=== PATIENT | female | born 1960 | race Caucasian/White ===

== ENCOUNTER 2020-07-02 10:25 | Outpatient (REF) | payer OTHER, SELFPAY ==
--- NOTE | 2020-07-02 10:33 | MM_ITS ---
EXAMINATION: MM DIAGNOSTIC DIGITAL BREAST TOMOSYNTHESIS, RIGHT CLINICAL INFORMATION: Recall from screening for question focal asymmetric density central 9:00 right breast mid to posterior depth not seen with certainty on prior outside imaging. COMPARISON: Mammography: 06/07/2020, outside mammography 12/12/2013 and 05/15/2011 ([facility], [place], [place]). TECHNIQUE: Digital breast tomosynthesis is performed. 2D images are generated from the tomosynthesis. The following views are obtained: Rolled CC x3, spot CC, spot MLO. FINDINGS: There are scattered areas of fibroglandular density (ACR BI-RADS breast composition Category b). The additional views show no persistent asymmetric density. There is no mass or architectural abnormality in the area of interest. Results are discussed with the patient at time of visit. IMPRESSION: Additional views show no persistent asymmetric density, mass, architectural abnormality. ASSESSMENT: BI-RADS 1: Negative RECOMMENDATION: Routine annual mammography screening. This patient's information was entered into a reminder system with a target due date for their next mammogram.
== END 2020-07-02 10:26 | disposition home or self-care (01) ==
LOC: HO.MAMMO 10:25
PROVIDERS: PCP Internal Medicine; Visit Provider Internal Medicine
DX: R92.2 Inconclusive mammogram (principal)
CPT/HCPCS: 77065

== ENCOUNTER 2020-08-30 11:36 | Outpatient (REF) | payer OTHER, SELFPAY ==
--- NOTE | 2020-08-30 | XR_ITS ---
EXAMINATION: XR CHEST CLINICAL INFORMATION: Persistent cough COMPARISON: None TECHNIQUE: 2 views of the chest were obtained. FINDINGS: The cardiac and mediastinal contours are normal. There are increased bilateral perihilar linear markings suggestive of scarring or subsegmental atelectasis. No evidence of a pneumonia is seen. There is no pleural effusion or pneumothorax. There are degenerative changes of the spine. XR/XR chest 2V IMPRESSION: Increased bilateral linear perihilar markings suggestive of scarring or subsegmental atelectasis. No evidence of pneumonia.
== END 2020-08-30 11:37 | disposition home or self-care (01) ==
LOC: HO.HMGCX 11:36
PROVIDERS: PCP Internal Medicine; Visit Provider Internal Medicine
DX: R05 Cough (principal)
CPT/HCPCS: 71046

== ENCOUNTER 2021-02-10 08:55 | Outpatient (REF) | payer OTHER, SELFPAY ==
--- NOTE | ~2021-02-10 | XR_ITS ---
EXAMINATION: XR CHEST CLINICAL INFORMATION: Cough. Lung scarring. COMPARISON: Previous chest x-ray August 2020 TECHNIQUE: 2 views of the chest were obtained. FINDINGS: The cardiac and mediastinal contours are stable. There is linear scarring or subsegmental atelectasis in the lower left lateral lung. This is similar to previous exam. The lungs are otherwise clear. There is no pleural effusion or pneumothorax. There are degenerative changes of the spine. XR/XR chest 2V IMPRESSION: Increased linear markings in the peripheral lateral lower left lung suggestive of scarring or chronic subsegmental atelectasis.
== END 2021-02-10 08:56 | disposition home or self-care (01) ==
LOC: HO.XRAY 08:55
PROVIDERS: PCP Internal Medicine; Visit Provider Internal Medicine
DX: R05 Cough (principal); J98.4 Other disorders of lung
CPT/HCPCS: 71046

== ENCOUNTER 2021-02-18 10:33 | Outpatient (REF) | payer OTHER, SELFPAY ==
[2021-02-18 10:36] LABS: MANUAL DIFF FLAG NO
[2021-02-18 10:51] LABS: Basophils Absolute Auto 0.1 X10*3/uL (0.0-0.2); Basophils Percent Auto 1.1 % (0-2); Eosinophils Absolute Auto 0.4 X10*3/uL (0.0-0.4); Eosinophils Percent Auto 8.8 % (0-4); Hematocrit 36.9 % (37-47); Hemoglobin 11.5 g/dl (12.0-16.0); Imm Gran Abs Auto 0.01 X10*3/uL (0.00-0.03); Imm Gran Pct Auto 0.2 % (0.0-0.4); Lymphocytes Absolute Auto 1.3 X10*3/uL (1.2-4.9); Lymphocytes Percent Auto 28.3 % (20-40); Mean Corpuscular HGB Conc 31.2 g/dl (31.0-35.0); Mean Corpuscular Hemoglobin 29.9 pg (27.0-33.0); Mean Corpuscular Volume 96.1 fL (80-98); Mean Platelet Volume 10.5 fL (9.4-12.3); Monocytes Absolute Auto 0.5 X10*3/uL (0.1-1.2); Monocytes Percent Auto 9.9 % (2-11); Neutrophils Absolute Auto 2.4 X10*3/uL (2.0-8.3); Neutrophils Percent Auto 51.7 % (45-73); Platelet Count 300 X10*3/uL (160-400); Red Blood Count 3.84 X10*6/uL (4.20-5.50); Red Cell Distribution Width 13.1 % (11.0-16.0); White Blood Count 4.6 X10*3/uL (4.8-10.8)
[2021-02-18 11:15] LABS: Glucose Urine UA NEG (NEG); Leukocyte Esterase Urine NEG (NEG); Nitrite Urine NEG (NEG); PH 5.5 (5.0-8.0); Specific Gravity - Urine 1.025 (1.005-1.025); Urine Blood TRACE (NEG); Urine Ketones NEG (NEG); Urine Protein NEG (NEG-TRACE)
[2021-02-18 11:20] LABS: Appearance Urine HAZY; Color Urine YELLOW
[2021-02-18 11:45] LABS: RBC Urine 0-2 /HPF (0); Squamous Epithelial Cell Urine 1+ /LPF; WBC Urine 0 /HPF (0-4)
[2021-02-18 11:46] LABS: Bacteria Urine 1+ /LPF
[2021-02-18 11:47] LABS: Alanine Aminotransferase 37 U/L (0-31); Albumin Level 4.1 g/dL (3.5-5.0); Alkaline Phosphatase 107 U/L (39-117); Anion Gap 12 (12-20); Aspartate Amino Transferase 26 U/L (5-31); Bilirubin Total 0.2 mg/dL (0.0-1.0); Blood Urea Nitrogen 14 mg/dL (9-16); Calcium 9.4 mg/dL (8.4-10.2); Carbon Dioxide 26 mmol/L (22-29); Chloride 108 mmol/L (96-108); Cholesterol 168 mg/dL; Estimated Glomerular Filt Rate > 60; Glucose Fasting 106 mg/dL (60-99); HDL Cholesterol 46 mg/dL; LDL Cholesterol Calculated 103 mg/dl; Potassium 4.2 mmol/L (3.3-5.1); Sodium 142 mmol/L (135-145); Triglycerides 99 mg/dL
[2021-02-18 12:25] LABS: Reflex LDLD? No
== END 2021-02-18 10:34 | disposition home or self-care (01) ==
LOC: HO.LNP 10:33
PROVIDERS: Visit Provider Internal Medicine
DX: Z00.00 Encounter for general adult medical examination without abnormal findings (principal); R74.8 Abnormal levels of other serum enzymes; R94.5 Abnormal results of liver function studies; E78.00 Pure hypercholesterolemia, unspecified
CPT/HCPCS: 80053; 80061; 81001; 81003; 85025

== ENCOUNTER 2021-06-10 10:22 | Outpatient (REF) | payer OTHER, SELFPAY | END 2021-06-10 10:23 | disposition home or self-care (01) | LOC: HO.LAB 10:22 | PROVIDERS: PCP Internal Medicine; Visit Provider Internal Medicine | DX: Z20.822 Contact with and (suspected) exposure to COVID-19 (principal) | CPT/HCPCS: C9803; U0003; U0005 ==

== ENCOUNTER 2021-07-12 09:07 | Outpatient (REF) | payer OTHER, SELFPAY ==
--- NOTE | ~2021-07-12 | MM_ITS ---
EXAMINATION: MM SCREENING DIGITAL BREAST TOMOSYNTHESIS, BILATERAL CLINICAL INFORMATION: Screening. Asymptomatic. The lifetime risk of breast cancer based on the Tyrer-Cuzick Model is 4%. COMPARISON: Mammography: 07/02/2020, 06/07/2020; outside mammography 12/12/2013 and 05/15/2011 ([place], [place]). TECHNIQUE: Digital breast tomosynthesis is performed in both the craniocaudal and mediolateral oblique views along with computer-aided detection (CAD). Synthesized 2D images are generated from the tomosynthesis. FINDINGS: There are scattered areas of fibroglandular density (ACR BI-RADS breast composition Category b). There is fine fibronodular parenchymal pattern similar to prior studies. No significant mass or architectural abnormality. No developing density or architectural abnormality. No abnormal calcifications. The axillary nodes are stable. The skin contours are smooth. MM/MM tomosynthesis screening BI IMPRESSION: No significant changes from prior exams. ASSESSMENT: BI-RADS 1: Negative RECOMMENDATION: Routine annual mammography screening. This patient's information was entered into a reminder system with a target due date for their next mammogram.
== END 2021-07-12 09:08 | disposition home or self-care (01) ==
LOC: HO.MAMMO 09:07
PROVIDERS: Visit Provider Internal Medicine
DX: Z12.31 Encounter for screening mammogram for malignant neoplasm of breast (principal)
CPT/HCPCS: 77063; 77067

== ENCOUNTER 2021-07-22 16:07 | Emergency (ER) | payer OTHER, SELFPAY ==
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
[2021-07-22 16:32] VITALS: BP 139/73; RESP 16; TEMP 36.7; O2SAT 100; BMI 35.9
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
== END 2021-07-22 18:23 | disposition home or self-care (01) ==
LOC: HO.ED 18:03
PROVIDERS: Emergency Provider Emergency Medicine; PCP Internal Medicine
DX: S63.91XA Sprain of unspecified part of right wrist and hand, initial encounter (principal); L03.113 Cellulitis of right upper limb; Y04.8XXA Assault by other bodily force, initial encounter; Y93.9 Activity, unspecified; Y92.219 Unspecified school as the place of occurrence of the external cause; Y99.0 Civilian activity done for income or pay; Z79.899 Other long term (current) drug therapy
CPT/HCPCS: 73130; 99283

== ENCOUNTER 2021-08-30 08:16 | Outpatient (REF) | payer OTHER, SELFPAY ==
[2021-08-30 09:30] LABS: Alanine Aminotransferase 25 U/L (0-31); Albumin Level 4.1 g/dL (3.5-5.0); Alkaline Phosphatase 103 U/L (39-117); Aspartate Amino Transferase 21 U/L (5-31); Bilirubin Direct 0.2 mg/dL (0.0-0.5); Bilirubin Total 0.3 mg/dL (0.0-1.0); Cholesterol 172 mg/dL; HDL Cholesterol 43 mg/dL; LDL Cholesterol Calculated 106 mg/dl; Triglycerides 117 mg/dL
[2021-08-30 11:11] LABS: Reflex LDLD? No
== END 2021-08-30 08:17 | disposition home or self-care (01) ==
LOC: HO.LAB 08:16
PROVIDERS: PCP Internal Medicine; Visit Provider Internal Medicine
DX: E78.00 Pure hypercholesterolemia, unspecified (principal)
CPT/HCPCS: 36415; 80061; 80076

== ENCOUNTER 2021-09-09 10:10 | Outpatient (REF) | payer OTHER, SELFPAY ==
--- NOTE | ~2021-09-09 | FL_ITS ---
EXAMINATION: XR FLUOROSCOPY UPPER GI WITH AIR CLINICAL INFORMATION: Reflux gastritis COMPARISON: None TECHNIQUE: Upper GI was performed using thin and thick barium and effervescent granules. FINDINGS: Esophageal motility is normal. There is significant gastroesophageal reflux. There is a small sliding-type hiatal hernia. The stomach and duodenum are normal. No fold thickening, mass, ulcer or stricture is seen. FLUOROSCOPY TIME: 0.7 minutes DOSE AREA PRODUCT: 5 marin per centimeter squared. Fluoroscopy time 0.7 minutes. 19 saved fluoroscopic images. FL/FL upper GI w air IMPRESSION: Significant gastroesophageal reflux and small sliding-type hiatal hernia.
== END 2021-09-09 10:11 | disposition home or self-care (01) ==
LOC: HO.XRAY 10:10
PROVIDERS: PCP Internal Medicine; Visit Provider Internal Medicine
DX: K21.9 Gastro-esophageal reflux disease without esophagitis (principal)
CPT/HCPCS: 74246

== ENCOUNTER 2021-09-15 14:39 | Inpatient (IN) | payer OTHER, SELFPAY ==
[2021-09-15] VITALS (10 sets, daily range): BP systolic 75–147; BP diastolic 41–85; PULSE 89–144; RESP 17–26; TEMP 36.6–36.7; O2SAT 97–98; BMI 35.2
--- NOTE | ~2021-09-15 | XR_ITS ---
EXAMINATION: XR CHEST CLINICAL INFORMATION: Question A. fib. COMPARISON: 02/10/2021 TECHNIQUE: Frontal view of the chest was obtained. FINDINGS: Cardiomediastinal silhouette is stable. Some linear scarring/atelectasis without consolidation, pleural effusion or pneumothorax. XR/XR chest 1V IMPRESSION: No acute process.
--- NOTE | 2021-09-15 14:57 | ECG_ITS ---
Test Reason : afib Blood Pressure : / mmHG Vent. Rate : 151 BPM Atrial Rate : 000 BPM P-R Int : 000 ms QRS Dur : 062 ms QT Int : 270 ms P-R-T Axes : 000 -04 -01 degrees QTc Int : 427 ms Atrial fibrillation with RVR Abnormal ECG No previous ECGs available Referred By: Generic ED Physician Electronically Signed By:Sudeep Carnes
[2021-09-15 16:20] LABS: MANUAL DIFF FLAG NO
[2021-09-15 16:22] LABS: Basophils Absolute Auto 0.1 X10*3/uL (0.0-0.2); Basophils Percent Auto 0.7 % (0-2); Eosinophils Absolute Auto 0.3 X10*3/uL (0.0-0.4); Eosinophils Percent Auto 3.6 % (0-4); Hematocrit 40.3 % (37.0-47.0); Imm Gran Abs Auto 0.02 X10*3/uL (0.00-0.03); Imm Gran Pct Auto 0.3 % (0.0-0.4); Lymphocytes Absolute Auto 2.3 X10*3/uL (1.2-4.9); Lymphocytes Percent Auto 32.8 % (20-40); Mean Corpuscular HGB Conc 32.3 g/dl (31.0-35.0); Mean Corpuscular Hemoglobin 30.4 pg (27.0-33.0); Mean Corpuscular Volume 94.2 fL (80.0-98.0); Mean Platelet Volume 10.2 fL (9.4-12.3); Monocytes Absolute Auto 0.6 X10*3/uL (0.1-1.2); Monocytes Percent Auto 8.7 % (2-11); Neutrophils Absolute Auto 3.9 x10*3/uL (2.0-8.3); Neutrophils Percent Auto 53.9 % (45-73); Platelet Count 297 X10*3/uL (160-400); Red Blood Count 4.28 X10*6/uL (4.20-5.50); White Blood Count 7.1 X10*3/uL (4.8-10.8)
[2021-09-15 16:39] LABS: Anion Gap 11 (12-20); Blood Urea Nitrogen 13 mg/dL (9-16); Carbon Dioxide 28 mmol/L (22-29); Chloride 110 mmol/L (96-108); Estimated Glomerular Filt Rate > 60; Glucose Random 103 mg/dL (60-115); Potassium 4.3 mmol/L (3.3-5.1); Sodium 145 mmol/L (135-145)
[2021-09-15 16:40] LABS: Troponin-I High Sensitivity 4.5 ng/L (<3.5-17.0)
--- NOTE | 2021-09-15 16:48 | ED.GENADULT ---
HPI - General Adult General Chief complaint: General Medical Stated complaint: Afib Time Seen by Provider: 09/15/21 16:35 Related Data Previous Rx's Medication Instructions Recorded acetaminophen 500 mg tablet 1,000 mg PO QID PRN #14 tab 07/22/21 (Tylenol Extra Strength) cephalexin 500 mg capsule 500 mg PO Q6H 10 Days #40 cap 07/22/21 doxycycline monohydrate 100 mg 100 mg PO BID 10 Days #20 cap 07/22/21 capsule Allergies Allergy/AdvReac Type Severity Reaction Status Date / Time No Known Allergies Allergy Unverified 06/06/20 19:40 [No Known Allergies*] COUNT INCLUDES THE [facility] Past Medical History Medical History (Updated 09/15/21 @ 20:00 by Brenda Vaz MD) High cholesterol Social History Social History Advance Directives: No Advance Directives Information Provided: Yes Patient : No Physical Exam Vital Signs: Vital Signs: Last Vital Signs Temp 98 F 09/15/21 16:36 Pulse 120 H 09/15/21 18:39 Resp 19 09/15/21 18:39 BP 111/81 09/15/21 18:39 Pulse Ox 98 09/15/21 18:39 BMI result Body Mass Index 35.2 Course Course Course Narrative: Patient received 1 dose 10 mg IV Cardizem, initially heart rate dropped 110 but shortly after increased to 130. Patient received a 2nd dose of 10 mg IV Cardizem. Patient got up to the bathroom and since then her heart rate has remained between 130 and 140, blood pressure 111/81. Patient was started on a Cardizem drip. I discussed with the patient risks versus benefits of starting anticoagulation. Patient is willing to start anticoagulation, we will go ahead and start her on EliSol [employer] Medical Decision Making Lab Data Result diagrams: 09/15/21 16:15 09/15/21 16:53 Labs: Lab Results 09/15/21 09/15/21 09/15/21 Range/Units 16:15 16:15 16:15 WBC 7.1 (4.8-10.8) X10*3/uL RBC 4.28 (4.20-5.50) X10*6/uL Hgb 13.0 (12.0-16.0) g/dl Hct 40.3 (37.0-47.0) % MCV 94.2 (80.0-98.0) fL MCH 30.4 (27.0-33.0) pg MCHC 32.3 (31.0-35.0) g/dl RDW 13.0 (11.0-16.0) % Plt Count 297 (160-400) X10*3/uL MPV 10.2 (9.4-12.3) fL Immature Gran % (Auto) 0.3 (0.0-0.4) % Neut % (Auto) 53.9 (45-73) % Lymph % (Auto) 32.8 (20-40) % [place] % (Auto) 8.7 (2-11) % Eos % (Auto) 3.6 (0-4) % Baso % (Auto) 0.7 (0-2) % Lymph # (Auto) 2.3 (1.2-4.9) X10*3/uL [place] # (Auto) 0.6 (0.1-1.2) X10*3/uL Eos # (Auto) 0.3 (0.0-0.4) X10*3/uL Baso # (Auto) 0.1 (0.0-0.2) X10*3/uL Abs Immat Gran (auto) 0.02 (0.00-0.03) X10*3/uL Absolute Neuts (auto) 3.9 (2.0-8.3) x10*3/uL Absolute Nucleated RBC 0.000 (0.0-0.012) X10*3/uL Nucleated RBC % (auto) 0.0 (0.0-0.2) /100WBC PT (9.9-13.0) SEC INR (0.9-1.1) Sodium 145 (135-145) mmol/L Potassium 4.3 (3.3-5.1) mmol/L Chloride 110 H (96-108) mmol/L Carbon Dioxide 28 (22-29) mmol/L Anion Gap 11 L (12-20) BUN 13 (9-16) mg/dL Creatinine 0.74 (0.5-1.4) mg/dL Estim Creat Clear Calc TNP Estimated GFR > 60 Random Glucose 103 (60-115) mg/dL Calcium 10.0 D (8.4-10.2) mg/dL Troponin I High Sens 4.5 (<3.5-17.0) ng/L B-Natriuretic Peptide (<100) pg/mL 09/15/21 09/15/21 09/15/21 Range/Units 16:53 16:53 16:53 WBC (4.8-10.8) X10*3/uL RBC (4.20-5.50) X10*6/uL Hgb (12.0-16.0) g/dl Hct (37.0-47.0) % MCV (80.0-98.0) fL MCH (27.0-33.0) pg MCHC (31.0-35.0) g/dl RDW (11.0-16.0) % Plt Count (160-400) X10*3/uL MPV (9.4-12.3) fL Immature Gran % (Auto) (0.0-0.4) % Neut % (Auto) (45-73) % Lymph % (Auto) (20-40) % Angelina % (Auto) (2-11) % Eos % (Auto) (0-4) % Baso % (Auto) (0-2) % Lymph # (Auto) (1.2-4.9) X10*3/uL [place] # (Auto) (0.1-1.2) X10*3/uL Eos # (Auto) (0.0-0.4) X10*3/uL Baso # (Auto) (0.0-0.2) X10*3/uL Abs Immat Gran (auto) (0.00-0.03) X10*3/uL Absolute Neuts (auto) (2.0-8.3) x10*3/uL Absolute Nucleated RBC (0.0-0.012) X10*3/uL Nucleated RBC % (auto) (0.0-0.2) /100WBC PT 11.4 (9.9-13.0) SEC INR 1.0 (0.9-1.1) Sodium 144 (135-145) mmol/L Potassium 4.3 (3.3-5.1) mmol/L Chloride 110 H (96-108) mmol/L Carbon Dioxide 25 (22-29) mmol/L Anion Gap 13 (12-20) BUN 13 (9-16) mg/dL Creatinine 0.73 (0.5-1.4) mg/dL Estim Creat Clear Calc 76.6 Estimated GFR > 60 Random Glucose 105 (60-115) mg/dL Calcium 10.3 H (8.4-10.2) mg/dL Troponin I High Sens (<3.5-17.0) ng/L B-Natriuretic Peptide 143 H (<100) pg/mL Imaging Data Chest x-ray: Radiologist's impression: Frontal view of the chest was obtained. FINDINGS: Cardiomediastinal silhouette is stable. Some linear scarring/atelectasis without consolidation, pleural effusion or pneumothorax. XR/XR chest 1V IMPRESSION: No acute process. ECG Data Attestation: I personally reviewed and interpreted this ECG as follows: (Atrial fibrillation, heart rate 151, no ST segment depression or elevation, not to inversion, QTC 427) Critical Care Time Critical Care Time Critical Care Time: Yes Total Critical Care Time: 50 Attestation: 50 minutes were spent in direct patient care, stabilization. Discharge Plan Discharge Clinical Impression: New onset atrial fibrillation Patient Disposition: Admitted As Inpatient Prescriptions: No Action acetaminophen [Tylenol Extra Strength] 500 mg tablet 1,000 mg PO QID PRN (Reason: fever or pain) Qty: 14 RF: 0 doxycycline monohydrate 100 mg capsule 100 mg PO BID 10 Days Qty: 20 RF: 0 cephalexin 500 mg capsule 500 mg PO Q6H 10 Days Qty: 40 RF: 0
[2021-09-15] MEDS: 0.9 % Sodium Chloride 1,000 ML 999 ML IVCONT (16:55)
[2021-09-15] MEDS: dilTIAZem HCL 50 MG/10 ML VIAL 10 MG IVPUSH ×2 (16:57→18:20)
[2021-09-15 17:17] LABS: Prothrombin Time 11.4 SEC (9.9-13.0)
[2021-09-15 17:26] LABS: Anion Gap 13 (12-20); Blood Urea Nitrogen 13 mg/dL (9-16); Calcium 10.3 mg/dL (8.4-10.2); Carbon Dioxide 25 mmol/L (22-29); Chloride 110 mmol/L (96-108); Creatinine Clr Calc Pharmacy 76.6; Estimated Glomerular Filt Rate > 60; Glucose Random 105 mg/dL (60-115); Potassium 4.3 mmol/L (3.3-5.1); Sodium 144 mmol/L (135-145)
[2021-09-15 17:32] LABS: B Type Natriuretic Peptide 143 pg/mL (<100)
--- NOTE | 2021-09-15 18:22 | PC.NURSE ---
medicated w 2nd cardizem dose, alert, nad, no cp, mild sob/medina w walk to bathroom, afib on monitor
[2021-09-15] MEDS: dilTIAZem HCL 125 MG in 0.9 % Sodium Chloride 100 ML 10 MG IVCONT (20:29)
[2021-09-15] MEDS: Apixaban 5 MG TABLET PO (20:30)
--- NOTE | 2021-09-15 22:36 | PM.IMHP ---
History of Present Illness Date of Service: 09/15/21 Chief Complaint: A fib 61-year-old female with no significant past medical history except hyperlipidemia who presents to the hospital with complaints of AFib. Patient reports that she has been feeling tired, short of breath, and a lot of fatigue over the past 1 year, she went to her PCP today, he did an EKG at the [facility] is and found her to have AFib and therefore sent her to the hospital. Patient reports that ever since having hip replacement she has been gaining weight and therefore she attributed her shortness of breath to her weight gain and inactivity, but denies any chest pain, she has been having palpitations for the past few months, she denies any leg swelling but has orthopnea and PND have also developed over past 1 year. She denies any headache, no change in vision, no cough, no sputum production, no abdominal pain nausea or vomiting, no diarrhea constipation: on arrival to the ED patient found to have heart rate in the 130s to 150s, with stable blood pressure. labs reviewed showed no significant abnormality, BNP of 143, troponin normal. Chest x-ray shows no acute process patient started on diltiazem drip for AFib with RVR and will be admitted for further management Review of Systems Review of Systems: Yes all other systems are reviewed and are negative [facility] Medical History High cholesterol Family History Mother Heart disease Social History Patient Tobacco Use Status: Never used Tobacco Use of substances other than those prescribed or required for medical reasons: No Advance Directives: No Advance Directives Information Provided: Yes Patient : No Meds Allergies Allergy/AdvReac Type Severity Reaction Status Date / Time No Known Allergies Allergy Unverified 06/06/20 19:40 [No Known Allergies*] Active Medications: Current Medications Diltiazem HCl 125 mg/ Sodium (Chloride) 125 mls @ 0 mls/hr IVCONT .Q0M [facility]; Protocol Last Admin: 09/15/21 20:29 Dose: 10 mg/hr, 10 mls/hr Documented by: Metoprolol Tartrate (Metoprolol Tartrate 12.5 Mg Halftab) 12.5 mg PO BID LYDIA; Protocol Pharmacy Consult (Consult Rx Perform Med Rec) 1 each MISCELLANE ONCE PRN PRN Reason: Consult order Home Medications Medication Instructions Recorded Confirmed Last Taken Type atorvastatin 20 mg tablet 20 mg PO DAILY 09/15/21 09/15/21 09/15/21 History multivitamin 1 tab PO DAILY 09/15/21 09/15/21 09/15/21 History Physical Exam Vital Signs and Narrative: Vital Signs: Last Vital Signs Temp 98.1 F 09/15/21 21:28 Pulse 131 H 09/15/21 21:28 Resp 18 09/15/21 21:28 BP 109/71 09/15/21 21:28 Pulse Ox 98 09/15/21 21:28 BMI result Body Mass Index 35.2 Const: General: cooperative and no acute distress Orientation/consciousness: patient oriented x3 Eyes: General: appearance normal, both eyes and all related structures Resp: Effort & Inspection: normal respiratory effort Auscultation: clear to auscultation bilaterally Cardio: Other: irregular heart rate Rhythm: regular rhythm GI: Palpation (GI): Soft to palpation Auscultation: normal bowel sounds Skin: General skin exam: no rashes or lesions noted Neuro: General: patient oriented x3 Extrem: General: Yes normal to inspection and Yes no pedal edema Results Labs CBC and Chem 7: 09/15/21 16:15 09/15/21 16:53 Labs: Laboratory Results - last 24 hr 09/15/21 09/15/21 09/15/21 16:15 16:15 16:15 MCV 94.2 MCH 30.4 MCHC 32.3 RDW 13.0 Plt Count 297 MPV 10.2 Immature Gran % (Auto) 0.3 Neut % (Auto) 53.9 Lymph % (Auto) 32.8 [place] % (Auto) 8.7 Eos % (Auto) 3.6 Baso % (Auto) 0.7 Lymph # (Auto) 2.3 [place] # (Auto) 0.6 Eos # (Auto) 0.3 Baso # (Auto) 0.1 Abs Immat Gran (auto) 0.02 Absolute Neuts (auto) 3.9 Absolute Nucleated RBC 0.000 Nucleated RBC % (auto) 0.0 PT INR Anion Gap 11 L Estim Creat Clear Calc TNP Estimated GFR > 60 Random Glucose 103 Calcium 10.0 D Troponin I High Sens 4.5 B-Natriuretic Peptide 09/15/21 09/15/21 09/15/21 16:53 16:53 16:53 MCV MCH MCHC RDW Plt Count MPV Immature Gran % (Auto) Neut % (Auto) Lymph % (Auto) [place] % (Auto) Eos % (Auto) Baso % (Auto) Lymph # (Auto) [place] # (Auto) Eos # (Auto) Baso # (Auto) Abs Immat Gran (auto) Absolute Neuts (auto) Absolute Nucleated RBC Nucleated RBC % (auto) PT 11.4 INR 1.0 Anion Gap 13 Estim Creat Clear Calc 76.6 Estimated GFR > 60 Random Glucose 105 Calcium 10.3 H Troponin I High Sens B-Natriuretic Peptide 143 H Imaging Radiologist's Impressions: Impressions Chest X-Ray 09/15/21 15:04 IMPRESSION: No acute process. Assessment and Plan (1) New onset atrial fibrillation: Status: Acute (2) Atrial fibrillation with RVR: Status: Acute 61-year-old female with past medical history of hyperlipidemia presents the hospital found to have new onset AFib, found to be in AFib with RVR # new onset AFib - ChadVasc score of 1 for sex - started on diltiazem drip and received 12.5 mg of Lopressor p.o. but developed significant hypotension, received 1 L of fluid in the ED with blood pressure stabilizing - will obtain echocardiogram - cardiology consult - will hold off starting anticoagulation at this time although patient received 1 dose of Eliquis in the ED # Hyperlipidemia - continue statin DVT prophylaxis: [employer] Quality Stroke Does the patient have a stroke diagnosis?: No VTE Prior VTE?: No VTE Risk Level:: Medical - moderate - high VTE Device Contraindication: Treatment Not Indicated VTE Drug Contraindication: N/A - Med Ordered
[2021-09-15] MEDS: Metoprolol Tartrate 12.5 MG HALFTAB PO (22:47)
--- NOTE | 2021-09-15 23:40 | PC.NURSE ---
Drip adjust to 15. pt is tolerating well. Will continue to monitor
[2021-09-16] VITALS (17 sets, daily range): BP systolic 78–110; BP diastolic 43–76; PULSE 81–136; RESP 15–26; TEMP 36.5; O2SAT 95–99
--- NOTE | 2021-09-16 02:43 | PC.NURSE ---
Notified Dr Gya, in regards to low bp, fluids given. pt monitor and had improved but then started to trend down. Second call to Dr. Gay she was aware and will medicate soon.
[2021-09-16 02:49] LABS: Appearance Urine CLEAR; Color Urine YELLOW; Glucose Urine UA NEG (NEG); Leukocyte Esterase Urine NEG (NEG); Nitrite Urine NEG (NEG); Specific Gravity - Urine >= 1.030 (1.005-1.025); Urine Blood NEG (NEG); Urine Ketones NEG (NEG); Urine Protein NEG (NEG-TRACE)
--- NOTE | 2021-09-16 02:51 | PC.NURSE ---
pt heart rate is control and drip is not longer running.
[2021-09-16] MEDS: Midodrine HCl 5 MG TABLET PO (02:56)
--- NOTE | 2021-09-16 02:58 | PC.NURSE ---
Provider aware of bp.
--- NOTE | 2021-09-16 04:08 | PC.NURSE ---
report called over to overflow. pt reports feeling much better.
--- NOTE | 2021-09-16 07:31 | CA_ITS ---
Transthoracic Echocardiogram Patient (Last, First, Middle): Lorena Villarreal, Gender: Female Date of : 1960 Age: 61 Procedure Date: 09/16/2021 Procedure Type: Transthoracic Echocardiogram Location: ER Height: 154.94 cm Weight: 81.65 kg BSA: 1.81 m2 Heart Rate: bpm BP: 97 / 61 mmHg Sight Mounter: Referring MD: Bhumika Cai MD Symptoms: new onset A fib Study Quality: Fair ECG Rhythm: Atrial Fibrillation Conclusions: - Normal left ventricular size and systolic function. There is mildly increased left ventricular wall thickness. The visually estimated ejection fraction is between 55-60%. - Normal right ventricular cavity size and systolic function. - Normal aortic valve structure and function. There is no aortic valve stenosis. There is no aortic valve regurgitation. Findings Left Ventricle Normal left ventricular size and systolic function. There is mildly increased left ventricular wall thickness. The visually estimated ejection fraction is between 55-60%. There is no evidence of regional wall motion abnormalities. Diastolic function is indeterminate on the basis of available data. Right Ventricle Normal right ventricular cavity size and systolic function. Atria The left atrium is mildly dilated. Aortic Valve Normal aortic valve structure and function. There is no aortic valve stenosis. There is no aortic valve regurgitation. Mitral Valve Normal mitral valve structure and function. There is no mitral valve regurgitation. There is no mitral valve stenosis. Pulmonic Valve The pulmonic valve is likely normal. Tricuspid Valve Normal tricuspid valve structure. There is trace tricuspid valve regurgitation. Moderately elevated right atrial pressure. There is no evidence of pulmonary hypertension. Great Vessels All visible segments of the aorta are normal in size. The pulmonary artery was not well visualized. Venous The inferior vena cava is dilated and collapses less than 50% with inspiration. Pericardium/Pleural There is no evidence of pericardial effusion. Prior Study Comparison No prior study available for comparison. Measurements 2D Linear Measurements IVSd: 1.18 0.6-0.9/0.6-1.0 cm LVIDd: 3.66 3.9-5.3/4.2-5.9 cm LVIDd Index: 2.02 2.4-3.2/2.2-3.1 cm/m2 LVIDs: 3.10 2.0-3.6 cm LVPWd: 1.17 0.7-1.1 cm Ao Root: 2.80 2.1-3.5 cm LA Diam: 3.30 2.7-3.8/3.0-4.0 cm LAIDs Index: 1.82 1.5-2.3 cm/m2 LV Mass: 174.78 67-162/88-224 g LV Mass Index: 96.56 43-95/49-115 g/m2 LVOT Diam: 1.90 3.0+(-)1.3 cm 2D Systolic Function EF 4C: 55.30 >55% EF 2C: 51.40 >55% EF BiP: 56.60 >55% Mitral Valve MV Pk E: 1.26 MV Decel Time: 128.00 E'Lateral: 13.30 E'Medial: 10.60 E/E' Med: 11.90 E/E' Lat: 9.50 PHT: 37.00 MVA PHT: 5.95 Decel [place]: 9.90 Aortic Valve AoV Pk Ruben: 1.18 AoV Mn Ruben: 0.73 AoV VTI: 0.21 AoV Pk Grad: 6.00 Aov Mn Grad: 3.00 BINDU Cont.VTI: 2.24 LVOT LVOT Pk Ruben: 0.83 LVOT Mn Ruben: 0.56 LVOT VTI: 0.17 LVOT Pk Grad: 3.00 LVOT Mn Grad: 1.00 LVOT Diam: 1.90 LVOT Area: 2.84 Diastolic Function MV Pk E: 1.26 E'Medial: 10.60 E/E' Med: 11.90 E' Laterial: 13.30 E/E' Lat: 9.50 Right Ventricle TAPSE (mm): 16.00 TVS' Ruben: 9.00 Tricuspid Valve TR Pk Ruben: 2.25 TR Pk Grad: 20.00 RVSP: 28.00 Great Vessels Aorta Ao Root-2D: 2.80 2.0-3.7 cm Ao Asc: 2.90 2.1-3.4 cm Pulmonary Valve PV Pk Ruben: 1.02 Peak PV Grad: 4.00 Updated in Other Vendor System with Status of Final Sudeep Carnes MD electronically signed on 09/16/2021 11:17:33 AM with status of Final
[2021-09-16] MEDS: 0.9 % Sodium Chloride Flush 3 ML SYRINGE IVFLUSH ×3 (08:13→17:46)
[2021-09-16] MEDS: Enoxaparin Sodium 40 MG/0.4 ML SYRINGE SUBCUT (08:13)
[2021-09-16] MEDS: Metoprolol Tartrate 12.5 MG HALFTAB PO (08:14)
--- NOTE | 2021-09-16 08:33 | PC.NURSE ---
Pt A&Ox3, no complaints of pain at this time, ambulated to the BR independently, denies any dizziness at this time, but states she sat at the edge of the bed before standing. Slight SOB upon return to room after BR. A fib on the monitor with HR between 110's-130's. BP as documented, pt states her normal BP is usually 110's/60's. Medicated as per MAR orders, awaiting ECHO of heart and cardiology consult at this time. , Gamaliel updated w/POC. Call riley within reach, will continue to monitor.
[2021-09-16] MEDS: dilTIAZem HCL 125 MG in 0.9 % Sodium Chloride 100 ML IVCONT (09:52)
--- NOTE | 2021-09-16 10:00 | PC.NURSE ---
Cardizem drip restarted as per Dr. Sousa orders, started at 5/hr, BP 110/76 HR between 100's-130's at this time. Call riley within reach will continue to monitor.
[2021-09-16 10:14] LABS: COVID-19 Test Negative (Negative); IDNOW Serial# 9DD0AD1C
--- NOTE | 2021-09-16 10:55 | MHC.CM.PN ---
Met with patient in regards to discharge planning. Patient lives with her , ambulates independently and had no services prior to coming to the hospital. No services anticipated to be needed because patient is not homebound. PCP verified. Patient received 3 Pfizer vaccines. Patient's has a copy of her HCP and will attempt to obtain a copy. [facility] explained and signed. Patient's will transport her home when medically stable. Continue to monitor for d/c needs.
--- NOTE | 2021-09-16 11:56 | P.CONCA_ITS ---
History of Present Illness History of Present Illness Date of Service: 09/16/21 Requesting physician: Yon Sousa Chief complaint: new onset a fib Narrative: Pleasant 61-year-old female who is presenting with new onset atrial fibrillation. She went to her primary care physician for routine follow-up and was found to be in AFib and was sent to the emergency department. She is saying she has been short of breath for approximately 1 year. She had hip replacement and her shortness of breath pre dates the surgery. She does not have any chest pains or other concerning symptoms. Off and on she has felt some palpitations. She is saying she has been feeling them for few months. She runs low blood pressures at baseline. Denying any other issues at this point. [facility]MERLY [facility] Past Medical History Medical History High cholesterol Family History Family History Mother Heart disease Social History Social History Patient Tobacco Use Status: Never used Tobacco Use of substances other than those prescribed or required for medical reasons: No Advance Directives: No Advance Directives Information Provided: Yes Patient : No service: No Current occupational status: employed Meds Allergies Allergy/AdvReac Type Severity Reaction Status Date / Time No Known Allergies Allergy Unverified 06/06/20 19:40 [No Known Allergies*] Active Medications: Current Medications Acetaminophen (Acetaminophen 325 Mg Tablet) 650 mg PO Q6H PRN PRN Reason: Pain, Mild (Pain Scale 1-3) Docusate Sodium (Docusate Sodium 100 Mg Capsule) 100 mg PO DAILY PRN PRN Reason: Constipation Enoxaparin Sodium (Enoxaparin Sodium 40 Mg/0.4 Ml Syringe) 40 mg SUBCUT Q24H [facility], 1928[facility]1983 Last Admin: 09/16/21 08:13 Dose: 40 mg Documented by: Diltiazem HCl 125 mg/ Sodium (Chloride) 125 mls @ 0 mls/hr IVCONT .Q0M [facility], [facility]; Protocol Last Admin: 09/16/21 09:52 Dose: 5 mg/hr, 5 mls/hr Documented by: Metoprolol Tartrate (Metoprolol Tartrate 12.5 Mg Halftab) 12.5 mg PO BID [facility], [facility]; Protocol Last Admin: 09/16/21 08:14 Dose: 12.5 mg Documented by: Ondansetron HCl (Ondansetron Hcl 4 Mg/2 Ml Vial) 4 mg IVPUSH Q8H PRN PRN Reason: Nausea and Vomiting Pharmacy Consult (Consult Rx Perform Med Rec) 1 each MISCELLANE ONCE PRN PRN Reason: Consult order Sodium Chloride (0.9 % Sodium Chloride Flush 3 Ml Syringe) 3 ml IVFLUSH QSHIFT [facility] Last Admin: 09/16/21 08:23 Dose: 3 ml Documented by: Home Medications Medication Instructions Recorded Confirmed Last Taken Type atorvastatin 20 mg tablet 20 mg PO DAILY 09/15/21 09/15/21 09/15/21 History multivitamin 1 tab PO DAILY 09/15/21 09/15/21 09/15/21 History Physical Exam Vital Signs: Vital Signs: Last Vital Signs Temp 97.7 F 09/16/21 06:00 Pulse 113 H 09/16/21 10:23 Resp 22 H 09/16/21 10:23 BP 100/64 09/16/21 10:23 Pulse Ox 95 09/16/21 10:23 BMI result Body Mass Index 35.2 GENERAL APPEARANCE: in no acute distress, pleasant. NECK: no carotid bruit, no jugular venous distention. SKIN: no suspicious lesions, warm and dry. HEART: no murmurs, irregular rate and rhythm. LUNGS: clear to auscultation bilaterally. ABDOMEN: soft, nontender. EXTREMITIES: no edema. PERIPHERAL PULSES: equal. NEUROLOGIC: No gross deficits, AAO X 3 Objective Labs and Meds Result diagrams: 09/15/21 16:15 09/15/21 16:53 Lab results: Laboratory Results - last 24 hr 09/15/21 09/15/21 09/15/21 16:15 16:15 16:15 WBC 7.1 RBC 4.28 Hgb 13.0 Hct 40.3 MCV 94.2 MCH 30.4 MCHC 32.3 RDW 13.0 Plt Count 297 MPV 10.2 Immature Gran % (Auto) 0.3 Neut % (Auto) 53.9 Lymph % (Auto) 32.8 [place] % (Auto) 8.7 Eos % (Auto) 3.6 Baso % (Auto) 0.7 Lymph # (Auto) 2.3 [place] # (Auto) 0.6 Eos # (Auto) 0.3 Baso # (Auto) 0.1 Abs Immat Gran (auto) 0.02 Absolute Neuts (auto) 3.9 Absolute Nucleated RBC 0.000 Nucleated RBC % (auto) 0.0 PT INR Sodium 145 Potassium 4.3 Chloride 110 H Carbon Dioxide 28 Anion Gap 11 L BUN 13 Creatinine 0.74 Estim Creat Clear Calc TNP Estimated GFR > 60 Random Glucose 103 Calcium 10.0 D Troponin I High Sens 4.5 B-Natriuretic Peptide Urine Color Urine Appearance Urine pH Ur Specific [place] Urine Protein Urine Glucose (UA) Urine Ketones Urine Blood Urine Nitrite Ur Leukocyte Esterase COVID-19 ([facility]) COVIDDatical 09/15/21 09/15/21 09/15/21 16:53 16:53 16:53 WBC RBC Hgb Hct MCV MCH MCHC RDW Plt Count MPV Immature Gran % (Auto) Neut % (Auto) Lymph % (Auto) [place] % (Auto) Eos % (Auto) Baso % (Auto) Lymph # (Auto) [place] # (Auto) Eos # (Auto) Baso # (Auto) Abs Immat Gran (auto) Absolute Neuts (auto) Absolute Nucleated RBC Nucleated RBC % (auto) PT 11.4 INR 1.0 Sodium 144 Potassium 4.3 Chloride 110 H Carbon Dioxide 25 Anion Gap 13 BUN 13 Creatinine 0.73 Estim Creat Clear Calc 76.6 Estimated GFR > 60 Random Glucose 105 Calcium 10.3 H Troponin I High Sens B-Natriuretic Peptide 143 H Urine Color Urine Appearance Urine pH Ur Specific [place] Urine Protein Urine Glucose (UA) Urine Ketones Urine Blood Urine Nitrite Ur Leukocyte Esterase COVID-19 ([facility]) COVID-[place] 09/16/21 09/16/21 02:38 09:54 WBC RBC Hgb Hct MCV MCH MCHC RDW Plt Count MPV Immature Gran % (Auto) Neut % (Auto) Lymph % (Auto) [place] % (Auto) Eos % (Auto) Baso % (Auto) Lymph # (Auto) [place] # (Auto) Eos # (Auto) Baso # (Auto) Abs Immat Gran (auto) Absolute Neuts (auto) Absolute Nucleated RBC Nucleated RBC % (auto) PT INR Sodium Potassium Chloride Carbon Dioxide Anion Gap BUN Creatinine Estim Creat Clear Calc Estimated GFR Random Glucose Calcium Troponin I High Sens B-Natriuretic Peptide Urine Color YELLOW Urine Appearance CLEAR Urine pH 6.0 Ur Specific [place] >= 1.030 H Urine Protein NEG Urine Glucose (UA) NEG Urine Ketones NEG Urine Blood NEG Urine Nitrite NEG Ur Leukocyte Esterase NEG COVID-19 ([facility]) Negative COVID-19 Clin Com See Note Imaging Radiologist's impression: Impressions Chest X-Ray 09/15/21 15:04 IMPRESSION: No acute process. Assessment and Plan (1) Atrial fibrillation with RVR: Status: Acute Pleasant 61-year-old female who is here for new onset atrial fibrillation. She has been experiencing palpitations for long time and routine knees are primary care physician where EKG has shown concern for atrial fibrillation. She is on low-dose Cardizem but her blood pressure is low. Echocardiography has not shown cardiomyopathy and she has normal biventricular function. If she is not tolerating Cardizem then I think she can be loaded with digoxin 250 mcg x2. I would try low-dose beta-bruno with digoxin. Please start her on Eliquis 5 mg twice a day. Keep her NPO after midnight. We will do CORETTA cardioversion on her tomorrow. She has shortness of breath ongoing for long time and is difficult to say that it is linked with atrial fibrillation or not. In any case we will see post cardioversion if her breathing improves. This can be related to deconditioning after hip surgery too. Thank you for allowing me to participate in the care of your patient. Please feel free to contact me if you have any questions. Procedures Date of Service Date of Service: 09/16/21
--- NOTE | 2021-09-16 12:09 | PC.NURSE ---
Md Sousa made aware of pt's current BP 78/57 with HR 104 while on cardizem drip at 5ml/hr. Drip stopped at this time and order received from that pt will continue eliquis, start digoxin and will be receiving a cardioversion. RN will continue to monitor.
[2021-09-16] MEDS: Apixaban 5 MG TABLET PO ×2 (13:23→21:16)
[2021-09-16] MEDS: Digoxin 0.5 MG/2 ML AMPUL IVPUSH (13:23)
--- NOTE | 2021-09-16 13:28 | PC.NURSE ---
1100 AM: Pt received: Pt AOX4 and offers no complaints at this time. Controlled AFib noted on monitor with current cardizem drip running at 5ml/hr. Lungs sounds clear. Abd round and non-tender.
--- NOTE | 2021-09-16 16:54 | HO.PM.IMPN ---
Subjective Subjective Date of Service: 09/16/21 Interval History: No acute events overnight. Monitor remains AFib with rapid ventricular response. Short of breath with minimal exertion Review of Systems Denies chest pain Denies nausea vomiting diarrhea. Denies abdominal pain Physical Exam Vital Signs: Vital Signs: Last Vital Signs Temp 97.7 F 09/16/21 06:00 Pulse 97 09/16/21 14:04 Resp 20 09/16/21 14:04 BP 104/70 09/16/21 14:04 Pulse Ox 98 09/16/21 14:04 BMI result Body Mass Index 35.2 Const: Other: No acute distress Resp: Other: Clear to auscultation bilaterally no rales rhonchi wheezes Cardio: Other: Irregularly irregular; no S4; positive S1-S2; no S3 murmurs rubs gallops GI: Other: Soft nondistended with normoactive bowel sounds. No rebound or guarding Neuro: Other: Cranial nerves 2-12 grossly intact as tested. Motor is 5/5 all extremities. Sensation is intact. Cognition is appropriate Extrem: Other: No edema bilaterally Objective Data Active Medications Acetaminophen (Acetaminophen 325 Mg Tablet) 650 mg PO Q6H PRN PRN Reason: Pain, Mild (Pain Scale 1-3) Apixaban (Apixaban 5 Mg Tablet) 5 mg PO BID [facility] Last Admin: 09/16/21 13:23 Dose: 5 mg Documented by: RAUL Digoxin (Digoxin 0.5 Mg/2 Ml Ampul) 0.25 mg IVPUSH ONCE ONE Stop: 09/16/21 18:03 Digoxin (Digoxin 0.5 Mg/2 Ml Ampul) 0.25 mg IVPUSH ONCE ONE Stop: 09/17/21 00:05 Docusate Sodium (Docusate Sodium 100 Mg Capsule) 100 mg PO DAILY PRN PRN Reason: Constipation Diltiazem HCl 125 mg/ Sodium (Chloride) 125 mls @ 0 mls/hr IVCONT .Q0M [facility]; Protocol Last Titration: 09/16/21 12:10 Dose: 0 mg/hr, 0 mls/hr Documented by: RAUL Metoprolol Tartrate (Metoprolol Tartrate 12.5 Mg Halftab) 12.5 mg PO BID [facility]; Protocol Last Admin: 09/16/21 08:14 Dose: 12.5 mg Documented by: JOSE ALEJANDRO Ondansetron HCl (Ondansetron Hcl 4 Mg/2 Ml Vial) 4 mg IVPUSH Q8H PRN PRN Reason: Nausea and Vomiting Pharmacy Consult (Consult Rx Perform Med Rec) 1 each MISCELLANE ONCE PRN PRN Reason: Consult order Sodium Chloride (0.9 % Sodium Chloride Flush 3 Ml Syringe) [facility] Last Admin: 09/16/21 08:23 Dose: 3 ml Documented by: JOSE ALEJANDRO Labs CBC & Chem 7: 09/15/21 16:15 09/15/21 16:53 Labs: Laboratory Results - last 24 hr 09/15/21 09/15/21 09/15/21 16:53 16:53 16:53 PT 11.4 INR 1.0 Anion Gap 13 Estim Creat Clear Calc 76.6 Estimated GFR > 60 Random Glucose 105 Calcium 10.3 H B-Natriuretic Peptide 143 H Urine Color Urine Appearance Urine pH Ur Specific [place] Urine Protein Urine Glucose (UA) Urine Ketones Urine Blood Urine Nitrite Ur Leukocyte Esterase COVID-19 ([facility]) COVID-19 Clin Com 09/16/21 09/16/21 02:38 09:54 PT INR Anion Gap Estim Creat Clear Calc Estimated GFR Random Glucose Calcium B-Natriuretic Peptide Urine Color YELLOW Urine Appearance CLEAR Urine pH 6.0 Ur Specific [place] >= 1.030 H Urine Protein NEG Urine Glucose (UA) NEG Urine Ketones NEG Urine Blood NEG Urine Nitrite NEG Ur Leukocyte Esterase NEG COVID-19 ([facility]) Negative COVID-19 Clin Com See Note Assessment and Plan (1) Atrial fibrillation with RVR: Status: Acute (2) New onset atrial fibrillation: Status: Acute Assessment and Plan: 61-year-old female with past medical history of hyperlipidemia presents the hospital found to have new onset AFib, found to be in AFib with RVR 1.New onset AFib w/RVR Cardizem drip reinstated this a.m. approximately 1 hour after oral beta bruno. Patient developed symptomatic hypotension. Drip stopped Discussed with cardiology; will anticoagulate with Eliquis and digitalize as ordered. NPO after midnight for CORETTA cardioversion in a.m. 2.Hyperlipidemia - continue statin Eliquis/full code Quality Stroke Does the patient have a stroke diagnosis?: No VTE Prior VTE?: No VTE Risk Level:: Medical - moderate - high VTE Device Contraindication: Treatment Not Indicated VTE Drug Contraindication: N/A - Med Ordered
[2021-09-16] MEDS: Digoxin 0.5 MG/2 ML AMPUL 0.25 MG IVPUSH (17:45)
[2021-09-16] MEDS: Acetaminophen 325 MG TABLET 650 MG PO (17:49)
--- NOTE | 2021-09-16 17:53 | PC.NURSE ---
Medicated as per [facility] orders, headache 02/27 at this time. A fib on the monitor HR from 90-130 at this time. Call riley within reach. Will continue to monitor.
[2021-09-17 00:55] VITALS: BP 117/73; PULSE 107; RESP 16; TEMP 36.5; O2SAT 97
[2021-09-17] MEDS: Acetaminophen 325 MG TABLET 650 MG PO ×2 (01:43→13:24)
[2021-09-17 01:44] VITALS: PULSE 126
[2021-09-17] MEDS: 0.9 % Sodium Chloride Flush 3 ML SYRINGE IVFLUSH ×2 (01:44→08:48)
[2021-09-17] MEDS: Digoxin 0.5 MG/2 ML AMPUL 0.25 MG IVPUSH (01:44)
[2021-09-17 05:52] VITALS: BP 113/69; PULSE 106; RESP 18; TEMP 36.7; O2SAT 99
--- NOTE | 2021-09-17 05:57 | PC.NURSE ---
Uneventful shift, pt slept intermittently, ambulates independently to bathroom. Assisted w/ hygiene and changing sheets + gown per request. Medicated per NOV x 1 for BALDERAS. PIV removed and new PIV placed d/t discomfort w/ med administration. HR continues to run between 100 and 130s, pt remains attached to early childhood associate. Per short stay surgery staff, plan for CORETTA cardioversion at approx 1130 today. Pt updated and aware of NPO status
[2021-09-17 07:03] LABS: MANUAL DIFF FLAG NO
[2021-09-17 07:08] LABS: Basophils Percent Auto 0.5 % (0-2); Eosinophils Absolute Auto 0.2 X10*3/uL (0.0-0.4); Eosinophils Percent Auto 2.8 % (0-4); Hematocrit 35.6 % (37.0-47.0); Hemoglobin 11.2 g/dl (12.0-16.0); Imm Gran Abs Auto 0.02 X10*3/uL (0.00-0.03); Imm Gran Pct Auto 0.3 % (0.0-0.4); Lymphocytes Absolute Auto 1.6 X10*3/uL (1.2-4.9); Lymphocytes Percent Auto 19.5 % (20-40); Mean Corpuscular HGB Conc 31.5 g/dl (31.0-35.0); Mean Corpuscular Hemoglobin 30.3 pg (27.0-33.0); Mean Corpuscular Volume 96.2 fL (80.0-98.0); Mean Platelet Volume 10.6 fL (9.4-12.3); Monocytes Absolute Auto 0.6 X10*3/uL (0.1-1.2); Monocytes Percent Auto 8.1 % (2-11); Neutrophils Absolute Auto 5.5 x10*3/uL (2.0-8.3); Neutrophils Percent Auto 68.8 % (45-73); Platelet Count 232 X10*3/uL (160-400); Red Cell Distribution Width 13.1 % (11.0-16.0); White Blood Count 7.9 X10*3/uL (4.8-10.8)
[2021-09-17 07:20] LABS: Anion Gap 8 (12-20); Blood Urea Nitrogen 9 mg/dL (9-16); Calcium 9.1 mg/dL (8.4-10.2); Carbon Dioxide 27 mmol/L (22-29); Chloride 112 mmol/L (96-108); Creatinine Clr Calc Pharmacy 79.8; Estimated Glomerular Filt Rate > 60; Glucose Random 106 mg/dL (60-115); Potassium 4.2 mmol/L (3.3-5.1); Sodium 143 mmol/L (135-145)
--- NOTE | 2021-09-17 07:44 | PC.NURSE ---
Pt A&Ox3, no complaints of pain or SOB at this time. Ambulatory to the bathroom independently. Pt aware of POC, cardioversion at approx 1100 this morning. Afib on monitor at this time, HR between 100-120. Call riley within reach, will continue to monitor.
[2021-09-17 08:58] VITALS: BP 123/67; PULSE 110
[2021-09-17] MEDS: Metoprolol Tartrate 12.5 MG HALFTAB PO (08:58)
[2021-09-17] MEDS: Apixaban 5 MG TABLET PO (08:58)
--- NOTE | 2021-09-17 09:01 | PM.PNCARD ---
Subjective Subjective Date of Service: 09/17/21 Interval history: Asymptomatic Physical Exam Vital Signs: Last Vital Signs Temp 98.1 F 09/17/21 05:52 Pulse 110 H 09/17/21 08:58 Resp 18 09/17/21 05:52 BP 123/67 09/17/21 08:58 Pulse Ox 99 09/17/21 05:52 BMI result Body Mass Index 35.2 GENERAL APPEARANCE: in no acute distress, pleasant. NECK: no carotid bruit, no jugular venous distention. SKIN: no suspicious lesions, warm and dry. HEART: no murmurs, irregular rate and rhythm. LUNGS: clear to auscultation bilaterally. ABDOMEN: soft, nontender. EXTREMITIES: no edema. PERIPHERAL PULSES: equal. NEUROLOGIC: No gross deficits, AAO X 3 Objective Labs and Meds Result diagrams: 09/17/21 06:32 09/17/21 06:32 Lab results: Laboratory Results - last 24 hr 09/16/21 09/17/21 09/17/21 09:54 06:32 06:32 WBC 7.9 RBC 3.70 L Hgb 11.2 L Hct 35.6 L MCV 96.2 MCH 30.3 MCHC 31.5 RDW 13.1 Plt Count 232 MPV 10.6 Immature Gran % (Auto) 0.3 Neut % (Auto) 68.8 Lymph % (Auto) 19.5 L [place] % (Auto) 8.1 Eos % (Auto) 2.8 Baso % (Auto) 0.5 Lymph # (Auto) 1.6 [place] # (Auto) 0.6 Eos # (Auto) 0.2 Baso # (Auto) 0.0 Abs Immat Gran (auto) 0.02 Absolute Neuts (auto) 5.5 Absolute Nucleated RBC 0.000 Nucleated RBC % (auto) 0.0 Sodium 143 Potassium 4.2 Chloride 112 H Carbon Dioxide 27 Anion Gap 8 L BUN 9 Creatinine 0.70 Estim Creat Clear Calc 79.8 Estimated GFR > 60 Random Glucose 106 Calcium 9.1 D COVID-19 ([facility]) Negative COVID-19 Clin Com See Note Progress Note: A&P Assessment and plan (1) Atrial fibrillation with RVR: Status: Acute Assessment and Plan: 61 female with Afib with RVR On BB and Dig. Apixaban. For CORETTA cardioversion today. Please keep NPO. Fall Risk Details Current Medications: Current Medications Acetaminophen (Acetaminophen 325 Mg Tablet) 650 mg PO Q6H PRN PRN Reason: Pain, Mild (Pain Scale 1-3) Last Admin: 09/17/21 01:43 Dose: 650 mg Documented by: Apixaban (Apixaban 5 Mg Tablet) 5 mg PO BID [facility] Last Admin: 09/17/21 08:58 Dose: 5 mg Documented by: Docusate Sodium (Docusate Sodium 100 Mg Capsule) 100 mg PO DAILY PRN PRN Reason: Constipation Diltiazem HCl 125 mg/ Sodium (Chloride) 125 mls @ 0 mls/hr IVCONT .Q0M [facility]; Protocol Last Titration: 09/16/21 12:10 Dose: 0 mg/hr, 0 mls/hr Documented by: Metoprolol Tartrate (Metoprolol Tartrate 12.5 Mg Halftab) 12.5 mg PO BID [facility]; Protocol Last Admin: 09/17/21 08:58 Dose: 12.5 mg Documented by: Ondansetron HCl (Ondansetron Hcl 4 Mg/2 Ml Vial) 4 mg IVPUSH Q8H PRN PRN Reason: Nausea and Vomiting Pharmacy Consult (Consult Rx Perform Med Rec) 1 each MISCELLANE ONCE PRN PRN Reason: Consult order Sodium Chloride (0.9 % Sodium Chloride Flush 3 Ml Syringe) 3 ml IVFLUSH QSHIFT [facility] Last Admin: 09/17/21 08:48 Dose: 3 ml Documented by: Time Spent With Patient Time: Total time spent is greater than 50% in coordination of care (as documented) at patient's floor/unit and/or counseling patient: Time with patient: 15 - 24 minutes Progress Note: Quality Stroke Does the patient have a stroke diagnosis?: No Procedures Date of Service Date of Service: 09/17/21
--- NOTE | 2021-09-17 13:05 | PC.NURSE ---
Pt back from cardioversion at approx 1200, A&Ox3, NSR in the 90's at this time. Good PO intake, aware, plan for monitoring then DC. Call riley within reach. Will continue to monitor.
--- NOTE | 2021-09-17 13:08 | PM.DS ---
DS: Providers Provider Date of Service: 09/17/21 Date of admission: 09/15/21 20:47 Date of discharge: 09/17/21 Primary care physician: Gilmer Stubbs MD Consults: 09/16/21 07:31 Consult to Cardiology Routine Consulting Provider: Sudeep Carnes Reason for consultation: New onset A fib Has provider been notified: No DS: Diagnosis Discharge Diagnosis (1) Atrial fibrillation with RVR: Status: Acute DS: Summary Hospital Course Hospital Course: 61-year-old female with no significant past medical history except hyperlipidemia who presents to the hospital with complaints of AFib.? Patient reports that she has been feeling tired, short of breath, and a lot of fatigue over the past 1 year, she went to her PCP today, he did an EKG at the [facility] and found her to have AFib and therefore sent her to the hospital.? Patient reports that ever since having hip replacement she has been gaining weight and therefore she attributed her shortness of breath to her weight gain and inactivity, but denies any chest pain, she has been having palpitations for the past few months, she denies any leg swelling but has orthopnea and PND have also developed over past 1 year.? She denies any headache, no change in vision, no cough, no sputum production, no abdominal pain nausea or vomiting, no diarrhea constipation. Hospital Course Admitted to Tele...did not tolerate Cardizem Gtt secondary to hypotension. Started on Digoxin as per loading protocol. Scheduled for CORETTA cardioversion this am but spontaneously converted to NSR. As per Cerdiology, can be D/C'd to home...no need for Digoxin/Eloquist Time Spent with Patient Time attestation: Total time spent providing and/or coordinating discharge services: Discharge coordination time: Greater than 30 minutes Quality: Stroke Does the patient have a stroke diagnosis?: No Physical Exam Vital Signs: Vital Signs: Last Vital Signs Temp 98.1 F 09/17/21 05:52 Pulse 110 H 09/17/21 08:58 Resp 18 09/17/21 05:52 BP 123/67 09/17/21 08:58 Pulse Ox 99 09/17/21 05:52 BMI result Body Mass Index 35.2 Const: Other: No acute distress Resp: Other: Clear to auscultation bilaterally no rales rhonchi wheezes Cardio: Other: Irregularly irregular; no S4; positive S1-S2; no S3 murmurs rubs gallops GI: Other: Soft nondistended with normoactive bowel sounds. No rebound or guarding Neuro: Other: Cranial nerves 2-12 grossly intact as tested. Motor is 5/5 all extremities. Sensation is intact. Cognition is appropriate Extrem: Other: No edema bilaterally DS: Data Data Completed and Pending Labs on day of discharge: Laboratory Results - last 24 hr 09/17/21 09/17/21 06:32 06:32 WBC 7.9 RBC 3.70 L Hgb 11.2 L Hct 35.6 L MCV 96.2 MCH 30.3 MCHC 31.5 RDW 13.1 Plt Count 232 MPV 10.6 Immature Gran % (Auto) 0.3 Neut % (Auto) 68.8 Lymph % (Auto) 19.5 L Hall % (Auto) 8.1 Eos % (Auto) 2.8 Baso % (Auto) 0.5 Lymph # (Auto) 1.6 Hall # (Auto) 0.6 Eos # (Auto) 0.2 Baso # (Auto) 0.0 Abs Immat Gran (auto) 0.02 Absolute Neuts (auto) 5.5 Absolute Nucleated RBC 0.000 Nucleated RBC % (auto) 0.0 Sodium 143 Potassium 4.2 Chloride 112 H Carbon Dioxide 27 Anion Gap 8 L BUN 9 Creatinine 0.70 Estim Creat Clear Calc 79.8 Estimated GFR > 60 Random Glucose 106 Calcium 9.1 D Discharge Plan Discharge Patient Disposition: Home, Self-Care Discharge Diagnosis: New onset AFib Referrals: Gilmer Stubbs MD [Primary Care Provider] - 1 Week Discharge Medications: New metoprolol tartrate 25 mg tablet 12.5 mg PO BID Qty: 60 RF: 0 Continued multivitamin Tablet 1 tab PO DAILY RF: 0 atorvastatin 20 mg Tablet 20 mg PO DAILY RF: 0 Discharge Orders: Discharge Order (Routine); Ordered 09/17/21 Ordered By: Yon Sousa Diet: advance to usual diet Activity on Discharge: As tolerated Stand Alone Forms: Patient Portal Discharge page Care Plan Goals: Continue metoprolol 12.5 b.i.d.. No further need for Eliquis her digoxin. Health Concerns: Follow-up with PCP in 1-2 weeks Plan of Treatment: As per Cardiology Assessment: As above
--- NOTE | 2021-09-17 13:36 | PC.NURSE ---
Pt NSR in the 90's on the monitor. Small headache at this time, tylenol PO given, Pt has DC orders at this time. She is reaching out to to coordinate transportation at this time. Call riley within place. will continue to monitor.
--- NOTE | 2021-09-17 14:26 | MHC.CM.PN ---
Pt has been medically cleared for d/c: review of d/c summary supports the original d/c plan of a return to home with family support: Spouse will transport
== END 2021-09-17 14:12 | disposition home or self-care (01) | DRG 310 ==
LOC: HO.ED 20:00 → HO.EDOVER 20:51
PROVIDERS: Admitting Provider Internal Medicine; Emergency Provider Emergency Medicine; PCP Internal Medicine; Visit Provider Hospitalist
DX: I48.91 Unspecified atrial fibrillation (principal); E78.5 Hyperlipidemia, unspecified; I95.2 Hypotension due to drugs; T46.1X5A Adverse effect of calcium-channel blockers, initial encounter; Y92.239 Unspecified place in hospital as the place of occurrence of the external cause; Z20.822 Contact with and (suspected) exposure to COVID-19; Z79.899 Other long term (current) drug therapy
CPT/HCPCS: 36415; 71045; 80048; 81003; 83880; 84484; 85025; 85610; 87635; 93005; 93306; 99285; J1160; J1650; J3010

== ENCOUNTER → 2021-10-03 14:09 | Outpatient (REF) | payer OTHER, SELFPAY ==
--- NOTE | 2021-10-03 14:13 | HM_ITS ---
Total monitoring time 6 days and 23 hours. Underlying rhythm is sinus. Average 67/Min. About 5.5% the time, rhythm atrial fibrillation/flutter. Longest episode 5 hours 22 minutes. Fastest about 150/Min. Overall, about 6% of the time, rate greater than 100/Min. No AV blocks or pauses. Rare supraventricular ectopy with minimal burden. Patient symptoms including shortness of breath, chest discomfort associated with sinus rhythm. MTDD
== END ==
LOC: HO.CARD 14:09
PROVIDERS: Visit Provider Internal Medicine Cardiovascular Disease
DX: I48.91 Unspecified atrial fibrillation (principal)
CPT/HCPCS: 93242

== ENCOUNTER → 2021-10-30 14:46 | Outpatient (BNVA) | payer OTHER, SELFPAY | PROVIDERS: PCP Internal Medicine; Referring Provider Internal Medicine; Visit Provider Nurse Practitioner Family | DX: R94.31 Abnormal electrocardiogram [ECG] [EKG] (principal) | CPT/HCPCS: 93005 ==

== ENCOUNTER → 2021-11-20 14:01 | Outpatient (BNVA) | payer OTHER, SELFPAY | PROVIDERS: PCP Internal Medicine; Referring Provider Internal Medicine; Visit Provider Nurse Practitioner Family | DX: I48.0 Paroxysmal atrial fibrillation (principal) | CPT/HCPCS: 93005; 99212 ==

== ENCOUNTER 2021-11-27 10:53 | Outpatient (REF) | payer OTHER, SELFPAY ==
--- NOTE | ~2021-11-27 | XR_ITS ---
EXAMINATION: XR HIP, RIGHT CLINICAL INFORMATION: Fall COMPARISON: None TECHNIQUE: Two views of the right hip. FINDINGS: There is a right total hip arthroplasty. The femoral head component articulates appropriately with the acetabular component. No periprosthetic lucency or fracture. The right pelvis is intact. XR/XR hip RT min 2V IMPRESSION: Total right hip arthroplasty without evidence of failure. No acute osseous abnormality.
== END 2021-11-27 10:54 | disposition home or self-care (01) ==
LOC: HO.HMGCLDS 10:53
PROVIDERS: Visit Provider Nurse Practitioner Family
DX: M25.551 Pain in right hip (principal); Z91.81 History of falling
CPT/HCPCS: 73502

== ENCOUNTER 2022-02-26 10:34 | Outpatient (REF) | payer OTHER, SELFPAY ==
[2022-02-26 10:36] LABS: MANUAL DIFF FLAG NO
[2022-02-26 11:10] LABS: Basophils Absolute Auto 0.1 X10*3/uL (0.0-0.2); Basophils Percent Auto 1.4 % (0-2); Eosinophils Absolute Auto 0.2 X10*3/uL (0.0-0.4); Eosinophils Percent Auto 4.1 % (0-4); Hematocrit 38.6 % (37.0-47.0); Hemoglobin 12.5 g/dl (12.0-16.0); Imm Gran Abs Auto 0.01 X10*3/uL (0.00-0.03); Imm Gran Pct Auto 0.2 % (0.0-0.4); Lymphocytes Absolute Auto 1.4 X10*3/uL (1.2-4.9); Lymphocytes Percent Auto 31.2 % (20-40); Mean Corpuscular HGB Conc 32.4 g/dl (31.0-35.0); Mean Corpuscular Hemoglobin 30.3 pg (27.0-33.0); Mean Corpuscular Volume 93.7 fL (80.0-98.0); Mean Platelet Volume 10.7 fL (9.4-12.3); Monocytes Absolute Auto 0.5 X10*3/uL (0.1-1.2); Monocytes Percent Auto 11.5 % (2-11); Neutrophils Absolute Auto 2.3 x10*3/uL (2.0-8.3); Neutrophils Percent Auto 51.6 % (45-73); Platelet Count 270 X10*3/uL (160-400); Red Blood Count 4.12 X10*6/uL (4.20-5.50); Red Cell Distribution Width 13.3 % (11.0-16.0); White Blood Count 4.4 X10*3/uL (4.8-10.8)
[2022-02-26 11:12] LABS: Appearance Urine CLEAR; Color Urine YELLOW; Glucose Urine UA NEG (NEG); Leukocyte Esterase Urine NEG (NEG); Nitrite Urine NEG (NEG); PH 5.5 (5.0-8.0); Urine Blood NEG (NEG); Urine Ketones NEG (NEG); Urine Protein NEG (NEG-TRACE)
[2022-02-26 11:23] LABS: Alanine Aminotransferase 31 U/L (0-31); Albumin Level 4.2 g/dL (3.5-5.0); Alkaline Phosphatase 78 U/L (39-117); Anion Gap 11 (12-20); Aspartate Amino Transferase 26 U/L (5-31); Bilirubin Total 0.4 mg/dL (0.0-1.0); Blood Urea Nitrogen 13 mg/dL (9-16); Calcium 9.2 mg/dL (8.4-10.2); Carbon Dioxide 27 mmol/L (22-29); Chloride 107 mmol/L (96-108); Cholesterol 184 mg/dL; Estimated Glomerular Filt Rate > 60; Glucose Fasting 104 mg/dL (60-99); HDL Cholesterol 49 mg/dL; LDL Cholesterol Calculated 117 mg/dl; Potassium 4.7 mmol/L (3.3-5.1); Sodium 140 mmol/L (135-145); Total Protein 7.2 g/dL (6.5-8.0); Triglycerides 91 mg/dL
[2022-02-26 11:38] LABS: Squamous Epithelial Cell Urine 1+ /LPF
[2022-02-26 11:39] LABS: Bacteria Urine TRACE /LPF; RBC Urine 0 /HPF (0)
== END 2022-02-26 10:35 | disposition home or self-care (01) ==
LOC: HO.LNP 10:34
PROVIDERS: Visit Provider Internal Medicine
DX: Z00.00 Encounter for general adult medical examination without abnormal findings (principal); E78.00 Pure hypercholesterolemia, unspecified; I48.0 Paroxysmal atrial fibrillation; G47.33 Obstructive sleep apnea (adult) (pediatric)
CPT/HCPCS: 80053; 80061; 81001; 85025; 93005; 99212

== ENCOUNTER 2022-03-03 16:05 | Outpatient (REF) | payer OTHER, SELFPAY | END 2022-03-03 16:06 | disposition home or self-care (01) | LOC: HO.LNP 16:05 | PROVIDERS: Visit Provider Internal Medicine | DX: Z12.4 Encounter for screening for malignant neoplasm of cervix (principal) | CPT/HCPCS: 88142 ==

== ENCOUNTER → 2022-06-04 14:22 | Outpatient (BNVA) | payer OTHER, SELFPAY | PROVIDERS: PCP Internal Medicine; Referring Provider Internal Medicine; Visit Provider Nurse Practitioner Family | DX: Z79.899 Other long term (current) drug therapy (principal) | CPT/HCPCS: 93005 ==

== ENCOUNTER 2022-07-18 08:46 | Outpatient (REF) | payer OTHER, SELFPAY ==
--- NOTE | ~2022-07-18 | MM_ITS ---
EXAMINATION: MM SCREENING DIGITAL BREAST TOMOSYNTHESIS, BILATERAL CLINICAL INFORMATION: Screening. Asymptomatic. The lifetime risk of breast cancer based on the Tyrer-Cuzick Model is 4%. COMPARISON: Mammography: 07/12/2021, 07/02/2020, 06/07/2020, outside mammography 12/12/2013 ([facility], [place], [place]). TECHNIQUE: Digital breast tomosynthesis is performed in both the craniocaudal and mediolateral oblique views along with computer-aided detection (CAD). Synthesized 2D images are generated from the tomosynthesis. FINDINGS: There are scattered areas of fibroglandular density (ACR BI-RADS breast composition Category b). There are no significant masses, abnormal calcifications, or other abnormalities. Parenchymal pattern is similar to prior studies. There is no developing density or architectural abnormality. A small smooth circumscribed nodule is again seen posterior outer left breast on MLO view. The axilla and skin contours are unremarkable. No significant changes. MM/MM tomosynthesis screening BI IMPRESSION: No significant changes from prior studies. ASSESSMENT: BI-RADS 2: Benign RECOMMENDATION: Routine annual mammography screening. This patient's information was entered into a reminder system with a target due date for their next mammogram.
== END 2022-07-18 08:47 | disposition home or self-care (01) ==
LOC: HO.MAMMO 08:46
PROVIDERS: PCP Internal Medicine; Visit Provider Internal Medicine
DX: Z12.31 Encounter for screening mammogram for malignant neoplasm of breast (principal)
CPT/HCPCS: 77063; 77067

== ENCOUNTER 2022-08-17 16:39 | Outpatient (REF) | payer OTHER, SELFPAY ==
[2022-08-17 17:52] LABS: Influenza A PCR NEGATIVE (Negative); Influenza B PCR NEGATIVE (Negative); Resp Syncy Virus RNA Qual PCR NEGATIVE (Negative); SARS COV2 PCR INHOUSE NEGATIVE (Negative)
== END 2022-08-17 16:40 | disposition home or self-care (01) ==
LOC: HO.LNP 16:39
PROVIDERS: Visit Provider Emergency Medicine
DX: Z20.822 Contact with and (suspected) exposure to COVID-19 (principal); R68.89 Other general symptoms and signs
CPT/HCPCS: 0241U

== ENCOUNTER 2022-08-31 10:44 | Outpatient (REF) | payer OTHER, SELFPAY ==
[2022-08-31 12:06] LABS: Alanine Aminotransferase 25 U/L (0-31); Alkaline Phosphatase 80 U/L (39-117); Aspartate Amino Transferase 21 U/L (5-31); Bilirubin Direct < 0.2 mg/dL (0.0-0.5); Bilirubin Total 0.4 mg/dL (0.0-1.0); Cholesterol 172 mg/dL; HDL Cholesterol 45 mg/dL; LDL Cholesterol Calculated 108 mg/dl; Total Protein 6.8 g/dL (6.5-8.0); Triglycerides 95 mg/dL
[2022-08-31 14:39] LABS: Reflex LDLD? No
== END 2022-08-31 10:45 | disposition home or self-care (01) ==
LOC: HO.LNP 10:44
PROVIDERS: Visit Provider Internal Medicine
DX: E78.00 Pure hypercholesterolemia, unspecified (principal)
CPT/HCPCS: 80061; 80076

== ENCOUNTER → 2022-09-03 14:30 | Outpatient (BNVA) | payer OTHER, SELFPAY | PROVIDERS: PCP Internal Medicine; Referring Provider Internal Medicine; Visit Provider Nurse Practitioner Family | DX: I48.0 Paroxysmal atrial fibrillation (principal); G47.33 Obstructive sleep apnea (adult) (pediatric); Z79.899 Other long term (current) drug therapy | CPT/HCPCS: 93005; 99212 ==

== ENCOUNTER → 2022-11-05 11:26 | Outpatient (BNVA) | payer OTHER, SELFPAY | PROVIDERS: PCP Internal Medicine; Referring Provider Internal Medicine; Visit Provider Physician Assistant | DX: I48.0 Paroxysmal atrial fibrillation (principal); K52.9 Noninfective gastroenteritis and colitis, unspecified | CPT/HCPCS: 99202 ==

== ENCOUNTER → 2022-11-12 07:52 | Outpatient (REF) | payer OTHER, SELFPAY ==
--- NOTE | ~2022-11-12 | NM_ITS ---
EXERCISE MYOCARDIAL PERFUSION STUDY INDICATION: Paroxysmal atrial fibrillation, assess for coronary disease and ischemia TECHNIQUE: The patient was brought in for an exercise perfusion study on 11/12/2022. Patient performed exercise as per Byron protocol and was injected 30 mCi of sestamibi once target heart rate was achieved. Images were obtained using the SPECT gamma camera interlaced with the gating device. Images were obtained in supine position. Resting perfusion study was performed on 11/16/2022. Patient was administered 30 mCi of sestamibi intravenously at rest. Images were then obtained in supine position. Images were processed with the software and compared side to side in short axis, horizontal long axis and vertical long axis views. Total DLP 176mGy-cm. FINDINGS: Raw images were reviewed. Arms by the patient's side. The stress perfusion study showed diminished tracer uptake in the distal part of inferolateral wall. There is significant improvement with CT attenuation correction, suggestive of diaphragmatic attenuation artifact. The gated study shows low normal LV systolic function with calculated LVEF of 54%. LV cavity is normal in size. The gated study shows normal wall thickening and contraction of segments. Resting study shows diminished tracer uptake in the distal part of inferolateral wall. There is improvement with CT attenuation correction suggestive of diaphragmatic attenuation artifact. Gating at rest reveals normal wall motion with ejection fraction at 50%. The findings are consistent with no reversible defects. Fixed defect in the distal inferolateral wall, probably from diaphragmatic attenuation artifact. NM/NM cardiolite stress test IMPRESSION: 1. Myocardial perfusion imaging study shows no clear evidence of ischemia or infarction. Likely normal perfusion. 2. Gated LVEF is 54% during stress and 50% during rest. 3. Transient ischemic dilatation not present. EKG component of the test reported separately.
--- NOTE | 2022-11-12 07:55 | CA_ITS ---
Acquisition Time: 2022-11-12 08:05:27 Total Exercise Time: 00:05:06 Test Indications: Chest Pain Medications: Protocol: JESSE Max HR: 136 BPM 86% of Pred: 158 BPM Max BP: 160/058 mmHG Max Work Load: 4.6 METS Exercise stress test using Jesse protocol, second stage held as patient was getting SOB. Otherwise patient tolerated well, denies chest pain or pressure. Exercised for 5 min 6 sec. TAPHR up to 86% and METS 4.60. EKG with no arrhythmias no changes suggesting ischemia. Nuclear images pending. Normotensive response to exercise, Test reviewed with Dr. Pham Referred By: Olesya Wells Overread By: Juana Ventura NP
== END ==
LOC: HO.CARD 07:52
PROVIDERS: Visit Provider Nurse Practitioner Family
DX: R07.9 Chest pain, unspecified (principal); I48.0 Paroxysmal atrial fibrillation
CPT/HCPCS: 78452; 93017; A9500

== ENCOUNTER → 2022-12-17 14:35 | Outpatient (BNVA) | payer OTHER, SELFPAY | PROVIDERS: PCP Internal Medicine; Referring Provider Internal Medicine; Visit Provider Physician Assistant | DX: K52.9 Noninfective gastroenteritis and colitis, unspecified (principal) | CPT/HCPCS: 99212 ==

== ENCOUNTER → 2022-12-31 13:05 | Outpatient (BNVA) | payer OTHER, SELFPAY | PROVIDERS: PCP Internal Medicine; Referring Provider Internal Medicine; Visit Provider Nurse Practitioner Family | DX: I48.0 Paroxysmal atrial fibrillation (principal); R07.9 Chest pain, unspecified; E78.5 Hyperlipidemia, unspecified; G47.33 Obstructive sleep apnea (adult) (pediatric); Z99.89 Dependence on other enabling machines and devices | CPT/HCPCS: 93005; 99212 ==

== ENCOUNTER 2023-03-04 11:15 | Outpatient (REF) | payer OTHER, SELFPAY ==
[2023-03-04 11:26] LABS: MANUAL DIFF FLAG NO
[2023-03-04 11:56] LABS: Basophils Absolute Auto 0.1 X10*3/uL (0.0-0.2); Eosinophils Absolute Auto 0.4 X10*3/uL (0.0-0.4); Eosinophils Percent Auto 7.3 % (0-4); Hemoglobin 12.2 g/dl (12.0-16.0); Imm Gran Abs Auto 0.01 X10*3/uL (0.00-0.03); Imm Gran Pct Auto 0.2 % (0.0-0.4); Lymphocytes Absolute Auto 1.4 X10*3/uL (1.2-4.9); Lymphocytes Percent Auto 29.1 % (20-40); Mean Corpuscular Volume 94.1 fL (80.0-98.0); Mean Platelet Volume 10.7 fL (9.4-12.3); Monocytes Absolute Auto 0.5 X10*3/uL (0.1-1.2); Monocytes Percent Auto 10.7 % (2-11); Neutrophils Absolute Auto 2.5 x10*3/uL (2.0-8.3); Neutrophils Percent Auto 51.7 % (45-73); Platelet Count 238 X10*3/uL (160-400); Red Blood Count 3.93 X10*6/uL (4.20-5.50); Red Cell Distribution Width 13.4 % (11.0-16.0); White Blood Count 4.8 X10*3/uL (4.8-10.8)
[2023-03-04 11:58] LABS: Appearance Urine Clear; Color Urine Yellow; Glucose Urine UA Negative (Negative); Leukocyte Esterase Urine Negative (Negative); Nitrite Urine Negative (Negative); PH 6.5 (5.0-9.0); Specific Gravity - Urine 1.015 (1.005-1.025); Urine Blood Negative (Negative); Urine Ketones Negative (Negative); Urine Protein Negative (Neg-Trace)
[2023-03-04 12:04] LABS: Bacteria Urine None Seen (None Seen); Hyaline Casts Urine 0-2 /LPF (0-2); RBC Urine 0-2 /HPF (0-2); Squamous Epithelial Cell Urine 0-2 /HPF (0-2); WBC Urine 0-5 /HPF (0-5)
[2023-03-04 12:26] LABS: Alanine Aminotransferase 28 U/L (0-31); Albumin Level 4.2 g/dL (3.5-5.0); Alkaline Phosphatase 65 U/L (39-117); Anion Gap 14 (12-20); Aspartate Amino Transferase 23 U/L (5-31); Bilirubin Total 0.5 mg/dL (0.0-1.0); Blood Urea Nitrogen 16 mg/dL (9-16); Calcium 9.3 mg/dL (8.4-10.2); Carbon Dioxide 26 mmol/L (22-29); Chloride 107 mmol/L (96-108); Cholesterol 173 mg/dL; Estimated Glomerular Filt Rate > 60; Glucose Fasting 104 mg/dL (60-99); HDL Cholesterol 46 mg/dL; LDL Cholesterol Calculated 108 mg/dl; Potassium 4.2 mmol/L (3.3-5.1); Sodium 143 mmol/L (135-145); Triglycerides 98 mg/dL
== END 2023-03-04 11:16 | disposition home or self-care (01) ==
LOC: HO.LNP 11:15
PROVIDERS: Visit Provider Internal Medicine
DX: Z00.00 Encounter for general adult medical examination without abnormal findings (principal); E78.00 Pure hypercholesterolemia, unspecified
CPT/HCPCS: 80053; 80061; 81001; 85025

== ENCOUNTER → 2023-03-18 10:00 | Outpatient (BNVA) | payer OTHER, SELFPAY | PROVIDERS: PCP Internal Medicine; Referring Provider Internal Medicine; Visit Provider Nurse Practitioner Family | DX: Z79.899 Other long term (current) drug therapy (principal) | CPT/HCPCS: 93005 ==

== ENCOUNTER 2023-07-12 15:28 | Outpatient (AMB) | payer OTHER, SELFPAY ==
--- NOTE | 2023-07-12 15:38 | A.OFFVIS_ITS ---
Intake Vital Signs 07/12/23 15:42 Height 5 ft 1 in Weight 191 lb 12.835 oz BMI 36.2 BP 110/70 Blood Pressure Location Lt brachial Position Sitting Pulse 70 Intake Visit Reasons: 6 mth f/up per dc Intake Note: 6 month follow up Senior Software Engineer Required: No Accompanied by: Self / Same As Patient Allergies penicillin V Allergy (Mild, Verified 07/12/23 15:42) Rash Medication List - Last Reconciled 07/12/23 by Sudeep Carnes MD atorvastatin 20 mg PO DAILY bisacodyl (Dulcolax (bisacodyl)) 10 mg (2 x 5 mg) PO ONCE 1 day dicyclomine 10 mg PO BID dronedarone (Multaq) 400 mg PO BID methylcellulose (laxative) (Citrucel) 500 mg PO BID multivitamin 1 tab PO DAILY omeprazole 20 mg PO DAILY simethicone (Gas Relief (simethicone)) 125 mg PO TID-QID PRN HPI HPI Comments History of Present Illness Details 63-year-old female who is here for [facility] w-up. She has background history of paroxysmal atrial fibrillation and underwent cardioversion in the past. She has been on Multaq and has been doing well. Not on anticoagulation because her chads Vasc score is 1. No palpitations. No chest pain or shortness of breath. [facility] Medical History High cholesterol Paroxysmal A-fib Surgical History History of esophagogastroduodenoscopy (EGD) Hx of colonoscopy History of right hip replacement (~01/21/21) Family History Mother Heart disease Social History Household Members Other:: Patient Tobacco Use Status: Never used Tobacco service: No Current occupational status: employed Physical Exam Vital Signs: Last Vital Signs Pulse 70 07/12/23 15:42 BP 110/70 07/12/23 15:42 BMI result Body Mass Index 36.2 GENERAL APPEARANCE: in no acute distress, pleasant. NECK: no carotid bruit, no jugular venous distention. SKIN: no suspicious lesions, warm and dry. HEART: no murmurs, regular rate and rhythm. LUNGS: clear to auscultation bilaterally. ABDOMEN: soft, nontender. EXTREMITIES: no edema. PERIPHERAL PULSES: equal. NEUROLOGIC: No gross deficits, AAO X 3 Office Procedures EKG Details: Sinus rhythm 70 beats per minute, normal EKG, QTC 462 milliseconds. [id number], Complete Assessment & Plan Assessment & Plan (1) Paroxysmal A-fib: Comment: Multaq Code(s): I48.0 - Paroxysmal atrial fibrillation Plan Pleasant 63-year-old female who is here for follow-up. She has background history of paroxysmal atrial fibrillation and has been on Multaq. Denying palpitations and overall stable. EKG showing sinus rhythm. Not anticoagulation currently because chads Vasc is 1. Follow-up in 6 months with Olesya. Thank you for allowing me to participate in the care of your patient. Please feel free to contact me if you have any questions. Coding Level of Care Code Est Pt Level 3 (16975) Diagnoses Paroxysmal A-fib I48.0 CPT Codes EKG - CPT: 26195-[id number], Complete ([id number])
[2023-07-12 15:42] VITALS: BP 110/70; PULSE 70; BMI 36.2
== END 2023-07-12 15:56 | disposition home or self-care (01) ==
PROVIDERS: Visit Provider Internal Medicine Cardiovascular Disease
DX: I48.0 Paroxysmal atrial fibrillation (principal)
CPT/HCPCS: 93010; 99213

== ENCOUNTER → 2023-07-12 15:28 | Outpatient (BNVA) | payer OTHER, SELFPAY | PROVIDERS: Visit Provider Internal Medicine Cardiovascular Disease | DX: I48.0 Paroxysmal atrial fibrillation (principal) | CPT/HCPCS: 93005; 99212 ==

== ENCOUNTER 2023-07-24 09:10 | Outpatient (REF) | payer OTHER, SELFPAY ==
--- NOTE | ~2023-07-24 | MM_ITS ---
EXAMINATION: MM SCREENING DIGITAL BREAST TOMOSYNTHESIS, BILATERAL CLINICAL INFORMATION: Screening. Asymptomatic. COMPARISON: Mammography: This study is compared with prior exams dating back to 2013. TECHNIQUE: Digital breast tomosynthesis is performed in both the craniocaudal and mediolateral oblique views along with computer-aided detection (CAD). Synthesized 2D images are generated from the tomosynthesis. FINDINGS: There are scattered areas of fibroglandular density (ACR BI-RADS breast composition Category b). There are no significant masses, abnormal calcifications, or other abnormalities. MM/MM tomosynthesis screening BI IMPRESSION: No mammographic evidence of malignancy. ASSESSMENT: BI-RADS BI-RADS 1 - Negative RECOMMENDATION: Routine annual mammography screening. 1 year F/U This examination should not preclude the clinical evaluation of a suspicious palpable abnormality. This patient's information was entered into a reminder system with a target due date for their next mammogram.
== END 2023-07-24 09:11 | disposition home or self-care (01) ==
LOC: HO.MAMMO 09:10
PROVIDERS: Visit Provider Internal Medicine
DX: Z12.31 Encounter for screening mammogram for malignant neoplasm of breast (principal)
CPT/HCPCS: 77063; 77067

== ENCOUNTER → 2023-07-24 09:30 | Outpatient (BNV) | payer OTHER, SELFPAY | PROVIDERS: Visit Provider Radiology Diagnostic Radiology | DX: Z12.31 Encounter for screening mammogram for malignant neoplasm of breast (principal) | CPT/HCPCS: 77063; 77067 ==

== ENCOUNTER 2023-09-02 10:25 | Outpatient (REF) | payer OTHER, SELFPAY ==
[2023-09-02 11:36] LABS: Alanine Aminotransferase 28 U/L (0-31); Albumin Level 4.1 g/dL (3.5-5.0); Alkaline Phosphatase 74 U/L (39-117); Aspartate Amino Transferase 25 U/L (5-31); Bilirubin Direct 0.2 mg/dL (0.0-0.5); Bilirubin Total 0.4 mg/dL (0.0-1.0); Cholesterol 173 mg/dL (<200); HDL Cholesterol 44 mg/dL (>40); LDL Cholesterol Calculated 111 mg/dL (<100); Total Protein 7.3 g/dL (6.5-8.0); Triglycerides 90 mg/dL (<150)
[2023-09-02 12:24] LABS: Reflex LDLD? No
== END 2023-09-02 10:26 | disposition home or self-care (01) ==
LOC: HO.LNP 10:25
PROVIDERS: Visit Provider Internal Medicine
DX: E78.00 Pure hypercholesterolemia, unspecified (principal)
CPT/HCPCS: 80061; 80076

== ENCOUNTER 2023-10-13 08:30 | Outpatient (AMB) | payer OTHER, SELFPAY ==
[2023-10-13 09:21] VITALS: BP 130/70; PULSE 82; TEMP 36.5; O2SAT 97; BMI 36.3
--- NOTE | 2023-10-13 09:21 | AM.OFFWIN_ITS ---
Intake Vital Signs 10/13/23 09:21 Height 5 ft 1 in Weight 192 lb BMI 36.3 BP 130/70 Blood Pressure Location Lt brachial Position Sitting Pulse 82 Pulse Source Pulse Oximeter Temp 97.7 F Temp Source Temporal Artery Scan Pulse Oximetry (%) 97 Oxygen Delivery Method Room Air Intake Visit Reasons: EP headache chills throat congestion [id number] Intake Note: pt is here today for headache chills throat congestion started last wednesday Patient Tobacco Use Status: Never used Tobacco Allergies penicillin V Allergy (Mild, Verified 10/13/23 09:33) Rash Medication List - Last Reconciled 10/13/23 by Aylin Lucio, COMPUTED TOMOGRAPHY TECHNOLOGIST- atorvastatin 20 mg PO DAILY dicyclomine 10 mg PO BID dronedarone (Multaq) 400 mg PO BID multivitamin 1 tab PO DAILY omeprazole 20 mg PO DAILY simethicone (Gas Relief (simethicone)) 125 mg PO TID-QID PRN Do you need a note to return to daycare/school/sports/work: Yes HPI HPI Comments History of Present Illness Details Here today c/o flu sx that started on wednesday headache, congestion, sore throat. admits sore throat better + diarrhea and nausea using apap cold and flu which helps did not get flu shot otherwise utd on vaccines PFSH Medical History High cholesterol Paroxysmal A-fib Surgical History History of esophagogastroduodenoscopy (EGD) Hx of colonoscopy History of right hip replacement (~01/21/21) Family History Mother Heart disease Social History Household Members Other:: Patient Tobacco Use Status: Never used Tobacco service: No Current occupational status: employed Review of Systems Const All systems reviewed & are unremarkable except as noted in HPI and below Physical Exam Vital Signs: Last Vital Signs Temp 97.7 F 10/13/23 09:21 Pulse 82 10/13/23 09:21 BP 130/70 10/13/23 09:21 Pulse Ox 97 10/13/23 09:21 Oxygen Delivery Method Room Air 10/13/23 09:21 BMI result Body Mass Index 36.3 Const Other: ill appearing NAD TM intact, mild erythema and effusions sinus congestion w/o tenderness pharynx wnl LS CTAB RRR Results AMB Rapid Strep AMB Rapid Strep Negative Last Edit by Kalin Brady CMA on 10/13/23 09 :39 Assessment & Plan Assessment & Plan (1) Flu-like symptoms: Code(s): R68.89 - Other general symptoms and signs Plan: . Plan swab obtained today, will be called if results + aware viral and no other tx needed supportive care follow cdc guidelines edu on reasons to RTO Orders: Orders SARS-CoV2/FLU/RSV Today R68.89 - Other general symptoms and signs Coding Level of Care Code Est Pt Level 3 (63272) Diagnoses Flu-like symptoms R68.89
== END 2023-10-13 10:01 | disposition home or self-care (01) ==
PROVIDERS: PCP Internal Medicine; Visit Provider Nurse Practitioner Family
DX: R68.89 Other general symptoms and signs (principal)
CPT/HCPCS: 87880; 99213

== ENCOUNTER 2023-10-13 14:15 | Outpatient (REF) | payer OTHER, SELFPAY ==
[2023-10-13 15:24] LABS: Influenza A PCR NEGATIVE (Negative); Influenza B PCR NEGATIVE (Negative); Resp Syncy Virus RNA Qual PCR NEGATIVE (Negative); SARS COV2 PCR INHOUSE NEGATIVE (Negative)
== END 2023-10-13 14:16 | disposition home or self-care (01) ==
LOC: HO.LNP 14:15
PROVIDERS: Visit Provider Nurse Practitioner Family
DX: R68.89 Other general symptoms and signs (principal); Z11.52 Encounter for screening for COVID-19; Z20.828 Contact with and (suspected) exposure to other viral communicable diseases
CPT/HCPCS: 0241U

== ENCOUNTER 2024-01-26 14:44 | Outpatient (AMB) | payer OTHER, SELFPAY ==
[2024-01-26 15:01] VITALS: BP 100/60; PULSE 54; O2SAT 98; BMI 35.9
--- NOTE | 2024-01-26 15:01 | MHC.OFFVIS ---
Vital Signs 01/26/24 15:01 Height 5 ft 1 in Weight 190 lb BMI 35.9 BP 100/60 Blood Pressure Location Lt brachial Position Sitting Pulse 54 Pulse Source Monitor Pulse Oximetry (%) 98 Oxygen Delivery Method Room Air Intake Visit Reasons: 6 mth fu (rs) Allergies penicillin V Allergy (Mild, Verified 10/13/23 09:33) Rash Medication List - Last Reconciled 01/26/24 by Sudeep Carnes MD atorvastatin 20 mg PO DAILY dicyclomine 10 mg PO BID dronedarone (Multaq) 400 mg PO BID multivitamin 1 tab PO DAILY omeprazole 20 mg PO DAILY simethicone (Gas Relief (simethicone)) 125 mg PO TID-QID PRN HPI Comments Details: 63-year-old female who is here for follow-up. She has background history of paroxysmal atrial fibrillation and underwent cardioversion in the past. She has been on Multaq and has been doing well. Not on anticoagulation because her chads Vasc score is 1. No palpitations. No chest pain or shortness of breath. 01/26/24: She is here for follow-up. EKGs showing sinus bradycardia. She has been doing well with Multaq. No palpitations on follow-up. No chest discomfort shortness of breath. She is exercising and trying to lose weight. [facility]ACED BY [facility] Medical History High cholesterol Paroxysmal A-fib Surgical History History of esophagogastroduodenoscopy (EGD) Hx of colonoscopy History of right hip replacement (~01/21/21) Family History Mother Heart disease Social History Household Members Other:: Patient Tobacco Use Status: Never used Tobacco service: No Current occupational status: employed Review of Systems Const Denies weakness ENT Denies dizziness Card Denies chest pain, Denies chest pain with activity, Denies syncope, Denies rapid heart rate, Denies pedal edema, Denies edema, Denies leg edema, Denies lightheadedness, Denies palpitations, Denies dyspnea, Denies dyspnea on exertion and Denies orthopnea Resp Denies cough, Denies dyspnea and Denies dyspnea on exertion GI Denies hematochezia and Denies change in stool character Musc Denies abnormal gait, Denies muscle cramps, Denies muscle weakness, Denies numbness, Denies radiating pain into limb and Denies tingling Neuro Denies abnormal gait, Denies dizziness, Denies syncope, Denies numbness, Denies tingling and Denies weakness Endo Denies palpitations Physical Exam GENERAL APPEARANCE: in no acute distress, pleasant. NECK: no carotid bruit, no jugular venous distention. SKIN: no suspicious lesions, warm and dry. HEART: no murmurs, regular rate and rhythm. LUNGS: clear to auscultation bilaterally. ABDOMEN: soft, nontender. EXTREMITIES: no edema. PERIPHERAL PULSES: equal. NEUROLOGIC: No gross deficits, AAO X 3 Office Procedures EKG Details: Sinus bradycardia 54 beats per minute, normal axis, low voltage, QTC 426 milliseconds. [id number], Complete Assessment & Plan Assessment & Plan (1) Paroxysmal A-fib: Comment: Multaq Code(s): I48.0 - Paroxysmal atrial fibrillation Category: Medical Plan Pleasant 63-year-old female who is here for follow-up. She has background history of paroxysmal atrial fibrillation and underwent cardioversion and has been on Multaq since then. She has been in sinus rhythm. Clinically stable. We discussed about anticoagulation that as she crosses a 65 old develops hypertension/diabetes, her stroke risk we will change and we may have to discuss about long-term anticoagulation. Currently it has not indicated. She will see us back in 6 months. She should have at least once a year basic metabolic panel while on Multaq. Thank you for allowing me to participate in the care of your patient. Please feel free to contact me if you have any questions. Coding Level of Care Code Est Pt Level 4 (17330) Diagnoses Paroxysmal A-fib I48.0 CPT Codes EKG - CPT: 23641-[id number], Complete ([id number])
== END 2024-01-26 15:19 | disposition home or self-care (01) ==
PROVIDERS: PCP Internal Medicine; Visit Provider Internal Medicine Cardiovascular Disease
DX: I48.0 Paroxysmal atrial fibrillation (principal)
CPT/HCPCS: 93010; 99214

== ENCOUNTER → 2024-01-26 14:44 | Outpatient (BNVA) | payer OTHER, SELFPAY | PROVIDERS: PCP Internal Medicine; Visit Provider Internal Medicine Cardiovascular Disease | DX: I48.0 Paroxysmal atrial fibrillation (principal) | CPT/HCPCS: 93005; 99212 ==

== ENCOUNTER 2024-02-07 16:40 | Inpatient (IN) | payer OTHER, SELFPAY ==
[2024-02-07] VITALS (7 sets, daily range): BP systolic 105–157; BP diastolic 61–82; PULSE 88–132; RESP 18–21; TEMP 36.1–36.7; O2SAT 95–98; BMI 32.2
--- NOTE | ~2024-02-07 | XR_ITS ---
EXAMINATION: XR CHEST CLINICAL INFORMATION: A. Fib with question of pulmonary edema COMPARISON: 09/15/2021 TECHNIQUE: Frontal view of the chest was obtained. FINDINGS: No significant abnormality is noted involving the heart, lungs, mediastinum, bony thorax or soft tissues. Scarring is present at the left lung base unchanged when compared to the prior study. Again seen is some mild calcification in the supraspinatus tendon on the right. XR/XR chest 1V IMPRESSION: No acute intrathoracic disease. There is no evidence of CHF or pulmonary edema.
--- NOTE | 2024-02-07 16:44 | ECG_ITS ---
Test Reason : AFIB Blood Pressure : / mmHG Vent. Rate : 129 BPM Atrial Rate : 000 BPM P-R Int : 000 ms QRS Dur : 074 ms QT Int : 340 ms P-R-T Axes : 000 -02 023 degrees QTc Int : 498 ms Atrial fibrillation with rapid ventricular response Low voltage QRS Abnormal ECG When compared with ECG of 15-SEP-2021 16:02, No significant change was found Referred By: Generic ED Physician Electronically Signed By:Sudeep Carnes
--- NOTE | 2024-02-07 16:58 | ED_ITS ---
HPI - General Adult General Chief complaint: Arrhythmia/Palpitations Stated complaint: afib,sob Time Seen by Provider: 02/07/24 16:57 Source: patient Mode of arrival: ambulatory Limitations: no limitations History of Present Illness HPI narrative: Patient comes to the emergency room complaining of palpitations and shortness of breath. Patient states that she has history of atrial fibrillation, usually is well controlled, takes Multaq 400 mg daily and is compliant with her medication. Patient denies any chest pain, complaining of bit of pressure and palpitations. Patient states that for the last few days, patient has had cough with phlegm, no fever chills, 1 episode of diarrhea, no vomiting Related Data Home Medications ?Medication ?Instructions ?Recorded ?Confirmed atorvastatin 20 mg tablet 20 mg PO DAILY 09/15/21 01/26/24 multivitamin 1 tab PO DAILY 09/15/21 01/26/24 omeprazole 20 mg capsule,delayed 20 mg PO DAILY 11/27/21 01/26/24 release Previous Rx's ?Medication ?Instructions ?Recorded simethicone 125 mg chewable tablet 125 mg PO TID-QID PRN abdominal 11/05/22 (Gas Relief (simethicone)) distention #90 tabs dicyclomine 10 mg capsule 10 mg PO BID #60 caps 03/31/23 dronedarone 400 mg tablet (Multaq) 400 mg PO BID #180 tabs 05/27/23 Allergies Allergy/AdvReac Type Severity Reaction Status Date / Time penicillin V Allergy Mild Rash Verified 02/07/24 16:59 Review of Systems 2 Review of Systems: Constitutional : No Weight loss, No Fever, No Chills, No Night Sweats, No Fatigue, No Malaise ENT/Mouth : No Hearing loss, No Ear Pain, No Nasal Congestion, No Sinus Pain, No Hoarseness, No sore throat, No Rhinorrhea, No Swallowing Difficulty Eyes: No Eye Pain, No Swelling, No Redness, No Foreign Body, No Discharge, No Vision Changes Cardiovascular : Complaining of palpitations, shortness of breath with exertion, cough insulin Respiratory : No Cough, No Sputum, No Wheezing, No Smoke Exposure, No Dyspnea Gastrointestinal : No Nausea, No Vomiting, 1 episode of Diarrhea, No Constipation, No abdominal Pain, No Hematochezia, No Melena Genitourinary : no irregular bleeding, No Dysuria, No Urinary Frequency, No Hematuria, No Urinary Incontinence, No Urgency, No Flank Pain, No Urinary Flow Changes, No Hesitancy Musculoskeletal : No joint pain, No Myalgias, No Joint Swelling Skin : No Skin Lesions, No rash Neuro : No Weakness, No Numbness, No Paresthesias, No Loss of Consciousness, No Dizziness, No Headache Psych : No Anxiety/Panic, No Depression, No SI/HI/AH/VH, No Social Issues, Heme/Lymph: No Bruising, No Bleeding,No Lymphadenopathy Endocrine : No Polyuria, No Polydipsia, No Temperature Intolerance [facility] Past Medical History Medical History Paroxysmal A-fib High cholesterol Surgical History History of esophagogastroduodenoscopy (EGD) Hx of colonoscopy History of right hip replacement (~01/21/21) Family History Family History Mother Heart disease Social History Social History Household Members Other:: Patient Tobacco Use Status: Never used Tobacco Smoked in Last 30 Days: No Use of substances other than those prescribed or required for medical reasons: No Advance Directives: No Advance Directives Information Provided: No Do you have a plan to hurt others: No Plan Patient : No service: No Current occupational status: employed Physical Exam ED Vital Signs: Vital Signs - 24 hr 02/07/24 16:57 02/07/24 17:07 02/07/24 18:33 Temperature 97 F 97.7 F 97.8 F Pulse Rate 105 H 132 H 126 H Respiratory Rate 18 18 18 Blood Pressure 157/82 H 114/63 116/61 Pulse Oximetry 97 95 98 Oxygen Delivery Method Room Air Room Air Room Air 02/07/24 19:46 02/07/24 20:22 Temperature 98.0 F Pulse Rate 112 H 88 Respiratory Rate 21 H Blood Pressure 121/66 105/73 Pulse Oximetry 96 Oxygen Delivery Method Room Air BMI result Body Mass Index 32.2 Const Other: Appearance: Alert. Oriented X3. No acute distress. Eyes: Pupils equal, round and reactive to light. ENT: Pharynx normal. Neck: Normal inspection. Neck supple. No lymph nodes noted. No crepitus CVS: Patient is irregularly irregular, heart rate in the 130s, no crackles Respiratory: No respiratory distress. Breath sounds normal. No Wheezing. No rales Abdomen: Soft and nontender. No rigidity. No distention. Skin: Skin warm and dry. Normal skin color. Normal skin turgor. Extremities: No lower extremity edema. No Lacerations. No Rash Neuro: Oriented X 3. No motor deficit. No sensory deficit. Moving all extremities. No slurred speech. CN 2 through 12 grossly intact Psych: calm, cooperative, normal affect Course Course Course Narrative: This is an RME: Additional HPI, ROS, PE not included below will be deferred to primary provider. RME assessment and note performed by: Glenys Llamas PA-C This is a [id number]-female presenting to the ER with complaints of lightheadedness, diaphoresis on . Pt has a hx of paroxysmal atrial fibrillation and underwent cardioversion in the past. On ta no missed dosages. Patient tachycardic in the 130s. She is stating that she is feeling short of breath and palpitations. EKG revealing AFib with RVR, will bring patient back to the ER for further evaluation stat. Plan: Labs, EKG, further ER evaluation needed. Medications Administered Discontinued Medications Generic Name Dose Route Start Last Admin Trade Name Freq PRN Reason Stop Dose Admin Diltiazem HCl 10 mg 02/07/24 19:28 02/07/24 19:46 Diltiazem Hcl 50 Mg/10 Ml Vial IVPUSH 02/07/24 19:29 10 mg STAT STA Administration Metoprolol Tartrate 5 mg 02/07/24 17:55 02/07/24 18:34 Metoprolol Tartrate 5 Mg/5 Ml Vial IVPUSH 02/07/24 17:56 5 mg ONCE ONE Administration Protocol Medical Decision Making Medical Decision Making [facility] Narrative: -my interpretation of labs: Normal hematology, normal chemistry, normal BNP, normal troponin -my interpretation of EKG: Atrial fibrillation with RVR, heart rate 129, no ST segment depression or elevation, no T-wave inversion, QTC 498 -initially, patient's heart rate seemed to be controlled in the 90s. Then patient was walked around the emergency room. Patient's heart rate when between 115 and 130. Patient stated that she was very short of breath and returned to her room. -heart rate went 130-115. However, patient states that she feels palpitations and short of breath. -Cardizem drip started -I discussed the patient with Dr. De Los Santos, patient being admitted Differential Diagnosis Differential Diagnoses: The differential diagnosis associated with the presentation includes (AFib with RVR, atrial flutter, SVT) Admission/Observation Consideration of admission/observation: Escalation of care including admission/observation considered Consult Healthcare Provider Management of the patient was discussed with: Hospitalist Lab Data [facility] Lab Attestation statement: I reviewed the patient's lab results. 02/07/24 17:08 02/07/24 17:08 Labs: Lab Results 02/07/24 Range/Units 17:08 WBC 8.4 (4.8-10.8) X10*3/uL RBC 4.49 (4.20-5.50) X10*6/uL Hgb 13.7 (12.0-16.0) g/dl Hct 40.8 (37.0-47.0) % MCV 90.9 (80.0-98.0) fL MCH 30.5 (27.0-33.0) pg MCHC 33.6 (31.0-35.0) g/dl RDW 12.7 (11.0-16.0) % Plt Count 268 (160-400) X10*3/uL MPV 9.7 (9.4-12.3) fL Immature Gran % (Auto) 0.4 (0.0-0.4) % Neut % (Auto) 48.3 (45-73) % Lymph % (Auto) 39.4 (20-40) % [place] % (Auto) 8.7 (2-11) % Eos % (Auto) 2.5 (0-4) % Baso % (Auto) 0.7 (0-2) % Lymph # (Auto) 3.3 (1.2-4.9) X10*3/uL [place] # (Auto) 0.7 (0.1-1.2) X10*3/uL Eos # (Auto) 0.2 (0.0-0.4) X10*3/uL Baso # (Auto) 0.1 (0.0-0.2) X10*3/uL Abs Immat Gran (auto) 0.03 (0.00-0.03) X10*3/uL Absolute Neuts (auto) 4.1 (2.0-8.3) x10*3/uL Absolute Nucleated RBC 0.000 (0.0-0.012) X10*3/uL Nucleated RBC % (auto) 0.0 (0.0-0.2) /100WBC PT 11.0 L (11.1-13.3) SEC INR 0.9 (0.9-1.1) APTT 28.4 (26.0-36.8) SEC Sodium 142 (135-145) mmol/L Potassium 4.1 (3.3-5.1) mmol/L Chloride 107 (96-108) mmol/L Carbon Dioxide 24 (22-29) mmol/L Anion Gap 15 (12-20) BUN 9 (9-16) mg/dL Creatinine 0.78 (0.5-1.4) mg/dL Estim Creat Clear Calc 77.9 Estimated GFR > 60 Random Glucose 93 (60-115) mg/dL Calcium 9.7 (8.4-10.2) mg/dL Total Bilirubin 0.3 (0.0-1.0) mg/dL AST 21 (5-31) U/L ALT 27 (0-31) U/L Alkaline Phosphatase 86 (39-117) U/L Troponin I High Sens 3.5 (<3.5-17.0) ng/L B-Natriuretic Peptide 90 (<100) pg/mL Total Protein 7.6 (6.5-8.0) g/dL Albumin 4.3 (3.5-5.0) g/dL Independent Interpretation I performed an independent interpretation of an: EKG and Plain X-Ray (My interpretation of chest x-ray: No pneumonia or CHF exacerbation) Radiology Impression Discussion of test interpretation with radiology: I have reviewed the radiologist's reading. Radiologist Impression: No significant abnormality is noted involving the heart, lungs, mediastinum, bony thorax or soft tissues. Scarring is present at the left lung base unchanged when compared to the prior study. Again seen is some mild calcification in the supraspinatus tendon on the right. XR/XR chest 1V IMPRESSION: No acute intrathoracic disease. There is no evidence of CHF or pulmonary edema. Independent Historian Clinical information obtained from an independent historian. History obtained from or confirmed by: Spouse Chronic Conditions Patient?s care impacted by: Other (CHF) Critical Care Time Critical Care Time Critical Care Time: Yes Total Critical Care Time: 60 Attestation: I have personally provided critical care time. Time includes review of lab data, radiology results, discussion with consultants, and monitoring for potential decompensation. Intervention performed as documented. Discharge Plan Discharge Clinical Impression: Atrial fibrillation with RVR Patient Disposition: Admitted As Inpatient Prescriptions: No Action dicyclomine 10 mg capsule 10 mg PO BID Qty: 60 11RF Multaq 400 mg tablet 400 mg PO BID Qty: 180 3RF multivitamin Tablet 1 tab PO DAILY atorvastatin 20 mg Tablet 20 mg PO DAILY omeprazole 20 mg capsule,delayed release(DR/EC) 20 mg PO DAILY simethicone [Gas Relief (simethicone)] 125 mg tablet,chewable 125 mg PO TID-QID PRN (Reason: abdominal distention) Qty: 90 2RF Print Language: Libyan
[2024-02-07 17:13] LABS: MANUAL DIFF FLAG NO
[2024-02-07 17:16] LABS: Basophils Absolute Auto 0.1 X10*3/uL (0.0-0.2); Basophils Percent Auto 0.7 % (0-2); Eosinophils Absolute Auto 0.2 X10*3/uL (0.0-0.4); Eosinophils Percent Auto 2.5 % (0-4); Hematocrit 40.8 % (37.0-47.0); Hemoglobin 13.7 g/dl (12.0-16.0); Imm Gran Abs Auto 0.03 X10*3/uL (0.00-0.03); Imm Gran Pct Auto 0.4 % (0.0-0.4); Lymphocytes Absolute Auto 3.3 X10*3/uL (1.2-4.9); Lymphocytes Percent Auto 39.4 % (20-40); Mean Corpuscular HGB Conc 33.6 g/dl (31.0-35.0); Mean Corpuscular Hemoglobin 30.5 pg (27.0-33.0); Mean Corpuscular Volume 90.9 fL (80.0-98.0); Mean Platelet Volume 9.7 fL (9.4-12.3); Monocytes Absolute Auto 0.7 X10*3/uL (0.1-1.2); Monocytes Percent Auto 8.7 % (2-11); Neutrophils Absolute Auto 4.1 x10*3/uL (2.0-8.3); Neutrophils Percent Auto 48.3 % (45-73); Platelet Count 268 X10*3/uL (160-400); Red Blood Count 4.49 X10*6/uL (4.20-5.50); Red Cell Distribution Width 12.7 % (11.0-16.0); White Blood Count 8.4 X10*3/uL (4.8-10.8)
[2024-02-07 17:30] LABS: Alanine Aminotransferase 27 U/L (0-31); Albumin Level 4.3 g/dL (3.5-5.0); Alkaline Phosphatase 86 U/L (39-117); Anion Gap 15 (12-20); Aspartate Amino Transferase 21 U/L (5-31); Bilirubin Total 0.3 mg/dL (0.0-1.0); Blood Urea Nitrogen 9 mg/dL (9-16); Calcium 9.7 mg/dL (8.4-10.2); Carbon Dioxide 24 mmol/L (22-29); Chloride 107 mmol/L (96-108); Creatinine Clr Calc Pharmacy 77.9; Estimated Glomerular Filt Rate > 60; Glucose Random 93 mg/dL (60-115); Potassium 4.1 mmol/L (3.3-5.1); Sodium 142 mmol/L (135-145); Total Protein 7.6 g/dL (6.5-8.0)
[2024-02-07 17:31] LABS: INTERNATIONAL NORM RATIO 0.9 (0.9-1.1)
[2024-02-07 17:34] LABS: Partial Thromboplastin Time 28.4 SEC (26.0-36.8)
[2024-02-07 17:37] LABS: Troponin-I High Sensitivity 3.5 ng/L (<3.5-17.0)
[2024-02-07 17:38] LABS: B Type Natriuretic Peptide 90 pg/mL (<100)
--- NOTE | 2024-02-07 17:55 | PC.NURSE ---
xray bedside at this time.
[2024-02-07] MEDS: Metoprolol Tartrate 5 MG/5 ML VIAL IVPUSH (18:34)
--- NOTE | 2024-02-07 18:36 | PC.NURSE ---
pt remains in afib on the quality assurance monitor - HR between 106-130bpm. pt denies chest pain/palpitations. medication administered per provider order. effectiveness pending. plan of care ongoing. call riley placed within reach.
--- NOTE | 2024-02-07 19:44 | PC.NURSE ---
pt ambulated to bathroom, gait even and steady. no c/o dizziness
[2024-02-07] MEDS: dilTIAZem HCL 50 MG/10 ML VIAL 10 MG IVPUSH (19:46)
--- NOTE | 2024-02-07 21:14 | PC.NURSE ---
pt ambulated in hallway, some SOB reported. 96% RA
--- NOTE | 2024-02-07 21:20 | PM.IMHP ---
History of Present Illness Date of Service: 02/07/24 Chief Complaint: Palpitations This is a 63-year-old female with pertinent history of paroxysmal atrial fibrillation not on anticoagulation, mixed hyperlipidemia, gastroesophageal disease who presents to the emergency department for evaluation of palpitations. Patient states it started on the day of presentation. She checked her jeronimo on the phone with stated that she was in AFib and she presented to the ER. She denies dizziness, lightheadedness, history of hypertension, shortness of breath, orthopnea, PND, history of diabetes, history of stroke or vascular disease. No fever, chills, chest pain, abdominal pain, changes in urinary or bowel habits In the emergency department, patient was found to be in AFib with RVR and initiated on IV diltiazem drip. Review of Systems Constitutional: Constitutional: Reports no additional constitutional complaints Cardiovascular: Cardiovascular: Reports rapid heart rate Respiratory: Respiratory: Reports no additional respiratory complaints Gastrointestinal: Gastrointestinal: Reports no additional gastrointestinal complaints Genitourinary: Genitourinary: Reports no additional female genitourinary complaints [facility] Medical History Paroxysmal A-fib High cholesterol Family History Mother Heart disease Surgical History History of esophagogastroduodenoscopy (EGD) Hx of colonoscopy History of right hip replacement (~01/21/21) Social History Household Members Other:: Patient Tobacco Use Status: Never used Tobacco Smoked in Last 30 Days: No Use of substances other than those prescribed or required for medical reasons: No Advance Directives: No Advance Directives Information Provided: No Do you have a plan to hurt others: No Plan Patient : No service: No Current occupational status: employed Meds Allergies Allergy/AdvReac Type Severity Reaction Status Date / Time penicillin V Allergy Mild Rash Verified 02/07/24 16:59 Active Medications: Current Medications Diltiazem HCl 125 mg/ Sodium (Chloride) 125 mls @ 0 mls/hr IVCONT .Q0M LYDIA; Protocol Home Medications ?Medication ?Instructions ?Recorded ?Confirmed ?Last Taken ?Type atorvastatin 20 mg tablet 20 mg PO DAILY 09/15/21 01/26/24 09/15/21 History multivitamin 1 tab PO DAILY 09/15/21 01/26/24 09/15/21 History omeprazole 20 mg capsule,delayed 20 mg PO DAILY 11/27/21 01/26/24 Unknown History release Physical Exam Vital Signs and Narrative: Vital Signs: Last Vital Signs Temp 98.0 F 02/07/24 20: Pulse 88 02/07/24 20:22 Resp 21 H 02/07/24 20:22 BP 105/73 02/07/24 20:22 Pulse Ox 96 02/07/24 21:09 O2 Del Method Room Air 02/07/24 20:22 BMI result Body Mass Index 32.2 Middle-aged female lying in bed in no distress Neck supple, no JVD Irregularly irregular, S1-S2 heard Regular breath sounds bilaterally, no wheezing or crackles appreciated Abdomen soft nontender, no guarding, no rigidity Patient is awake, alert and oriented to self, place, time and person ; no focal motor deficit Psych: Normal mood No pedal edema Results Labs 02/07/24 17:08 02/07/24 17:08 Labs: Laboratory Results - last 24 hr 02/07/24 17:08 MCV 90.9 MCH 30.5 MCHC 33.6 RDW 12.7 Plt Count 268 MPV 9.7 Immature Gran % (Auto) 0.4 Neut % (Auto) 48.3 Lymph % (Auto) 39.4 [place] % (Auto) 8.7 Eos % (Auto) 2.5 Baso % (Auto) 0.7 Lymph # (Auto) 3.3 [place] # (Auto) 0.7 Eos # (Auto) 0.2 Baso # (Auto) 0.1 Abs Immat Gran (auto) 0.03 Absolute Neuts (auto) 4.1 Absolute Nucleated RBC 0.000 Nucleated RBC % (auto) 0.0 PT 11.0 L INR 0.9 APTT 28.4 Anion Gap 15 Estim Creat Clear Calc 77.9 Estimated GFR > 60 Random Glucose 93 Calcium 9.7 Total Bilirubin 0.3 AST 21 ALT 27 Alkaline Phosphatase 86 Troponin I High Sens 3.5 B-Natriuretic Peptide 90 Total Protein 7.6 Albumin 4.3 Imaging Radiologist's Impressions: Impressions Chest X-Ray 02/07/24 17:55 IMPRESSION: No acute intrathoracic disease. There is no evidence of CHF or pulmonary edema. Assessment and Plan (1) Atrial fibrillation with RVR: Status: Acute Plan This is a 63-year-old female with pertinent history of paroxysmal atrial fibrillation not on anticoagulation, mixed hyperlipidemia, gastroesophageal disease who presents to the emergency department for evaluation of palpitations. #. Afib with RVR: Will admit patient with cardiac monitoring. Initiated on IV dilt drip in the ER. Will obtain TSH and consult Cardiology. On dronedarone. Chads Vasc score 1. #. Mixed hyperlipidemia: On statin #. Gastroesophageal reflux disease: On PPI Med rec pending DVT prophylaxis: Lovenox Full code Admit as inpatient and will require two night minimum hospital stay for IV diltiazem, close monitoring of heart rate (as above), which is not possible in a lesser acute setting. Specialist consult pending Quality Stroke Does the patient have a stroke diagnosis?: No VTE Prior VTE?: No VTE Risk Level:: Medical - moderate - high VTE Device Contraindication: Treatment Not Indicated VTE Drug Contraindication: N/A - Med Ordered
[2024-02-07] MEDS: Enoxaparin Sodium 40 MG/0.4 ML SYRINGE SUBCUT (21:49)
[2024-02-07] MEDS: dilTIAZem HCL 125 MG in 0.9 % Sodium Chloride 100 ML 10 MG IVCONT (21:50)
--- NOTE | 2024-02-07 21:53 | PC.NURSE ---
diltiazem started 10ml/hr
--- NOTE | 2024-02-07 22:18 | PHA.MEDREC ---
Pharmacy Consult ? Medication Reconciliation Pharmacy has completed the medication reconciliation. patient with rx bottles at bedside, states she also take citrucel daily
[2024-02-07] MEDS: Acetaminophen 325 MG TABLET 650 MG PO (23:18)
--- NOTE | 2024-02-07 23:18 | PC.NURSE ---
pt requesting medication for headache, pt medicated per MAR
[2024-02-08] VITALS (7 sets, daily range): BP systolic 97–123; BP diastolic 56–82; PULSE 84–115; RESP 16–25; TEMP 36.4–36.6; O2SAT 95–98
--- NOTE | 2024-02-08 | ECG_ITS ---
Test Reason : PALPITATIONS Blood Pressure : / mmHG Vent. Rate : 088 BPM Atrial Rate : 000 BPM P-R Int : 000 ms QRS Dur : 070 ms QT Int : 386 ms P-R-T Axes : 000 -02 018 degrees QTc Int : 467 ms Atrial fibrillation Low voltage QRS Nonspecific T wave abnormality Abnormal ECG When compared with ECG of 07-FEB-2024 16:52, No significant change was found Referred By: Yue Gibson Electronically Signed By:ASAD REESE MD
--- NOTE | 2024-02-08 01:10 | PC.NURSE ---
dilt drip on hold, HR in 80s, BP 106/67. aware
[2024-02-08 05:16] LABS: MANUAL DIFF FLAG NO
[2024-02-08 05:17] LABS: Basophils Absolute Auto 0.1 X10*3/uL (0.0-0.2); Basophils Percent Auto 0.7 % (0-2); Eosinophils Absolute Auto 0.3 X10*3/uL (0.0-0.4); Eosinophils Percent Auto 4.4 % (0-4); Hematocrit 38.4 % (37.0-47.0); Imm Gran Abs Auto 0.01 X10*3/uL (0.00-0.03); Imm Gran Pct Auto 0.1 % (0.0-0.4); Lymphocytes Absolute Auto 2.6 X10*3/uL (1.2-4.9); Lymphocytes Percent Auto 38.6 % (20-40); Mean Corpuscular HGB Conc 33.9 g/dl (31.0-35.0); Mean Corpuscular Volume 91.6 fL (80.0-98.0); Mean Platelet Volume 10.2 fL (9.4-12.3); Monocytes Absolute Auto 0.6 X10*3/uL (0.1-1.2); Monocytes Percent Auto 9.2 % (2-11); Neutrophils Absolute Auto 3.2 x10*3/uL (2.0-8.3); Platelet Count 227 X10*3/uL (160-400); Red Blood Count 4.19 X10*6/uL (4.20-5.50); White Blood Count 6.8 X10*3/uL (4.8-10.8)
[2024-02-08 05:39] LABS: Anion Gap 16 (12-20); Blood Urea Nitrogen 12 mg/dL (9-16); Calcium 9.3 mg/dL (8.4-10.2); Carbon Dioxide 20 mmol/L (22-29); Chloride 109 mmol/L (96-108); Creatinine Clr Calc Pharmacy 77.9; Estimated Glomerular Filt Rate > 60; Glucose Random 99 mg/dL (60-115); Potassium 4.1 mmol/L (3.3-5.1); Sodium 141 mmol/L (135-145)
[2024-02-08 05:55] LABS: Thyroid Stimulating Hormone 2.71 uIU/mL (0.32-4.0)
--- NOTE | 2024-02-08 06:29 | PC.NURSE ---
HR 110-120, per MD dilt drip resumed
--- NOTE | 2024-02-08 08:37 | PC.NURSE ---
Resumed care of patient at 0700, she is currently a/ox4, denies complaints of SOB/cp/palpitations. Dilt drip restarted prior to this RN coming in, pt continues to be low 100s for heart rate, BP stable. Awaiting bed placement at this time.
[2024-02-08] MEDS: Multivitamin TABLET 1 TAB PO (09:21)
[2024-02-08] MEDS: Atorvastatin Calcium 20 MG TABLET PO (09:21)
[2024-02-08] MEDS: Dicyclomine HCl 10 MG CAPSULE PO ×2 (09:21→21:21)
--- NOTE | 2024-02-08 09:52 | HO.PM.IMPN ---
Subjective Subjective Date of Service: 02/08/24 Physical Exam Vital Signs: Vital Signs: Last Vital Signs Temp 97.7 F 02/08/24 08:00 Pulse 97 02/08/24 08:00 Resp 16 02/08/24 08:00 BP 97/56 L 02/08/24 08:00 Pulse Ox 95 02/08/24 08:00 O2 Del Method Room Air 02/08/24 08:00 BMI result Body Mass Index 32.2 Objective Data Active Medications Acetaminophen (Acetaminophen 325 Mg Tablet) 650 mg PO Q6H PRN PRN Reason: Pain, Mild (Pain Scale 1-3) Last Admin: 02/07/24 23:18 Dose: 650 mg Documented By: NADEEM Atorvastatin Calcium (Atorvastatin Calcium 20 Mg Tablet) 20 mg PO DAILY [facility] Last Admin: 02/08/24 09:21 Dose: 20 mg Documented By: LONNIE Dicyclomine HCl (Dicyclomine Hcl 10 Mg Capsule) 10 mg PO BID [facility] Last Admin: 02/08/24 09:21 Dose: 10 mg Documented By: LONNIE Enoxaparin Sodium (Enoxaparin Sodium 40 Mg/0.4 Ml Syringe) 40 mg SUBCUT Q24H [facility] Last Admin: 02/07/24 21:49 Dose: 40 mg Documented By: NADEEM Diltiazem HCl 125 mg/ Sodium (Chloride) 125 mls @ 0 mls/hr IVCONT .Q0M [facility]; Protocol Last Titration: 02/08/24 06:30 Dose: 10 mg/hr, 10 mls/hr Documented By: NADEEM Melatonin (Melatonin 3 Mg Tablet) 6 mg PO BEDTIME PRN PRN Reason: Insomnia Multivitamins/Vitamin C (Multivitamin Tablet) 1 tab PO DAILY [facility] Last Admin: 02/08/24 09:21 Dose: 1 tab Documented By: LONNIE Omeprazole (Omeprazole 20 Mg Capsule.Dr) 20 mg PO DAILY@0630 [facility] Ondansetron HCl (Ondansetron Hcl 4 Mg/2 Ml Vial) 4 mg IVPUSH Q8H PRN PRN Reason: Nausea and Vomiting Sodium Chloride (0.9 % Sodium Chloride Flush 3 Ml Syringe) 3 ml IVFLUSH QSHIFT [facility] Last Admin: 02/08/24 09:21 Dose: Not Given Documented By: LONNIE Non-Admin Reason: IV Running Labs 02/08/24 04:50 02/08/24 04:50 Labs: Laboratory Results - last 24 hr 02/07/24 02/08/24 17:08 04:50 MCV 90.9 91.6 MCH 30.5 31.0 MCHC 33.6 33.9 RDW 12.7 13.0 Plt Count 268 227 MPV 9.7 10.2 Immature Gran % (Auto) 0.4 0.1 Neut % (Auto) 48.3 47.0 Lymph % (Auto) 39.4 38.6 [place] % (Auto) 8.7 9.2 Eos % (Auto) 2.5 4.4 H Baso % (Auto) 0.7 0.7 Lymph # (Auto) 3.3 2.6 [place] # (Auto) 0.7 0.6 Eos # (Auto) 0.2 0.3 Baso # (Auto) 0.1 0.1 Abs Immat Gran (auto) 0.03 0.01 Absolute Neuts (auto) 4.1 3.2 Absolute Nucleated RBC 0.000 0.000 Nucleated RBC % (auto) 0.0 0.0 PT 11.0 L INR 0.9 APTT 28.4 Anion Gap 15 16 Estim Creat Clear Calc 77.9 77.9 Estimated GFR > 60 > 60 Random Glucose 93 99 Calcium 9.7 9.3 Total Bilirubin 0.3 AST 21 ALT 27 Alkaline Phosphatase 86 Troponin I High Sens 3.5 B-Natriuretic Peptide 90 Total Protein 7.6 Albumin 4.3 TSH 2.71 Assessment and Plan (1) Atrial fibrillation with RVR: Status: Acute Plan This is a 63-year-old female with pertinent history of paroxysmal atrial fibrillation not on anticoagulation, mixed hyperlipidemia, gastroesophageal disease who presents to the emergency department for evaluation of palpitations. Afib with RVR Initiated on IV dilt drip in the ER. TSH 2.71 Cardiology consultation On dronedarone. Chads Vasc score 1. Mixed hyperlipidemia On statin Gastroesophageal reflux disease On PPI DVT prophylaxis: Ana Lilia Attending Dr. Dumont Full code continue hospital stay for IV diltiazem, close monitoring of heart rate (as above), which is not possible in a lesser acute setting. Specialist consult pending Quality Stroke Does the patient have a stroke diagnosis?: No VTE Prior VTE?: No VTE Risk Level:: Medical - moderate - high VTE Device Contraindication: Treatment Not Indicated VTE Drug Contraindication: N/A - Med Ordered
--- NOTE | 2024-02-08 10:26 | PC.NURSE ---
Dilt drip paused d/t HR being in the 80s
--- NOTE | 2024-02-08 11:19 | MHC.CM.PN ---
Pt lives with her , she will complete HCP form here, naming him as her HCP. Pt does not have home care services, she is independent, for DME, she has a CPAP. DC plan is home, self care, her will transport her home. CM will follow for DC needs.
[2024-02-08] MEDS: Dronedarone HCl 400 MG TABLET PO (11:58)
--- NOTE | 2024-02-08 13:31 | PC.NURSE ---
this RN reached out to WARD MAID in regards to HR 90-130's, pt has been off Dilt drip since this morning. Questioned if she would like her back on the drip or watch and wait. Pt remains asymptomatic denies SOB/CP/Palpitations. Per WARD MAID would like to watch and wait at this time.
--- NOTE | 2024-02-08 19:00 | PC.NURSE ---
late entry- this rn assumed care of pt at 1900, pt sitting up in stretcher, a&ox4, respirations even and unlabored. pt reports needing to use bathroom, pt walked to bathroom at this time. pt ambulated with steady gait. pt given toothbrush per request.
[2024-02-08] MEDS: 0.9 % Sodium Chloride Flush 3 ML SYRINGE IVFLUSH (20:22)
--- NOTE | 2024-02-08 20:52 | P.CONCA_ITS ---
History of Present Illness History of Present Illness Date of Service: 02/08/24 Requesting physician: Yue Gibson Chief complaint: PAF Narrative: 63-year-old female with known history of paroxysmal atrial fibrillation was stable on Multaq previously now presenting with viral illness and palpitations ongoing for few days. She checked her pulse and it was quite fast and eventually came to the emergency department. She has been diagnosed atrial fibrillation. She was started on diltiazem drip with rate control but continues to have fast heart rates off and on. She has no shortness of breath or chest pain. She is not on anticoagulation. [facility] Past Medical History Medical History Paroxysmal A-fib High cholesterol Family History Family History Mother Heart disease Surgical History Surgical History History of esophagogastroduodenoscopy (EGD) Hx of colonoscopy History of right hip replacement (~01/21/21) Social History Social History Household Members Other:: Patient Tobacco Use Status: Never used Tobacco Smoked in Last 30 Days: No Use of substances other than those prescribed or required for medical reasons: No Advance Directives: No Advance Directives Information Provided: No Do you have a plan to hurt others: No Plan Nutrition Risks: No Nutritional Risk Patient : No service: No Current occupational status: employed Meds Allergies Allergy/AdvReac Type Severity Reaction Status Date / Time penicillin V Allergy Mild Rash Verified 02/07/24 16:59 Active Medications: Current Medications Acetaminophen (Acetaminophen 325 Mg Tablet) 650 mg PO Q6H PRN PRN Reason: Pain, Mild (Pain Scale 1-3) Last Admin: 02/07/24 23:18 Dose: 650 mg Apixaban (Apixaban 5 Mg Tablet) 5 mg PO BID [facility] Atorvastatin Calcium (Atorvastatin Calcium 20 Mg Tablet) 20 mg PO DAILY [facility] Last Admin: 02/08/24 09:21 Dose: 20 mg Dicyclomine HCl (Dicyclomine Hcl 10 Mg Capsule) 10 mg PO BID [facility] Last Admin: 02/08/24 09:21 Dose: 10 mg Diltiazem HCl 125 mg/ Sodium (Chloride) 125 mls @ 0 mls/hr IVCONT .Q0M [facility]; Protocol Last Titration: 02/08/24 10:26 Dose: 0 mg/hr, 0 mls/hr Melatonin (Melatonin 3 Mg Tablet) 6 mg PO BEDTIME PRN PRN Reason: Insomnia Multivitamins/Vitamin C (Multivitamin Tablet) 1 tab PO DAILY [facility] Last Admin: 02/08/24 09:21 Dose: 1 tab Omeprazole (Omeprazole 20 Mg Capsule.) 20 mg PO DAILY@0630 [facility] Ondansetron HCl (Ondansetron Hcl 4 Mg/2 Ml Vial) 4 mg IVPUSH Q8H PRN PRN Reason: Nausea and Vomiting Sodium Chloride (0.9 % Sodium Chloride Flush 3 Ml Syringe) 3 ml IVFLUSH QSHIFT [facility] Last Admin: 02/08/24 20:22 Dose: 3 ml Home Medications ?Medication ?Instructions ?Recorded ?Confirmed ?Last Taken ?Type atorvastatin 20 mg tablet 20 mg PO DAILY 09/15/21 02/07/24 02/07/24 History multivitamin 1 tab PO DAILY 09/15/21 02/07/24 02/07/24 History omeprazole 20 mg capsule,delayed 20 mg PO DAILY@0630 11/27/21 02/07/24 02/07/24 History release methylcellulose (laxative) 500 mg 500 mg PO DAILY 02/07/24 02/07/24 02/07/24 History tablet (Citrucel) Physical Exam 2 Vital Signs: Vital Signs: Last Vital Signs Temp 97.7 F 02/08/24 15:04 Pulse 91 02/08/24 15:04 Resp 25 H 02/08/24 15:04 BP 104/56 L 02/08/24 15:04 Pulse Ox 95 02/08/24 15:04 O2 Del Method Room Air 02/08/24 15:04 BMI result Body Mass Index 32.2 GENERAL APPEARANCE: in no acute distress, pleasant. NECK: no carotid bruit, no jugular venous distention. SKIN: no suspicious lesions, warm and dry. HEART: no murmurs, irregular rate and rhythm. Tachycardic LUNGS: clear to auscultation bilaterally. ABDOMEN: soft, nontender. EXTREMITIES: no edema. PERIPHERAL PULSES: equal. NEUROLOGIC: No gross deficits, AAO X 3 Objective Labs and Meds 02/08/24 04:50 02/08/24 04:50 Lab results: Laboratory Results - last 24 hr 02/08/24 04:50 WBC 6.8 RBC 4.19 L Hgb 13.0 Hct 38.4 MCV 91.6 MCH 31.0 MCHC 33.9 RDW 13.0 Plt Count 227 MPV 10.2 Immature Gran % (Auto) 0.1 Neut % (Auto) 47.0 Lymph % (Auto) 38.6 [place] % (Auto) 9.2 Eos % (Auto) 4.4 H Baso % (Auto) 0.7 Lymph # (Auto) 2.6 [place] # (Auto) 0.6 Eos # (Auto) 0.3 Baso # (Auto) 0.1 Abs Immat Gran (auto) 0.01 Absolute Neuts (auto) 3.2 Absolute Nucleated RBC 0.000 Nucleated RBC % (auto) 0.0 Sodium 141 Potassium 4.1 Chloride 109 H Carbon Dioxide 20 L Anion Gap 16 BUN 12 Creatinine 0.78 Estim Creat Clear Calc 77.9 Estimated GFR > 60 Random Glucose 99 Calcium 9.3 TSH 2.71 Assessment and Plan (1) Atrial fibrillation with RVR: Status: Acute Plan 63-year-old female presenting with paroxysmal atrial fibrillation. She has been started on Cardizem drip. Would consider loading her with digoxin to see for rate control could be achieved. If we fail in controlling heart rates by tomorrow then will consider CORETTA cardioversion. Keep NPO after midnight. At apixaban 5 mg twice a day for now. She will stay on anticoagulation for 6 weeks post cardioversion. Thank you for allowing me to participate in the care of your patient. Please feel free to contact me if you have any questions. Procedures Date of Service Date of Service: 02/08/24
[2024-02-08] MEDS: Digoxin 0.5 MG/2 ML AMPUL 0.125 MG IVPUSH (21:21)
[2024-02-08] MEDS: Apixaban 5 MG TABLET PO (21:21)
--- NOTE | 2024-02-08 21:25 | PC.NURSE ---
pt medicated per mar, pt tolerated well with water.
[2024-02-09] VITALS (13 sets, daily range): BP systolic 97–132; BP diastolic 37–89; PULSE 78–131; RESP 14–19; TEMP 36.2–36.9; O2SAT 93–98; BMI 35.5
[2024-02-09] MEDS: 0.9 % Sodium Chloride Flush 3 ML SYRINGE IVFLUSH ×3 (00:46→20:14)
[2024-02-09] MEDS: Digoxin 0.5 MG/2 ML AMPUL 0.125 MG IVPUSH (02:59)
[2024-02-09] MEDS: Omeprazole 20 MG CAPSULE.DR PO (07:10)
[2024-02-09] MEDS: Multivitamin TABLET 1 TAB PO (08:42)
[2024-02-09] MEDS: Apixaban 5 MG TABLET PO ×2 (08:42→20:12)
[2024-02-09] MEDS: Atorvastatin Calcium 20 MG TABLET PO (08:42)
[2024-02-09] MEDS: Dicyclomine HCl 10 MG CAPSULE PO ×2 (08:43→20:13)
--- NOTE | 2024-02-09 09:21 | HO.PM.IMPN ---
Subjective Subjective Date of Service: 02/09/24 Review of Systems Follow-up atrial fibrillation with rapid ventricular response Patient denies pain or shortness a breath Heart rate elevated when ambulating Physical Exam Vital Signs: Vital Signs: Last Vital Signs Temp 97.9 F 02/09/24 08:14 Pulse 131 H 02/09/24 08:14 Resp 19 02/09/24 08:14 BP 112/70 02/09/24 08:14 Pulse Ox 97 02/09/24 08:14 O2 Del Method Room Air 02/09/24 08:14 O2 Flow Rate 93 02/09/24 06:06 BMI result Body Mass Index 32.2 Appearing in no acute distress lung sounds are clear to auscultation heart irregularly irregular positive bowel sounds, abdomen is soft, nontender neuro patient is alert x3, no focal deficits Objective Data Active Medications Acetaminophen (Acetaminophen 325 Mg Tablet) 650 mg PO Q6H PRN PRN Reason: Pain, Mild (Pain Scale 1-3) Last Admin: 02/07/24 23:18 Dose: 650 mg Documented By: NADEEM Apixaban (Apixaban 5 Mg Tablet) 5 mg PO BID [facility] Last Admin: 02/09/24 08:42 Dose: 5 mg Documented By: VIBHA Atorvastatin Calcium (Atorvastatin Calcium 20 Mg Tablet) 20 mg PO DAILY [facility] Last Admin: 02/09/24 08:42 Dose: 20 mg Documented By: VIBHA Dicyclomine HCl (Dicyclomine Hcl 10 Mg Capsule) 10 mg PO BID [facility] Last Admin: 02/09/24 08:43 Dose: 10 mg Documented By: VIBHA Diltiazem HCl 125 mg/ Sodium (Chloride) 125 mls @ 0 mls/hr IVCONT .Q0M [facility]; Protocol Last Titration: 02/08/24 10:26 Dose: 0 mg/hr, 0 mls/hr Documented By: LONNIE Melatonin (Melatonin 3 Mg Tablet) 6 mg PO BEDTIME PRN PRN Reason: Insomnia Multivitamins/Vitamin C (Multivitamin Tablet) 1 tab PO DAILY [facility] Last Admin: 02/09/24 08:42 Dose: 1 tab Documented By: VIBHA Omeprazole (Omeprazole 20 Mg Capsule.Dr) 20 mg PO DAILY@0630 [facility] Last Admin: 02/09/24 07:10 Dose: 20 mg Documented By: HO.CAMJA Ondansetron HCl (Ondansetron Hcl 4 Mg/2 Ml Vial) 4 mg IVPUSH Q8H PRN PRN Reason: Nausea and Vomiting Sodium Chloride (0.9 % Sodium Chloride Flush 3 Ml Syringe) 3 ml IVFLUSH QSHIFT [facility] Last Admin: 02/09/24 07:10 Dose: 3 ml Documented By: ASIF Labs 02/08/24 04:50 02/08/24 04:50 Assessment and Plan (1) Atrial fibrillation with RVR: Status: Acute Plan This is a 63-year-old female with pertinent history of paroxysmal atrial fibrillation not on anticoagulation, mixed hyperlipidemia, gastroesophageal disease who presents to the emergency department for evaluation of palpitations. Afib with RVR Initiated on IV dilt drip in the ER. TSH 2.71 Cardiology consultation> load with digoxin to assist with rate control, start apixaban 5 mg b.i.d., plan for etta cardioversion today dronedarone stopped as per Cardiology Mixed hyperlipidemia On statin Gastroesophageal reflux disease On PPI Obesity. BMI 32.2 Discussed importance of weight management as this may be contributing to worsening of other comorbidities DVT prophylaxis: Apixaban Attending Dr. Dumont Full code continue hospital stay for IV diltiazem, close monitoring of heart rate (as above), which is not possible in a lesser acute setting. Specialist consult pending for cardiology procedure Quality Stroke Does the patient have a stroke diagnosis?: No VTE Prior VTE?: No VTE Risk Level:: Medical - moderate - high VTE Device Contraindication: Treatment Not Indicated VTE Drug Contraindication: N/A - Med Ordered
--- NOTE | 2024-02-09 10:34 | MHC.CM.PN ---
Patient is not yet medically cleared for dc (IV Diltiazem/needs tele monitoring); home is the goal and CM will continue to follow.
--- NOTE | 2024-02-09 10:40 | P.DS_ITS ---
DS: Providers Provider Date of admission: 02/07/24 21:19 Primary care physician: Presley Stubbs MD Consults: 02/07/24 21:18 Consult to Cardiology Routine Consulting Provider: [facility] [place] [facility] Reason for consultation: afib with rvr DS: Diagnosis Discharge Diagnosis (1) Atrial fibrillation with RVR: Status: Acute DS: Summary Hospital Course Hospital Course: History and physical as per admitting provider. This is a 63-year-old female with pertinent history of paroxysmal atrial fibrillation not on anticoagulation, mixed hyperlipidemia, gastroesophageal disease who presents to the emergency department for evaluation of palpitations. Patient states it started on the day of presentation. She checked her jeronimo on the phone with stated that she was in AFib and she presented to the ER. She denies dizziness, lightheadedness, history of hypertension, shortness of breath, orthopnea, PND, history of diabetes, history of stroke or vascular disease. No fever, chills, chest pain, abdominal pain, changes in urinary or bowel habits. In the emergency department, patient was found to be in AFib with RVR and initiated on IV diltiazem drip. 63-year-old woman treated for atrial fibrillation with rapid ventricular response. Initially started on Cardizem drip in the ER. Normal TSH. Seen evaluated by Cardiology. Loaded with digoxin, started on apixaban 5 mg b.i.d., metoprolol increased to 25 mg b.i.d. and Multaq restarted. Successful CORETTA cardioversion, patient in sinus rhythm. Hyperlipidemia. Continue statin GERD. Continue PPI Obesity. BMI 32.2 Discussed importance of weight management as this may be contributing to worsening of other comorbidities Physical Exam Vital Signs: Vital Signs: Last Vital Signs Temp 97.6 F 02/09/24 09:42 Pulse 90 02/09/24 09:42 Resp 14 02/09/24 09:42 BP 111/72 02/09/24 09:42 Pulse Ox 97 02/09/24 09:42 O2 Del Method Room Air 02/09/24 09:42 O2 Flow Rate 93 02/09/24 06:06 BMI result Body Mass Index 32.2 Discharge Plan Discharge Patient Disposition: Home Health Service Discharge Diagnosis: Atrial fibrillation with rapid ventricular response Referrals: Presley Stubbs MD [Primary Care Provider] - 1 Week Discharge Medications: No Action dicyclomine 10 mg capsule 10 mg PO BID Qty: 60 11RF Multaq 400 mg tablet 400 mg PO BID Qty: 180 3RF multivitamin Tablet 1 tab PO DAILY atorvastatin 20 mg Tablet 20 mg PO DAILY Citrucel 500 mg Tablet 500 mg PO DAILY omeprazole 20 mg capsule,delayed release(DR/EC) 20 mg PO DAILY@0630 Diet: Advance to usual diet Activity on Discharge: As tolerated Stand Alone Forms: Patient Portal Discharge page Print Language: [place] [facility] Concerns: Atrial fibrillation with rapid ventricular response Plan of Treatment: Follow-up with primary care provider as needed Take all medications as prescribed Assessment: See discharge summary
--- NOTE | 2024-02-09 12:05 | PC.NURSE ---
pt HR in 120s diltiazem drip resumed per MD
--- NOTE | 2024-02-09 13:15 | PM.PNCARD ---
Subjective Subjective Date of Service: 02/09/24 Interval history: Seen and examined at bedside. For CORETTA and cardioversion today, Physical Exam Vital Signs: Last Vital Signs Temp 97.8 F 02/09/24 12:00 Pulse 97 02/09/24 12:00 Resp 14 02/09/24 12:00 BP 130/65 02/09/24 12:00 Pulse Ox 97 02/09/24 12:00 O2 Del Method Room Air 02/09/24 12:00 O2 Flow Rate 93 02/09/24 06:06 BMI result Body Mass Index 32.2 GENERAL APPEARANCE: in no acute distress, pleasant. NECK: no carotid bruit, no jugular venous distention. SKIN: no suspicious lesions, warm and dry. HEART: no murmurs, irregular rate and rhythm. Tachycardic LUNGS: clear to auscultation bilaterally. ABDOMEN: soft, nontender. EXTREMITIES: no edema. PERIPHERAL PULSES: equal. NEUROLOGIC: No gross deficits, AAO X 3 Objective Labs and Meds 02/08/24 04:50 02/08/24 04:50 Progress Note: A&P Assessment and plan (1) Atrial fibrillation with RVR: Status: Acute Plan 63 female with symptomatic Afib. She is were CORETTA cardioversion today. Continue apixaban. Multaq is currently on hold but I think we can resume it after cardioversion. Would start her on some metoprolol 25 mg twice a day along with Multaq. Likely cause for AFib is viral gastroenteritis. Thank you for allowing me to participate in the care of your patient. Please feel free to contact me if you have any questions. Time Spent With Patient Time: Total time managing care of this patient today ____ minutes. Progress Note: Quality Stroke Does the patient have a stroke diagnosis?: No Procedures Date of Service Date of Service: 02/09/24
--- NOTE | 2024-02-09 13:15 | MHC.SHP ---
Pre-Procedural Eval Section A - 24 Hr Update-Section A only Date of Service: 02/09/24 The patient is an INPATIENT: Yes The patient has been examined within 24 hours of the surgical procedure. The History & Physical has been completed within 30 days and I have reviewed it.: No Section B - Complete if H&P > 30 days Chief Complaint: PAF Details of Present Illness: For CORETTA cardioversion Allergies: Allergies Allergy/AdvReac Type Severity Reaction Status Date / Time penicillin V Allergy Mild Rash Verified 02/07/24 16:59 Plan Diagnosis/Plan: Unchanged I have reviewed the history and physical and performed a pertinent physical examination on my patient. No changes have occurred unless specified. Time Spent With Patient Time: Total time managing care of this patient today ____ minutes.
--- NOTE | 2024-02-09 13:31 | P.CONAN_ITS ---
[facility] Active Problems Active Problems: All Active Problems Atrial fibrillation with RVR (Acute) Flu-like symptoms (Acute) Chronic diarrhea (Acute) Chest pain (Acute) REJI (obstructive sleep apnea) (Acute) Paroxysmal A-fib (Acute) Past Medical History Medical History Paroxysmal A-fib High cholesterol Family History Family History Mother Heart disease Family history of problems with anesthesia: No Surgical History Surgical History History of esophagogastroduodenoscopy (EGD) Hx of colonoscopy History of right hip replacement (~01/21/21) History of Problems with Anesthesia: No Social History Social History Household Members: Spouse Household Members Other:: Housing: House Do you presently have visiting nurse or other home services: No Patient Tobacco Use Status: Never used Tobacco service: No Current occupational status: employed Meds Allergies Allergy/AdvReac Type Severity Reaction Status Date / Time penicillin V Allergy Mild Rash Verified 02/07/24 16:59 Active Medications: Current Medications Acetaminophen (Acetaminophen 325 Mg Tablet) 650 mg PO Q6H PRN PRN Reason: Pain, Mild (Pain Scale 1-3) Last Admin: 02/07/24 23:18 Dose: 650 mg Apixaban (Apixaban 5 Mg Tablet) 5 mg PO BID [facility] Last Admin: 02/09/24 08:42 Dose: 5 mg Atorvastatin Calcium (Atorvastatin Calcium 20 Mg Tablet) 20 mg PO DAILY [facility] Last Admin: 02/09/24 08:42 Dose: 20 mg Dicyclomine HCl (Dicyclomine Hcl 10 Mg Capsule) 10 mg PO BID [facility] Last Admin: 02/09/24 08:43 Dose: 10 mg Diltiazem HCl 125 mg/ Sodium (Chloride) 125 mls @ 0 mls/hr IVCONT .Q0M [facility]; Protocol Last Titration: 02/09/24 11:55 Dose: 10 mg/hr, 10 mls/hr Melatonin (Melatonin 3 Mg Tablet) 6 mg PO BEDTIME PRN PRN Reason: Insomnia Multivitamins/Vitamin C (Multivitamin Tablet) 1 tab PO DAILY [facility] Last Admin: 02/09/24 08:42 Dose: 1 tab Omeprazole (Omeprazole 20 Mg Capsule.) 20 mg PO DAILY@06 [facility] Last Admin: 02/09/24 07:10 Dose: 20 mg Ondansetron HCl (Ondansetron Hcl 4 Mg/2 Ml Vial) 4 mg IVPUSH Q8H PRN PRN Reason: Nausea and Vomiting Sodium Chloride (0.9 % Sodium Chloride Flush 3 Ml Syringe) 3 ml IVFLUSH QSHIFT [facility] Last Admin: 02/09/24 07:10 Dose: 3 ml Home Medications ?Medication ?Instructions ?Recorded ?Confirmed ?Last Taken ?Type atorvastatin 20 mg tablet 20 mg PO DAILY 09/15/21 02/07/24 02/07/24 History multivitamin 1 tab PO DAILY 09/15/21 02/07/24 02/07/24 History omeprazole 20 mg capsule,delayed 20 mg PO DAILY@0630 11/27/21 02/07/24 02/07/24 History release methylcellulose (laxative) 500 mg 500 mg PO DAILY 02/07/24 02/07/24 02/07/24 History tablet (Citrucel) Exam Height,Weight and Vital Signs: Height 5 ft 1 in Weight 85.2 kg Last Vital Signs Temp 97.8 F 02/09/24 12:00 Pulse 97 02/09/24 12:00 Resp 14 02/09/24 12:00 BP 130/65 02/09/24 12:00 Pulse Ox 97 02/09/24 12:00 O2 Del Method Room Air 02/09/24 12:00 O2 Flow Rate 93 02/09/24 06:06 Pertinent Lab Results Pertinent Lab Results: Laboratory Tests 02/07/24 02/08/24 17:08 04:50 WBC 8.4 6.8 RBC 4.49 4.19 L Hgb 13.7 13.0 Hct 40.8 38.4 MCV 90.9 91.6 MCH 30.5 31.0 MCHC 33.6 33.9 RDW 12.7 13.0 Plt Count 268 227 MPV 9.7 10.2 Immature Gran % (Auto) 0.4 0.1 Neut % (Auto) 48.3 47.0 Lymph % (Auto) 39.4 38.6 [place] % (Auto) 8.7 9.2 Eos % (Auto) 2.5 4.4 H Baso % (Auto) 0.7 0.7 Lymph # (Auto) 3.3 2.6 [place] # (Auto) 0.7 0.6 Eos # (Auto) 0.2 0.3 Baso # (Auto) 0.1 0.1 Abs Immat Gran (auto) 0.03 0.01 Absolute Neuts (auto) 4.1 3.2 Absolute Nucleated RBC 0.000 0.000 Nucleated RBC % (auto) 0.0 0.0 PT 11.0 L INR 0.9 APTT 28.4 Sodium 142 141 Potassium 4.1 4.1 Chloride 107 109 H Carbon Dioxide 24 20 L Anion Gap 15 16 BUN 9 12 Creatinine 0.78 0.78 Estim Creat Clear Calc 77.9 77.9 Estimated GFR > 60 > 60 Random Glucose 93 99 Calcium 9.7 9.3 Total Bilirubin 0.3 AST 21 ALT 27 Alkaline Phosphatase 86 Troponin I High Sens 3.5 B-Natriuretic Peptide 90 Total Protein 7.6 Albumin 4.3 TSH 2.71 Airway Mallampati Class: III TM Dist: <=3cm Neck ROM: Full Loose/Missing/Broken Teeth: Yes (broken 7) Heart: irr rhythm Lungs: cta Assessment and Plan Assessment Anesthesia Assessment: Anesthesia Plan Discussed and Chart Reviewed Final Anesthetic Review Family History of Problems with Anesthesia: No History of Problems with Anesthesia: No NPO: Yes ASA Class: III Final Preanesthetic Review: No Changes in Pt Med Stat, Meds/Allgs Chart Reviewed, Consent Obtained/Reviewed and Anes Risks/Benef Reviewed Patient Risk: Intermediate Procedure Risk: Intermediate Anesthetic Plan Anesthetic Plan: GA Disposition: Standard PACU
--- NOTE | 2024-02-09 13:33 | PC.NURSE ---
pt off floor for cardioversion at 1325
--- NOTE | 2024-02-09 14:00 | CA_ITS ---
Transesophageal Echocardiogram Patient (Last, First, Middle): Lorena Villarreal, Gender: Female Date of : 1960 Age: 63 Procedure Date: 02/09/2024 Procedure Type: Transesophageal Echocardiogram [place] [facility] [place]: 175.26 cm Weight: kg BSA: m2 Heart Rate: 134 bpm Operations Research Manager: Referring MD: Sudeep Carnes MD Symptoms: Afib Conclusion: ??? Normal left ventricular size and systolic function. ??? Normal right ventricular cavity size and systolic function. ??? There is no evidence of a thrombus in the left atrial appendage. Findings Procedure Information Consent was obtained prior to the procedure. The probe was passed with no difficulty. Left Ventricle Normal left ventricular size and systolic function. The visually estimated ejection fraction is between 55-60%. There is no evidence of regional wall motion abnormalities. Right Ventricle Normal right ventricular cavity size and systolic function. Atria The left atrium is mildly dilated. There is no evidence of a thrombus in the left atrial appendage. Aortic Valve There is a normal trileaflet aortic valve. There is no aortic valve regurgitation. Mitral Valve The mitral valve appears normal. There is trace mitral valve regurgitation. There is no mitral valve stenosis. Pulmonic Valve The pulmonic valve was not well visualized. Tricuspid Valve Normal tricuspid valve structure and function. There is trace tricuspid valve regurgitation. Great Vessels Small plaque is seen in the descending thoracic aorta. Pericardium/Pleural There is no evidence of pericardial effusion. Updated by Sudeep Carnes on 08:05 PM with Status of Final Sudeep Carnes MD electronically signed on 02/10/2024 8:05:13 PM with status of Final
[2024-02-09] MEDS: Acetaminophen 325 MG TABLET 650 MG PO (17:54)
[2024-02-09] MEDS: Metoprolol Tartrate 25 MG TABLET PO (20:13)
[2024-02-09] MEDS: Dronedarone HCl 400 MG TABLET PO (20:14)
--- NOTE | 2024-02-09 21:06 | HO.CARDIVERS ---
Cardioversion Procedure Note Cardioversion Date of Procedure: 02/09/24 Ordering Provider: Sudeep Carnes Performing Provider: Sudeep Carnes Indication for Procedure: Afib with RVR Performed with Transesophageal Echo: Yes CORETTA findings (if CORETTA Performed): No LA/PARRIS clot History: 63 female with symptomatic Afib. Consent: Verbal and Written consent was obtained from the patient before starting. The patient was made aware of the risk of stroke, failure, skin burn and arrhythmia. Procedure: After consent obtained, defib pads were attached and the patient was sedated by the anesthesia team. Once adequate sedation achieved, single synchronized shock of 200 J was given which converted the patient to sinus rhythm. Recommendations: c/w Apixaban. restart Multaq and add metoprolol.
[2024-02-10] VITALS: BP 129/59; PULSE 74; RESP 16; TEMP 36.9; O2SAT 95
[2024-02-10 04:00] VITALS: BP 102/55; PULSE 66; RESP 16; TEMP 36; O2SAT 93
[2024-02-10] MEDS: Omeprazole 20 MG CAPSULE.DR PO (05:31)
[2024-02-10 07:26] VITALS: BP 103/57; PULSE 66; RESP 18; TEMP 36.3; O2SAT 95
[2024-02-10] MEDS: Metoprolol Tartrate 25 MG TABLET PO (08:40)
[2024-02-10] MEDS: Dicyclomine HCl 10 MG CAPSULE PO (08:40)
[2024-02-10] MEDS: Apixaban 5 MG TABLET PO (08:41)
[2024-02-10] MEDS: Multivitamin TABLET 1 TAB PO (08:41)
[2024-02-10] MEDS: Atorvastatin Calcium 20 MG TABLET PO (08:41)
[2024-02-10] MEDS: Dronedarone HCl 400 MG TABLET PO (08:41)
[2024-02-10] MEDS: 0.9 % Sodium Chloride Flush 3 ML SYRINGE IVFLUSH (08:42)
--- NOTE | 2024-02-10 09:22 | HO.POSTANES ---
Post Anesthesia Evaluation Post Anesthesia Evaluation Date of Service: 02/09/24 Vital Signs: Vital Signs Temp Pulse Resp BP Pulse Ox O2 Del Method 02/10/24 07:26 97.3 F 66 18 103/57 L 95 Room Air 02/10/24 04:00 96.8 F 66 16 102/55 L 93 Room Air 02/10/24 00:00 98.5 F 74 16 129/59 L 95 Room Air Anesthesia: Monitored Mental Status: Awake Pain Control: Satisfactory Nausea/Vomiting: None Hydration: Adequate Anesthesia-Related Issues: No Anes. Related Issues
--- NOTE | 2024-02-10 11:10 | P.DS_ITS ---
DS: Providers Provider Date of Service: 02/10/24 Date of admission: 02/07/24 21:19 Date of discharge: 02/10/24 Primary care physician: Presley Stubbs MD Consults: 02/07/24 21:18 Consult to Cardiology Routine [place] [facility] [place] Reason for consultation: afib with rvr Attending physician on discharge: Zachery Dumont Discharging clinician: Marce Zheng DS: Diagnosis Discharge Diagnosis (1) Atrial fibrillation with RVR: Status: Acute DS: Summary Hospital Course Hospital Course: History and physical as per admitting provider. This is a 63-year-old female with pertinent history of paroxysmal atrial fibrillation not on anticoagulation, mixed hyperlipidemia, gastroesophageal disease who presents to the emergency department for evaluation of palpitations. Patient states it started on the day of presentation. She checked her jeronimo on the phone with stated that she was in AFib and she presented to the ER. She denies dizziness, lightheadedness, history of hypertension, shortness of breath, orthopnea, PND, history of diabetes, history of stroke or vascular disease. No fever, chills, chest pain, abdominal pain, changes in urinary or bowel habits. In the emergency department, patient was found to be in AFib with RVR and initiated on IV diltiazem drip. This is a 63-year-old woman treated for atrial fibrillation with rapid ventricular response. Initially started on Cardizem drip in the ER. Normal TSH. Seen evaluated by Cardiology. Loaded with digoxin, started on apixaban 5 mg b.i.d., metoprolol increased to 25 mg b.i.d. and Multaq restarted. Underwent Successful CORETTA cardioversion 02/08, has remained in sinus rhythm. Hyperlipidemia. Continue statin GERD. Continue PPI Obesity. BMI 32.2 Discussed importance of weight management as this may be contributing to worsening of other comorbidities Time Attestation Discharge Coordination Time (in mins): 35 Quality: Safe Use of Opioids Does Pt have an Active Cancer Diagnosis on the Problem List?: No Quality: Stroke Does the patient have a stroke diagnosis?: No Physical Exam Vital Signs: Vital Signs: Last Vital Signs Temp 97.3 F 02/10/24 07:26 Pulse 66 02/10/24 07:26 Resp 18 02/10/24 07:26 BP 103/57 L 02/10/24 07:26 Pulse Ox 95 05/23/24 07:26 O2 Del Method Room Air 02/10/24 07:26 O2 Flow Rate 93 02/09/24 06:06 BMI result Body Mass Index 35.5 Const: General: cooperative and comfortable Nutritional Appearance: obese Orientation/consciousness: patient oriented x3 Neuro: General: patient oriented x3 Discharge Plan Discharge Anticipated Discharge Date/Time: 02/10/24 11:22 Patient Disposition: Home, Self-Care Discharge Diagnosis: Atrial fibrillation with rapid ventricular response Referrals: Presley Stubbs MD [Primary Care Provider] - 1 Week Discharge Medications: New Eliquis 5 mg Tablet 5 mg PO BID Qty: 60 0RF metoprolol tartrate 25 mg Tablet 25 mg PO BID Qty: 60 0RF Protocol: Hold for SBP/HR < HOLD for SBP < : 90 HOLD for HR < : 60 Continued dicyclomine 10 mg capsule 10 mg PO BID Qty: 60 11RF Multaq 400 mg tablet 400 mg PO BID Qty: 180 3RF multivitamin Tablet 1 tab PO DAILY atorvastatin 20 mg Tablet 20 mg PO DAILY Citrucel 500 mg Tablet 500 mg PO DAILY omeprazole 20 mg capsule,delayed release(DR/EC) 20 mg PO DAILY@0630 Discharge Orders: Discharge Order (Routine); Ordered 02/10/24 Ordered By: Marce Zheng Diet: Advance to usual diet Activity on Discharge: As tolerated Stand Alone Forms: Patient Portal Discharge page Print Language: Greenlandic Care Plan Goals: Successful CORETTA cardioversion. Take all new medications as prescribed including Eliquis 5 mg twice daily and Toprol 25 mg twice daily. Continue your Multaq. Follow-up with Cardiology as needed Health Concerns: Atrial fibrillation with rapid ventricular response Plan of Treatment: Follow-up with primary care provider as needed Take all medications as prescribed Assessment: Atrial fibrillation with rapid ventricular response, successful CORETTA cardioversion Discharge Date/Time: 02/10/24 13:15
[2024-02-10 11:13] VITALS: BP 120/63; PULSE 53; RESP 18; TEMP 36.1; O2SAT 97
--- NOTE | 2024-02-10 11:25 | PM.PNCARD ---
Subjective Subjective Date of Service: 02/10/24 Interval history: Seen and examined at bedside. Continues to be in sinus rhythm. Complaining of some nausea. Physical Exam Vital Signs: Last Vital Signs Temp 97.0 F 02/10/24 11:13 Pulse 53 02/10/24 11:13 Resp 18 02/10/24 11:13 BP 120/63 02/10/24 11:13 Pulse Ox 97 02/10/24 11:13 O2 Del Method Room Air 02/10/24 11:13 O2 Flow Rate 93 02/09/24 06:06 BMI result Body Mass Index 35.5 GENERAL APPEARANCE: in no acute distress, pleasant. NECK: no carotid bruit, no jugular venous distention. SKIN: no suspicious lesions, warm and dry. HEART: no murmurs, regular rate and rhythm. LUNGS: clear to auscultation bilaterally. ABDOMEN: soft, nontender. EXTREMITIES: no edema. PERIPHERAL PULSES: equal. NEUROLOGIC: No gross deficits, AAO X 3 Objective Labs and Meds 02/08/24 04:50 02/08/24 04:50 Progress Note: A&P Assessment and plan (1) Paroxysmal A-fib: Status: Acute Plan 63 year female presenting for palpitations due to atrial fibrillation with rapid ventricular response in the setting of viral gastroenteritis. She has been cardioverted and Multaq has been resumed. Also added metoprolol 25 mg twice a day. She is on Eliquis 5 mg twice a day. She needs to stay this for at least 6 weeks. We will discuss whether we should just continue it after that as outpatient. Thank you for allowing me to participate in the care of your patient. Please feel free to contact me if you have any questions. Time Spent With Patient Time: Total time managing care of this patient today ____ minutes. Progress Note: Quality Stroke Does the patient have a stroke diagnosis?: No Procedures Date of Service Date of Service: 02/10/24
--- NOTE | 2024-02-10 11:52 | MHC.CM.PN ---
PT WILL DC HOME TODAY WITH NO SERVICES VIA PRIVATE TRANSPORT
[2024-02-10] MEDS: ondansetron HCL 4 MG/2 ML VIAL IVPUSH (11:59)
[2024-02-10 12:11] VITALS: O2SAT 95
== END 2024-02-10 13:15 | disposition home or self-care (01) | DRG 310 ==
LOC: HO.ED 21:20 → HO.EDOVER 21:34 → HO.IMC 02-09 07:22
PROVIDERS: Internal Medicine Cardiovascular Disease; Admitting Provider Student in an Organized Health Care Education/Training Program; Emergency Provider Emergency Medicine; PCP Internal Medicine; Visit Provider Physician Assistant Medical
PROC: 5A2204Z Restoration of Cardiac Rhythm, Single (ICD-10-PCS; CPT 93312; principal; 2024-02-09 14:00)
PROC: 5A2204Z Restoration of Cardiac Rhythm, Single (ICD-10-PCS; 2024-02-09 14:00)
DX: I48.0 Paroxysmal atrial fibrillation (principal); K21.9 Gastro-esophageal reflux disease without esophagitis; E66.9 Obesity, unspecified; A08.4 Viral intestinal infection, unspecified; E78.2 Mixed hyperlipidemia; Z68.32 Body mass index [BMI] 32.0-32.9, adult; Z79.01 Long term (current) use of anticoagulants; Z79.899 Other long term (current) drug therapy
CPT/HCPCS: 36415; 71045; 80048; 80053; 83880; 84443; 84484; 85025; 85610; 85730; 92960; 93005; 99285; J1160; J1650; J2405; J2704

== ENCOUNTER → 2024-02-07 16:44 | Outpatient (BNV) | payer OTHER, SELFPAY | PROVIDERS: Admitting Provider Student in an Organized Health Care Education/Training Program; Emergency Provider Emergency Medicine; PCP Internal Medicine; Visit Provider Internal Medicine Cardiovascular Disease | DX: I48.91 Unspecified atrial fibrillation (principal) | CPT/HCPCS: 93010 ==

== ENCOUNTER 2024-02-07 21:19 | Outpatient (BNV) | payer OTHER, SELFPAY | END 2024-02-09 14:00 | PROVIDERS: Admitting Provider Student in an Organized Health Care Education/Training Program; Emergency Provider Emergency Medicine; PCP Internal Medicine; Visit Provider Internal Medicine Cardiovascular Disease | DX: I48.91 Unspecified atrial fibrillation (principal) | CPT/HCPCS: 93312 ==

== ENCOUNTER 2024-02-07 21:19 | Outpatient (BNV) | payer OTHER, SELFPAY | END 2024-02-08 10:52 | PROVIDERS: Admitting Provider Student in an Organized Health Care Education/Training Program; Emergency Provider Emergency Medicine; PCP Internal Medicine; Visit Provider Internal Medicine Cardiovascular Disease | DX: I48.91 Unspecified atrial fibrillation (principal) | CPT/HCPCS: 93010 ==

== ENCOUNTER → 2024-02-07 21:19 | Outpatient (BNV) | payer OTHER, SELFPAY | PROVIDERS: Admitting Provider Student in an Organized Health Care Education/Training Program; Emergency Provider Emergency Medicine; PCP Internal Medicine; Visit Provider Student in an Organized Health Care Education/Training Program | DX: I48.91 Unspecified atrial fibrillation (principal) | CPT/HCPCS: 99222; 99232; 99239 ==

== ENCOUNTER → 2024-02-07 21:19 | Outpatient (BNV) | payer OTHER, SELFPAY | PROVIDERS: Admitting Provider Student in an Organized Health Care Education/Training Program; Emergency Provider Emergency Medicine; PCP Internal Medicine; Visit Provider Internal Medicine Cardiovascular Disease | DX: I48.91 Unspecified atrial fibrillation (principal) | CPT/HCPCS: 92960; 99223; 99232 ==

== ENCOUNTER 2024-02-28 09:16 | Inpatient (IN) | payer OTHER, SELFPAY ==
[2024-02-28] VITALS (8 sets, daily range): BP systolic 90–138; BP diastolic 50–85; PULSE 93–120; RESP 16–20; TEMP 36.1–36.6; O2SAT 95–98; BMI 35.3; BMI 36.2
--- NOTE | 2024-02-28 | ECG_ITS ---
Test Reason : afib Blood Pressure : / mmHG Vent. Rate : 126 BPM Atrial Rate : 000 BPM P-R Int : 000 ms QRS Dur : 062 ms QT Int : 314 ms P-R-T Axes : 000 -01 031 degrees QTc Int : 454 ms Atrial fibrillation with rapid ventricular response Low voltage QRS Cannot rule out Anterior infarct , age undetermined Abnormal ECG When compared with ECG of 08-FEB-2024 10:52, No significant changes seen Referred By: Generic ED Physician Electronically Signed By:TING MACKAY
--- NOTE | ~2024-02-28 | XR_ITS ---
EXAMINATION: XR CHEST CLINICAL INFORMATION: Hypoxia and shortness of breath COMPARISON: 02/28/2024 TECHNIQUE: Frontal view of the chest was obtained. FINDINGS: Improved aeration at the lung bases. Lungs grossly clear. Heart size normal with normal caliber pulmonary vessels. XR/XR chest 1V IMPRESSION: No active disease.
--- NOTE | ~2024-02-28 | XR_ITS ---
EXAMINATION: XR CHEST CLINICAL INFORMATION: Atrial fibrillation. COMPARISON: Most recent chest regressed dated 02/07/2024. TECHNIQUE: Frontal view of the chest was obtained. FINDINGS: Mild chronic interstitial prominence with left lung scarring, unchanged. No new focal airspace consolidation. No pleural effusion or pneumothorax. Bilateral rotator cuff chondrocalcinosis, unchanged. XR/XR chest 1V IMPRESSION: No acute cardiopulmonary findings.
[2024-02-28 09:39] LABS: MANUAL DIFF FLAG NO
[2024-02-28 09:41] LABS: Basophils Absolute Auto 0.1 X10*3/uL (0.0-0.2); Basophils Percent Auto 1.2 % (0-2); Eosinophils Absolute Auto 0.5 X10*3/uL (0.0-0.4); Eosinophils Percent Auto 9.2 % (0-4); Hematocrit 41.9 % (37.0-47.0); Hemoglobin 14.1 g/dl (12.0-16.0); Imm Gran Abs Auto 0.01 X10*3/uL (0.00-0.03); Imm Gran Pct Auto 0.2 % (0.0-0.4); Lymphocytes Absolute Auto 1.8 X10*3/uL (1.2-4.9); Lymphocytes Percent Auto 35.1 % (20-40); Mean Corpuscular HGB Conc 33.7 g/dl (31.0-35.0); Mean Corpuscular Volume 92.1 fL (80.0-98.0); Mean Platelet Volume 9.9 fL (9.4-12.3); Monocytes Absolute Auto 0.7 X10*3/uL (0.1-1.2); Monocytes Percent Auto 13.1 % (2-11); Neutrophils Absolute Auto 2.1 x10*3/uL (2.0-8.3); Neutrophils Percent Auto 41.2 % (45-73); Platelet Count 306 X10*3/uL (160-400); Red Blood Count 4.55 X10*6/uL (4.20-5.50); Red Cell Distribution Width 13.1 % (11.0-16.0)
[2024-02-28 09:53] LABS: Alanine Aminotransferase 26 U/L (0-31); Albumin Level 4.2 g/dL (3.5-5.0); Alkaline Phosphatase 79 U/L (39-117); Anion Gap 15 (12-20); Aspartate Amino Transferase 22 U/L (5-31); Bilirubin Total 0.3 mg/dL (0.0-1.0); Blood Urea Nitrogen 9 mg/dL (9-16); Calcium 9.6 mg/dL (8.4-10.2); Carbon Dioxide 22 mmol/L (22-29); Chloride 111 mmol/L (96-108); Creatinine Clr Calc Pharmacy 73.9; Estimated Glomerular Filt Rate > 60; Glucose Random 126 mg/dL (60-115); Potassium 3.9 mmol/L (3.3-5.1); Sodium 144 mmol/L (135-145); Total Protein 7.5 g/dL (6.5-8.0)
[2024-02-28 10:00] LABS: Troponin-I High Sensitivity 3.2 ng/L (<3.5-17.0)
--- NOTE | 2024-02-28 10:46 | ED.ARRPALP ---
HPI - Arrhythmia/Palpitations General Chief Complaint: Arrhythmia/Palpitations Stated Complaint: Afib Time Seen by Provider: 02/28/24 10:36 Source: patient and family (Spouse) Mode of arrival: ambulatory Limitations: no limitations History of Present Illness ED Provider: DR. Singletary HPI narrative: 63-year-old female with pertinent history of paroxysmal AFib is on Eliquis, Multaq, digoxin, and metoprolol 25 mg b.i.d (ran out of metoprolol for the past 2-3 days do not have enough at home and scheduled to see the medical information specialist this week) patient came in to the emergency department for feeling palpitation after having a sexual intercourse with her , patient otherwise declined CP or SOB. Patient normally runs a low blood blood pressure. Patient has no feeling of dizziness or lightheadedness or blurry vision. Patient had similar presentation 3 weeks ago required hospitalization patient had a successful electrical cardioversion then. Related Data Home Medications ?Medication ?Instructions ?Recorded ?Confirmed atorvastatin 20 mg tablet 20 mg PO DAILY 09/15/21 02/28/24 multivitamin 1 tab PO DAILY 09/15/21 02/28/24 omeprazole 20 mg capsule,delayed 20 mg PO DAILY@0630 11/27/21 02/28/24 release methylcellulose (laxative) 500 mg 500 mg PO DAILY 02/07/24 02/28/24 tablet (Citrucel) acetaminophen 500 mg tablet 500 mg PO BID PRN Pain 02/28/24 02/28/24 Previous Rx's ?Medication ?Instructions ?Recorded dicyclomine 10 mg capsule 10 mg PO BID #60 caps 03/31/23 dronedarone 400 mg tablet (Multaq) 400 mg PO BID #180 tabs 05/27/23 apixaban 5 mg tablet (Eliquis) 5 mg PO BID #60 tabs 02/09/24 metoprolol tartrate 25 mg tablet 25 mg PO BID #60 tabs 02/09/24 Allergies Allergy/AdvReac Type Severity Reaction Status Date / Time penicillin V Allergy Mild Rash Verified 02/28/24 09:36 milk AdvReac Stomach Verified 02/28/24 09:36 Upset onion AdvReac Stomach Verified 02/28/24 09:36 Upset Review of Systems Review of Systems: All other systems are reviewed and are negative Constitutional: Reports as per HPI and Reports no additional constitutional complaints Eyes: Reports as per HPI and Reports no additional eye complaints Reports system reviewed and no additional complaints, except as documented Cardiovascular: Reports as per HPI and Reports no additional cardiovascular complaints Respiratory: Reports as per HPI and Reports no additional respiratory complaints Gastrointestinal: Reports as per HPI and Reports no additional gastrointestinal complaints Genitourinary: Reports no additional female genitourinary complaints Musculoskeletal: Reports no additional musculoskeletal complaints Skin/Breast: Reports system reviewed and no additional complaints, except as docu Psychiatric: Reports no additional psychiatric complaints Endocrine: Reports no additional endocrine complaints Hematologic/Lymphatic: Reports no additional hematologic/lymphatic complaints Allergic/Immunologic: Reports no additional allergic/immunologic complaints Reports system reviewed and no additional complaints, except as documented and Reports Abnormal speech present [facility] Past Medical History Medical History Paroxysmal A-fib High cholesterol Surgical History History of esophagogastroduodenoscopy (EGD) Hx of colonoscopy History of right hip replacement (~01/21/21) Family History Family History Mother Heart disease Social History Social History Household Members: Spouse Household Members Other:: Housing: House Do you presently have visiting nurse or other home services: No Patient Tobacco Use Status: Never used Tobacco Advance Directives: No Advance Directives Information Provided: No Do you have a plan to hurt others: No Plan service: No Current occupational status: employed Physical Exam Vital Signs: Vital Signs: Last Vital Signs Temp 98 F 02/28/24 12:12 Pulse 95 02/28/24 12:12 Resp 16 02/28/24 12:12 BP 113/50 L 02/28/24 12:12 Pulse Ox 98 02/28/24 12:12 O2 Del Method Room Air 02/28/24 12:12 BMI result Body Mass Index 35.3 Vital signs have been reviewed and appear to be correct. Blood pressure elevated. Heart rate elevated. Respiratory rate normal. Temperature normal. Oxygen saturation normal. Appearance: Alert. Oriented X3. No acute distress. Head: Normal external exam. Normocephalic. Atraumatic. No Castro signs noted. No raccoon eyes noted Eyes: PERRLA. EOMI. Conjunctiva and sclera normal. Eyelids normal. ENT: TM's Normal. Pharynx normal. Uvula midline. Moist mucous membranes. No trismus noted. No drooling noted. No muffled voice noted. Neck: Normal inspection. Neck supple. FROM. No adenopathy. Thyroid Normal. No meningeal signs. No neck mass noted. CVS: AFib 110 to 126, Heart sound normal. No murmurs noted. Pulses normal throughout. Respiratory: No respiratory distress. Painless inspiration. Breath sounds normal. No wheezes/rales/rhonchi noted. Chest nontender. No accessory muscle usage noted or decreased air movement noted. Abdomen: Soft and nontender. Bowel sounds normal in all 4 quadrants. No distention noted. No organomegaly noted. No visible injury noted. Back: No CVA tenderness. Full range of motion noted. Skin: Skin warm and dry. Normal skin color. Normal skin turgor. No rashes/lesions/lacerations noted. Extremities: No lower extremity edema. Extremities exhibit normal range of motion. Extremities nontender. Neuro: Oriented X 3. Cranial nerve exam: II-XII are grossly intact No motor deficit. No sensory deficit. Reflexes normal. Course Reevaluation(s) Reevaluation #1: Rapid AFib otherwise patient hemodynamically stable and unremarkable labs patient received 25 mg Lopressor in the ED with better rate control patient still in atrial fibrillation. Hospitalization and further cardiac evaluation. Time: 12:21 Medications Administered Discontinued Medications Generic Name Dose Route Start Last Admin Trade Name Freq PRN Reason Stop Dose Admin Sodium Chloride 1,000 mls @ 500 mls/hr 02/28/24 10:36 02/28/24 11:13 Ns IV 02/28/24 12:35 500 mls/hr .Q2H ONE Administration Metoprolol Tartrate 5 mg 02/28/24 10:36 02/28/24 11:13 Metoprolol Tartrate 5 Mg/5 Ml Vial IVPUSH 02/28/24 10:37 5 mg ONCE ONE Administration Protocol Medical Decision Making Differential Diagnosis Differential Diagnoses: The differential diagnosis associated with the presentation includes (ACS, noted atrial fibrillation, dysrhythmia, pneumonia, pneumothorax, pleural effusion, electrolyte derangement, severe anemia.) Admission/Observation Consideration of admission/observation: Escalation of care including admission/observation considered Consult Healthcare Provider Management of the patient was discussed with: Hospitalist (Arthur) Lab Data MDM Lab Attestation statement: I reviewed the patient's lab results. 02/28/24 09:31 02/28/24 09:31 Labs: Lab Results 02/28/24 Range/Units 09:31 WBC 5.0 (4.8-10.8) X10*3/uL RBC 4.55 (4.20-5.50) X10*6/uL Hgb 14.1 (12.0-16.0) g/dl Hct 41.9 (37.0-47.0) % MCV 92.1 (80.0-98.0) fL MCH 31.0 (27.0-33.0) pg MCHC 33.7 (31.0-35.0) g/dl RDW 13.1 (11.0-16.0) % Plt Count 306 D (160-400) X10*3/uL MPV 9.9 (9.4-12.3) fL Immature Gran % (Auto) 0.2 (0.0-0.4) % Neut % (Auto) 41.2 L (45-73) % Lymph % (Auto) 35.1 (20-40) % [place] % (Auto) 13.1 H (2-11) % Eos % (Auto) 9.2 H (0-4) % Baso % (Auto) 1.2 (0-2) % Lymph # (Auto) 1.8 (1.2-4.9) X10*3/uL [place] # (Auto) 0.7 (0.1-1.2) X10*3/uL Eos # (Auto) 0.5 H (0.0-0.4) X10*3/uL Baso # (Auto) 0.1 (0.0-0.2) X10*3/uL Abs Immat Gran (auto) 0.01 (0.00-0.03) X10*3/uL Absolute Neuts (auto) 2.1 (2.0-8.3) x10*3/uL Absolute Nucleated RBC 0.000 (0.0-0.012) X10*3/uL Nucleated RBC % (auto) 0.0 (0.0-0.2) /100WBC Sodium 144 (135-145) mmol/L Potassium 3.9 (3.3-5.1) mmol/L Chloride 111 H (96-108) mmol/L Carbon Dioxide 22 (22-29) mmol/L Anion Gap 15 (12-20) BUN 9 (9-16) mg/dL Creatinine 0.77 (0.5-1.4) mg/dL Estim Creat Clear Calc 73.9 Estimated GFR > 60 Random Glucose 126 H (60-115) mg/dL Calcium 9.6 (8.4-10.2) mg/dL Total Bilirubin 0.3 (0.0-1.0) mg/dL AST 22 (5-31) U/L ALT 26 (0-31) U/L Alkaline Phosphatase 79 (39-117) U/L Troponin I High Sens 3.2 (<3.5-17.0) ng/L Total Protein 7.5 (6.5-8.0) g/dL Albumin 4.2 (3.5-5.0) g/dL Independent Interpretation I performed an independent interpretation of an: EKG (AFib with rapid ventricular response at 126, normal intervals, left axis deviation, nonspecific ST-T changes.) and Plain X-Ray (Chest: No acute intrathoracic pathology.) Discharge Plan Discharge Clinical Impression: Paroxysmal A-fib, Palpitations Patient Disposition: Admitted As Inpatient Print Language: Finnish
[2024-02-28] MEDS: 0.9 % Sodium Chloride 1,000 ML 500 ML IV (11:13)
[2024-02-28] MEDS: Metoprolol Tartrate 5 MG/5 ML VIAL IVPUSH (11:13)
--- NOTE | 2024-02-28 12:44 | PHA.MEDREC ---
Pharmacy Consult ? Medication Reconciliation Pharmacy has completed the medication reconciliation. Patient brought in stock bottles from home. She states she ran out of her metoprolol 25 on Wednesday02/22/2054.
--- NOTE | 2024-02-28 13:10 | PM.IMHP ---
History of Present Illness Date of Service: 02/28/24 Attending physician on admission: Rayshawn Reaves Chief Complaint: palpitations, lightheadedness 63-year-old female with history of paroxysmal atrial fibrillation s/p cardioversion on 02/09/2024 anticoagulated with Eliquis and on Multaq, REJI compliant with CPAP, hyperlipidemia, IBS, GERD presented to the ED earlier today for evaluation of palpitations, lightheadedness, and dyspnea that started last night after intercourse with her . She does also report some generalized chest discomfort. She states she checked her heart rate and it was elevated at 127. However, she rested and drink cold water hoping the symptoms would dissipate. However, she woke up this morning still symptomatic with heart rate in the 120s. She reports that with ambulation/exertion, dyspnea did worsen and heart rate elevated into the 140s prompting her to present to the ED for further evaluation. She denies any recent illness. No fevers, chills, sore throat, congestion, abdominal pain, nausea, vomiting, diarrhea, urinary symptoms, cough, syncope, chest pressure. To currently feels slightly lightheaded but feels much better than when she 1st presented to the ED. On arrival to the ED, patient was found to be in atrial fibrillation with RVR, rates into the 120s. Blood pressure soft but no hypotension. Blood pressure on admission 113/150. There is no leukocytosis or anemia. Renal function and electrolyte levels were normal except for chloride of 111. Glucose 126. Troponin detectable but within normal limits at 3.2. TSH was checked at last admission and was within normal limits. EKG again revealed atrial fibrillation with RVR, rate [address]/T-wave abnormality. In the ED, was given 1 L IV NS and 5 mg IV Lopressor with improvement in heart rate to high 90s to low 100s. Discuss case with Cardiology recommending admission for atrial fibrillation with RVR. Review of Systems Review of Systems: General: No fevers, malaise, unintentional weight loss HEENT: No blurred vision, diplopia. No sore throat, nasal congestion, rhinorrhea, sinus pain, ear pain Cardiovascular:+palpitations. No chest pressure, or leg edema Respiratory: +dyspnea. No orthopnea, wheezing, cough GI: No abdominal pain, nausea, vomiting, diarrhea, constipation, melena, hematochezia : No dysuria, hematuria, increased urinary frequency, decreased urinary output MSK: No myalgia, back pain Neuro: No headaches, weakness, paresthesias. +lightheadedness Skin: No rashes or lesions [facility] Medical History GERD (gastroesophageal reflux disease) IBS (irritable bowel syndrome) REJI (obstructive sleep apnea) Paroxysmal A-fib High cholesterol Family History Mother Heart disease Surgical History History of esophagogastroduodenoscopy (EGD) Hx of colonoscopy History of right hip replacement (~01/21/21) Social History (Updated 02/28/24 @ 13:16 by VIRA Velasquez) Household Members: Spouse Household Members Other:: Housing: House Do you presently have visiting nurse or other home services: No Alcohol intake: current Alcohol intake frequency: holidays/special occasions only Patient Tobacco Use Status: Never used Tobacco service: No Current occupational status: employed Meds Allergies Allergy/AdvReac Type Severity Reaction Status Date / Time penicillin V Allergy Mild Rash Verified 02/28/24 09:36 milk AdvReac Stomach Verified 02/28/24 09:36 Upset onion AdvReac Stomach Verified 02/28/24 09:36 Upset Active Medications: Current Medications Acetaminophen (Acetaminophen 325 Mg Tablet) 650 mg PO Q6H PRN PRN Reason: Pain, Mild (Pain Scale 1-3) Apixaban (Apixaban 5 Mg Tablet) 5 mg PO BID [facility] Atorvastatin Calcium (Atorvastatin Calcium 20 Mg Tablet) 20 mg PO DAILY [facility] Dicyclomine HCl (Dicyclomine Hcl 10 Mg Capsule) 10 mg PO BID [facility] Magnesium Hydroxide (Milk Of Magnesia 30 Ml Oral.Susp) 30 ml PO DAILY PRN PRN Reason: Constipation Melatonin (Melatonin 3 Mg Tablet) 6 mg PO BEDTIME PRN PRN Reason: Insomnia Metoprolol Tartrate (Metoprolol Tartrate 25 Mg Tablet) 25 mg PO BID LYDIA; Protocol Multivitamins/Vitamin C (Multivitamin Tablet) 1 tab PO DAILY [facility] Non-Formulary Medication (Methylcellulose (Laxative) [Citrucel]) 500 mg PO DAILY [facility] Omeprazole (Omeprazole 20 Mg Capsule.) 20 mg PO DAILY@0630 [facility] Ondansetron HCl (Ondansetron Hcl 4 Mg/2 Ml Vial) 4 mg IVPUSH Q8H PRN PRN Reason: Nausea and Vomiting Sodium Chloride (0.9 % Sodium Chloride Flush 3 Ml Syringe) 3 ml IVFLUSH QSHIFT [facility] Home Medications ?Medication ?Instructions ?Recorded ?Confirmed ?Last Taken ?Type atorvastatin 20 mg tablet 20 mg PO DAILY 09/15/21 02/28/24 02/28/24 06:00 History multivitamin 1 tab PO DAILY 09/15/21 02/28/24 02/28/24 06:00 History omeprazole 20 mg capsule,delayed 20 mg PO DAILY@0630 11/27/21 02/28/24 02/28/24 06:00 History release methylcellulose (laxative) 500 mg 500 mg PO DAILY 02/07/24 02/28/24 02/28/24 06:00 History tablet (Citrucel) acetaminophen 500 mg tablet 500 mg PO BID PRN Pain 02/28/24 02/28/24 Unknown History Physical Exam Vital Signs and Narrative: Vital Signs: Last Vital Signs Temp 98 F 02/28/24 12:12 Pulse 95 02/28/24 12:12 Resp 16 02/28/24 12:12 BP 113/50 L 02/28/24 12:12 Pulse Ox 98 02/28/24 12:12 O2 Del Method Room Air 02/28/24 12:12 BMI result Body Mass Index 35.3 Constitutional - Awake and Alert, No apparent distress Eyes - PERRLA, EOMI Cardiovascular - S1S2, irregularly irregular, tachycardic, No edema Respiratory - Normal lung expansion, Normal respiratory effort, No respiratory distress, CTA bilaterally Gastrointestinal - NT / ND; +BS; No rebound or guarding Extremities - no calf tenderness bilaterally, no swelling Skin - Warm/Dry Neurological - Alert & oriented x3 Results Labs 02/28/24 09:31 02/28/24 09:31 Labs: Laboratory Results - last 24 hr 02/28/24 09:31 MCV 92.1 MCH 31.0 MCHC 33.7 RDW 13.1 Plt Count 306 D MPV 9.9 Immature Gran % (Auto) 0.2 Neut % (Auto) 41.2 L Lymph % (Auto) 35.1 [place] % (Auto) 13.1 H Eos % (Auto) 9.2 H Baso % (Auto) 1.2 Lymph # (Auto) 1.8 [place] # (Auto) 0.7 Eos # (Auto) 0.5 H Baso # (Auto) 0.1 Abs Immat Gran (auto) 0.01 Absolute Neuts (auto) 2.1 Absolute Nucleated RBC 0.000 Nucleated RBC % (auto) 0.0 Anion Gap 15 Estim Creat Clear Calc 73.9 Estimated GFR > 60 Random Glucose 126 H Calcium 9.6 Total Bilirubin 0.3 AST 22 ALT 26 Alkaline Phosphatase 79 Troponin I High Sens 3.2 Total Protein 7.5 Albumin 4.2 Assessment and Plan (1) Atrial fibrillation with RVR: Status: Acute Plan 63-year-old female with history of paroxysmal atrial fibrillation s/p cardioversion on 02/09/2024 anticoagulated with Eliquis and on Multaq, REJI compliant with CPAP, hyperlipidemia, IBS, GERD to be admitted for further evaluation and management of atrial fibrillation with RVR s/p cardioversion on 02/09/2024. #paroxysmal atrial fibrillation with RVR- s/p successful cardioversion 02/09/2024 -rates on admission 90s-100s. EKG showed AFib RVR on arrival, rate 126, no acute ST/T-wave abnormality -resume metoprolol 25 mg b.i.d. -Per cardiology, no plan for immediate cardioversion -Last echo 02/08 showed normal LV systolic function with EF 55-60% with normal right ventricular cavity size and systolic function. No evidence of thrombus. No significant valvular disease. -continue Eliquis for anticoagulation -hold Multaq per Cardiology -cardiac diet -cardiology consult -monitor on telemetry # REJI -CPAP at bedtime # hyperlipidemia -statin # IBS -continue Citrucel, dicyclomine # GERD -PPI DVT prophylaxis-Eliquis Full code So patient requires inpatient stay at least 2 midnights due to recurrent atrial fibrillation despite successful cardioversion 3 weeks ago and antiarrhythmic compliance. She will require close monitoring, IV rate control medication, and expert consultation and possible cardioversion Quality Stroke Does the patient have a stroke diagnosis?: No VTE Prior VTE?: No VTE Risk Level:: Medical - moderate - high VTE Device Contraindication: Treatment Not Indicated VTE Drug Contraindication: N/A - Med Ordered
[2024-02-28] MEDS: 0.9 % Sodium Chloride Flush 3 ML SYRINGE IVFLUSH (14:11)
[2024-02-28] MEDS: Metoprolol Tartrate 25 MG TABLET PO ×2 (14:11→20:54)
[2024-02-28] MEDS: Dicyclomine HCl 10 MG CAPSULE PO (20:53)
[2024-02-28] MEDS: Apixaban 5 MG TABLET PO (20:54)
[2024-02-29] VITALS (8 sets, daily range): BP systolic 118–144; BP diastolic 54–80; PULSE 85–120; RESP 20; TEMP 36.1–36.9; O2SAT 95–98
[2024-02-29] MEDS: 0.9 % Sodium Chloride Flush 3 ML SYRINGE IVFLUSH ×4 (00:20→20:31)
[2024-02-29] MEDS: Acetaminophen 325 MG TABLET 650 MG PO (00:22)
[2024-02-29] MEDS: Omeprazole 20 MG CAPSULE.DR PO (05:31)
[2024-02-29 05:56] LABS: MANUAL DIFF FLAG NO
[2024-02-29 05:57] LABS: Basophils Absolute Auto 0.1 X10*3/uL (0.0-0.2); Basophils Percent Auto 1.1 % (0-2); Eosinophils Absolute Auto 0.5 X10*3/uL (0.0-0.4); Eosinophils Percent Auto 8.7 % (0-4); Hematocrit 39.5 % (37.0-47.0); Hemoglobin 13.2 g/dl (12.0-16.0); Imm Gran Abs Auto 0.01 X10*3/uL (0.00-0.03); Imm Gran Pct Auto 0.2 % (0.0-0.4); Lymphocytes Absolute Auto 1.9 X10*3/uL (1.2-4.9); Lymphocytes Percent Auto 35.6 % (20-40); Mean Corpuscular HGB Conc 33.4 g/dl (31.0-35.0); Mean Corpuscular Hemoglobin 30.8 pg (27.0-33.0); Mean Corpuscular Volume 92.1 fL (80.0-98.0); Mean Platelet Volume 9.7 fL (9.4-12.3); Monocytes Absolute Auto 0.6 X10*3/uL (0.1-1.2); Monocytes Percent Auto 10.3 % (2-11); Neutrophils Absolute Auto 2.4 x10*3/uL (2.0-8.3); Neutrophils Percent Auto 44.1 % (45-73); Platelet Count 285 X10*3/uL (160-400); Red Blood Count 4.29 X10*6/uL (4.20-5.50); Red Cell Distribution Width 13.2 % (11.0-16.0); White Blood Count 5.4 X10*3/uL (4.8-10.8)
[2024-02-29 06:15] LABS: Anion Gap 10 (12-20); Blood Urea Nitrogen 11 mg/dL (9-16); Carbon Dioxide 21 mmol/L (22-29); Chloride 113 mmol/L (96-108); Creatinine Clr Calc Pharmacy 76.8; Estimated Glomerular Filt Rate > 60; Glucose Random 115 mg/dL (60-115); Potassium 4.2 mmol/L (3.3-5.1); Sodium 140 mmol/L (135-145)
--- NOTE | 2024-02-29 08:21 | MHC.CM.PN ---
CM met with Patient at bedside and offered to assist with the completion of a HCP, but Patient stated that she was here 3 weeks ago and completed the HCP form(naming her /Jace as her Agent). Home/self care is the goal and CM has initiated and will follow for dc planning. PCP is Dr. Gilmer Stubbs.Patient uses CPAP at home and she required no other DME.
[2024-02-29] MEDS: Multivitamin TABLET 1 TAB PO (08:36)
[2024-02-29] MEDS: Atorvastatin Calcium 20 MG TABLET PO (08:36)
[2024-02-29] MEDS: Metoprolol Tartrate 25 MG TABLET PO ×2 (08:36→20:31)
[2024-02-29] MEDS: Dicyclomine HCl 10 MG CAPSULE PO ×2 (08:37→20:31)
[2024-02-29] MEDS: Apixaban 5 MG TABLET PO ×2 (08:37→20:31)
[2024-02-29 08:43] LABS: Magnesium 2.1 mg/dL (1.6-2.6)
--- NOTE | 2024-02-29 10:01 | PM.CNCAR ---
History of Present Illness History of Present Illness Date of Service: 02/29/24 Chief complaint: Afib rvr Narrative: This is a cardiology consultation regarding atrial fibrillation with rapid ventricular rate. She has a history of paroxysmal atrial fibrillation and underwent cardioversion last month. She is maintained on Multaq and Eliquis. She also has obstructive sleep apnea on CPAP. Presented for palpitations and lightheadedness that apparently started after having intercourse with her . Then found to be in atrial fibrillation with rapid ventricular rate. She is still in atrial fibrillation but feels overall better. Review of Systems Review of Systems: Yes all other systems are reviewed and are negative Constitutional: Constitutional: Reports as per HPI and Reports no additional constitutional complaints Eyes: Eyes: Reports as per HPI and Denies no additional eye complaints ENT: Denies system reviewed and no additional complaints, except as documented and Reports as per HPI Cardiovascular: Cardiovascular: Reports as per HPI, Reports no additional cardiovascular complaints, Denies acrocyanosis, Denies cool extremities, Denies chest pain, Denies leg edema, Denies lightheadedness, Denies palpitations and Denies dyspnea Respiratory: Respiratory: Reports as per HPI, Denies no additional respiratory complaints and Denies dyspnea Gastrointestinal: Gastrointestinal: Reports as per HPI and Denies no additional gastrointestinal complaints Genitourinary: Genitourinary: Reports as per HPI Musculoskeletal: Musculoskeletal: Reports no additional musculoskeletal complaints and Reports as per HPI Integumentary/Breasts: Skin/Breast: Reports system reviewed and no additional complaints, except as docu Neurologic: Reports system reviewed and no additional complaints, except as documented and Reports as per HPI Psychiatric: Psychiatric: Reports no additional psychiatric complaints and Reports as per HPI Endocrine: Endocrine: Reports no additional endocrine complaints, Reports as per HPI and Denies palpitations Hematologic/Lymphatic: Hematologic/Lymphatic: Reports no additional hematologic/lymphatic complaints and Reports as per HPI Allergic/Immunologic: Allergic/Immunologic: Reports no additional allergic/immunologic complaints and Reports as per HPI [facility] Past Medical History Medical History GERD (gastroesophageal reflux disease) IBS (irritable bowel syndrome) REJI (obstructive sleep apnea) Paroxysmal A-fib High cholesterol Family History Family History Mother Heart disease Surgical History Surgical History History of esophagogastroduodenoscopy (EGD) Hx of colonoscopy History of right hip replacement (~01/21/21) Social History Social History (Updated 02/28/24 @ 13:16 by VIRA Velasquez) Household Members: Spouse Household Members Other:: Housing: House Do you presently have visiting nurse or other home services: No Alcohol intake: current Alcohol intake frequency: holidays/special occasions only Patient Tobacco Use Status: Never used Tobacco Smoked in Last 30 Days: No Use of substances other than those prescribed or required for medical reasons: No Currently Displaying Signs/Symptoms of Drug Intoxication Withdrawal: No Have you been hit, kicked, punched, or otherwise hurt by someone within the past year? If so, by whom?: No Do you feel safe in your current relationship?: Yes Are you made to feel afraid or neglected: No Advance Directives: No Advance Directives Information Provided: No Do you have a plan to hurt others: No Plan Recently lost weight without trying: No Nutrition Risks: No Nutritional Risk Patient : No : No Poor oral hygiene: No service: No Current occupational status: employed Meds Allergies Allergy/AdvReac Type Severity Reaction Status Date / Time penicillin V Allergy Mild Rash Verified 02/28/24 09:36 milk AdvReac Stomach Verified 02/28/24 09:36 Upset onion AdvReac Stomach Verified 02/28/24 09:36 Upset Active Medications: Current Medications Acetaminophen (Acetaminophen 325 Mg Tablet) 650 mg PO Q6H PRN PRN Reason: Pain, Mild (Pain Scale 1-3) Last Admin: 02/29/24 00:22 Dose: 650 mg Amiodarone HCl (Amiodarone Hcl 200 Mg Tablet) 400 mg PO BID [facility] Apixaban (Apixaban 5 Mg Tablet) 5 mg PO BID [facility] Last Admin: 02/29/24 08:37 Dose: 5 mg Atorvastatin Calcium (Atorvastatin Calcium 20 Mg Tablet) 20 mg PO DAILY [facility] Last Admin: 02/29/24 08:36 Dose: 20 mg Dicyclomine HCl (Dicyclomine Hcl 10 Mg Capsule) 10 mg PO BID [facility] Last Admin: 02/29/24 08:37 Dose: 10 mg Magnesium Hydroxide (Milk Of Magnesia 30 Ml Oral.Susp) 30 ml PO DAILY PRN PRN Reason: Constipation Melatonin (Melatonin 3 Mg Tablet) 6 mg PO BEDTIME PRN PRN Reason: Insomnia Metoprolol Tartrate (Metoprolol Tartrate 25 Mg Tablet) 25 mg PO BID [facility]; Protocol Last Admin: 02/29/24 08:36 Dose: 25 mg Multivitamins/Vitamin C (Multivitamin Tablet) 1 tab PO DAILY [facility] Last Admin: 02/29/24 08:36 Dose: 1 tab Omeprazole (Omeprazole 20 Mg Capsule.Dr) 20 mg PO DAILY@0630 [facility] Last Admin: 02/29/24 05:31 Dose: 20 mg Ondansetron HCl (Ondansetron Hcl 4 Mg/2 Ml Vial) 4 mg IVPUSH Q8H PRN PRN Reason: Nausea and Vomiting Psyllium Hydrophilic Mucilloid (Psyllium Seed 3.7 Gm Packet) 3.7 gm PO DAILY [facility] Last Admin: 02/29/24 08:40 Dose: Not Given Sodium Chloride (0.9 % Sodium Chloride Flush 3 Ml Syringe) 3 ml IVFLUSH QSHIFT [facility] Last Admin: 02/29/24 08:41 Dose: 3 ml Home Medications ?Medication ?Instructions ?Recorded ?Confirmed ?Last Taken ?Type atorvastatin 20 mg tablet 20 mg PO DAILY 09/15/21 02/28/24 02/28/24 06:00 History multivitamin 1 tab PO DAILY 09/15/21 02/28/24 02/28/24 06:00 History omeprazole 20 mg capsule,delayed 20 mg PO DAILY@0630 11/27/21 02/28/24 02/28/24 06:00 History release methylcellulose (laxative) 500 mg 500 mg PO DAILY 02/07/24 02/28/24 02/28/24 06:00 History tablet (Citrucel) acetaminophen 500 mg tablet 500 mg PO BID PRN Pain 02/28/24 02/28/24 Unknown History Physical Exam Vital Signs: Vital Signs: Last Vital Signs Temp 97.5 F 02/29/24 07:43 Pulse 115 H 02/29/24 08:36 Resp 20 02/29/24 07:43 BP 122/71 02/29/24 08:36 Pulse Ox 95 02/29/24 07:43 O2 Del Method Room Air 02/29/24 07:43 BMI result Body Mass Index 36.2 Const: General: comfortable and no acute distress Orientation/consciousness: patient oriented x3 HEENT: Other: Unremarkable Head: Yes normal to inspection Neck: Neck: Yes normal visual inspection Chest: Chest palpation & inspection: normal inspection of the chest Resp: Auscultation: clear to auscultation bilaterally Cardio: Palpation: normal PMI Heart sounds: S1 normal heart sound present, S2 normal heart sound present, no gallops, no murmurs and no rubs GI: Palpation (GI): Soft to palpation Back/Spine/Pelvis: Other: unremarkable Skin: General skin exam: no rashes or lesions noted Neuro: General: patient oriented x3 Extrem: General: Yes normal to inspection Psych: Mental Status: mental status grossly normal Objective Labs and Meds 02/29/24 05:46 02/29/24 05:46 Lab results: Laboratory Results - last 24 hr 02/29/24 05:46 WBC 5.4 RBC 4.29 Hgb 13.2 Hct 39.5 MCV 92.1 MCH 30.8 MCHC 33.4 RDW 13.2 Plt Count 285 MPV 9.7 Immature Gran % (Auto) 0.2 Neut % (Auto) 44.1 L Lymph % (Auto) 35.6 [place] % (Auto) 10.3 Eos % (Auto) 8.7 H Baso % (Auto) 1.1 Lymph # (Auto) 1.9 [place] # (Auto) 0.6 Eos # (Auto) 0.5 H Baso # (Auto) 0.1 Abs Immat Gran (auto) 0.01 Absolute Neuts (auto) 2.4 Absolute Nucleated RBC 0.000 Nucleated RBC % (auto) 0.0 Sodium 140 Potassium 4.2 Chloride 113 H Carbon Dioxide 21 L Anion Gap 10 L BUN 11 Creatinine 0.75 Estim Creat Clear Calc 76.8 Estimated GFR > 60 Random Glucose 115 Calcium 9.0 D Magnesium 2.1 ECG Interpretation: EKG with atrial fibrillation at 126/Min. Nonspecific ST-T changes. Imaging Radiologist's impression: Impressions Chest X-Ray 02/28/24 13:30 IMPRESSION: No acute cardiopulmonary findings. Assessment and Plan (1) Atrial fibrillation with RVR: Status: Acute Plan Recurrent atrial fibrillation rapid rate in spite of Multaq. We can stop Multaq and start amiodarone. Continue Eliquis. We will try to see if there is availability for cardioversion tomorrow. If not, may have to do it as an outpatient. Will decide. Discussed with Dr. Reaves. Procedures Date of Service Date of Service: 02/29/24
--- NOTE | 2024-02-29 10:36 | HO.PM.IMPN ---
Subjective Subjective Date of Service: 02/29/24 Interval History: feels better though in persistent AF 100s-130s; notes palpitations/lightheadedness with exertion Review of Systems Review of Systems: Yes all other systems are reviewed and are negative Physical Exam Vital Signs: Vital Signs: Last Vital Signs Temp 97.5 F 02/29/24 07:43 Pulse 115 H 02/29/24 08:36 Resp 20 02/29/24 07:43 BP 122/71 02/29/24 08:36 Pulse Ox 95 02/29/24 07:43 O2 Del Method Room Air 02/29/24 07:43 BMI result Body Mass Index 36.2 Gen: in no acute distress HEENT: sclera anicteric, moist mucus membranes Neck: supple Lungs: clear to auscultation bilaterally Heart: irregularly irregular, no murmurs Abd: soft, non-tender, non-distended Ext: no edema Skin: warm/well-perfused Neuro: alert and oriented x3, no focal findings Psych: appropriate affect Objective Data Active Medications Acetaminophen (Acetaminophen 325 Mg Tablet) 650 mg PO Q6H PRN PRN Reason: Pain, Mild (Pain Scale 1-3) Last Admin: 02/29/24 00:22 Dose: 650 mg Documented By: ELISA Amiodarone HCl (Amiodarone Hcl 200 Mg Tablet) 400 mg PO BID [facility] Apixaban (Apixaban 5 Mg Tablet) 5 mg PO BID [facility] Last Admin: 02/29/24 08:37 Dose: 5 mg Documented By: KAMILAH Atorvastatin Calcium (Atorvastatin Calcium 20 Mg Tablet) 20 mg PO DAILY [facility] Last Admin: 02/29/24 08:36 Dose: 20 mg Documented By: KAMILAH Dicyclomine HCl (Dicyclomine Hcl 10 Mg Capsule) 10 mg PO BID [facility] Last Admin: 02/29/24 08:37 Dose: 10 mg Documented By: KAMILAH Magnesium Hydroxide (Milk Of Magnesia 30 Ml Oral.Susp) 30 ml PO DAILY PRN PRN Reason: Constipation Melatonin (Melatonin 3 Mg Tablet) 6 mg PO BEDTIME PRN PRN Reason: Insomnia Metoprolol Tartrate (Metoprolol Tartrate 25 Mg Tablet) 25 mg PO BID [facility]; Protocol Last Admin: 02/29/24 08:36 Dose: 25 mg Documented By: KAMILAH Multivitamins/Vitamin C (Multivitamin Tablet) 1 tab PO DAILY [facility] Last Admin: 02/29/24 08:36 Dose: 1 tab Documented By: KAMILAH Omeprazole (Omeprazole 20 Mg Radha.) 20 mg PO DAILY@0630 [facility] Last Admin: 02/29/24 05:31 Dose: 20 mg Documented By: KATHY Ondansetron HCl (Ondansetron Hcl 4 Mg/2 Ml Vial) 4 mg IVPUSH Q8H PRN PRN Reason: Nausea and Vomiting Psyllium Hydrophilic Mucilloid (Psyllium Seed 3.7 Gm Packet) 3.7 gm PO DAILY [facility] Last Admin: 02/29/24 08:40 Dose: Not Given Documented By: KAMILAH Non-Admin Reason: Patient Refused Sodium Chloride (0.9 % Sodium Chloride Flush 3 Ml Syringe) 3 ml IVFLUSH QSHIFT [facility] Last Admin: 02/29/24 08:41 Dose: 3 ml Documented By: KAMILAH Labs 02/29/24 05:46 02/29/24 05:46 Labs: Laboratory Results - last 24 hr 02/29/24 05:46 MCV 92.1 MCH 30.8 MCHC 33.4 RDW 13.2 Plt Count 285 MPV 9.7 Immature Gran % (Auto) 0.2 Neut % (Auto) 44.1 L Lymph % (Auto) 35.6 [place] % (Auto) 10.3 Eos % (Auto) 8.7 H Baso % (Auto) 1.1 Lymph # (Auto) 1.9 [place] # (Auto) 0.6 Eos # (Auto) 0.5 H Baso # (Auto) 0.1 Abs Immat Gran (auto) 0.01 Absolute Neuts (auto) 2.4 Absolute Nucleated RBC 0.000 Nucleated RBC % (auto) 0.0 Anion Gap 10 L Estim Creat Clear Calc 76.8 Estimated GFR > 60 Random Glucose 115 Calcium 9.0 D Magnesium 2.1 Assessment and Plan (1) Atrial fibrillation with RVR: Status: Acute Plan d2 63yo F with pAF s/p cardioversion 02/09/24 on anticoagulation with Eliquis and on Multaq for rhythm control; REJI on CPAP admitted for AF/RVR pAF/RVR - continue metoprolol tartrate 25 mg bid, d/c Multaq, start amiodarone 400 mg bid for PO loading, NPO after midnight for possible cardioversion tomorrow - TTE 02/09/24 showed normal LV systolic function with EF 55-60% with normal right ventricular cavity size and systolic function; no evidence of thrombus; no significant valvular disease - continue apixaban - Cardiology following REJI - CPAP at [facility] HLD - statin IBS - continue dicyclomine GERD - PPI VTE ppx - apixaban dispo - evental home In my clinical judgment, the patient requires continued inpatient hospitalization for the following reasons: rate/rhythm control Total time managing care of this patient today: 35 minutes. Quality Stroke Does the patient have a stroke diagnosis?: No VTE Prior VTE?: No VTE Risk Level:: Medical - moderate - high VTE Device Contraindication: Treatment Not Indicated VTE Drug Contraindication: N/A - Med Ordered
[2024-02-29] MEDS: Amiodarone HCL 200 MG TABLET 400 MG PO ×2 (10:54→20:31)
[2024-03-01] VITALS (16 sets, daily range): BP systolic 99–136; BP diastolic 59–86; PULSE 68–121; RESP 16–23; TEMP 36.2–37.5; O2SAT 91–96
--- NOTE | 2024-03-01 08:22 | HO.ANESPROP2 ---
HPI - Anesthesia Eval Consult details Narrative[facility] Active Problems Active Problems: All Active Problems Atrial fibrillation with RVR (Acute) Palpitations (Acute) Flu-like symptoms (Acute) Chronic diarrhea (Acute) Chest pain (Acute) REJI (obstructive sleep apnea) (Acute) Paroxysmal A-fib (Acute) Past Medical History Medical History GERD (gastroesophageal reflux disease) IBS (irritable bowel syndrome) REJI (obstructive sleep apnea) Paroxysmal A-fib High cholesterol Family History Family History Mother Heart disease Family history of problems with anesthesia: No Surgical History Surgical History History of esophagogastroduodenoscopy (EGD) Hx of colonoscopy History of right hip replacement (~01/21/21) History of Problems with Anesthesia: No Social History Social History Household Members: Spouse Household Members Other:: Housing: House Do you presently have visiting nurse or other home services: No Alcohol intake: current Alcohol intake frequency: holidays/special occasions only Patient Tobacco Use Status: Never used Tobacco Smoked in Last 30 Days: No Use of substances other than those prescribed or required for medical reasons: No Currently Displaying Signs/Symptoms of Drug Intoxication Withdrawal: No Have you been hit, kicked, punched, or otherwise hurt by someone within the past year? If so, by whom?: No Do you feel safe in your current relationship?: Yes Are you made to feel afraid or neglected: No Advance Directives: No Advance Directives Information Provided: No Do you have a plan to hurt others: No Plan Recently lost weight without trying: No Nutrition Risks: No Nutritional Risk Patient : No : No Poor oral hygiene: No service: No Current occupational status: employed Meds Allergies Allergy/AdvReac Type Severity Reaction Status Date / Time penicillin V Allergy Mild Rash Verified 02/28/24 09:36 milk AdvReac Stomach Verified 02/28/24 09:36 Upset onion AdvReac Stomach Verified 02/28/24 09:36 Upset Active Medications: Current Medications Acetaminophen (Acetaminophen 325 Mg Tablet) 650 mg PO Q6H PRN PRN Reason: Pain, Mild (Pain Scale 1-3) Last Admin: 02/29/24 00:22 Dose: 650 mg Amiodarone HCl (Amiodarone Hcl 200 Mg Tablet) 400 mg PO BID [facility] Last Admin: 02/29/24 20:31 Dose: 400 mg Apixaban (Apixaban 5 Mg Tablet) 5 mg PO BID [facility] Last Admin: 02/29/24 20:31 Dose: 5 mg Atorvastatin Calcium (Atorvastatin Calcium 20 Mg Tablet) 20 mg PO DAILY [facility] Last Admin: 02/29/24 08:36 Dose: 20 mg Dicyclomine HCl (Dicyclomine Hcl 10 Mg Capsule) 10 mg PO BID [facility] Last Admin: 02/29/24 20:31 Dose: 10 mg Magnesium Hydroxide (Milk Of Magnesia 30 Ml Oral.Susp) 30 ml PO DAILY PRN PRN Reason: Constipation Melatonin (Melatonin 3 Mg Tablet) 6 mg PO BEDTIME PRN PRN Reason: Insomnia Metoprolol Tartrate (Metoprolol Tartrate 25 Mg Tablet) 25 mg PO BID [facility]; Protocol Last Admin: 02/29/24 20:31 Dose: 25 mg Multivitamins/Vitamin C (Multivitamin Tablet) 1 tab PO DAILY [facility] Last Admin: 02/29/24 08:36 Dose: 1 tab Omeprazole (Omeprazole 20 Mg Capsule.Dr) 20 mg PO DAILY@0630 [facility] Last Admin: 03/01/24 05:36 Dose: Not Given Ondansetron HCl (Ondansetron Hcl 4 Mg/2 Ml Vial) 4 mg IVPUSH Q8H PRN PRN Reason: Nausea and Vomiting Psyllium Hydrophilic Mucilloid (Psyllium Seed 3.7 Gm Packet) 3.7 gm PO DAILY [facility] Last Admin: 02/29/24 08:40 Dose: Not Given Sodium Chloride (0.9 % Sodium Chloride Flush 3 Ml Syringe) [facility] Last Admin: 02/29/24 20:31 Dose: 3 ml Home Medications ?Medication ?Instructions ?Recorded ?Confirmed ?Last Taken ?Type atorvastatin 20 mg tablet 20 mg PO DAILY 09/15/21 02/28/24 02/28/24 06:00 History multivitamin 1 tab PO DAILY 09/15/21 02/28/24 02/28/24 06:00 History omeprazole 20 mg capsule,delayed 20 mg PO DAILY@0630 11/27/21 02/28/24 02/28/24 06:00 History release methylcellulose (laxative) 500 mg 500 mg PO DAILY 02/07/24 02/28/24 02/28/24 06:00 History tablet (Citrucel) acetaminophen 500 mg tablet 500 mg PO BID PRN Pain 02/28/24 02/28/24 Unknown History Exam Height,Weight and Vital Signs: Height 5 ft 1 in Weight 86.8 kg Last Vital Signs Temp 97.4 F 03/01/24 08:00 Pulse 94 03/01/24 08:00 Resp 18 03/01/24 08:00 BP 131/75 03/01/24 08:00 Pulse Ox 96 03/01/24 08:00 O2 Del Method Room Air 03/01/24 08:00 Pertinent Lab Results Pertinent Lab Results: Laboratory Tests 02/28/24 02/29/24 09:31 05:46 WBC 5.0 5.4 RBC 4.55 4.29 Hgb 14.1 13.2 Hct 41.9 39.5 MCV 92.1 92.1 MCH 31.0 30.8 MCHC 33.7 33.4 RDW 13.1 13.2 Plt Count 306 D 285 MPV 9.9 9.7 Immature Gran % (Auto) 0.2 0.2 Neut % (Auto) 41.2 L 44.1 L Lymph % (Auto) 35.1 35.6 [place] % (Auto) 13.1 H 10.3 Eos % (Auto) 9.2 H 8.7 H Baso % (Auto) 1.2 1.1 Lymph # (Auto) 1.8 1.9 [place] # (Auto) 0.7 0.6 Eos # (Auto) 0.5 H 0.5 H Baso # (Auto) 0.1 0.1 Abs Immat Gran (auto) 0.01 0.01 Absolute Neuts (auto) 2.1 2.4 Absolute Nucleated RBC 0.000 0.000 Nucleated RBC % (auto) 0.0 0.0 Sodium 144 140 Potassium 3.9 4.2 Chloride 111 H 113 H Carbon Dioxide 22 21 L Anion Gap 15 10 L BUN 9 11 Creatinine 0.77 0.75 Estim Creat Clear Calc 73.9 76.8 Estimated GFR > 60 > 60 Random Glucose 126 H 115 Calcium 9.6 9.0 D Magnesium 2.1 Total Bilirubin 0.3 AST 22 ALT 26 Alkaline Phosphatase 79 Troponin I High Sens 3.2 Total Protein 7.5 Albumin 4.2 Airway Mallampati Class: II TM Dist: >3cm Neck ROM: Full Heart: a fib Lungs: cta Assessment and Plan Assessment Anesthesia Assessment: Anesthesia Plan Discussed and Chart Reviewed Final Anesthetic Review Family History of Problems with Anesthesia: No History of Problems with Anesthesia: No NPO: Yes ASA Class: III and Emergency Final Preanesthetic Review: No Changes in Pt Med Stat, Meds/Allgs Chart Reviewed, Consent Obtained/Reviewed and Anes Risks/Benef Reviewed Patient Risk: Intermediate Procedure Risk: Low Anesthetic Plan Anesthetic Plan: MAC: Disposition: Standard PACU
[2024-03-01] MEDS: Apixaban 5 MG TABLET PO ×2 (08:47→21:51)
[2024-03-01] MEDS: 0.9 % Sodium Chloride Flush 3 ML SYRINGE IVFLUSH ×3 (08:47→21:51)
[2024-03-01] MEDS: Amiodarone HCL 200 MG TABLET 400 MG PO ×2 (08:47→21:51)
--- NOTE | 2024-03-01 09:02 | MHC.SHP ---
Pre-Procedural Eval Section A - 24 Hr Update-Section A only Date of Service: 03/01/24 The patient is an INPATIENT: Yes Section B - Complete if H&P > 30 days Chief Complaint: Afib rvr Allergies: Allergies Allergy/AdvReac Type Severity Reaction Status Date / Time penicillin V Allergy Mild Rash Verified 02/28/24 09:36 milk AdvReac Stomach Verified 02/28/24 09:36 Upset onion AdvReac Stomach Verified 02/28/24 09:36 Upset Plan I have reviewed the history and physical and performed a pertinent physical examination on my patient. No changes have occurred unless specified. Time Spent With Patient Time: Total time managing care of this patient today ____ minutes.
--- NOTE | 2024-03-01 09:04 | HO.CARDIVERS ---
Cardioversion Procedure Note Cardioversion Date of Procedure: 03/01/2024 Indication for Procedure: Atrial fibrillation with rapid ventricular rate Pre-Op Diagnosis: Atrial fibrillation with rapid ventricular rate Post-Op Diagnosis: Sinus rhythm Consent: Informed consent obtained. Procedure: After informed consent was obtained, patient was taken to the PACU. The patient was then positioned appropriately. The cardioversion pads were placed in anteroposterior position. Once under anesthesia, 120 joules of synchronized shock was administered. The rhythm converted from atrial fibrillation to sinus rhythm. Patient remained in sinus rhythm after the end of procedure. Complications: None. Impression: Successful cardioversion from atrial fibrillation rapid rate to sinus rhythm. Recommendations: Off Multaq. On amiodarone. Refer to EP for ablation.
[2024-03-01] MEDS: Albuterol Sulfate (0.083%) 2.5 MG/3 ML VIAL.NEB INHALE (09:27)
--- NOTE | 2024-03-01 09:54 | PM.PNCARD ---
Subjective Subjective Date of Service: 03/01/24 Interval history: Patient seen and examined. Overall, no clear-cut complaints. Review of Systems Review of Systems Yes all other systems are reviewed and are negative Constitutional: Reports as per HPI and Reports no additional constitutional complaints Eyes: Reports as per HPI and Denies no additional eye complaints Denies system reviewed and no additional complaints, except as documented and Reports as per HPI Cardiovascular: Reports as per HPI, Reports no additional cardiovascular complaints, Denies acrocyanosis, Denies cool extremities, Denies chest pain, Denies leg edema, Denies lightheadedness, Denies palpitations and Denies dyspnea Respiratory: Reports as per HPI, Denies no additional respiratory complaints and Denies dyspnea Gastrointestinal: Reports as per HPI and Denies no additional gastrointestinal complaints Genitourinary: Reports as per HPI Musculoskeletal: Reports no additional musculoskeletal complaints and Reports as per HPI Skin/Breast: Reports system reviewed and no additional complaints, except as docu Reports system reviewed and no additional complaints, except as documented and Reports as per HPI Psychiatric: Reports no additional psychiatric complaints and Reports as per HPI Endocrine: Reports no additional endocrine complaints, Reports as per HPI and Denies palpitations Hematologic/Lymphatic: Reports no additional hematologic/lymphatic complaints and Reports as per HPI Allergic/Immunologic: Reports no additional allergic/immunologic complaints and Reports as per HPI Physical Exam Vital Signs: Last Vital Signs Temp 97.8 F 03/01/24 09:12 Pulse 121 H 03/01/24 09:30 Resp 17 03/01/24 09:30 BP 129/80 03/01/24 09:12 Pulse Ox 94 03/01/24 09:12 O2 Del Method Room Air 03/01/24 09:12 BMI result Body Mass Index 36.2 Const General: comfortable and no acute distress Orientation/consciousness: patient oriented x3 HEENT Other: Unremarkable Head: Yes normal to inspection Neck Neck: Yes normal visual inspection Chest Chest palpation & inspection: normal inspection of the chest Resp Auscultation: wheezes Cardio Palpation: normal PMI Heart sounds: S1 normal heart sound present, S2 normal heart sound present, no gallops, no murmurs and no rubs GI Palpation (GI): Soft to palpation Back/Spine/Pelvis Other: unremarkable Skin General skin exam: no rashes or lesions noted Neuro General: patient oriented x3 Extrem General: Yes normal to inspection Psych Mental Status: mental status grossly normal Objective Labs and Meds 02/29/24 05:46 02/29/24 05:46 Progress Note: A&P Assessment and plan (1) Atrial fibrillation with RVR: Status: Acute Assessment and Plan: Recurrent atrial fibrillation in spite of Multaq use. Multaq has been replaced by amiodarone. Today, she underwent cardioversion and now she is back in normal sinus rhythm. Suspect we can use short-term amiodarone and then refer her for ablation. Continue anticoagulation. (2) Acute diastolic (congestive) heart failure: Status: Acute Assessment and Plan: Some wheezing on exam most likely from heart failure related to the atrial fibrillation rapid rate. Should resolve with cardioversion. Try small dose of Lasix. Plan Discussed with Dr. Reaves. Time Spent With Patient Time: Total time managing care of this patient today ____ minutes. Progress Note: Quality Stroke Does the patient have a stroke diagnosis?: No Procedures Date of Service Date of Service: 03/01/24
--- NOTE | 2024-03-01 10:27 | MHC.CM.PN ---
Per ROUNDS discussion, Patient is not yet medically cleared for dc (Cardioversion today); home is the goal and CM will continue to follow.
--- NOTE | 2024-03-01 10:48 | ECG_ITS ---
Test Reason : post cardioversion Blood Pressure : / mmHG Vent. Rate : 085 BPM Atrial Rate : 085 BPM P-R Int : 156 ms QRS Dur : 068 ms QT Int : 400 ms P-R-T Axes : 040 -13 023 degrees QTc Int : 476 ms Normal sinus rhythm Nonspecific ST abnormality Abnormal ECG When compared with ECG of 28-FEB-2024 09:19, Sinus rhythm has replaced Atrial fibrillation Referred By: Ting Mackay Electronically Signed By:TING MACKAY
--- NOTE | 2024-03-01 11:20 | P.PNIM_ITS ---
Subjective Subjective Date of Service: 03/01/24 Interval History: developed wheezing + hypoxia, improved after neb treatment; given dexamethasone by Anesthesia no hx asthma or COPD underwent cardioversion to NSR Review of Systems Review of Systems: Yes all other systems are reviewed and are negative Physical Exam 2 Vital Signs: Vital Signs: Last Vital Signs Temp 99.5 F 03/01/24 11:15 Pulse 78 03/01/24 11:15 Resp 20 03/01/24 11:15 BP 128/65 03/01/24 11:15 Pulse Ox 94 03/01/24 11:15 O2 Del Method Room Air 03/01/24 11:15 O2 Flow Rate 2 03/01/24 11:05 BMI result Body Mass Index 36.2 Gen: in no acute distress HEENT: sclera anicteric, moist mucus membranes Neck: supple Lungs: expiratory wheezing RUL Heart: irregular and rapid this AM, now regular and normal rate; no murmurs Abd: soft, non-tender, non-distended Ext: no edema Skin: warm/well-perfused Neuro: alert and oriented x3, no focal findings Psych: appropriate affect Objective Data Active Medications Acetaminophen (Acetaminophen 325 Mg Tablet) 650 mg PO Q6H PRN PRN Reason: Pain, Mild (Pain Scale 1-3) Last Admin: 02/29/24 00:22 Dose: 650 mg Documented By: ELISA Amiodarone HCl (Amiodarone Hcl 200 Mg Tablet) 400 mg PO BID [facility] Last Admin: 03/01/24 08:47 Dose: 400 mg Documented By: MARIE Comments: admin per Apixaban (Apixaban 5 Mg Tablet) 5 mg PO BID [facility] Last Admin: 03/01/24 08:47 Dose: 5 mg Documented By: MARIE Comments: ADMIN PER Atorvastatin Calcium (Atorvastatin Calcium 20 Mg Tablet) 20 mg PO DAILY [facility] Last Admin: 03/01/24 08:56 Dose: Not Given Documented By: MARIE Non-Admin Reason: NPO Dicyclomine HCl (Dicyclomine Hcl 10 Mg Capsule) 10 mg PO BID [facility] Last Admin: 03/01/24 08:56 Dose: Not Given Documented By: MARIE Non-Admin Reason: NPO Furosemide (Furosemide 20 Mg/2 Ml Vial) 20 mg IVPUSH ONCE ONE; Protocol Stop: 03/01/24 11:15 Magnesium Hydroxide (Milk Of Magnesia 30 Ml Oral.Susp) 30 ml PO DAILY PRN PRN Reason: Constipation Melatonin (Melatonin 3 Mg Tablet) 6 mg PO BEDTIME PRN PRN Reason: Insomnia Metoprolol Tartrate (Metoprolol Tartrate 25 Mg Tablet) 25 mg PO BID [facility]; Protocol Last Admin: 03/01/24 08:59 Dose: Not Given Documented By: MARIE Non-Admin Reason: NPO Multivitamins/Vitamin C (Multivitamin Tablet) 1 tab PO DAILY [facility] Last Admin: 03/01/24 08:59 Dose: Not Given Documented By: MARIE Non-Admin Reason: NPO Omeprazole (Omeprazole 20 Mg Capsule.Dr) 20 mg PO DAILY@0630 [facility] Last Admin: 03/01/24 05:36 Dose: Not Given Documented By: ELIANE Non-Admin Reason: NPO for cardioversion later today Ondansetron HCl (Ondansetron Hcl 4 Mg/2 Ml Vial) 4 mg IVPUSH Q8H PRN PRN Reason: Nausea and Vomiting Psyllium Hydrophilic Mucilloid (Psyllium Seed 3.7 Gm Packet) 3.7 gm PO DAILY [facility] Last Admin: 03/01/24 09:02 Dose: Not Given Documented By: MARIE Non-Admin Reason: NPO Sodium Chloride (0.9 % Sodium Chloride Flush 3 Ml Syringe) 3 ml IVFLUSH QSHIFT [facility] Last Admin: 03/01/24 08:47 Dose: 3 ml Documented By: MARIE Labs 02/29/24 05:46 02/29/24 05:46 Assessment and Plan (1) Atrial fibrillation with RVR: Status: Acute Plan d3 63yo F with pAF s/p cardioversion 02/09/24 on anticoagulation with Eliquis and on Multaq for rhythm control; REJI on CPAP admitted for AF/RVR pAF/RVR - continue metoprolol tartrate 25 mg bid, d/c'ed Multaq, started amiodarone 400 mg bid 02/28- - underwent DCV today - TTE 02/09/24 showed normal LV systolic function with EF 55-60% with normal right ventricular cavity size and systolic function; no evidence of thrombus; no significant valvular disease - continue apixaban - Cardiology following acute hypoxic resp failure - ?CHF due to AF/RVR. Will check CXR, BNP, lytes. Give furosemide 20 mg IV x1 REJI - CPAP at [facility] HLD - statin IBS - continue dicyclomine GERD - PPI VTE ppx - apixaban dispo - evental home In my clinical judgment, the patient requires continued inpatient hospitalization for the following reasons: rate/rhythm control, hypoxia workup Total time managing care of this patient today: 35 minutes. Quality Stroke Does the patient have a stroke diagnosis?: No VTE Prior VTE?: No VTE Risk Level:: Medical - moderate - high VTE Device Contraindication: Treatment Not Indicated VTE Drug Contraindication: N/A - Med Ordered
[2024-03-01 12:57] LABS: Anion Gap 13 (12-20); Blood Urea Nitrogen 11 mg/dL (9-16); Calcium 9.5 mg/dL (8.4-10.2); Carbon Dioxide 24 mmol/L (22-29); Chloride 108 mmol/L (96-108); Estimated Glomerular Filt Rate > 60; Glucose Random 160 mg/dL (60-115); Magnesium 1.9 mg/dL (1.6-2.6); Potassium 3.8 mmol/L (3.3-5.1); Sodium 141 mmol/L (135-145)
[2024-03-01 13:04] LABS: B Type Natriuretic Peptide 168 pg/mL (<100)
[2024-03-01] MEDS: Furosemide 20 MG/2 ML VIAL IVPUSH (13:11)
[2024-03-01] MEDS: Dicyclomine HCl 10 MG CAPSULE PO (21:51)
[2024-03-01] MEDS: Metoprolol Tartrate 25 MG TABLET PO (21:51)
[2024-03-02] VITALS (7 sets, daily range): BP systolic 118–133; BP diastolic 53–61; PULSE 48–65; RESP 18–20; TEMP 36.1–36.7; O2SAT 93–97
[2024-03-02] MEDS: Omeprazole 20 MG CAPSULE.DR PO (06:15)
[2024-03-02 07:27] LABS: Anion Gap 11 (12-20); Blood Urea Nitrogen 13 mg/dL (9-16); Calcium 9.5 mg/dL (8.4-10.2); Carbon Dioxide 26 mmol/L (22-29); Chloride 106 mmol/L (96-108); Creatinine Clr Calc Pharmacy 81.1; Estimated Glomerular Filt Rate > 60; Glucose Random 115 mg/dL (60-115); Potassium 3.7 mmol/L (3.3-5.1); Sodium 139 mmol/L (135-145)
--- NOTE | 2024-03-02 08:11 | HO.POSTANES ---
Post Anesthesia Evaluation Post Anesthesia Evaluation Date of Service: 03/02/24 Vital Signs: Vital Signs Temp Pulse Resp BP Pulse Ox O2 Del Method 03/02/24 04:00 97.9 F 53 20 122/61 97 CPAP 03/02/24 00:00 97.8 F 65 20 123/53 L 93 CPAP 03/01/24 21:51 68 99/82 Anesthesia: General Mental Status: Awake Pain Control: Satisfactory Nausea/Vomiting: None Hydration: Adequate Anesthesia-Related Issues: No Anes. Related Issues
[2024-03-02] MEDS: Multivitamin TABLET 1 TAB PO (08:28)
[2024-03-02] MEDS: Amiodarone HCL 200 MG TABLET 400 MG PO (08:28)
[2024-03-02] MEDS: Atorvastatin Calcium 20 MG TABLET PO (08:28)
[2024-03-02] MEDS: Dicyclomine HCl 10 MG CAPSULE PO (08:28)
[2024-03-02] MEDS: Apixaban 5 MG TABLET PO (08:28)
[2024-03-02] MEDS: 0.9 % Sodium Chloride Flush 3 ML SYRINGE IVFLUSH (08:30)
[2024-03-02] MEDS: Psyllium seed 3.7 GM PACKET PO (08:31)
[2024-03-02 08:42] LABS: B Type Natriuretic Peptide 29 pg/mL (<100)
--- NOTE | 2024-03-02 09:51 | PM.PNCARD ---
Subjective Subjective Date of Service: 03/02/24 Interval history: Patient underwent cardioversion as today. She states she feels fine. No new complaints. Review of Systems Review of Systems Yes all other systems are reviewed and are negative Constitutional: Reports as per HPI and Reports no additional constitutional complaints Eyes: Reports as per HPI and Denies no additional eye complaints Denies system reviewed and no additional complaints, except as documented and Reports as per HPI Cardiovascular: Reports as per HPI, Reports no additional cardiovascular complaints, Denies acrocyanosis, Denies cool extremities, Denies chest pain, Denies leg edema, Denies lightheadedness, Denies palpitations and Denies dyspnea Respiratory: Reports as per HPI, Denies no additional respiratory complaints and Denies dyspnea Gastrointestinal: Reports as per HPI and Denies no additional gastrointestinal complaints Genitourinary: Reports as per HPI Musculoskeletal: Reports no additional musculoskeletal complaints and Reports as per HPI Skin/Breast: Reports system reviewed and no additional complaints, except as docu Reports system reviewed and no additional complaints, except as documented and Reports as per HPI Psychiatric: Reports no additional psychiatric complaints and Reports as per HPI Endocrine: Reports no additional endocrine complaints, Reports as per HPI and Denies palpitations Hematologic/Lymphatic: Reports no additional hematologic/lymphatic complaints and Reports as per HPI Allergic/Immunologic: Reports no additional allergic/immunologic complaints and Reports as per HPI Physical Exam Vital Signs: Last Vital Signs Temp 98.0 F 03/02/24 08:00 Pulse 52 03/02/24 08:30 Resp 20 03/02/24 08:00 BP 130/61 03/02/24 08:30 Pulse Ox 96 03/02/24 08:00 O2 Del Method Room Air 03/02/24 08:00 O2 Flow Rate 2 03/01/24 11:05 BMI result Body Mass Index 36.2 Const General: comfortable and no acute distress Orientation/consciousness: patient oriented x3 HEENT Other: Unremarkable Head: Yes normal to inspection Neck Neck: Yes normal visual inspection Chest Chest palpation & inspection: normal inspection of the chest Resp Auscultation: clear to auscultation bilaterally and no wheezes Cardio Palpation: normal PMI Heart sounds: S1 normal heart sound present, S2 normal heart sound present, no gallops, no murmurs and no rubs GI Palpation (GI): Soft to palpation Back/Spine/Pelvis Other: unremarkable Skin General skin exam: no rashes or lesions noted Neuro General: patient oriented x3 Extrem General: Yes normal to inspection Psych Mental Status: mental status grossly normal Objective Labs and Meds 02/29/24 05:46 03/02/24 06:30 Lab results: Laboratory Results - last 24 hr 03/01/24 03/02/24 12:28 06:30 Sodium 141 139 Potassium 3.8 3.7 Chloride 108 106 Carbon Dioxide 24 26 Anion Gap 13 11 L BUN 11 13 Creatinine 0.72 0.71 Estim Creat Clear Calc 80.0 81.1 Estimated GFR > 60 > 60 Random Glucose 160 H 115 Calcium 9.5 9.5 Magnesium 1.9 2.0 B-Natriuretic Peptide 168 H 29 Progress Note: A&P Assessment and plan (1) Atrial fibrillation with RVR: Status: Acute Assessment and Plan: s/p cardioversion; off Multaq; On Amiodarone/Metoprolol. Continue Eliquis. Referral to , [facility] for ablation. Patient agreees. (2) Acute diastolic (congestive) heart failure: Status: Acute Assessment and Plan: Resolved after cardioversion. Plan Discussed with Dr. Reaves. Time Spent With Patient Time: Total time managing care of this patient today ____ minutes. Progress Note: Quality Stroke Does the patient have a stroke diagnosis?: No Procedures Date of Service Date of Service: 03/02/24
[2024-03-02] MEDS: Milk of Magnesia 30 ML ORAL.SUSP PO (11:38)
--- NOTE | 2024-03-02 12:17 | MHC.CM.PN ---
Patient has been medically cleared for dc to home today, self care. Last IMM addressed on 02/29/2024.
--- NOTE | 2024-03-02 12:24 | P.DS_ITS ---
DS: Providers Provider Date of Service: 03/02/24 Date of admission: 02/28/24 13:06 Date of discharge: 03/02/24 Primary care physician: Gilmer Stubbs MD Consults: 02/28/24 13:01 Consult to Cardiology Routine Consulting Provider: [facility] Reason for consultation: afib rvr, recent cardioversion 3 weeks ago DS: Diagnosis Discharge Diagnosis (1) Atrial fibrillation with RVR: Status: Acute (2) Acute diastolic (congestive) heart failure: Status: Acute (3) Acute respiratory failure with hypoxia: Status: Acute DS: Summary Hospital Course Hospital Course: From the history and physical by the admitting hospitalist, VIRA Velasquez, 02/28/24: 63-year-old female with history of paroxysmal atrial fibrillation s/p cardioversion on 02/09/2024 anticoagulated with Eliquis and on Multaq, REJI compliant with CPAP, hyperlipidemia, IBS, GERD presented to the ED earlier today for evaluation of palpitations, lightheadedness, and dyspnea that started last night after intercourse with her . She does also report some generalized chest discomfort. She states she checked her heart rate and it was elevated at 127. However, she rested and drink cold water hoping the symptoms would dissipate. However, she woke up this morning still symptomatic with heart rate in the 120s. She reports that with ambulation/exertion, dyspnea did worsen and heart rate elevated into the 140s prompting her to present to the ED for further evaluation. She denies any recent illness. No fevers, chills, sore throat, congestion, abdominal pain, nausea, vomiting, diarrhea, urinary symptoms, cough, syncope, chest pressure. To currently feels slightly lightheaded but feels much better than when she 1st presented to the ED. On arrival to the ED, patient was found to be in atrial fibrillation with RVR, rates into the 120s. Blood pressure soft but no hypotension. Blood pressure on admission 113/150. There is no leukocytosis or anemia. Renal function and electrolyte levels were normal except for chloride of 111. Glucose 126. Troponin detectable but within normal limits at 3.2. TSH was checked at last admission and was within normal limits. EKG again revealed atrial fibrillation with RVR, rate [address]/T-wave abnormality. In the ED, was given 1 L IV NS and 5 mg IV Lopressor with improvement in heart rate to high 90s to low 100s. Discuss case with Cardiology recommending admission for atrial fibrillation with RVR. 63yo F with pAF s/p cardioversion 02/09/24 on anticoagulation with Eliquis and on Multaq for rhythm control; and REJI on CPAP. She was admitted to the telemetry unit for AF/RVR. Multaq was stopped and she was started on amiodarone 400 mg bid 02/28. We consulted Cardiology and Dr Domenic Herrera performed DC cardioversion on 03/01 with taoism of sinus rhythm. Just prior to cardioversion, she had a brief episode of hypoxia, which resolved after diuresing with a dose of IV Lasix. Most likely she had a brief CHF flare from RVR. She did well after the cardioversion. Metoprolol dose was halved due to rates in the 40s. She was discharge home to continue amiodarone load to 10g followed by maintenance. She will be referred to Dr Maik Gonsales, drain tile machine operator, for ablation. She should follow up with her meter/relay craftsman, Dr Sudeep Carnes, in 2 weeks. Time Attestation Discharge Coordination Time (in mins): 40 Quality: Safe Use of Opioids Does Pt have an Active Cancer Diagnosis on the Problem List?: No Quality: Stroke Does the patient have a stroke diagnosis?: No Physical Exam Vital Signs: Vital Signs: Last Vital Signs Temp 98.1 F 03/02/24 11:59 Pulse 48 L 03/02/24 11:59 Resp 20 03/02/24 11:59 BP 118/61 03/02/24 11:59 Pulse Ox 96 03/02/24 11:59 O2 Del Method Room Air 03/02/24 11:59 O2 Flow Rate 2 03/01/24 11:05 BMI result Body Mass Index 36.2 Gen: in no acute distress HEENT: sclera anicteric, moist mucus membranes Neck: supple Lungs: clear to auscultation bilaterally Heart: regular, slow, no murmurs Abd: soft, non-tender, non-distended Ext: no edema Skin: warm/well-perfused Neuro: alert and oriented x3, no focal findings Psych: appropriate affect DS: Data Data Completed and Pending Completed studies during hospitalization [Text1]: Laboratory Results WBC 5.4 X10*3/uL (4.8-10.8) 02/29/24 05:46 RBC 4.29 X10*6/uL (4.20-5.50) 02/29/24 05:46 Hgb 13.2 g/dl (12.0-16.0) 02/29/24 05:46 Hct 39.5 % (37.0-47.0) 02/29/24 05:46 MCV 92.1 fL (80.0-98.0) 02/29/24 05:46 MCH 30.8 pg (27.0-33.0) 02/29/24 05:46 MCHC 33.4 g/dl (31.0-35.0) 02/29/24 05:46 RDW 13.2 % (11.0-16.0) 02/29/24 05:46 Plt Count 285 X10*3/uL (160-400) 02/29/24 05:46 MPV 9.7 fL (9.4-12.3) 02/29/24 05:46 Immature Gran % (Auto) 0.2 % (0.0-0.4) 02/29/24 05:46 Neut % (Auto) 44.1 % (45-73) L 02/29/24 05:46 Lymph % (Auto) 35.6 % (20-40) 02/29/24 05:46 Mckean % (Auto) 10.3 % (2-11) 02/29/24 05:46 Eos % (Auto) 8.7 % (0-4) H 02/29/24 05:46 Baso % (Auto) 1.1 % (0-2) 02/29/24 05:46 Lymph # (Auto) 1.9 X10*3/uL (1.2-4.9) 02/29/24 05:46 Mckean # (Auto) 0.6 X10*3/uL (0.1-1.2) 02/29/24 05:46 Eos # (Auto) 0.5 X10*3/uL (0.0-0.4) H 02/29/24 05:46 Baso # (Auto) 0.1 X10*3/uL (0.0-0.2) 02/29/24 05:46 Abs Immat Gran (auto) 0.01 X10*3/uL (0.00-0.03) 02/29/24 05:46 Absolute Neuts (auto) 2.4 x10*3/uL (2.0-8.3) 02/29/24 05:46 Absolute Nucleated RBC 0.000 X10*3/uL (0.0-0.012) 02/29/24 05:46 Nucleated RBC % (auto) 0.0 /100WBC (0.0-0.2) 02/29/24 05:46 Sodium 139 mmol/L (135-145) 03/02/24 06:30 Potassium 3.7 mmol/L (3.3-5.1) 03/02/24 06:30 Chloride 106 mmol/L (96-108) 03/02/24 06:30 Carbon Dioxide 26 mmol/L (22-29) 03/02/24 06:30 Anion Gap 11 (12-20) L 03/02/24 06:30 BUN 13 mg/dL (9-16) 03/02/24 06:30 Creatinine 0.71 mg/dL (0.5-1.4) 03/02/24 06:30 Estim Creat Clear Calc 81.1 03/02/24 06:30 Estimated GFR > 60 03/02/24 06:30 Random Glucose 115 mg/dL (60-115) 03/02/24 06:30 Calcium 9.5 mg/dL (8.4-10.2) 03/02/24 06:30 Magnesium 2.0 mg/dL (1.6-2.6) 03/02/24 06:30 Total Bilirubin 0.3 mg/dL (0.0-1.0) 02/28/24 09:31 AST 22 U/L (5-31) 02/28/24 09:31 ALT 26 U/L (0-31) 02/28/24 09:31 Alkaline Phosphatase 79 U/L (39-117) 02/28/24 09:31 Troponin I High Sens 3.2 ng/L (<3.5-17.0) 02/28/24 09:31 B-Natriuretic Peptide 29 pg/mL (<100) 03/02/24 06:30 Total Protein 7.5 g/dL (6.5-8.0) 02/28/24 09:31 Albumin 4.2 g/dL (3.5-5.0) 02/28/24 09:31 Discharge Plan Discharge Anticipated Discharge Date/Time: 03/02/24 12:12 Patient Disposition: Home, Self-Care Discharge Diagnosis: atrial fibrillation with rapid ventricular response CHF Referrals: Gilmer Stubbs MD [Primary Care Provider] - 03/09/24 1:00 pm (You have a follow appointment scheduled. If you can not make this appointment please call the office to reschedule.) Maik Wolf MD [Physician] - 1 Month Sudeep Carnes MD [Physician] - 2 Weeks Discharge Medications: New amiodarone 200 mg Tablet See Rx Instructions .ROUTE .COMPLEX Qty: 60 0RF Rx Instructions: 400 mg [two 200 mg tabs] twice daily for 10 days, then 200 mg [one 200 mg tab] once daily metoprolol tartrate 25 mg Tablet 12.5 mg PO BID Qty: 30 0RF Protocol: Hold for SBP/HR < HOLD for SBP < : 90 HOLD for HR < : 60 Continued dicyclomine 10 mg capsule 10 mg PO BID Qty: 60 11RF multivitamin Tablet 1 tab PO DAILY atorvastatin 20 mg Tablet 20 mg PO DAILY Citrucel 500 mg Tablet 500 mg PO DAILY Eliquis 5 mg Tablet 5 mg PO BID Qty: 60 0RF acetaminophen 500 mg Tablet 500 mg PO BID PRN (Reason: Pain) omeprazole 20 mg capsule,delayed release(DR/EC) 20 mg PO DAILY@0630 Discontinued Multaq 400 mg tablet 400 mg PO BID Qty: 180 3RF metoprolol tartrate 25 mg Tablet 25 mg PO BID Qty: 60 0RF Protocol: Hold for SBP/HR < HOLD for SBP < : 90 HOLD for HR < : 60 Discharge Orders: Discharge Order (Routine); Ordered 03/02/24 Ordered By: Rayshawn Reaves Diet: Advance to usual diet Activity on Discharge: As tolerated Stand Alone Forms: Patient Portal Discharge page, Work/School Release Print Language: Hebrew Care Plan Goals: cardiac health Health Concerns: atrial fibrillation with rapid ventricular response CHF Plan of Treatment: STOP Multaq START amiodarone 200 mg tabs. Take 400 mg [two 200 mg tabs] twice daily for 10 days, then switch to 200 mg [once 200 mg] once daily REDUCE metoprolol tartrate from 25 to 12.5 mg twice daily CONTINUE Eliquis referral to Dr Maik Wolf, drain tile machine operator, for possible ablation: [facility] - [address] [place] [address], [address] [place] [id number],[id number] Carnes in 2 weeks Please follow up with your primary care doctor within 1 week. Return to the hospital if you experience recurrent or worsening symptoms. Assessment: See Discharge Summary.
== END 2024-03-02 17:39 | disposition home or self-care (01) | DRG 308 ==
LOC: HO.ED 12:26 → HO.EDOVER 13:06 → HO.IMC 14:00
PROVIDERS: Internal Medicine; Admitting Provider Physician Assistant; Emergency Provider Emergency Medicine; PCP Internal Medicine; Visit Provider Family Medicine
PROC: 5A2204Z Restoration of Cardiac Rhythm, Single (ICD-10-PCS; principal; 2024-03-01 09:00)
DX: I48.0 Paroxysmal atrial fibrillation (principal); I50.31 Acute diastolic (congestive) heart failure; J96.01 Acute respiratory failure with hypoxia; G47.33 Obstructive sleep apnea (adult) (pediatric); E78.5 Hyperlipidemia, unspecified; K58.9 Irritable bowel syndrome, unspecified; K21.9 Gastro-esophageal reflux disease without esophagitis; Z79.01 Long term (current) use of anticoagulants; Z79.899 Other long term (current) drug therapy
CPT/HCPCS: 36415; 71045; 80048; 80053; 83735; 83880; 84484; 85025; 92960; 93005; 94640; 99285; J1940; J2704

== ENCOUNTER → 2024-02-28 09:19 | Outpatient (BNV) | payer OTHER, SELFPAY | PROVIDERS: Emergency Provider Emergency Medicine; PCP Internal Medicine; Visit Provider Internal Medicine | DX: I48.91 Unspecified atrial fibrillation (principal) | CPT/HCPCS: 93010 ==

== ENCOUNTER → 2024-02-28 13:06 | Outpatient (BNV) | payer OTHER, SELFPAY | PROVIDERS: Admitting Provider Physician Assistant; Emergency Provider Emergency Medicine; PCP Internal Medicine; Visit Provider Physician Assistant | DX: I48.91 Unspecified atrial fibrillation (principal); I50.31 Acute diastolic (congestive) heart failure; J96.01 Acute respiratory failure with hypoxia | CPT/HCPCS: 99223; 99232; 99239 ==

== ENCOUNTER → 2024-02-28 13:06 | Outpatient (BNV) | payer OTHER, SELFPAY | PROVIDERS: Admitting Provider Physician Assistant; Emergency Provider Emergency Medicine; PCP Internal Medicine; Visit Provider Internal Medicine | DX: I48.91 Unspecified atrial fibrillation (principal); I50.31 Acute diastolic (congestive) heart failure | CPT/HCPCS: 92960; 99223; 99233 ==

== ENCOUNTER 2024-03-08 10:10 | Outpatient (AMB) | payer OTHER, SELFPAY ==
--- NOTE | 2024-03-08 10:20 | AM.OFFVISNUR ---
Intake Intake Visit Reasons: EKG post cardiovertion Allergies penicillin V Allergy (Mild, Verified 02/28/24 09:36) Rash milk Adverse Reaction (Verified 02/28/24 09:36) Stomach Upset onion Adverse Reaction (Verified 02/28/24 09:36) Stomach Upset Nursing Note PT is on Amiodarone 200 mg EKG left on Providers desk for review Office Procedures EKG [id number], Complete Coding CPT Codes EKG - CPT: 50098-[id number], Complete ([id number])
== END 2024-03-08 10:34 | disposition home or self-care (01) ==
PROVIDERS: PCP Internal Medicine; Visit Provider Internal Medicine
DX: R00.1 Bradycardia, unspecified (principal)
CPT/HCPCS: 93010

== ENCOUNTER → 2024-03-08 10:10 | Outpatient (BNVA) | payer OTHER, SELFPAY | PROVIDERS: PCP Internal Medicine; Visit Provider Internal Medicine | DX: R94.31 Abnormal electrocardiogram [ECG] [EKG] (principal) | CPT/HCPCS: 93005 ==

== ENCOUNTER 2024-03-19 22:55 | Inpatient (IN) | payer OTHER, SELFPAY ==
--- NOTE | 2024-03-19 | ECG_ITS ---
Test Reason : AFIB Blood Pressure : / mmHG Vent. Rate : 133 BPM Atrial Rate : 000 BPM P-R Int : 000 ms QRS Dur : 068 ms QT Int : 342 ms P-R-T Axes : 000 -02 034 degrees QTc Int : 509 ms Atrial flutter Cannot rule out Anterior infarct , age undetermined Abnormal ECG When compared with ECG of 01-MAR-2024 10:56, Vent. rate has increased BY 48 BPM Referred By: Generic ED Physician Electronically Signed By:TING MACKAY
--- NOTE | ~2024-03-19 | XR_ITS ---
EXAMINATION: XR CHEST CLINICAL INFORMATION: Dyspnea COMPARISON: Chest x-ray March 01, 2024 TECHNIQUE: Frontal portable view of the chest was obtained. 11:28 PM FINDINGS: No significant abnormality is noted involving the heart, lungs, mediastinum, bony thorax or soft tissues. XR/XR chest 1V IMPRESSION: Unremarkable examination.
[2024-03-19 22:59] VITALS: BP 152/72; PULSE 132; RESP 18; TEMP 36.8; O2SAT 96; BMI 35.0
--- NOTE | 2024-03-19 23:09 | ED.ARRPALP ---
HPI - Arrhythmia/Palpitations General Chief Complaint: Arrhythmia/Palpitations Stated Complaint: a-fib again Time Seen by Provider: 03/19/24 23:08 Source: patient, family and old records reviewed Mode of arrival: ambulatory Limitations: no limitations History of Present Illness ED Provider: BERENICE OSEI narrative: 63 yo female with PMH of afib on amiodarone and eliquis s/p cardioversion on 03/01 off multaq just discharged from hospitalist service for bout of afib with RVR, REJI compliant with CPAP, HLD, IBS, GERD, she was discharged on amiodarone with plan for appointment with ANASTASIIA Wolf she comes in with c/o feeling palpitations again tonight at 5pm today. No longer on metoprolol as she was due for monitoring per patient. She felt mildly short of breath earlier which as resolved but no pain MD complaint: palpitations Onset (ago): day(s) (5pm today) Duration: constant Severity: moderate Context: occurred during rest Arrhythmia history: atrial fibrillation Associated symptoms: shortness of breath Related Data Home Medications ?Medication ?Instructions ?Recorded ?Confirmed atorvastatin 20 mg tablet 20 mg PO DAILY 09/15/21 02/28/24 multivitamin 1 tab PO DAILY 09/15/21 02/28/24 omeprazole 20 mg capsule,delayed 20 mg PO DAILY@0630 11/27/21 02/28/24 release methylcellulose (laxative) 500 mg 500 mg PO DAILY 02/07/24 02/28/24 tablet (Citrucel) acetaminophen 500 mg tablet 500 mg PO BID PRN Pain 02/28/24 02/28/24 Previous Rx's ?Medication ?Instructions ?Recorded dicyclomine 10 mg capsule 10 mg PO BID #60 caps 03/31/23 apixaban 5 mg tablet (Eliquis) 5 mg PO BID #60 tabs 02/09/24 amiodarone 200 mg tablet See Rx Instructions .Route 03/02/24 .COMPLEX #60 tabs Allergies Allergy/AdvReac Type Severity Reaction Status Date / Time penicillin V Allergy Mild Rash Verified 03/19/24 23:03 milk AdvReac Stomach Verified 03/19/24 23:03 Upset onion AdvReac Stomach Verified 03/19/24 23:03 Upset Review of Systems Review of Systems: Constitutional : No Fever, No Chills ENT/Mouth : No sore throat, No Rhinorrhea, No Swallowing Difficulty Eyes: No Eye Pain, No Swelling, No Redness Cardiovascular : No Chest Pain, positive SOB, No Orthopnea, no Edema, pos palpitations Respiratory : No Cough, No Sputum, No Wheezing, positive dyspnea Gastrointestinal : No Nausea, No Vomiting, No Diarrhea, No abdominal Pain, No Hematochezia, No Melena Genitourinary : No Dysuria, No Urinary Frequency, No Hematuria Musculoskeletal : No joint pain, No Myalgias Skin : No Skin Lesions, No rash Neuro : No Weakness, No Numbness, No Dizziness, No Headache Psych : No Anxiety/Panic, No Depression All other systems reviewed and are negative PMFSH Past Medical History Attestation statement: The following information was validated with the patient. Source: old records reviewed Medical History GERD (gastroesophageal reflux disease) IBS (irritable bowel syndrome) REJI (obstructive sleep apnea) Paroxysmal A-fib High cholesterol Surgical History History of esophagogastroduodenoscopy (EGD) Hx of colonoscopy History of right hip replacement (~01/21/21) Family History Family History Mother Heart disease Social History Social History Household Members: Spouse Household Members Other:: Housing: House Do you presently have visiting nurse or other home services: No Alcohol intake: current Alcohol intake frequency: holidays/special occasions only Patient Tobacco Use Status: Never used Tobacco Smoked in Last 30 Days: No Use of substances other than those prescribed or required for medical reasons: No Advance Directives: No Advance Directives Information Provided: No Do you have a plan to hurt others: No Plan Patient : No service: No Current occupational status: employed Physical Exam Vital Signs: Vital Signs: Last Vital Signs Temp 98.9 F 03/19/24 23:15 Pulse 91 03/20/24 03:15 Resp 17 03/20/24 03:15 BP 139/85 03/20/24 03:15 Pulse Ox 94 03/20/24 03:15 O2 Del Method Room Air 03/20/24 03:15 BMI result Body Mass Index 35.0 Appearance: Alert. Oriented X3. No acute distress. Eyes: Pupils equal, round and reactive to light. ENT: Pharynx normal. Neck: Normal inspection. Neck supple. CVS: tachycardic and irregular heart rate and rhythm. Pulses normal. Respiratory: No respiratory distress. Breath sounds normal. Abdomen: Soft and nontender. Skin: Skin warm and dry. Normal skin color. Normal skin turgor. Extremities: No lower extremity edema. No calf ttp Neuro: Oriented X 3. No motor deficit. No sensory deficit. Course Course Course Narrative: she is responding to IV dilt will place on drip - no signs of CHF Medications Administered Generic Name Dose Route Start Last Admin Trade Name Freq PRN Reason Stop Dose Admin Diltiazem HCl 125 mg/ Sodium 125 mls @ 0 mls/hr 03/20/24 00:45 03/20/24 00:49 Chloride IVCONT 10 mg/hr .Q0M LYDIA 10 mls/hr Administration Protocol Per Protocol Discontinued Medications Generic Name Dose Route Start Last Admin Trade Name Freq PRN Reason Stop Dose Admin Diltiazem HCl 10 mg 03/19/24 23:17 03/19/24 23:21 Diltiazem Hcl 50 Mg/10 Ml Vial IVPUSH 03/19/24 23:18 10 mg STAT STA Administration Diltiazem HCl 10 mg 03/20/24 00:02 03/20/24 00:08 Diltiazem Hcl 50 Mg/10 Ml Vial IVPUSH 03/20/24 00:03 10 mg STAT STA Administration Medical Decision Making Medical Decision Making [facility] Narrative: 63 yo female with PMH of afib on amiodarone / metoprolol and eliquis s/p cardioversion on 03/01 off multaq just discharged from hospitalist service for bout of afib with RVR, REJI compliant with CPAP, HLD, IBS, GERD here with c/o recurrence of afib after cardioversion. At this time no signs of CHF she is on amiodarone has no CP will give IV dilt and reassess. Differential Diagnosis Differential Diagnoses: The differential diagnosis associated with the presentation includes afib, lyte abnormality Admission/Observation Consideration of admission/observation: Escalation of care including admission/observation considered still on gtt low 100s will admit for further workup Consult Healthcare Provider Management of the patient was discussed with: Hospitalist (will admit) Lab Data MDM Lab Attestation statement: I reviewed the patient's lab results. 03/19/24 23:25 03/19/24 23:25 Labs: Lab Results 03/19/24 Range/Units 23:25 WBC 7.5 (4.8-10.8) X10*3/uL RBC 4.51 (4.20-5.50) X10*6/uL Hgb 13.6 (12.0-16.0) g/dl Hct 40.8 (37.0-47.0) % MCV 90.5 (80.0-98.0) fL MCH 30.2 (27.0-33.0) pg MCHC 33.3 (31.0-35.0) g/dl RDW 12.8 (11.0-16.0) % Plt Count 238 (160-400) X10*3/uL MPV 10.1 (9.4-12.3) fL Immature Gran % (Auto) 0.3 (0.0-0.4) % Neut % (Auto) 44.7 L (45-73) % Lymph % (Auto) 38.2 (20-40) % [place] % (Auto) 9.4 (2-11) % Eos % (Auto) 6.6 H (0-4) % Baso % (Auto) 0.8 (0-2) % Lymph # (Auto) 2.9 (1.2-4.9) X10*3/uL [place] # (Auto) 0.7 (0.1-1.2) X10*3/uL Eos # (Auto) 0.5 H (0.0-0.4) X10*3/uL Baso # (Auto) 0.1 (0.0-0.2) X10*3/uL Abs Immat Gran (auto) 0.02 (0.00-0.03) X10*3/uL Absolute Neuts (auto) 3.3 (2.0-8.3) x10*3/uL Absolute Nucleated RBC 0.000 (0.0-0.012) X10*3/uL Nucleated RBC % (auto) 0.0 (0.0-0.2) /100WBC PT 13.6 H D (11.1-13.3) SEC INR 1.1 (0.9-1.1) Sodium 144 (135-145) mmol/L Potassium 4.0 (3.3-5.1) mmol/L Chloride 112 H (96-108) mmol/L Carbon Dioxide 23 (22-29) mmol/L Anion Gap 13 (12-20) BUN 10 (9-16) mg/dL Creatinine 0.76 (0.5-1.4) mg/dL Estim Creat Clear Calc 74.4 Estimated GFR > 60 Random Glucose 134 H (60-115) mg/dL Calcium 9.9 (8.4-10.2) mg/dL Magnesium 2.1 (1.6-2.6) mg/dL Troponin I High Sens 4.0 (<3.5-17.0) ng/L B-Natriuretic Peptide 33 (<100) pg/mL Independent Interpretation I performed an independent interpretation of an: EKG and Plain X-Ray (no CHF) Interpretation: Rate: 133 Rhythm: afib [place]: left Normal QRS complex. ST T wave : no LEON, no acute ischemia qTC: 509 prior studies: prior afib The study has been interpreted contemporaneously by me. . Radiology Impression Discussion of test interpretation with radiology: I have reviewed the radiologist's reading. Independent Historian Clinical information obtained from an independent historian. History obtained from or confirmed by: Spouse External Record Review External record reviewed: Inpatient record Critical Care Time Critical Care Time Critical Care Time: Yes Total Critical Care Time: 45 Attestation: repeat IV dilt, IV dilt gtt, admission, review of records I attest to this time spent taking care of the patient Discharge Plan Discharge Clinical Impression: Atrial fibrillation Qualifiers: Atrial fibrillation type: paroxysmal Qualified Code(s): I48.0 - Paroxysmal atrial fibrillation Patient Disposition: Admitted As Inpatient Print Language: Nepali
[2024-03-19 23:15] VITALS: BP 147/85; PULSE 130; RESP 17; TEMP 37.2; O2SAT 96
[2024-03-19 23:21] VITALS: BP 147/85; PULSE 131
[2024-03-19] MEDS: dilTIAZem HCL 50 MG/10 ML VIAL 10 MG IVPUSH (23:21)
[2024-03-19 23:30] LABS: Basophils Absolute Auto 0.1 X10*3/uL (0.0-0.2); Basophils Percent Auto 0.8 % (0-2); Eosinophils Absolute Auto 0.5 X10*3/uL (0.0-0.4); Eosinophils Percent Auto 6.6 % (0-4); Hematocrit 40.8 % (37.0-47.0); Hemoglobin 13.6 g/dl (12.0-16.0); Imm Gran Abs Auto 0.02 X10*3/uL (0.00-0.03); Imm Gran Pct Auto 0.3 % (0.0-0.4); Lymphocytes Absolute Auto 2.9 X10*3/uL (1.2-4.9); Lymphocytes Percent Auto 38.2 % (20-40); MANUAL DIFF FLAG NO; Mean Corpuscular HGB Conc 33.3 g/dl (31.0-35.0); Mean Corpuscular Hemoglobin 30.2 pg (27.0-33.0); Mean Corpuscular Volume 90.5 fL (80.0-98.0); Mean Platelet Volume 10.1 fL (9.4-12.3); Monocytes Absolute Auto 0.7 X10*3/uL (0.1-1.2); Monocytes Percent Auto 9.4 % (2-11); Neutrophils Absolute Auto 3.3 x10*3/uL (2.0-8.3); Neutrophils Percent Auto 44.7 % (45-73); Platelet Count 238 X10*3/uL (160-400); Red Blood Count 4.51 X10*6/uL (4.20-5.50); Red Cell Distribution Width 12.8 % (11.0-16.0); White Blood Count 7.5 X10*3/uL (4.8-10.8)
[2024-03-19 23:37] LABS: INTERNATIONAL NORM RATIO 1.1 (0.9-1.1); Prothrombin Time 13.6 SEC (11.1-13.3)
[2024-03-19 23:44] LABS: Anion Gap 13 (12-20); Blood Urea Nitrogen 10 mg/dL (9-16); Calcium 9.9 mg/dL (8.4-10.2); Carbon Dioxide 23 mmol/L (22-29); Chloride 112 mmol/L (96-108); Creatinine Clr Calc Pharmacy 74.4; Estimated Glomerular Filt Rate > 60; Glucose Random 134 mg/dL (60-115); Magnesium 2.1 mg/dL (1.6-2.6); Sodium 144 mmol/L (135-145)
[2024-03-19 23:49] LABS: B Type Natriuretic Peptide 33 pg/mL (<100)
[2024-03-20] VITALS (17 sets, daily range): BP systolic 126–151; BP diastolic 63–85; PULSE 82–137; RESP 16–20; TEMP 36.2–37; O2SAT 94–99; BMI 35.6
[2024-03-20] MEDS: dilTIAZem HCL 50 MG/10 ML VIAL 10 MG IVPUSH (00:08)
[2024-03-20] MEDS: dilTIAZem HCL 125 MG in 0.9 % Sodium Chloride 100 ML 10 MG IVCONT (00:49)
--- NOTE | 2024-03-20 00:51 | PC.NURSE ---
per MD goldberg pt HR still in afib anywhere from 90s-120. per MD start pt on diltiazem drip for a little bit to see how she responds. pt awake, alert, resting comfortably, no apparent distress. diltiazem drip started @10mg/hr, BP 128/77. call riley within reach
--- NOTE | 2024-03-20 03:45 | PC.NURSE ---
pt still on cardizem drip, running at 10mg/hr. no titration required. HR 85-101 a fib on monitor. BPs stable, 122/79. aware. pt to be admitted to hospital for further management and evaluation of afib/ consult to cardiology. call riley within reach, plan of care ongoing.
[2024-03-20] MEDS: Amiodarone HCL 200 MG TABLET 400 MG PO (04:38)
--- NOTE | 2024-03-20 06:41 | P.HPHOSP_ITS ---
History of Present Illness Date of Service: 03/20/24 Attending physician on admission: Gayatri Rutherford Chief Complaint: Fast heart rate Lorena Ann is a 63 years old woman with past medical history significant for atrial fibrillation on amiodarone and Eliquis, REJI on CPAP, essential hypertension and hyperlipidemia presents to the emergency department complaining of palpitations, dizziness amount shortness of breath. She was working her heart rate on her phone and has been fluctuating between 125 and 145. She denied chest pain, headache, loss of consciousness, abdominal pain, nausea, vomiting, fever, chills or diarrhea. She did not report any acute urinary symptoms. She drinks alcohol occasionally. Denied alcohol abuse or illicit drug use. In the ED, she was found to have heart rate in the 130s. O2 saturation is normal on room air and there is no fever. Blood pressure is stable. Blood workup including CBC, BMP, BNP and troponin are unremarkable. CXR is negative. ECG showed atrial fibrillation with rapid ventricular response with no ischemic changes. ED tx: Metoprolol 5 mg IV, diltiazem 20 mg IV (total), diltiazem IV infusion. Review of Systems 2 Review of Systems: All 12 systems were reviewed and normal except as noted in HPI. [facility] Medical History GERD (gastroesophageal reflux disease) IBS (irritable bowel syndrome) REJI (obstructive sleep apnea) Paroxysmal A-fib High cholesterol Family History Mother Heart disease Surgical History History of esophagogastroduodenoscopy (EGD) Hx of colonoscopy History of right hip replacement (~01/21/21) Social History Household Members: Spouse Household Members Other:: Housing: House Do you presently have visiting nurse or other home services: No Alcohol intake: current Alcohol intake frequency: holidays/special occasions only Patient Tobacco Use Status: Never used Tobacco Smoked in Last 30 Days: No Use of substances other than those prescribed or required for medical reasons: No Advance Directives: No Advance Directives Information Provided: No Do you have a plan to hurt others: No Plan Nutrition Risks: No Nutritional Risk Patient : No service: No Current occupational status: employed Meds Allergies Allergy/AdvReac Type Severity Reaction Status Date / Time penicillin V Allergy Mild Rash Verified 03/19/24 23:03 milk AdvReac Stomach Verified 03/19/24 23:03 Upset onion AdvReac Stomach Verified 03/19/24 23:03 Upset Active Medications: Current Medications Acetaminophen (Acetaminophen 325 Mg Tablet) 975 mg PO Q6H PRN PRN Reason: Pain, Mild (Pain Scale 1-3), fever or headache Apixaban (Apixaban 5 Mg Tablet) 5 mg PO ONCE ONE Stop: 03/20/24 09:01 Diltiazem HCl 125 mg/ Sodium (Chloride) 125 mls @ 0 mls/hr IVCONT .Q0M [facility]; Protocol Last Admin: 03/20/24 00:49 Dose: 10 mg/hr, 10 mls/hr Sodium Chloride (0.9 % Sodium Chloride Flush 3 Ml Syringe) [address] [facility] Home Medications ?Medication ?Instructions ?Recorded ?Confirmed ?Last Taken ?Type atorvastatin 20 mg tablet 20 mg PO DAILY 09/15/21 02/28/24 02/28/24 06:00 History multivitamin 1 tab PO DAILY 09/15/21 02/28/24 02/28/24 06:00 History omeprazole 20 mg capsule,delayed 20 mg PO DAILY@0630 11/27/21 02/28/24 02/28/24 06:00 History release methylcellulose (laxative) 500 mg 500 mg PO DAILY 02/07/24 02/28/24 02/28/24 06:00 History tablet (Citrucel) acetaminophen 500 mg tablet 500 mg PO BID PRN Pain 02/28/24 02/28/24 Unknown History Physical Exam 2 Vital Signs and Narrative: Vital Signs: Last Vital Signs Temp 97.7 F 03/20/24 04:37 Pulse 97 03/20/24 06:19 Resp 20 03/20/24 06:19 BP 135/63 03/20/24 06:19 Pulse Ox 95 03/20/24 06:19 O2 Del Method Room Air 03/20/24 06:19 BMI result Body Mass Index 35.0 Constitutional - Awake and Alert, No apparent distress. Pleasant. Cooperative. Obese. HEENT - Pupils equally round. Normal sclerae. Heart - tachycardia, irregular rhythm. Lungs - Normal lung expansion, Normal respiratory effort, No respiratory distress, CTA bilaterally Abdomen - nontender Extremities - no calf tenderness bilaterally, no swelling Musculoskeletal - Normal inspection, normal ROM Skin - Warm/Dry Neurological - Alert & oriented x3. No focal weakness. Normal speech. Psychological - Appropriate affect Results Labs 03/19/24 23:25 03/19/24 23:25 Labs: Laboratory Results - last 24 hr 03/19/24 23:25 MCV 90.5 MCH 30.2 MCHC 33.3 RDW 12.8 Plt Count 238 MPV 10.1 Immature Gran % (Auto) 0.3 Neut % (Auto) 44.7 L Lymph % (Auto) 38.2 [place] % (Auto) 9.4 Eos % (Auto) 6.6 H Baso % (Auto) 0.8 Lymph # (Auto) 2.9 [place] # (Auto) 0.7 Eos # (Auto) 0.5 H Baso # (Auto) 0.1 Abs Immat Gran (auto) 0.02 Absolute Neuts (auto) 3.3 Absolute Nucleated RBC 0.000 Nucleated RBC % (auto) 0.0 PT 13.6 H D INR 1.1 Anion Gap 13 Estim Creat Clear Calc 74.4 Estimated GFR > 60 Random Glucose 134 H Calcium 9.9 Magnesium 2.1 Troponin I High Sens 4.0 B-Natriuretic Peptide 33 Imaging Radiologist's Impressions: Impressions Chest X-Ray 03/19/24 23:33 IMPRESSION: Unremarkable examination. Assessment and Plan (1) Atrial fibrillation with RVR: Status: Acute (2) REJI (obstructive sleep apnea): Status: Acute Plan Lorena Ann is a 63 y/o admitted with: * Atrial fibrillation with rapid ventricular response, improving. Admit to hospitalist service. Cardiac monitoring. Amiodarone 400 mg PO now then daily. Stopped in size and IV infusion. Continue Eliquis and metoprolol. * Hyperlipidemia. Continue statin. * Essential hypertension. Continue amlodipine. * REJI. Continue nocturnal CPAP. * Obestiy. BMI 32.0 kg/m2. Weight loss. DVT prophylaxis: Eliquis Code status: Full Patient will need hospitalization for at least 2 midnights for rapid atrial fibrillation treatment administered with continuous monitoring and IV rate control agents as needed. Quality Stroke Does the patient have a stroke diagnosis?: No VTE Prior VTE?: No VTE Risk Level:: Medical - moderate - high VTE Device Contraindication: Treatment Not Indicated VTE Drug Contraindication: N/A - Med Ordered
[2024-03-20] MEDS: Apixaban 5 MG TABLET PO ×2 (11:16→21:20)
[2024-03-20] MEDS: 0.9 % Sodium Chloride Flush 3 ML SYRINGE IVFLUSH ×3 (11:16→21:20)
--- NOTE | 2024-03-20 11:52 | MHC.CM.PN ---
PT REPORTS SHE LIVES WITH HER AND IS INDEPENDENT WITH CARE SHE HAS NO SERVICES AND A CPAP FOR DME, HER WILL BRING IT IN ONCE SHE HAS A ROOM ASSIGNED PT HAS A HCP ON FILE PCP: YARELIS GUIDRY DELIVERED DCP: HOME NO SERVICES TO TRANSPORT
--- NOTE | 2024-03-20 13:01 | PHA.MEDREC ---
Pharmacy Consult ? Medication Reconciliation Pharmacy has completed the medication reconciliation. Spoke to patient to confirm med list. Patient has her medication bottles with her. On her Amiodarone 400 mg bid for 10 days, then 200 mg daily last fill date 03-02-24, patient states she is now on 200 mg daily. However, she took 400 mg today.
--- NOTE | 2024-03-20 13:04 | PM.EVENT ---
Event Note Date of Service: 03/20/24 Event Note: 63 year old women admitted with afib rvr Atrial fibrillation with rapid ventricular response, improving. Cardiac monitoring. Amiodarone 400 mg daily Continue Eliquis and metoprolol. cardiology consultation Hyperlipidemia. Continue statin. Essential hypertension. Continue amlodipine. REJI. Continue nocturnal CPAP. Obestiy. BMI 32.0 kg/m2. Weight loss. DVT prophylaxis: Bart attending Dr. Dumont Code status: Full Patient will need hospitalization for at least 2 midnights for rapid atrial fibrillation treatment administered with continuous monitoring and IV rate control agents as needed. Time Spent With Patient Time: Total time managing care of this patient today ____ minutes.
[2024-03-20] MEDS: Acetaminophen 325 MG TABLET 975 MG PO (16:35)
[2024-03-20] MEDS: dilTIAZem HCL 50 MG/10 ML VIAL 15 MG IVPUSH (20:08)
[2024-03-20] MEDS: Dicyclomine HCl 10 MG CAPSULE PO (21:19)
[2024-03-21] VITALS (10 sets, daily range): BP systolic 106–138; BP diastolic 61–94; PULSE 72–134; RESP 15–19; TEMP 36.1–36.6; O2SAT 95–98
[2024-03-21] MEDS: Apixaban 5 MG TABLET PO (09:10)
[2024-03-21] MEDS: Multivitamin TABLET 1 TAB PO (09:10)
[2024-03-21] MEDS: Dicyclomine HCl 10 MG CAPSULE PO (09:10)
[2024-03-21] MEDS: Atorvastatin Calcium 20 MG TABLET PO (09:10)
[2024-03-21] MEDS: Amiodarone HCL 200 MG TABLET PO (09:10)
[2024-03-21] MEDS: 0.9 % Sodium Chloride Flush 3 ML SYRINGE IVFLUSH (09:12)
--- NOTE | 2024-03-21 10:16 | P.CONAN_ITS ---
HPI - Anesthesia Eval Consult details Narrative: for cardioversion [facility] Active Problems Active Problems: All Active Problems Atrial fibrillation (Acute) Acute respiratory failure with hypoxia (Acute) Atrial fibrillation with RVR (Acute) Flu-like symptoms (Acute) Chronic diarrhea (Acute) Chest pain (Acute) REJI (obstructive sleep apnea) (Acute) Past Medical History Medical History GERD (gastroesophageal reflux disease) IBS (irritable bowel syndrome) REJI (obstructive sleep apnea) Paroxysmal A-fib High cholesterol Family History Family History Mother Heart disease Family history of problems with anesthesia: No Surgical History Surgical History History of esophagogastroduodenoscopy (EGD) Hx of colonoscopy History of right hip replacement (~01/21/21) History of Problems with Anesthesia: No Social History Social History Household Members: Spouse Household Members Other:: Housing: House Do you presently have visiting nurse or other home services: No Alcohol intake: current Alcohol intake frequency: holidays/special occasions only Patient Tobacco Use Status: Never used Tobacco service: No Current occupational status: employed Meds Allergies Allergy/AdvReac Type Severity Reaction Status Date / Time penicillin V Allergy Mild Rash Verified 03/21/24 10:17 milk AdvReac Stomach Verified 03/21/24 10:17 Upset onion AdvReac Stomach Verified 03/21/24 10:17 Upset Active Medications: Current Medications Acetaminophen (Acetaminophen 325 Mg Tablet) 975 mg PO Q6H PRN PRN Reason: Pain, Mild (Pain Scale 1-3), fever or headache Last Admin: 03/20/24 16:35 Dose: 975 mg Albuterol Sulfate (Albuterol Sulfate 90 Mcg 8 Gm Inhaler) 1 puff INHALE Q4H PRN PRN Reason: Shortness Of Breath Or Wheezing Amiodarone HCl (Amiodarone Hcl 200 Mg Tablet) 200 mg PO DAILY [facility] Last Admin: 03/21/24 09:10 Dose: 200 mg Apixaban (Apixaban 5 Mg Tablet) 5 mg PO BID [facility] Last Admin: 03/21/24 09:10 Dose: 5 mg Atorvastatin Calcium (Atorvastatin Calcium 20 Mg Tablet) 20 mg PO DAILY [facility] Last Admin: 03/21/24 09:10 Dose: 20 mg Dicyclomine HCl (Dicyclomine Hcl 10 Mg Capsule) 10 mg PO BID [facility] Last Admin: 03/21/24 09:10 Dose: 10 mg Multivitamins/Vitamin C (Multivitamin Tablet) 1 tab PO DAILY [facility] Last Admin: 03/21/24 09:10 Dose: 1 tab Omeprazole (Omeprazole 20 Mg Capsule.Dr) 20 mg PO DAILY@0630 [facility] Last Admin: 03/21/24 06:04 Dose: Not Given Psyllium Hydrophilic Mucilloid (Psyllium Seed 3.7 Gm Packet) 3.7 gm PO DAILY [facility] Last Admin: 03/21/24 09:07 Dose: Not Given Sodium Chloride (0.9 % Sodium Chloride Flush 3 Ml Syringe) 3 ml IVFLUSH QSHIFT [facility] Last Admin: 03/21/24 09:12 Dose: 3 ml Home Medications ?Medication ?Instructions ?Recorded ?Confirmed ?Last Taken ?Type atorvastatin 20 mg tablet 20 mg PO DAILY 09/15/21 03/20/24 03/19/24 History multivitamin 1 tab PO DAILY 09/15/21 03/20/24 03/19/24 History omeprazole 20 mg capsule,delayed 20 mg PO DAILY@0630 11/27/21 03/20/24 03/19/24 History release methylcellulose (laxative) 500 mg 500 mg PO DAILY 02/07/24 03/20/24 03/19/24 History tablet (Citrucel) acetaminophen 500 mg tablet 500 mg PO BID PRN Pain 02/28/24 03/20/24 Unknown History albuterol sulfate 90 mcg/actuation 1 puff inhalation Q4H PRN 03/20/24 03/20/24 Unknown History aerosol inhaler Shortness Of Breath Or Wheezing amiodarone 200 mg tablet 200 mg DAILY 03/20/24 03/20/24 03/20/24 History Exam Height,Weight and Vital Signs: Height 5 ft 1 in Weight 85.5 kg Last Vital Signs Temp 97.6 F 03/21/24 07:59 Pulse 100 03/21/24 07:59 Resp 18 03/21/24 07:59 BP 138/94 H 03/21/24 07:59 Pulse Ox 96 03/21/24 07:59 O2 Del Method Room Air 03/21/24 07:59 Pertinent Lab Results Pertinent Lab Results: Laboratory Tests 03/19/24 23:25 WBC 7.5 RBC 4.51 Hgb 13.6 Hct 40.8 MCV 90.5 MCH 30.2 MCHC 33.3 RDW 12.8 Plt Count 238 MPV 10.1 Immature Gran % (Auto) 0.3 Neut % (Auto) 44.7 L Lymph % (Auto) 38.2 [place] % (Auto) 9.4 Eos % (Auto) 6.6 H Baso % (Auto) 0.8 Lymph # (Auto) 2.9 [place] # (Auto) 0.7 Eos # (Auto) 0.5 H Baso # (Auto) 0.1 Abs Immat Gran (auto) 0.02 Absolute Neuts (auto) 3.3 Absolute Nucleated RBC 0.000 Nucleated RBC % (auto) 0.0 PT 13.6 H D INR 1.1 Sodium 144 Potassium 4.0 Chloride 112 H Carbon Dioxide 23 Anion Gap 13 BUN 10 Creatinine 0.76 Estim Creat Clear Calc 74.4 Estimated GFR > 60 Random Glucose 134 H Calcium 9.9 Magnesium 2.1 Troponin I High Sens 4.0 B-Natriuretic Peptide 33 Airway Mallampati Class: II TM Dist: <=3cm Neck ROM: Full Loose/Missing/Broken Teeth: No Heart: ok (Afib.) Lungs: ok Assessment and Plan Assessment Anesthesia Assessment: Anesthesia Plan Discussed and Chart Reviewed Final Anesthetic Review Family History of Problems with Anesthesia: No History of Problems with Anesthesia: No NPO: Yes ASA Class: III Final Preanesthetic Review: No Changes in Pt Med Stat, Meds/Allgs Chart Reviewed, Consent Obtained/Reviewed and Anes Risks/Benef Reviewed Patient Risk: Intermediate Procedure Risk: Intermediate Anesthetic Plan Anesthetic Plan: Agree w/ Assess. and Plan and TIVA Disposition: Standard PACU
--- NOTE | 2024-03-21 10:17 | P.CONCA_ITS ---
History of Present Illness History of Present Illness Date of Service: 03/21/24 Chief complaint: atrial fibrillation with rapid ventricular respons Narrative: This is a cardiology consultation regarding atrial fibrillation rapid rate. In fact I had seen this patient just very recently and date are cardioversion. Prior to that, she had another CORETTA/cardioversion. She is currently on Multaq and awaiting EP consultation for potentially ablation. However, she had yet another recurrence of palpitations starting Wednesday night and returns back to the hospital. She seems to be in atrial flutter with rapid rate in the initial EKG. Apart from palpitations, she does not have any other overt symptoms. Remains on anticoagulation. Review of Systems 2 Review of Systems: Yes all other systems are reviewed and are negative Constitutional: Constitutional: Reports as per HPI and Reports no additional constitutional complaints Eyes: Eyes: Reports as per HPI and Denies no additional eye complaints ENT: Denies system reviewed and no additional complaints, except as documented and Reports as per HPI Cardiovascular: Cardiovascular: Reports as per HPI, Reports no additional cardiovascular complaints, Denies acrocyanosis, Denies cool extremities, Denies chest pain, Denies leg edema, Denies lightheadedness, Reports palpitations and Denies dyspnea Respiratory: Respiratory: Reports as per HPI, Denies no additional respiratory complaints and Denies dyspnea Gastrointestinal: Gastrointestinal: Reports as per HPI and Denies no additional gastrointestinal complaints Genitourinary: Genitourinary: Reports as per HPI Musculoskeletal: Musculoskeletal: Reports no additional musculoskeletal complaints and Reports as per HPI Integumentary/Breasts: Skin/Breast: Reports system reviewed and no additional complaints, except as docu Neurologic: Reports system reviewed and no additional complaints, except as documented and Reports as per HPI Psychiatric: Psychiatric: Reports no additional psychiatric complaints and Reports as per HPI Endocrine: Endocrine: Reports no additional endocrine complaints, Reports as per HPI and Reports palpitations Hematologic/Lymphatic: Hematologic/Lymphatic: Reports no additional hematologic/lymphatic complaints and Reports as per HPI Allergic/Immunologic: Allergic/Immunologic: Reports no additional allergic/immunologic complaints and Reports as per HPI [facility] Past Medical History Medical History (Updated 03/21/24 @ 10:20 by Domenic Herrera MD) History of cardioversion GERD (gastroesophageal reflux disease) IBS (irritable bowel syndrome) REJI (obstructive sleep apnea) Paroxysmal A-fib High cholesterol Family History Family History Mother Heart disease Surgical History Surgical History (Updated 03/21/24 @ 10:17 by Brandee Jaramillo) H/O eye surgery History of esophagogastroduodenoscopy (EGD) Hx of colonoscopy History of right hip replacement (~01/21/21) Social History Social History Household Members: Spouse Household Members Other:: Housing: House Do you presently have visiting nurse or other home services: No Alcohol intake: current Alcohol intake frequency: holidays/special occasions only Patient Tobacco Use Status: Never used Tobacco service: No Current occupational status: employed Meds Allergies Allergy/AdvReac Type Severity Reaction Status Date / Time penicillin V Allergy Mild Rash Verified 03/21/24 10:17 milk AdvReac Stomach Verified 03/21/24 10:17 Upset onion AdvReac Stomach Verified 03/21/24 10:17 Upset Active Medications: Current Medications Acetaminophen (Acetaminophen 325 Mg Tablet) 975 mg PO Q6H PRN PRN Reason: Pain, Mild (Pain Scale 1-3), fever or headache Last Admin: 03/20/24 16:35 Dose: 975 mg Albuterol Sulfate (Albuterol Sulfate 90 Mcg 8 Gm Inhaler) 1 puff INHALE Q4H PRN PRN Reason: Shortness Of Breath Or Wheezing Amiodarone HCl (Amiodarone Hcl 200 Mg Tablet) 200 mg PO DAILY [facility] Last Admin: 03/21/24 09:10 Dose: 200 mg Apixaban (Apixaban 5 Mg Tablet) 5 mg PO BID [facility] Last Admin: 03/21/24 09:10 Dose: 5 mg Atorvastatin Calcium (Atorvastatin Calcium 20 Mg Tablet) 20 mg PO DAILY [facility] Last Admin: 03/21/24 09:10 Dose: 20 mg Dicyclomine HCl (Dicyclomine Hcl 10 Mg Capsule) 10 mg PO BID [facility] Last Admin: 03/21/24 09:10 Dose: 10 mg Multivitamins/Vitamin C (Multivitamin Tablet) 1 tab PO DAILY [facility] Last Admin: 03/21/24 09:10 Dose: 1 tab Omeprazole (Omeprazole 20 Mg Capsule.Dr) 20 mg PO DAILY@0630 [facility] Last Admin: 03/21/24 06:04 Dose: Not Given Psyllium Hydrophilic Mucilloid (Psyllium Seed 3.7 Gm Packet) 3.7 gm PO DAILY [facility] Last Admin: 03/21/24 09:07 Dose: Not Given Sodium Chloride (0.9 % Sodium Chloride Flush 3 Ml Syringe) 3 ml IVFLUSH QSHIFT [facility] Last Admin: 03/21/24 09:12 Dose: 3 ml Home Medications ?Medication ?Instructions ?Recorded ?Confirmed ?Last Taken ?Type atorvastatin 20 mg tablet 20 mg PO DAILY 09/15/21 03/20/24 03/19/24 History multivitamin 1 tab PO DAILY 09/15/21 03/20/24 03/19/24 History omeprazole 20 mg capsule,delayed 20 mg PO DAILY@0630 11/27/21 03/20/24 03/19/24 History release methylcellulose (laxative) 500 mg 500 mg PO DAILY 02/07/24 03/20/24 03/19/24 History tablet (Citrucel) acetaminophen 500 mg tablet 500 mg PO BID PRN Pain 02/28/24 03/20/24 Unknown History albuterol sulfate 90 mcg/actuation 1 puff inhalation Q4H PRN 03/20/24 03/20/24 Unknown History aerosol inhaler Shortness Of Breath Or Wheezing amiodarone 200 mg tablet 200 mg DAILY 03/20/24 03/20/24 03/20/24 History Physical Exam 2 Vital Signs: Vital Signs: Last Vital Signs Temp 97.6 F 03/21/24 07:59 Pulse 100 03/21/24 07:59 Resp 18 03/21/24 07:59 BP 138/94 H 03/21/24 07:59 Pulse Ox 96 03/21/24 07:59 O2 Del Method Room Air 03/21/24 07:59 BMI result Body Mass Index 35.6 Const: General: comfortable and no acute distress O rientation/consciousness: patient oriented x3 HEENT: Other: Unremarkable Head: Yes normal to inspection Neck: Neck: Yes normal visual inspection Chest: Chest palpation & inspection: normal inspection of the chest Resp: Auscultation: clear to auscultation bilaterally Cardio: Palpation: normal PMI Heart sounds: S1 normal heart sound present, S2 normal heart sound present, no gallops, no murmurs and no rubs GI: Palpation (GI): Soft to palpation Back/Spine/Pelvis: Other: unremarkable Skin: General skin exam: no rashes or lesions noted Neuro: General: patient oriented x3 Extrem: General: Yes normal to inspection Psych: Mental Status: mental status grossly normal Objective Labs and Meds 03/19/24 23:25 03/19/24 23:25 ECG Interpretation: EKG with atrial flutter and rapid rate at 133/Min. Prior EKG on 01 of March shows sinus rhythm at 85/Min. Assessment and Plan (1) Atrial flutter with rapid ventricular response: Status: Acute Plan Currently on amiodarone 200 mg daily and Eliquis. We can probably go ahead with another cardioversion today. Then potentially to use a higher dose of amiodarone at 400 mg daily for 2 more weeks and then decrease to 200 mg daily. Will discuss with EP about expediting appointment regarding ablation as she has been cardioverted twice already and going for the 3rd cardioversion today. Discussed with Yue Gibson. Procedures Date of Service Date of Service: 03/21/24
--- NOTE | 2024-03-21 10:24 | PC.NURSE ---
Patient arrived to preop from the floor. PRN angio, #20 left wrist, flushed well, site asymptomatic.
[2024-03-21] MEDS: Lactated Ringers 1,000 ML 80 ML IVCONT (10:26)
--- NOTE | 2024-03-21 11:00 | MHC.SHP ---
Pre-Procedural Eval Section A - 24 Hr Update-Section A only Date of Service: 03/21/24 The patient is an INPATIENT: Yes Section B - Complete if H&P > 30 days Chief Complaint: atrial fibrillation with rapid ventricular respons Allergies: Allergies Allergy/AdvReac Type Severity Reaction Status Date / Time penicillin V Allergy Mild Rash Verified 03/21/24 10:17 milk AdvReac Stomach Verified 03/21/24 10:17 Upset onion AdvReac Stomach Verified 03/21/24 10:17 Upset Plan I have reviewed the history and physical and performed a pertinent physical examination on my patient. No changes have occurred unless specified. Time Spent With Patient Time: Total time managing care of this patient today ____ minutes.
--- NOTE | 2024-03-21 11:00 | HO.CARDIVERS ---
Cardioversion Procedure Note Cardioversion Date of Procedure: 03/21/2024 Indication for Procedure: Atrial fibrillation with rapid ventricular rate Pre-Op Diagnosis: Atrial fibrillation with rapid ventricular rate Post-Op Diagnosis: Sinus rhythm Consent: Informed consent obtained. Procedure: After informed consent was obtained, patient was taken to the PACU. The patient was then positioned appropriately. The cardioversion pads were placed in anteroposterior position. Once under anesthesia, 120 joules of synchronized shock was administered. The rhythm converted from atrial fibrillation to sinus rhythm. Patient remained in sinus rhythm after the end of procedure. Complications: None. Impression: Successful cardioversion. Recommendations: Increase amiodarone to 400 mg daily for the next 2 weeks. Then 200 mg daily. Await ablation.
--- NOTE | 2024-03-21 11:08 | ECG_ITS ---
Test Reason : s/p cardioversion Blood Pressure : / mmHG Vent. Rate : 084 BPM Atrial Rate : 084 BPM P-R Int : 168 ms QRS Dur : 068 ms QT Int : 406 ms P-R-T Axes : 037 -26 038 degrees QTc Int : 479 ms Normal sinus rhythm Nonspecific ST abnormality Abnormal ECG When compared with ECG of 19-MAR-2024 22:56, Rhythm change Referred By: Ting Mackay Electronically Signed By:TING MACKAY
--- NOTE | 2024-03-21 12:24 | PM.DS ---
DS: Providers Provider Date of Service: 03/21/24 Date of admission: 03/20/24 04:16 Primary care physician: Gilmer Stubbs MD Consults: 03/20/24 13:06 Consult to Cardiology Routine Consulting Provider: [facility] Reason for consultation: afib rvr DS: Diagnosis Discharge Diagnosis (1) Atrial flutter with rapid ventricular response: Status: Acute DS: Summary Hospital Course Hospital Course: History and physical as per admitting provider. Lorena Ann is a 63 years old woman with past medical history significant for atrial fibrillation on amiodarone and Eliquis, REJI on CPAP, essential hypertension and hyperlipidemia presents to the emergency department complaining of palpitations, dizziness amount shortness of breath. She was working her heart rate on her phone and has been fluctuating between 125 and 145. She denied chest pain, headache, loss of consciousness, abdominal pain, nausea, vomiting, fever, chills or diarrhea. She did not report any acute urinary symptoms. She drinks alcohol occasionally. Denied alcohol abuse or illicit drug use. In the ED, she was found to have heart rate in the 130s. O2 saturation is normal on room air and there is no fever. Blood pressure is stable. Blood workup including CBC, BMP, BNP and troponin are unremarkable. CXR is negative. ECG showed atrial fibrillation with rapid ventricular response with no ischemic changes. ED tx: Metoprolol 5 mg IV, diltiazem 20 mg IV (total), diltiazem IV infusion. 63-year-old woman treated for atrial fibrillation with rapid ventricular response, symptomatic with feeling of tachycardia. Initially treated with IV Cardizem drip. Patient was started on amiodarone 400 mg daily, her Eliquis was continued along with metoprolol. She had a successful cardioversion today. Patient is now normal sinus rhythm. Plan is to discharge patient home to follow up with Cardiology for medication adjustments. Hyperlipidemia. Continue statin Hypertension. Continue amlodipine Obstructive sleep apnea. Continue CPAP Obesity. BMI 35.6. Discussed importance of weight management as this may be contributing to worsening of other comorbidities Time Attestation Discharge Coordination Time (in mins): 36 Quality: Safe Use of Opioids Does Pt have an Active Cancer Diagnosis on the Problem List?: No Quality: Stroke Does the patient have a stroke diagnosis?: No Physical Exam Vital Signs: Vital Signs: Last Vital Signs Temp 97.8 F 03/21/24 12:00 Pulse 72 03/21/24 12:00 Resp 18 03/21/24 12:00 BP 116/61 03/21/24 12:00 Pulse Ox 96 03/21/24 12:00 O2 Del Method Room Air 03/21/24 12:00 O2 Flow Rate 1 03/21/24 11:12 BMI result Body Mass Index 35.6 Appearing in no acute distress head is normocephalic atraumatic eyes pupils are PERRLA sclera is anicteric mouth throat mucous membranes are intact and moist neck is supple no lymphadenopathy, no JVD noted lung sounds are clear to auscultation heart regular rate rhythm, clear S1, S2 positive bowel sounds, abdomen is soft, nontender neuro patient is alert x3, no focal deficits DS: Data Data Completed and Pending Completed studies during hospitalization [Text1]: Procedures Assistance with Respiratory Ventilation, Less than 24 Consecutive Hours, Continuous Positive Airway Pressure (02/28/24) Nondenominational of Cardiac Rhythm, Single (02/28/24) Ultrasonography of Heart with Aorta, Transesophageal (02/07/24) Discharge Plan Discharge Anticipated Discharge Date/Time: 03/21/24 12:22 Patient Disposition: Home, Self-Care Discharge Diagnosis: Atrial fibrillation with rapid ventricular response Referrals: Gilmer Stubbs MD [Primary Care Provider] - 1 Week Domenic Herrera MD [Physician] - 1 Week Discharge Medications: Continued dicyclomine 10 mg capsule 10 mg PO BID Qty: 60 11RF multivitamin Tablet 1 tab PO DAILY atorvastatin 20 mg Tablet 20 mg PO DAILY Citrucel 500 mg Tablet 500 mg PO DAILY Eliquis 5 mg Tablet 5 mg PO BID Qty: 60 0RF acetaminophen 500 mg Tablet 500 mg PO BID PRN (Reason: Pain) albuterol sulfate 90 mcg/actuation HFA aerosol inhaler 1 puff inhalation Q4H PRN (Reason: Shortness Of Breath Or Wheezing) omeprazole 20 mg capsule,delayed release(DR/EC) 20 mg PO DAILY@0630 Changed amiodarone 200 mg tablet 400 mg PO DAILY Qty: 180 0RF Rx Instructions: 400 mg [two 200 mg tabs] twice daily for 10 days, then 200 mg [one 200 mg tab] once daily Discharge Orders: Discharge Order (Routine); Ordered 07/02/24 Ordered By: Yue Gibson Diet: Advance to usual diet Activity on Discharge: As tolerated Stand Alone Forms: Patient Portal Discharge page Print Language: Korean Care Plan Goals: Follow-up with cardiology for medication adjustment. Also follow up with Cardiology for return symptoms of atrial fibrillation with rapid ventricular response especially if you feel dizzy, lethargic, short of breath, tachycardic Your amiodarone was increased to 400 mg daily Health Concerns: Atrial fibrillation with rapid ventricular response Plan of Treatment: Follow-up with primary care provider as needed Take all medications as prescribed Assessment: See discharge summary
--- NOTE | 2024-03-21 12:56 | MHC.CM.PN ---
Pt is medically cleared for discharge home self-care, pts to transport her home.
--- NOTE | 2024-03-21 13:33 | PC.NURSE ---
late entry- pt was medicated with Acetaminophen 975mg for headache on 03/20/24 @1635 per patient request.
== END 2024-03-21 13:49 | disposition home or self-care (01) | DRG 310 ==
LOC: HO.ED 03-20 01:29 → HO.EDOVER 03-20 04:24 → HO.IMC 03-20 19:54
PROVIDERS: Internal Medicine; Admitting Provider Internal Medicine; Emergency Provider Emergency Medicine; PCP Internal Medicine; Visit Provider Nurse Practitioner Acute Care
PROC: 5A2204Z Restoration of Cardiac Rhythm, Single (ICD-10-PCS; principal; 2024-03-21 11:00)
DX: I48.91 Unspecified atrial fibrillation (principal); G47.33 Obstructive sleep apnea (adult) (pediatric); E78.5 Hyperlipidemia, unspecified; K21.9 Gastro-esophageal reflux disease without esophagitis; I10 Essential (primary) hypertension; E66.9 Obesity, unspecified; Z68.35 Body mass index [BMI] 35.0-35.9, adult; Z71.3 Dietary counseling and surveillance; Z79.01 Long term (current) use of anticoagulants; Z79.899 Other long term (current) drug therapy
CPT/HCPCS: 36415; 71045; 80048; 83735; 83880; 84484; 85025; 85610; 92960; 93005; 99285; J2704; J7120

== ENCOUNTER → 2024-03-19 22:56 | Outpatient (BNV) | payer OTHER, SELFPAY | PROVIDERS: Admitting Provider Internal Medicine; Emergency Provider Emergency Medicine; PCP Internal Medicine; Visit Provider Internal Medicine | DX: I48.92 Unspecified atrial flutter (principal) | CPT/HCPCS: 93010 ==

== ENCOUNTER 2024-03-20 04:16 | Outpatient (BNV) | payer OTHER, SELFPAY | END 2024-03-21 11:08 | PROVIDERS: Admitting Provider Internal Medicine; Emergency Provider Emergency Medicine; PCP Internal Medicine; Visit Provider Internal Medicine | DX: R94.31 Abnormal electrocardiogram [ECG] [EKG] (principal) | CPT/HCPCS: 93010 ==

== ENCOUNTER → 2024-03-20 04:16 | Outpatient (BNV) | payer OTHER, SELFPAY | PROVIDERS: Admitting Provider Internal Medicine; Emergency Provider Emergency Medicine; PCP Internal Medicine; Visit Provider Internal Medicine | DX: I48.92 Unspecified atrial flutter (principal) | CPT/HCPCS: 99223; 99239; 99499 ==

== ENCOUNTER → 2024-03-20 04:16 | Outpatient (BNV) | payer OTHER, SELFPAY | PROVIDERS: Admitting Provider Internal Medicine; Emergency Provider Emergency Medicine; PCP Internal Medicine; Visit Provider Internal Medicine | DX: I48.92 Unspecified atrial flutter (principal); I48.91 Unspecified atrial fibrillation | CPT/HCPCS: 92960; 99223 ==

== ENCOUNTER → 2024-03-28 08:19 | Outpatient (BNVA) | payer OTHER, SELFPAY | PROVIDERS: PCP Internal Medicine; Visit Provider Internal Medicine ==

== ENCOUNTER 2024-04-04 10:01 | Outpatient (AMB) | payer OTHER, SELFPAY ==
[2024-04-04 10:28] VITALS: BP 122/60; PULSE 60; BMI 36.3
--- NOTE | 2024-04-04 10:28 | MHC.OFFVIS ---
Vital Signs 04/04/24 10:28 Height 5 ft 1 in Weight 192 lb BMI 36.3 BP 122/60 Blood Pressure Location Lt brachial Position Sitting Pulse 60 Pulse Source Monitor Intake Visit Reasons: f/u post cardiovertion Computer Methods Analyst Required: No Design Teacher: Design Teacher Present Allergies penicillin V Allergy (Mild, Verified 04/04/24 10:33) Rash milk Adverse Reaction (Verified 04/04/24 10:33) Stomach Upset onion Adverse Reaction (Verified 04/04/24 10:33) Stomach Upset Medication List - Last Reconciled 04/04/24 by LUCY FinchC acetaminophen 500 mg PO BID PRN albuterol sulfate 2.5 mg (3 mL) inhalation Q4H PRN albuterol sulfate 90 mcg/actuation 1 puff inhalation Q4H PRN amiodarone 400 mg (2 x 200 mg) PO DAILY apixaban (Eliquis) 5 mg PO BID atorvastatin 20 mg PO DAILY dicyclomine 10 mg PO BID methylcellulose (laxative) (Citrucel) 500 mg PO DAILY multivitamin 1 tab PO DAILY omeprazole 20 mg PO DAILY@0630 HPI HPI f/u post cardiovertion: Details: Lorena is a 63-year-old female with past medical history of hyperlipidemia, finding of atrial fibrillation August 2021 that was initially treated with rate control then started on Multaq for recurrent episodes.? She had been doing well until January she had recurrent atrial fibrillation and underwent cardioversion. A few weeks later she again had recurrent AFib and had a 2nd cardioversion. At that time her Multaq was stopped and changed over to amiodarone. She was referred to electrophysiology. She again had recurrent AFib and was cardioverted a 3rd time on 03/21/2024. She was seen by [facility] electrophysiology and now presents for follow-up. Today she reports that she has been feeling fatigued but overall well since her last cardioversion. She has not noticed recurrent heart palpitations. When she has AFib she notices palpitations, shortness of breath. She has not been having chest discomfort at rest or with activity. No lightheadedness, presyncope, syncope, falls. No bleeding issues reported with anticoagulation use. Has been doing only light activities. She is out of work for the summer. She works as a paraprofessional in a kindergarten class. Taking all medications as directed.? PFSH Medical History Atrial fibrillation History of cardioversion GERD (gastroesophageal reflux disease) IBS (irritable bowel syndrome) REJI (obstructive sleep apnea) Paroxysmal A-fib High cholesterol Surgical History H/O eye surgery History of esophagogastroduodenoscopy (EGD) Hx of colonoscopy History of right hip replacement (~01/21/21) Family History Mother Heart disease Social History Household Members: Spouse Household Members Other:: Housing: House Do you presently have visiting nurse or other home services: No Alcohol intake: current Alcohol intake frequency: holidays/special occasions only Patient Tobacco Use Status: Never used Tobacco service: No Current occupational status: employed Review of Systems Const All systems reviewed & are unremarkable except as noted in HPI and below Reports fatigue ENT Denies dizziness Card Denies chest pain, Denies chest pain at rest, Denies chest pain with activity, Denies rapid heart rate, Denies pedal edema, Denies edema, Denies leg edema, Denies lightheadedness, Denies palpitations, Denies dyspnea, Denies dyspnea on exertion and Denies orthopnea Resp Denies cough, Denies dyspnea and Denies dyspnea on exertion GI Denies hematochezia and Denies change in stool character Musc Denies abnormal gait, Denies limited range of motion, Denies muscle cramps, Denies muscle weakness, Denies numbness, Denies radiating pain into limb, Denies stiffness and Denies tingling Neuro Denies abnormal gait, Denies dizziness, Denies numbness and Denies tingling Endo Reports fatigue and Denies palpitations Physical Exam Vital Signs: Last Vital Signs Pulse 60 04/04/24 10:28 BP 122/60 04/04/24 10:28 BMI result Body Mass Index 36.3 Const General: cooperative, healthy appearing, comfortable and no acute distress Orientation/consciousness: patient oriented x3 HEENT Head: Yes normal to inspection Eyes Sclerae: sclerae normal Neck Neck: Yes normal visual inspection and Yes no JVD Carotids: normal carotid upstroke Chest Chest palpation & inspection: normal inspection of the chest Resp Effort & Inspection: normal respiratory effort Auscultation: clear to auscultation bilaterally, no crackles, no rales, no rhonchi and no wheezes Cardio Jugular venous distension: no JVD Rate: regular rate Rhythm: regular rhythm Heart sounds: S1 normal heart sound present, S2 normal heart sound present, no gallops, no murmurs and no rubs GI Inspection: Yes normal to inspection Skin General skin exam: no rashes or lesions noted Neuro General: patient oriented x3 Extrem General: Yes normal to inspection, No no pedal edema and No calf tenderness Psych Appearance: grossly normal Mental Status: mental status grossly normal Speech and movement: Normal speech and movement present Office Procedures EKG Details: Today, read by me, normal sinus rhythm, low-voltage QRS, can not rule out anterior infarct, rate 60, QTC 460 milliseconds [id number], Complete Assessment & Plan Assessment & Plan (1) Atrial fibrillation: Code(s): I48.91 - Unspecified atrial fibrillation Category: Medical Qualifiers: Atrial fibrillation type: paroxysmal Qualified Code(s): I48.0 - Paroxysmal atrial fibrillation Plan: History of atrial fibrillation 1st identified 08/2021. She was initially treated with heart rate control then put on Multaq to help with rhythm control. Her echo at that time showed normal Bi V function. She was not put on anticoagulation due to CHADS-VASc score of 1. She had done well on Multaq until recently when she developed recurrent atrial fibrillation and presented to [facility]. She notices heart palpitations and shortness of breath with her AFib. She did have a CORETTA cardioversion at that time and was continued on metoprolol and Multaq. She was started on Eliquis for anticoagulation. Two weeks later she had recurrent atrial fibrillation and again was admitted to [facility] with atrial fibrillation requiring cardioversion. At that time her Multaq was stopped and changed to amiodarone. Metoprolol was stopped due to bradycardia. She was referred to electrophysiology for ablation. On 03/20/24 she presented to [facility] ED with AFib and had a cardioversion the following day. She has been seen by [facility] electrophysiology Dr. Fischer on 03/27/2024. She has not had known recurrent atrial fibrillation since her last cardioversion on 03/21/2024. She does report some fatigue which she feels is related to the medications. She is awaiting a call from [facility] cardiology regarding a CT scan they would like her to have prior to the ablation. She tells me that electrophysiology scheduling ablation in June. At this time she will continue on amiodarone 200 mg daily and Eliquis 5 mg b.i.d.. EKG done today showing sinus rhythm, no acute ST or T-wave abnormalities, rate 60, QTC 460 milliseconds. She has a lab slip from the cornice maker for lab work in April. I presume this to be preprocedure labs and for amiodarone monitoring. Instructed to call this office or EP if she has recurrent AFib. Emergency care as needed. Avoid caffeinated beverages, alcohol. Activity as tolerated. Cardiology follow-up in this office 4 months, sooner if needed. Anticipate that visit to be post ablation. (2) On amiodarone therapy: Code(s): Z79.899 - Other chcf (current) drug therapy Category: Medical Plan: As above (3) REJI (obstructive sleep apnea): Code(s): G47.33 - Obstructive sleep apnea (adult) (pediatric) Category: Medical Plan: Wearing CPAP mask. Reports compliance (4) Chest pain: Code(s): R07.9 - Chest pain, unspecified Category: Medical Plan: [facility] ED evaluation for chest discomfort on 09/23/2022. She ruled out for ACS. Exercise nuclear stress test done on 11/12/2022 showing exercise 5 minutes, shortness of breath present, no EKG changes of ischemia and myocardial perfusion imaging showing no clear ischemia or infarct. She has had no recurrent chest discomfort like what brought her to the ER. She reports no exertional chest pains. Signs and symptoms of angina reviewed. (5) Hospital discharge follow-up: Code(s): Z09 - Encounter for follow-up examination after completed treatment for conditions other than malignant neoplasm Category: Medical Plan: As above Plan Time spent on chart review, documentation, interview and assessment Orders: Orders TSH reflex Free T4 Today I48.0 - Paroxysmal atrial fibrillation, Z79.899 - Other superintendent container terminal (current) drug therapy Liver Panel Today I48.0 - Paroxysmal atrial fibrillation, Z79.899 - Other chcf (current) drug therapy Medications: Changed From amiodarone 400 mg [two 200 mg tabs] once daily until seen on 04/[address] Herrera. 400 mg (2 x 200 mg) PO DAILY 30 tabs 0RF To amiodarone 200 mg PO DAILY 30 tabs 2RF Coding Level of Care Code Est Pt Level 4 (13665) Diagnoses Atrial fibrillation I48.0 Atrial fibrillation type: paroxysmal On amiodarone therapy Z79.899 REJI (obstructive sleep apnea) G47.33 Chest pain R07.9 Hospital discharge follow-up Z09 CPT Codes EKG - CPT: 27796-[id number], Complete ([id number]) Time Spent (min) 30
== END 2024-04-04 11:14 | disposition home or self-care (01) ==
PROVIDERS: PCP Internal Medicine; Visit Provider Nurse Practitioner Family
DX: I48.0 Paroxysmal atrial fibrillation (principal); Z79.899 Other long term (current) drug therapy; G47.33 Obstructive sleep apnea (adult) (pediatric); R07.9 Chest pain, unspecified; Z09 Encounter for follow-up examination after completed treatment for conditions other than malignant neoplasm
CPT/HCPCS: 93010; 99214

== ENCOUNTER 2024-04-04 10:01 | Outpatient (REF) | payer OTHER, SELFPAY ==
[2024-04-04 12:34] LABS: Alanine Aminotransferase 26 U/L (0-31); Albumin Level 4.4 g/dL (3.5-5.0); Alkaline Phosphatase 94 U/L (39-117); Aspartate Amino Transferase 20 U/L (5-31); Bilirubin Direct 0.1 mg/dL (0.0-0.5); Bilirubin Total 0.3 mg/dL (0.0-1.0); Total Protein 7.7 g/dL (6.5-8.0)
[2024-04-04 12:50] LABS: TSH reflex Free T4 4.35 uIU/mL (0.32-4.0)
[2024-04-04 13:54] LABS: Free T4 (Free Thyroxine) 1.03 ng/dL (0.71-1.85)
== END 2024-04-04 10:02 | disposition home or self-care (01) ==
LOC: HO.LAB 10:01
PROVIDERS: PCP Internal Medicine; Visit Provider Nurse Practitioner Family
DX: I48.0 Paroxysmal atrial fibrillation (principal); E78.5 Hyperlipidemia, unspecified; G47.33 Obstructive sleep apnea (adult) (pediatric); R07.9 Chest pain, unspecified; Z09 Encounter for follow-up examination after completed treatment for conditions other than malignant neoplasm; Z79.899 Other long term (current) drug therapy
CPT/HCPCS: 36415; 80076; 84439; 84443; 93005; 99212

== ENCOUNTER 2024-05-05 10:13 | Emergency (ER) | payer OTHER, SELFPAY ==
[2024-05-05] VITALS (14 sets, daily range): BP systolic 91–142; BP diastolic 42–76; PULSE 53–126; RESP 12–21; TEMP 36.6–37.1; O2SAT 94–100; BMI 37.2
--- NOTE | 2024-05-05 10:15 | ECG_ITS ---
Test Reason : afib? Blood Pressure : / mmHG Vent. Rate : 123 BPM Atrial Rate : 000 BPM P-R Int : 000 ms QRS Dur : 068 ms QT Int : 338 ms P-R-T Axes : 000 -14 -02 degrees QTc Int : 483 ms Atrial fibrillation with rapid ventricular response Low voltage QRS Nonspecific ST and T wave abnormality Abnormal ECG When compared with ECG of 21-MAR-2024 11:14, Atrial fibrillation has replaced Sinus rhythm Referred By: Generic ED Physician Electronically Signed By:HEATHER MCGEE
[2024-05-05 10:41] LABS: MANUAL DIFF FLAG NO
--- NOTE | 2024-05-05 10:41 | ED_ITS ---
HPI - Arrhythmia/Palpitations General Chief Complaint: Arrhythmia/Palpitations Stated Complaint: afib Time Seen by Provider: 05/05/24 10:19 Source: patient, family and old records reviewed Mode of arrival: ambulatory Limitations: no limitations History of Present Illness ED Provider: BERENICE OSEI narrative: 63 yo female with afib on amiodarone on eliquis complaint s/p 3 cardioversions and pending albation at [facility] has not had any appointments or coronary CTA yet, GERD, HLD here with c/o going into afib again last night with dyspnea. She is here asking for cardioversion. Last ate before bed. Did have coffee this AM. No CP, similar bouts of afib. Denies fevers, falling, chest pain. Has had this many times before does not respond to IV medications MD complaint: atrial fibrillation Onset (ago): day(s) (last night) Duration: constant Severity: moderate Context: occurred during rest Arrhythmia history: atrial fibrillation Associated symptoms: shortness of breath Related Data Home Medications ?Medication ?Instructions ?Recorded ?Confirmed atorvastatin 20 mg tablet 20 mg PO DAILY 09/15/21 04/04/24 multivitamin 1 tab PO DAILY 09/15/21 04/04/24 omeprazole 20 mg capsule,delayed 20 mg PO DAILY@0630 11/27/21 04/04/24 release methylcellulose (laxative) 500 mg 500 mg PO DAILY 02/07/24 04/04/24 tablet (Citrucel) acetaminophen 500 mg tablet 500 mg PO BID PRN Pain 02/28/24 04/04/24 albuterol sulfate 90 mcg/actuation 1 puff inhalation Q4H PRN 03/20/24 04/04/24 aerosol inhaler Shortness Of Breath Or Wheezing Previous Rx's ?Medication ?Instructions ?Recorded dicyclomine 10 mg capsule 10 mg PO BID #60 caps 03/31/23 apixaban 5 mg tablet (Eliquis) 5 mg PO BID #60 tabs 02/09/24 albuterol sulfate 2.5 mg/3 mL 2.5 mg (3 mL) inhalation Q4H PRN 03/21/24 (0.083 %) solution for nebulization shortness of breath or wheezing #180 mL amiodarone 200 mg tablet 200 mg PO DAILY #30 tabs 04/04/24 Allergies Allergy/AdvReac Type Severity Reaction Status Date / Time penicillin V Allergy Mild Rash Verified 05/05/24 10:26 milk AdvReac Stomach Verified 05/05/24 10:26 Upset onion AdvReac Stomach Verified 05/05/24 10:26 Upset Review of Systems 2 Review of Systems: Constitutional : No Fever, No Chills ENT/Mouth : No sore throat, No Rhinorrhea, No Swallowing Difficulty Eyes: No Eye Pain, No Swelling, No Redness Cardiovascular : No Chest Pain, positive SOB, No Orthopnea, no Edema Respiratory : No Cough, No Sputum, No Wheezing, positive dyspnea, pos palpitations Gastrointestinal : No Nausea, No Vomiting, No Diarrhea, No abdominal Pain, No Hematochezia, No Melena Genitourinary : No Dysuria, No Urinary Frequency, No Hematuria Musculoskeletal : No joint pain, No Myalgias Skin : No Skin Lesions, No rash Neuro : No Weakness, No Numbness, No Dizziness, No Headache All other systems reviewed and are negative PMFSH Past Medical History Attestation statement: The following information was validated with the patient. Source: old records reviewed Medical History Atrial fibrillation History of cardioversion GERD (gastroesophageal reflux disease) IBS (irritable bowel syndrome) REJI (obstructive sleep apnea) Paroxysmal A-fib High cholesterol Surgical History H/O eye surgery History of esophagogastroduodenoscopy (EGD) Hx of colonoscopy History of right hip replacement (~01/21/21) Family History Family History Mother Heart disease Social History Social History Household Members: Spouse Household Members Other:: Housing: House Do you presently have visiting nurse or other home services: No Alcohol intake: current Alcohol intake frequency: holidays/special occasions only Patient Tobacco Use Status: Never used Tobacco Advance Directives: No Advance Directives Information Provided: No Do you have a plan to hurt others: No Plan service: No Current occupational status: employed Physical Exam 2 Vital Signs: Vital Signs: Last Vital Signs Temp 97.8 F 05/05/24 14:10 Pulse 63 05/05/24 14:10 Resp 20 05/05/24 14:10 BP 98/50 L 05/05/24 14:10 Pulse Ox 99 05/05/24 14:10 O2 Del Method Room Air 05/05/24 12:18 BMI result Body Mass Index 37.2 Appearance: Alert. Oriented X3. No acute distress. Eyes: Pupils equal, round and reactive to light. ENT: Pharynx normal. Neck: Normal inspection. Neck supple. CVS: irregular heart rate and rhythm. Pulses normal. Respiratory: No respiratory distress. Breath sounds normal. Abdomen: Soft and nontender. Skin: Skin warm and dry. Normal skin color. Normal skin turgor. Extremities: No lower extremity edema. No calf ttp Neuro: Oriented X 3. No motor deficit. No sensory deficit. Course Course Course Narrative: doing well stable for DC once propofol wears off a little bit more Medications Administered Discontinued Medications Generic Name Dose Route Start Last Admin Trade Name Freq PRN Reason Stop Dose Admin Diltiazem HCl 15 mg 05/05/24 10:39 05/05/24 11:20 Diltiazem Hcl 50 Mg/10 Ml Vial IVPUSH 05/05/24 10:40 15 mg STAT STA Administration Magnesium Sulfate 2 gm in 50 mls @ 25 mls/hr 05/05/24 10:39 05/05/24 12:49 Magnesium Sulfate/H2o IV 05/05/24 12:38 Infused ONCE ONE Infusion Sodium Chloride 1,000 mls @ 999 mls/hr 05/05/24 12:26 05/05/24 14:02 Ns IV 05/05/24 13:26 Infused .Q1H1M ONE Infusion Propofol 100 mg 05/05/24 12:55 05/05/24 13:41 Propofol 200 Mg/20 Ml Vial IVPUSH 05/05/24 12:56 70 mg ONCE ONE Administration Medical Decision Making Medical Decision Making MDM Narrative: 63 yo female with afib on amiodarone on eliquis complaint s/p 3 cardioversions and pending albation at [facility] has not had any appointments or coronary CTA yet, GERD, HLD here with c/o palpitations and onset of afib last night with mild dyspnea has had this many times in the past at this time will need basic labs, lytes, IV dilt and IV magnesium. She is asking for cardioversion has been NPO aware of risks fully anticoagulated has not missed dose doubt risk of stroke. If we have time may be able to cardiovert her with propofol. Differential Diagnosis Differential Diagnoses: The differential diagnosis associated with the presentation includes afib. lyte abnormality Admission/Observation Consideration of admission/observation: Escalation of care including admission/observation considered Consult Healthcare Provider Management of the patient was discussed with: Finance Intern talked to Dr. Herrera if HR in 50s to 60s after cardioversion may go up to amio 400mg daily Lab Data MDM Lab Attestation statement: I reviewed the patient's lab results. 05/05/24 10:36 05/05/24 10:36 Labs: Lab Results 05/05/24 Range/Units 10:36 WBC 5.0 (4.8-10.8) X10*3/uL RBC 4.18 L (4.20-5.50) X10*6/uL Hgb 12.9 (12.0-16.0) g/dl Hct 37.8 (37.0-47.0) % MCV 90.4 (80.0-98.0) fL MCH 30.9 (27.0-33.0) pg MCHC 34.1 (31.0-35.0) g/dl RDW 13.4 (11.0-16.0) % Plt Count 268 (160-400) X10*3/uL MPV 10.0 (9.4-12.3) fL Immature Gran % (Auto) 0.2 (0.0-0.4) % Neut % (Auto) 51.1 (45-73) % Lymph % (Auto) 32.0 (20-40) % [place] % (Auto) 10.7 (2-11) % Eos % (Auto) 4.8 H (0-4) % Baso % (Auto) 1.2 (0-2) % Lymph # (Auto) 1.6 (1.2-4.9) X10*3/uL [place] # (Auto) 0.5 (0.1-1.2) X10*3/uL Eos # (Auto) 0.2 (0.0-0.4) X10*3/uL Baso # (Auto) 0.1 (0.0-0.2) X10*3/uL Abs Immat Gran (auto) 0.01 (0.00-0.03) X10*3/uL Absolute Neuts (auto) 2.6 (2.0-8.3) x10*3/uL Absolute Nucleated RBC 0.000 (0.0-0.012) X10*3/uL Nucleated RBC % (auto) 0.0 (0.0-0.2) /100WBC PT 16.3 H (11.1-13.3) SEC INR 1.3 H (0.9-1.1) Whole Blood INR Cancelled Sodium 140 (135-145) mmol/L Potassium 5.0 D (3.3-5.1) mmol/L Chloride 110 H (96-108) mmol/L Carbon Dioxide 22 (22-29) mmol/L Anion Gap 13 (12-20) BUN 10 (9-16) mg/dL Creatinine 0.79 (0.5-1.4) mg/dL Estim Creat Clear Calc 74.0 Estimated GFR > 60 Random Glucose 120 H (60-115) mg/dL Calcium 9.2 D (8.4-10.2) mg/dL Magnesium 2.2 (1.6-2.6) mg/dL Total Bilirubin 0.4 (0.0-1.0) mg/dL AST 41 H (5-31) U/L ALT 41 H (0-31) U/L Alkaline Phosphatase 91 (39-117) U/L Troponin I High Sens 4.8 (<3.5-17.0) ng/L B-Natriuretic Peptide 39 (<100) pg/mL Total Protein 7.4 (6.5-8.0) g/dL Albumin 3.9 (3.5-5.0) g/dL Independent Interpretation I performed an independent interpretation of an: EKG Interpretation: Rate: 123 Rhythm: afib [place]: left Normal QRS complex. ST T wave : no LEON, flat t wave V2 qTC: 483 prior studies: hx of same in past The study has been interpreted contemporaneously by me. EKG#2 Rate: 68 Rhythm: NSR [place]: left Normal P waves. Normal MARIA ELENA. Normal QRS complex. ST T wave : nonspecific ST T wave changes anterior leads no LEON qTC: 516 prior studies: back to NSR The study has been interpreted contemporaneously by me. . External Record Review External record reviewed: Inpatient record, Office record and Outpatient record Procedures Procedure Narrative Procedure Narrative: cardioversion AP posterior application 1 attempt 200J cardioverted to NSR 70s no complications tolerated well Procedural Sedation Indication: other (cardioversion) ASA Class: II Mallampati Class: II Time of Last PO Intake: 20:00 Preparation: clinical research monitor applied, pulse oximeter, capnometry used, supplemental O2 applied, suction/airway equipment at bedside and IV secured IV Propofol dose (mg): 70 Patient Tolerated Procedure: well and no complications Complications: none Interventions: oxygen applied and airway repositioned Critical Care Time Critical Care Time Critical Care Time: Yes Total Critical Care Time: 45 Attestation: rapid afib - IV dilt, IV magnesium, cardioversion I attest to this time spent taking care of the patient Discharge Plan Discharge Clinical Impression: Atrial fibrillation with rapid ventricular response, Acute dyspnea Patient Disposition: Home, Self-Care Instructions: A-fib (Atrial Fibrillation) (ED), Dyspnea (ED), Cardioversion (DC) Additional Instructions: follow all instructions from sedation handed to you return for vomiting, confusion or any other concerns increase amiodarone to 400mg daily and follow up with Dr. Herrera and EP doctor Prescriptions: No Action dicyclomine 10 mg capsule 10 mg PO BID Qty: 60 11RF multivitamin Tablet 1 tab PO DAILY atorvastatin 20 mg Tablet 20 mg PO DAILY Citrucel 500 mg Tablet 500 mg PO DAILY Eliquis 5 mg Tablet 5 mg PO BID Qty: 60 0RF acetaminophen 500 mg Tablet 500 mg PO BID PRN (Reason: Pain) albuterol sulfate 90 mcg/actuation HFA aerosol inhaler 1 puff inhalation Q4H PRN (Reason: Shortness Of Breath Or Wheezing) albuterol sulfate 2.5 mg /3 mL (0.083 %) solution for nebulization 2.5 mg inhalation Q4H PRN (Reason: shortness of breath or wheezing) Qty: 180 0RF omeprazole 20 mg capsule,delayed release(DR/EC) 20 mg PO DAILY@0630 amiodarone 200 mg tablet 200 mg PO DAILY Qty: 30 2RF Print Language: Lithuanian
[2024-05-05 10:43] LABS: Basophils Absolute Auto 0.1 X10*3/uL (0.0-0.2); Basophils Percent Auto 1.2 % (0-2); Eosinophils Absolute Auto 0.2 X10*3/uL (0.0-0.4); Eosinophils Percent Auto 4.8 % (0-4); Hematocrit 37.8 % (37.0-47.0); Hemoglobin 12.9 g/dl (12.0-16.0); Imm Gran Abs Auto 0.01 X10*3/uL (0.00-0.03); Imm Gran Pct Auto 0.2 % (0.0-0.4); Lymphocytes Absolute Auto 1.6 X10*3/uL (1.2-4.9); Mean Corpuscular HGB Conc 34.1 g/dl (31.0-35.0); Mean Corpuscular Hemoglobin 30.9 pg (27.0-33.0); Mean Corpuscular Volume 90.4 fL (80.0-98.0); Monocytes Absolute Auto 0.5 X10*3/uL (0.1-1.2); Monocytes Percent Auto 10.7 % (2-11); Neutrophils Absolute Auto 2.6 x10*3/uL (2.0-8.3); Neutrophils Percent Auto 51.1 % (45-73); Platelet Count 268 X10*3/uL (160-400); Red Blood Count 4.18 X10*6/uL (4.20-5.50); Red Cell Distribution Width 13.4 % (11.0-16.0)
[2024-05-05 10:52] LABS: INTERNATIONAL NORM RATIO 1.3 (0.9-1.1); Prothrombin Time 16.3 SEC (11.1-13.3)
[2024-05-05 11:04] LABS: Alanine Aminotransferase 41 U/L (0-31); Albumin Level 3.9 g/dL (3.5-5.0); Alkaline Phosphatase 91 U/L (39-117); Anion Gap 13 (12-20); Aspartate Amino Transferase 41 U/L (5-31); B Type Natriuretic Peptide 39 pg/mL (<100); Bilirubin Total 0.4 mg/dL (0.0-1.0); Blood Urea Nitrogen 10 mg/dL (9-16); Calcium 9.2 mg/dL (8.4-10.2); Carbon Dioxide 22 mmol/L (22-29); Chloride 110 mmol/L (96-108); Estimated Glomerular Filt Rate > 60; Glucose Random 120 mg/dL (60-115); Magnesium 2.2 mg/dL (1.6-2.6); Sodium 140 mmol/L (135-145); Total Protein 7.4 g/dL (6.5-8.0)
[2024-05-05 11:05] LABS: Troponin-I High Sensitivity 4.8 ng/L (<3.5-17.0)
[2024-05-05] MEDS: dilTIAZem HCL 50 MG/10 ML VIAL 15 MG IVPUSH (11:20)
[2024-05-05] MEDS: Magnesium Sulfate/H2O 2 GM/50 ML PIGGYBACK IV (11:22)
[2024-05-05] MEDS: 0.9 % Sodium Chloride 1,000 ML 999 ML IV (12:49)
[2024-05-05] MEDS: propofoL 200 MG/20 ML VIAL 100 MG IVPUSH (13:41)
--- NOTE | 2024-05-05 13:45 | ECG_ITS ---
Test Reason : POST CARDIOVERSION Blood Pressure : / mmHG Vent. Rate : 068 BPM Atrial Rate : 068 BPM P-R Int : 180 ms QRS Dur : 072 ms QT Int : 486 ms P-R-T Axes : 055 -08 041 degrees QTc Int : 516 ms Normal sinus rhythm Low voltage QRS Nonspecific T wave abnormality Abnormal ECG When compared with ECG of 05-MAY-2024 10:12, Sinus rhythm has replaced Atrial fibrillation Vent. rate has decreased BY 55 BPM Referred By: Theresa Jamil Electronically Signed By:HEATHER MCGEE
--- NOTE | 2024-05-05 15:33 | PC.NURSE ---
patient denies pain, offers no complaints to this RN. VSS, diastolic pressure noted to be lower but appears to be baseline. Patient is normal sinus rhythm on the monitor at this time
--- OUTSIDE RECORDS SUMMARY | 2024-05-10 06:32 | XMS_ITS | Continuity of Care Document ---
Author Organization [facility] Address [address] [place] [id number]- Care Team Providers Care Ski Tow Operator Name Role Phone Gilmer Stubbs MD Primary Care Physician [phone] [place] [facility] [place] [id number] Date(s): 03/27/24 - 04/26/24 [facility] [address] [place] [phone]- Attending Physician: Zulma Lawson Admitting Physician: Zulma Lawson Referring Physician: Zulma Lawson Allergies, Adverse Reactions, Alerts Substance Reaction Severity Status penicillin Active Medications acetaminophen 325 mg oral tablet 650 mg, 2, tablet, By Mouth, Every 6 hours, May take OTC, not to exceed 3000 mg/day, Refills 0, Maintenance, 01/22/21 8:01:00 EDT, Partial fill upon patient request if the prescription is for a schedule II opioid drug. Start Date: 01/22/21 Status: Ordered amiodarone 200 mg oral tablet 400 mg, 2, tablet, By Mouth, Daily, # 60 tablet, Refills 0, Maintenance, 03/27/24 8:44:00 EDT, Partial fill upon patient request if the prescription is for a schedule II opioid drug. Start Date: 03/27/24 Status: Ordered Aspirin Tablet 325 mg, By Mouth, 2 times a day, Refills 0, Maintenance, 01/22/21 8:02:00 EDT, Partial fill upon patient request if the prescription is for a schedule II opioid drug. Start Date: 01/22/21 Status: Ordered atorvastatin 20 mg oral tablet 1 tablet = 20 mg, By Mouth, Daily, # 30 tablet, 0 Refills, Maintenance, 12/10/20 8:33:00 EDT, Tablet, Partial fill upon patient request if the prescription is for a schedule II opioid drug. Start Date: 12/10/20 Status: Ordered celecoxib 200 mg oral capsule 1 capsule = 200 mg, By Mouth, Daily in AM, 0 Refills, Maintenance, 01/22/21 8:02:00 EDT, Capsule, Partial fill upon patient request if the prescription is for a schedule II opioid drug. Start Date: 01/22/21 Status: Ordered Colace Capsule 100 mg, 1, capsule, By Mouth, 2 times a day, Hold for loose stools, Refills 0, Maintenance, 01/22/21 8:02:00 EDT, Partial fill upon patient request if the prescription is for a schedule II opioid drug. Start Date: 01/22/21 Status: Ordered dicyclomine 10 mg oral capsule 2 capsule = 20 mg, By Mouth, 0 Refills, Maintenance, 03/27/24 8:45:00 EDT, Partial fill upon patient request if the prescription is for a schedule II opioid drug. Start Date: 03/27/24 Status: Ordered Eliquis 5 mg oral tablet 1 tablet = 5 mg, By Mouth, 2 times a day, # 60 tablet, 5 Refills, Maintenance, 03/27/24 8:44:00 EDT, Tablet, Partial fill upon patient request if the prescription is for a schedule II opioid drug. Start Date: 03/27/24 Status: Ordered Maalox Plus Liquid 30 mL, By Mouth, Every 4 hours, PRN Other, Heartburn, 0 Refills, Maintenance, 01/22/21 8:01:00 EDT,Suspension, Partial fill upon patient request if the prescription is for a schedule II opioid drug. Start Date: 01/22/21 Status: Ordered MiraLax Powder 1 pack/packet = 17 Gm, By Mouth, Daily, PRN Constipation, 0 Refills, Maintenance, 01/22/21 8:02:00 EDT, Powder, Partial fill upon patient request if the prescription is for a schedule II opioid drug. Start Date: 01/22/21 Status: Ordered MOM Liquid 30 mL, By Mouth, Daily, PRN Constipation, 0 Refills, Maintenance, 01/22/21 8:02:00 EDT, Suspension,Partial fill upon patient request if the prescription is for a schedule II opioid drug. Start Date: 01/22/21 Status: Ordered omeprazole 20 mg oral delayed release tablet 1 tablet = 20 mg, By Mouth, Daily, 0 Refills, Maintenance, 03/27/24 8:45:00 EDT, Partial fill upon patient request if the prescription is for a schedule II opioid drug. Start Date: 03/27/24 Status: Ordered pantoprazole 40 mg oral delayed release tablet = 40 mg, By Mouth, Daily in AM, 0 Refills, Maintenance, 01/22/21 8:02:00 EDT, EC Tablet Start Date: 01/22/21 Status: Ordered senna 187 mg oral tablet 1 tablet = 8.6 mg, By Mouth, Daily at bedtime, PRN as needed for constipation, 0 Refills, Maintenance, 01/22/21 8:02:00 EDT, Tablet, Partial fill upon patient request if the prescription is for a schedule II opioid drug. Start Date: 01/22/21 Status: Ordered Social History Social History Type Response Smoking Status Never (less than 100 in lifetime) entered on: 01/21/21 Sex Patient Care team information Care Team Personnel Name: Gilmer Stubbs MD Position: Reference Physician Member Role: PCP Address: Address: [address] [place] [address] [place] [address]- Care Team Related Persons Name: PAIGE HUDSON Address: [address] [address]
--- OUTSIDE RECORDS SUMMARY | 2024-05-10 06:32 | XMS_ITS | Continuity of Care Document ---
Author Organization [facility] Address [address] [place] [phone]- Care Team Providers Care Space Officer Name Role Phone Gilmer Stubbs MD Primary Care Physician [phone] Encounter [facility] Date(s): 03/21/24 - 04/20/24 [facility] [address] [place] [id number]- [place] Allergies, Adverse Reactions, Alerts Substance Reaction Severity [...] Reference Physician Member Role: PCP Address: Address: [address] [place] [address] Drive Gilmer MaloneyokeKEEGAN [phone]- Care Team Related Persons Name: PAIGE HUDSON Address: [address] [place] [address]
== END 2024-05-05 16:39 | disposition home or self-care (01) ==
PROVIDERS: Emergency Provider Emergency Medicine; PCP Internal Medicine
DX: I48.20 Chronic atrial fibrillation, unspecified (principal); R06.00 Dyspnea, unspecified; R06.02 Shortness of breath; R00.2 Palpitations; E78.00 Pure hypercholesterolemia, unspecified; I48.0 Paroxysmal atrial fibrillation; J96.01 Acute respiratory failure with hypoxia; G47.33 Obstructive sleep apnea (adult) (pediatric); Z79.01 Long term (current) use of anticoagulants; Z79.02 Long term (current) use of antithrombotics/antiplatelets; Z79.899 Other long term (current) drug therapy
CPT/HCPCS: 36415; 80053; 83735; 83880; 84484; 85025; 85610; 92960; 93005; 96361; 96365; 96375; 99284; 99291; J2704; J3475

== ENCOUNTER 2024-05-16 13:28 | Outpatient (AMB) | payer OTHER, SELFPAY ==
--- NOTE | 2024-05-16 13:30 | A.OFFVIS_ITS ---
Vital Signs 05/16/24 13:31 Height 5 ft 1 in Weight 191 lb 12.835 oz BMI 36.2 BP 120/64 Blood Pressure Location Lt brachial Position Sitting Pulse 71 Pulse Source Monitor Intake Visit Reasons: [facility] Hydrogen Plant Operator Required: No Accompanied by: Self / Same As Patient Allergies penicillin V Allergy (Mild, Verified 05/05/24 10:26) Rash milk Adverse Reaction (Verified 05/05/24 10:26) Stomach Upset onion Adverse Reaction (Verified 05/05/24 10:26) Stomach Upset Medication List - Last Reconciled 05/16/24 by RUPALI Finch acetaminophen 500 mg PO BID PRN albuterol sulfate 2.5 mg (3 mL) inhalation Q4H PRN albuterol sulfate 90 mcg/actuation 1 puff inhalation Q4H PRN amiodarone 200 mg PO DAILY apixaban (Eliquis) 5 mg PO BID atorvastatin 20 mg PO DAILY dicyclomine 10 mg PO BID methylcellulose (laxative) (Citrucel) 500 mg PO DAILY metoprolol succinate ER (Toprol XL) 25 mg PO DAILY multivitamin 1 tab PO DAILY omeprazole 20 mg PO DAILY@0630 HPI HPI [facility]: Details: Lorena is a 63-year-old female with past medical history of hyperlipidemia, episodes of atrial fibrillation started August 2021, with cardioversions over the last few years x3. She had been on Multaq and then was changed over to amiodarone. She has been referred to electrophysiology and is awaiting an a fib ablation. She was seen in the emergency room on 05/05/2024 for heart palpitations. She was found to have recurrent symptomatic atrial fibrillation. Cardioversion done in the emergency room. She was discharged on her amiodarone and restarted on low-dose metoprolol. She was continued on Eliquis. Today she reports that she has been doing well since her cardioversion a week and a half ago. She did not start the metoprolol as directed. She has not noticed any recurrent AFib. When she has AFib she notices palpitations, shortness of breath. She has not been having chest discomfort at rest or with activity. No lightheadedness, presyncope, syncope, falls. No bleeding issues r eported with anticoagulation use. Has been doing only light activities. She is out of work for the summer. She works as a paraprofessional in a kindergarten class. Taking all medications as directed.? PFSH Medical History Atrial fibrillation History of cardioversion GERD (gastroesophageal reflux disease) IBS (irritable bowel syndrome) REJI (obstructive sleep apnea) Paroxysmal A-fib High cholesterol Surgical History H/O eye surgery History of esophagogastroduodenoscopy (EGD) Hx of colonoscopy History of right hip replacement (~01/21/21) Family History Mother Heart disease Social History Household Members: Spouse Household Members Other:: Housing: House Do you presently have visiting nurse or other home services: No Alcohol intake: current Alcohol intake frequency: holidays/special occasions only Patient Tobacco Use Status: Never used Tobacco service: No Current occupational status: employed Review of Systems Const All systems reviewed & are unremarkable except as noted in HPI and below Denies chills, Denies fatigue, Denies fever(s), Denies frequent falls, Denies weakness, Denies weight gain and Denies weight loss ENT Denies dizziness Card Denies chest pain, Denies leg edema, Denies lightheadedness, Denies palpitations, Denies dyspnea and Denies dyspnea on exertion Resp Denies cough, Denies dyspnea and Denies dyspnea on exertion GI Denies hematochezia Musc Denies abnormal gait, Denies muscle weakness, Denies numbness, Denies radiating pain into limb and Denies tingling Neuro Denies abnormal gait, Denies dizziness, Denies frequent falls, Denies numbness, Denies tingling and Denies weakness Endo Denies fatigue and Denies palpitations Physical Exam Vital Signs: Last Vital Signs Pulse 71 05/16/24 13:31 BP 120/64 05/16/24 13:31 BMI result Body Mass Index 36.2 Const General: cooperative, healthy appearing, comfortable and no acute distress Orientation/consciousness: patient oriented x3 Neck Neck: Yes normal visual inspection and Yes no JVD Resp Effort & Inspection: normal respiratory effort Auscultation: clear to auscultation bilaterally, no crackles, no rales, no rhonchi and no wheezes Cardio Jugular venous distension: no JVD Rate: regular rate Rhythm: regular rhythm Heart sounds: S1 normal heart sound present, S2 normal heart sound present, no murmurs and no rubs Neuro General: patient oriented x3 Extrem General: Yes normal to inspection and No no pedal edema Psych Appearance: grossly normal Mental Status: mental status grossly normal Speech and movement: Normal speech and movement present Office Procedures EKG Details: Today, read by me, normal sinus rhythm, low-voltage QRS, can not exclude anterior infarct, rate 71, QTC 458 milliseconds [id number], Complete Assessment & Plan Assessment & Plan (1) Atrial fibrillation: Code(s): I48.91 - Unspecified atrial fibrillation Category: Medical Qualifiers: Atrial fibrillation type: paroxysmal Qualified Code(s): I48.0 - Paroxysmal atrial fibrillation Plan: History of atrial fibrillation 1st identified 08/2021. She has had 4 episodes since that time each requiring cardioversion to restore normal rhythm. She was initially on Multaq and more recently changed over to amiodarone. She is on Eliquis for anticoagulation, no bleeding issues reported. Her last AFib and cardioversion was 05/05/2024. At that time she was restarted on low-dose metoprolol which had previously been stopped due to bradycardia. Today she reports that she has had no recurrent AFib in the last 10 days. She did not start the metoprolol XL 25 mg daily. Instructed her to take 1/2 tablet, 12.5 mg daily for heart rate control and to help keep AFib suppressed. EKG done today shows normal sinus rhythm, rate 71, QTC 458 millisecond. She is scheduled for an ablation on 08/04/2024. She will continue on amiodarone 200 mg daily and Eliquis 5 mg b.i.d.. EKG done today showing sinus rhythm, no acute ST or T-wave abnormalities, rate 60, QTC 460 milliseconds. Labs done on 05/05/2024 shows AST 41, ALT 41, labs 04/04/2024 shows TSH 4.35. Will have a recheck labs in a few w eeks to reassess for amiodarone toxicity. Chest x-ray done 03/19/2024 showed no acute findings. She has been doing it only decaf beverages avoiding alcohol. Instructed to call this office or EP if she has recurrent AFib. Emergency care as needed. Cardiology follow-up in this office 3 months, sooner if needed. Anticipate that visit to be post ablation. (2) On amiodarone therapy: Code(s): Z79.899 - Other ferry terminal agent (current) drug therapy Category: Medical Plan: As above (3) REJI (obstructive sleep apnea): Code(s): G47.33 - Obstructive sleep apnea (adult) (pediatric) Category: Medical Plan: Wearing CPAP mask. Reports compliance (4) Chest pain: Code(s): R07.9 - Chest pain, unspecified Category: Medical Plan: [facility] ED evaluation for chest discomfort on 09/23/2022. She ruled out for ACS. Exercise nuclear stress test done on 11/12/2022 showing exercise 5 minutes, shortness of breath present, no EKG changes of ischemia and myocardial perfusion imaging showing no clear ischemia or infarct. She has had no recurrent chest discomfort like what brought her to the ER. She reports no exertional chest pains. Signs and symptoms of angina reviewed. (5) Hospital discharge follow-up: Code(s): Z09 - Encounter for follow-up examination after completed treatment for conditions other than malignant neoplasm Category: Medical Plan: As above Plan Time spent on chart review, documentation, interview and assessment Orders: Orders Comprehensive Met. Panel Today Z79.899 - Other ferry terminal agent (current) drug therapy TSH reflex Free T4 Today Z79.899 - Other ferry terminal agent (current) drug therapy Coding Level of Care Code Est Pt Level 3 (82082) Diagnoses Atrial fibrillation I48.0 Atrial fibrillation type: paroxysmal On amiodarone therapy Z79.899 REIJ (obstructive sleep apnea) G47.33 Chest pain R07.9 Hospital discharge follow-up Z09 CPT Codes EKG - CPT: 13248-Emohhoqkfjzvdmrek, Complete ([id number]) Time Spent (min) 22
[2024-05-16 13:31] VITALS: BP 120/64; PULSE 71; BMI 36.2
== END 2024-05-16 14:11 | disposition home or self-care (01) ==
PROVIDERS: PCP Internal Medicine; Visit Provider Nurse Practitioner Family
DX: I48.0 Paroxysmal atrial fibrillation (principal); Z79.899 Other long term (current) drug therapy; G47.33 Obstructive sleep apnea (adult) (pediatric); R07.9 Chest pain, unspecified; Z09 Encounter for follow-up examination after completed treatment for conditions other than malignant neoplasm
CPT/HCPCS: 93010; 99213

== ENCOUNTER → 2024-05-16 13:28 | Outpatient (BNVA) | payer OTHER, SELFPAY | PROVIDERS: PCP Internal Medicine; Visit Provider Nurse Practitioner Family | DX: Z09 Encounter for follow-up examination after completed treatment for conditions other than malignant neoplasm (principal); I48.0 Paroxysmal atrial fibrillation; R07.9 Chest pain, unspecified; G47.33 Obstructive sleep apnea (adult) (pediatric); Z79.899 Other long term (current) drug therapy | CPT/HCPCS: 93005; 99212 ==

== ENCOUNTER 2024-05-27 08:57 | Outpatient (REF) | payer OTHER, SELFPAY ==
[2024-05-27 11:03] LABS: Alanine Aminotransferase 37 U/L (0-31); Albumin Level 3.9 g/dL (3.5-5.0); Alkaline Phosphatase 92 U/L (39-117); Anion Gap 13 (12-20); Aspartate Amino Transferase 24 U/L (5-31); Bilirubin Total 0.4 mg/dL (0.0-1.0); Blood Urea Nitrogen 10 mg/dL (9-16); Calcium 9.3 mg/dL (8.4-10.2); Carbon Dioxide 24 mmol/L (22-29); Chloride 107 mmol/L (96-108); Estimated Glomerular Filt Rate > 60; Glucose Random 111 mg/dL (60-115); Potassium 4.4 mmol/L (3.3-5.1); Sodium 140 mmol/L (135-145); Total Protein 6.8 g/dL (6.5-8.0)
[2024-05-27 11:20] LABS: TSH reflex Free T4 2.93 uIU/mL (0.32-4.0)
== END 2024-05-27 08:58 | disposition home or self-care (01) ==
LOC: HO.LAB 08:57
PROVIDERS: PCP Internal Medicine; Visit Provider Nurse Practitioner Family
DX: Z79.899 Other long term (current) drug therapy (principal)
CPT/HCPCS: 36415; 80053; 84443

== ENCOUNTER 2024-07-26 14:23 | Outpatient (AMB) | payer OTHER, SELFPAY ==
[2024-07-26 15:09] VITALS: BP 140/72; PULSE 66; BMI 36.5
--- NOTE | 2024-07-26 15:09 | A.OFFVIS_ITS ---
Vital Signs 07/26/24 15:09 Height 5 ft 1 in Weight 193 lb 1.999 oz BMI 36.5 BP 140/72 H Blood Pressure Location Lt brachial Position Sitting Pulse 66 Intake Visit Reasons: 6m follow up Intake Note: 6m f/u Physical Therapy Attendant Required: No Accompanied by: Self / Same As Patient Allergies penicillin V Allergy (Mild, Verified 05/05/24 10:26) Rash milk Adverse Reaction (Verified 05/05/24 10:26) Stomach Upset onion Adverse Reaction (Verified 05/05/24 10:26) Stomach Upset Medication List - Last Reconciled 07/26/24 by Sudeep Carnes MD acetaminophen 500 mg PO BID PRN albuterol sulfate 2.5 mg (3 mL) inhalation Q4H PRN albuterol sulfate 90 mcg/actuation 1 puff inhalation Q4H PRN amiodarone 200 mg PO DAILY apixaban (Eliquis) 5 mg PO BID atorvastatin 20 mg PO DAILY dicyclomine 10 mg PO BID methylcellulose (laxative) (Citrucel) 500 mg PO DAILY metoprolol succinate ER (Toprol XL) 25 mg PO DAILY PRN multivitamin 1 tab PO DAILY omeprazole 20 mg PO DAILY@0630 HPI Comments Details: 64-year-old female who is here for follow-up. She has background history of paroxysmal atrial fibrillation and underwent cardioversion in the past. She has been on Multaq and has been doing well. Not on anticoagulation because her chads Vasc score is 1. No palpitations. No chest pain or shortness of breath. 01/26/24: She is here for follow-up. EKGs showing sinus bradycardia. She has been doing well with Multaq. No palpitations on follow-up. No chest discomfort shortness of breath. She is exercising and trying to lose weight. 07/26/2024: She is here for follow-up. She is scheduled to undergo ablation with Dr. Wolf on August 04. She is on amiodarone currently and Eliquis 5 mg twice a day. Doing well. Clinically stable. Blood pressure is mildly elevated but she has been using anti allergy medicine and unsure whether there is any decongestant in it. She will go and check at home today. [facility] Medical History Atrial fibrillation History of cardioversion GERD (gastroesophageal reflux disease) IBS (irritable bowel syndrome) REJI (obstructive sleep apnea) Paroxysmal A-fib High cholesterol Surgical History H/O eye surgery History of esophagogastroduodenoscopy (EGD) Hx of colonoscopy History of right hip replacement (~01/21/21) Family History Mother Heart disease Social History Household Members: Spouse Household Members Other:: Housing: House Do you presently have visiting nurse or other home services: No Alcohol intake: current Alcohol intake frequency: holidays/special occasions only Patient Tobacco Use Status: Never used Tobacco service: No Current occupational status: employed Review of Systems Const Denies chills, Denies fatigue, Denies fever(s), Denies weight gain and Denies weight loss ENT Denies dizziness Card Denies chest pain, Denies leg edema, Denies lightheadedness, Denies palpitations, Denies dyspnea on exertion, Denies orthopnea and Denies other Resp Denies cough and Denies dyspnea on exertion GI Denies hematochezia and Denies change in stool character Musc Denies abnormal gait, Denies muscle weakness, Denies numbness, Denies radiating pain into limb and Denies tingling Neuro Denies abnormal gait, Denies dizziness, Denies numbness and Denies tingling Endo Denies fatigue and Denies palpitations Physical Exam Vital Signs: Last Vital Signs Pulse 66 07/26/24 15:09 BP 140/72 H 07/26/24 15:09 BMI result Body Mass Index 36.5 GENERAL APPEARANCE: in no acute distress, pleasant. NECK: no carotid bruit, no jugular venous distention. SKIN: no suspicious lesions, warm and dry. HEART: no murmurs, regular rate and rhythm. LUNGS: clear to auscultation bilaterally. ABDOMEN: soft, nontender. EXTREMITIES: no edema. PERIPHERAL PULSES: equal. NEUROLOGIC: No gross deficits, AAO X 3 Office Procedures EKG Details: Sinus rhythm 66 beats per minute, normal axis, QTC 469 milliseconds. [id number], Complete Assessment & Plan Assessment & Plan (1) Atrial fibrillation: Code(s): I48.91 - Unspecified atrial fibrillation Category: Medical Qualifiers: Atrial fibrillation type: paroxysmal Qualified Code(s): I48.0 - Paroxysmal atrial fibrillation Plan Very pleasant 64 year female who is here for follow-up. She has symptomatic atrial fibrillation. She was cardioverted in the past and was on Multaq but developed atrial fibrillation again. Now she has been changed to amiodarone after cardioversion and is due to get ablation with [facility] mid July. Clinically stable. Blood pressure mildly elevated but she had viral illness/allergies and was using Benadryl and is unsure whether there was a decongestant in it or not. She will check that. Follow-up in few months. Thank you for allowing me to participate in the care of your patient. Please feel free to contact me if you have any questions. Coding Level of Care Code Est Pt Level 4 (65898) Diagnoses Atrial fibrillation I48.0 Atrial fibrillation type: paroxysmal CPT Codes EKG - CPT: 04322-Gxikohzcqybjuzljt, Complete ([id number])
== END 2024-07-26 15:40 | disposition home or self-care (01) ==
LOC: HO.HCS 14:24
PROVIDERS: PCP Internal Medicine; Visit Provider Internal Medicine Cardiovascular Disease
DX: I48.0 Paroxysmal atrial fibrillation (principal)
CPT/HCPCS: 93010; 99214

== ENCOUNTER → 2024-07-26 14:23 | Outpatient (BNVA) | payer OTHER, SELFPAY | PROVIDERS: PCP Internal Medicine; Visit Provider Internal Medicine Cardiovascular Disease | DX: I48.0 Paroxysmal atrial fibrillation (principal) | CPT/HCPCS: 93005; 99212 ==

== ENCOUNTER 2024-07-29 09:28 | Outpatient (REF) | payer OTHER, SELFPAY ==
--- NOTE | ~2024-07-29 | MM_ITS ---
EXAMINATION: MM SCREENING DIGITAL BREAST TOMOSYNTHESIS, BILATERAL CLINICAL INFORMATION: Screening. Asymptomatic. COMPARISON: Mammography: Comparison is made with available priors TECHNIQUE: Digital breast mammography with tomosynthesis is performed in both the craniocaudal and mediolateral oblique views along with computer-aided detection (CAD). FINDINGS: There are scattered areas of fibroglandular density (ACR BI-RADS breast composition Category b). There are no significant masses, abnormal calcifications, or other abnormalities. MM/MM tomosynthesis screening BI IMPRESSION: No mammographic evidence of malignancy. ASSESSMENT: BI-RADS BI-RADS 1 - Negative RECOMMENDATION: Routine annual mammography screening. 1 year F/U This examination should not preclude the clinical evaluation of a suspicious palpable abnormality. This patient's information was entered into a reminder system with a target due date for their next mammogram. Electronically signed by: Sally Duarte DO 08/09/2024 12:02 PM CHET
== END 2024-07-29 09:29 | disposition home or self-care (01) ==
LOC: HO.MAMMO 09:28
PROVIDERS: PCP Internal Medicine; Visit Provider Internal Medicine
DX: Z12.31 Encounter for screening mammogram for malignant neoplasm of breast (principal)
CPT/HCPCS: 77063; 77067

== ENCOUNTER → 2024-07-29 09:45 | Outpatient (BNV) | payer OTHER, SELFPAY | PROVIDERS: PCP Internal Medicine; Visit Provider Internal Medicine | DX: Z12.31 Encounter for screening mammogram for malignant neoplasm of breast (principal) | CPT/HCPCS: 77063; 77067 ==

== ENCOUNTER 2024-08-26 09:15 | Outpatient (REF) | payer OTHER, SELFPAY ==
[2024-08-26 10:50] LABS: Alanine Aminotransferase 31 U/L (0-31); Alkaline Phosphatase 97 U/L (39-117); Aspartate Amino Transferase 26 U/L (5-31); Bilirubin Direct 0.1 mg/dL (0.0-0.5); Bilirubin Total 0.3 mg/dL (0.0-1.0); Cholesterol 167 mg/dL (<200); HDL Cholesterol 49 mg/dL (>40); LDL Cholesterol Calculated 106 mg/dL (<100); Total Protein 7.1 g/dL (6.5-8.0); Triglycerides 63 mg/dL (<150)
[2024-08-26 12:12] LABS: Reflex LDLD? No
--- OUTSIDE RECORDS SUMMARY | 2024-08-30 11:42 | XMS_ITS | Clinical Summary ---
Author Organization Unknown Care Team Providers Care Cold Strip Roller Name Role Phone JIN IVEY, FABY Unavailable Unavailable JR PT, NELY Unavailable Unavailable LISA OT, LUCRECIA Unavailable Unavailable Payers Payer Name Policy Type Policy Number Effective Date Expira tion Date [id number] .C.AUTH Problems Condition Name Condition Details Condition Category Status Onset Date Resolution Date Last Treatment Date Treating Clinician Comments AFTERCARE FOLLOWING JOINT REPLACEMENT SURGERY Active 01-21 00:00: 00 PRESENCE OF RIGHT ARTIFICIAL HIP JOINT Active 01-21 00:00: 00 HYPERLIPIDEM IA, UNSPECIFIED Active 09-20 00:00: 00 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 Ordering Clinician Indication Dosage Frequency Signature (SIG) Comments Components docusate sodium 100 mg capsule 01-16 00:00: 00 Yes [id number] DIRECTED Per instruc tions TWICE A DAY DIRECTED Per instructio ns TWICE A DAY DIRECTED (route: oral) Med Classific ation: Gastroint estinal Therapy Agents aspirin 325 mg tablet,jimmy yed release 01-15 00:00: 00 Yes [id number] DIRECTED Per instruc tions TWICE A DAY Per instructio ns TWICE A DAY (route: oral) Med Classific ation: Analgesic , Anti-infl ammatory or Antipyret ic pantoprazol e 40 mg tablet,jimmy yed release 01-15 00:00: 00 Yes [id number] DIRECTED Per instruc tions EVERY DAY Per instructio ns EVERY DAY (route: oral) Med Classific ation: Gastroint estinal Therapy Agents celecoxib 200 mg capsule 01-15 00:00: 00 Yes [id number] DIRECTED Per instruc tions EVERY DAY Per instructio ns EVERY DAY (route: oral) Med Classific ation: Analgesic , Anti-infl ammatory or Antipyret ic Vital Signs Vital Name Observation Time Observation Value Commen ts Temperature 2021-02-07 09:18:52.000 97.6 [degF] Temperature 2021-02-03 12:16:27.000 98 [degF] Temperature 2021-01-31 10:17:30.000 97.5 [degF] Temperature 2021-01-30 09:21:53.000 97.6 [degF] Temperature 2021-01-28 08:32:15.000 97.7 [degF] Temperature 2021-01-24 10:24:51.000 97 [degF] Temperature 2021-01-23 09:33:06.000 98.4 [degF] Pulse 2021-02-07 09:19:00.000 86 /min Pulse 2021-02-03 12:16:34.000 73 /min Pulse 2021-01-31 10:17:54.000 85 /min Pulse 2021-01-30 09:22:00.000 77 /min Pulse 2021-01-28 08:32:25.000 77 /min Pulse 2021-01-24 10:25:14.000 79 /min Pulse 2021-01-23 09:33:49.000 88 /min Pulse 2021-01-23 09:33:39.000 98 /min O2 Saturation (%) 2021-01-31 10:18:13.000 97 % O2 Saturation (%) 2021-01-24 10:25:32.000 96 % O2 Saturation (%) 2021-01-23 09:34:03.000 98 % Respirations 2021-02-07 09:19:05.000 18 /min Respirations 2021-02-03 12:16:41.000 18 /min Respirations 2021-01-31 10:18:31.000 18 /min Respirations 2021-01-30 09:22:06.000 18 /min Respirations 2021-01-28 08:39:56.000 18 /min Respirations 2021-01-24 10:25:20.000 18 /min Respirations 2021-01-23 09:33:54.000 18 /min Systolic Blood Pressure 2021-02-07 09:19:15.000 126 mm [Hg] Systolic Blood Pressure 2021-02-03 12:16:50.000 130 mm [Hg] Systolic Blood Pressure 2021-01-31 10:22:02.000 120 mm [Hg] Systolic Blood Pressure 2021-01-30 09:22:26.000 150 mm [Hg] Systolic Blood Pressure 2021-01-28 08:39:39.000 132 mm [Hg] Systolic Blood Pressure 2021-01-24 10:28:26.000 120 mm [Hg] Systolic Blood Pressure 2021-01-23 09:34:14.000 132 mm [Hg] Diastolic Blood Pressure 2021-02-07 09:19:15.000 84 mm [Hg] Diastolic Blood Pressure 2021-02-03 12:16:50.000 80 mm [Hg] Diastolic Blood Pressure 2021-01-31 10:22:02.000 68 mm [Hg] Diastolic Blood Pressure 2021-01-30 09:22:26.000 80 mm [Hg] Diastolic Blood Pressure 2021-01-28 08:39:39.000 78 mm [Hg] Diastolic Blood Pressure 2021-01-24 10:28:26.000 66 mm [Hg] Diastolic Blood Pressure 2021-01-23 09:34:14.000 66 mm [Hg] Plan of Treatment Planned Activity Planned Date Details Comments Future Scheduled Test AGENCY MAY PERFORM A RESUMPTION OF CARE VISIT FOLLOWING ANY HOSPITAL ADMISSION. ALL DISCIPLINES (EXCEPT IRON MELTER) MAY PROVIDE TELEHEALTH PHONE/REMOTE/VIRTUAL VISITS IN LIEU OF AN IN-PERSON VISIT THAT DOES NOT REQUIRE HANDS ON OR IN PERSON ASSESSMENT WHEN AN IN-PERSON VISIT IS NOT POSSIBLE DUE TO THE PUBLIC HEALTH EMERGENCY RELATED TO THE COVID- PANDEMIC. PHYSICAL THERAPY TO EVALUATE, ASSESS AND MONITOR, PROVIDE SKILLED THERAPEUTIC INTERVENTION, ACTIVITY, EDUCATION, AND TRAINING TO ADDRESS: [code = AGENCY MAY PERFORM A RESUMPTION OF CARE VISIT FOLLOWING ANY HOSPITAL ADMISSION. ALL DISCIPLINES (EXCEPT IRON MELTER) MAY PROVIDE TELEHEALTH PHONE/REMOTE/VIRTUAL VISITS IN LIEU OF AN IN-PERSON VISIT THAT DOES NOT REQUIRE HANDS ON OR IN PERSON ASSESSMENT WHEN AN IN-PERSON VISIT IS NOT POSSIBLE DUE TO THE PUBLIC HEALTH EMERGENCY RELATED TO THE COVID- PANDEMIC. PHYSICAL THERAPY TO EVALUATE, ASSESS AND MONITOR, PROVIDE SKILLED THERAPEUTIC INTERVENTION, ACTIVITY, EDUCATION, AND TRAINING TO ADDRESS:] Future Scheduled Test BED MOBILI TY TRAINING (PT); [code = BED MOBILITY TRAINING (PT);] Future Scheduled Test TRANSFER T RAINING (PT) [code = TRANSFER TRAINING (PT)] Future Scheduled Test GAIT TRAIN ING (PT) [code = GAIT TRAINING (PT)] Future Scheduled Test NEUROMUSCU LAR RE-EDUCATION / BALANCE RETRAINING (PT) [code = NEUROMUSCULAR RE-EDUCATION / BALANCE RETRAINING (PT)] Future Scheduled Test THERAPEUTI C EXERCISES (PT) [code = THERAPEUTIC EXERCISES (PT)] Future Scheduled Test IDENTIFY F ALL RISK FACTORS AND ESTABLISH HOME EXERCISE PROGRAM TO MINIMIZE FALL RISK (PT) [code = IDENTIFY FALL RISK FACTORS AND ESTABLISH HOME EXERCISE PROGRAM TO MINIMIZE FALL RISK (PT)] Future Scheduled Test ORTHOPEDIC SURGICAL AFTERCARE (PT) MAY TEACH PATIENT APPLICATION OF CRYOTHERAPY FOR PAIN AND/OR SWELLING UP TO 20 MIN AT A TIME OVER INCISION/JOINT [code = ORTHOPEDIC SURGICAL AFTERCARE (PT) MAY TEACH PATIENT APPLICATION OF CRYOTHERAPY FOR PAIN AND/OR SWELLING UP TO 20 MIN AT A TIME OVER INCISION/JOINT] Future Scheduled Test HIP REPLAC EMENT SELF-MANAGEMENT (PT) [code = HIP REPLACEMENT SELF-MANAGEMENT (PT)] Future Scheduled Test AGENCY MAY PERFORM A RESUMPTION OF CARE VISIT FOLLOWING ANY HOSPITAL ADMISSION. ALL DISCIPLINES (EXCEPT IRON MELTER) MAY PROVIDE TELEHEALTH PHONE/REMOTE/VIRTUAL VISITS IN LIEU OF AN IN-PERSON VISIT THAT DOES NOT REQUIRE HANDS ON OR IN PERSON ASSESSMENT WHEN AN IN-PERSON VISIT IS NOT POSSIBLE DUE TO THE PUBLIC HEALTH EMERGENCY RELATED TO THE COVID- PANDEMIC. OCCUPATIONAL THERAPY TO EVALUATE, ASSESS, AND MONITOR, PROVIDE SKILLED THERAPEUTIC INTERVENTION, ACTIVITY, EDUCATION, AND TRAINING TO ADDRESS; DECLINE IN ADLS AND FUNCTIONAL MOB, FALL PREVENTION, ORTHOPEDIC AFTERCARE. BATHING/SHOWERING (OT) MEAL PREPARATION AND CLEANUP (OT) FALL REDUCTION (OT) SURGICAL AFTERCARE EDUCATION (OT) HIP REPLACEMENT EDUCATION (OT) [code = AGENCY MAY PERFORM A RESUMPTION OF CARE VISIT FOLLOWING ANY HOSPITAL ADMISSION. ALL DISCIPLINES (EXCEPT IRON MELTER) MAY PROVIDE TELEHEALTH PHONE/REMOTE/VIRTUAL VISITS IN LIEU OF AN IN-PERSON VISIT THAT DOES NOT REQUIRE HANDS ON OR IN PERSON ASSESSMENT WHEN AN IN-PERSON VISIT IS NOT POSSIBLE DUE TO THE PUBLIC HEALTH EMERGENCY RELATED TO THE COVID-19 PANDEMIC. OCCUPATIONAL THERAPY TO EVALUATE, ASSESS, AND MONITOR, PROVIDE SKILLED THERAPEUTIC INTERVENTION, ACTIVITY, EDUCATION, AND TRAINING TO ADDRESS; DECLINE IN ADLS AND FUNCTIONAL MOB, FALL PREVENTION, ORTHOPEDIC AFTERCARE. BATHING/SHOWERING (OT) MEAL PREPARATION AND CLEANUP (OT) FALL REDUCTION (OT) SURGICAL AFTERCARE EDUCATION (OT) HIP REPLACEMENT EDUCATION (OT)] Goal 2021-02-07 Patient Goal - I WANT TO GET AROUND WITHOUT THE WALKER Goal Provider Goal - Goal Provider Goal - PATIENT WILL DEMO INDEP PERFORMANCE OF BED TRANSFER IN 4 WEEKS TO ALLOW SAFE PERFORMANCE OF THIS TASK Goal Provider Goal - PATIENT WILL DEMO INDEP PERFORMANCE OF HOUSEHOLD TRANSFERS WITH FWW USE IN 4 WEEKS TO ALLOW SAFE MOBILITY IN HOME ENVIRONMENT Goal Provider Goal - PATIENT WILL DEMO INDEP PERFORMANCE OF HOUSEHOLD GAIT WITH FWW USE IN 6 WEEKS AND WITH SPC USE IN 8 WEEKS TO ALLOW SAFE NAVIGATION THROUGHOUT HOME ENVIRONMENT Goal Provider Goal - PATIENT WILL DEMO IMPROVED TUG SCORE TO 14 SECONDS AND 21 TINETTI SCORE IN 8 WEEKS TO REDUCE FALL RISK WITH FUNCTIONAL MOBILITY Goal Provider Goal - PATIENT WILL DEMO INDEP PERFORMANCE OF THEREX IN 4 WEEKS TO PROMOTE LE STABILITY AND ACTIVITY TOLERANCE PATIENT WILL IMPROVE LE STRENGTH LEVELS TO 4/5 IN 8 WEEKS TO PROMOTE IMPROVED FUNCTIONAL INDEP Goal Provider Goal - PATIENT/CAREGIVER WILL DEMONSTRATE ADHERENCE TO FALL REDUCTION SELF MANAGEMENT TO MINIMIZE FALL RISK BY DISCHARGE. Goal Provider Goal - PATIENT WILL DEMONSTRATE NORMAL HEALING FOLLOWING SURGERY WITH NO COMPLICATIONS BY DISCHARGE. Goal Provider Goal - PT GOAL: PATIENT WILL DEMONSTRATE OPTIMAL OUTCOMES INCLUDING INCREASED ROM AND STRENGTH WITH NO COMPLICATIONS FOLLOWING KEILA BY DISCHARGE. Goal Provider Goal - OT LTG: PATIENT WILL DEMONSTRATE IMPROVED ABILITY TO PERFORM BATHING/SHOWERING FROM MOD ASSIST TO INDEPENDENT WITHIN 2 WEEKS. OT LTG: PATIENT WILL DEMONSTRATE IMPROVED ABILITY TO PERFORM BATH/SHOWER TRANSFER FROM MIN ASSIST TO INDEPENDENT WITHIN 2 WEEKS. OT LTG: PATIENT WILL DEMONSTRATE THE ABILITY TO COMPLETE MEAL PREPARATION AND CLEANUP FROM MAX ASSIST TO INDEPENDENT WITHIN 2 WEEKS. PATIENT/CAREGIVER WILL BE ABLE TO IMPLEMENT OCCUPATIONAL THERAPY EDUCATION RECOMMENDATIONS SPECIFIC TO FALL REDUCTION FOR IMPROVED ADL/IADL COMPLETION AND HOME SAFETY BY DISCHARGE. OT GOAL: PATIENT/CAREGIVER WILL INCORPORATE SURGICAL AFTERCARE PATIENT EMPOWERMENT STRATEGIES INTO DAILY ROUTINE BY DISCHARGE OT GOAL: PATIENT/CAREGIVER WILL INCORPORATE HIP REPLACEMENT PATIENT EMPOWERMENT STRATEGIES INTO DAILY ROUTINE BY DISCHARGE. Reason for Visit INDEPENDENT IN THE HOME Encounters Start Date/Time End Date/Time Encounter Type Admission Type Attending [facility] Care Department Encounter ID Discharge Date Discharge Status Discharge Condition Discharge Reason Percent Goals Met 2021-01-23 00:00:00 2021-02-07 00:00:00 Outpatient NEW ADMISSION [facility] [id number] 2021-02-07 00:00:00 DISCHARGE TO HOME OR SELF CARE INDEPENDEN T IN THE HOME HH ONLY - OUT PATIENT 81.25
== END 2024-08-26 09:16 | disposition home or self-care (01) ==
LOC: HO.LAB 09:15
PROVIDERS: PCP Internal Medicine; Visit Provider Internal Medicine
DX: E78.00 Pure hypercholesterolemia, unspecified (principal)
CPT/HCPCS: 36415; 80061; 80076

== ENCOUNTER 2024-11-29 14:29 | Outpatient (AMB) | payer OTHER, SELFPAY ==
--- NOTE | 2024-11-29 14:52 | MHC.OFFVIS ---
Vital Signs 11/29/24 14:54 Height 5 ft 1 in Weight 197 lb 15.602 oz BMI 37.4 BP 120/62 Blood Pressure Location Lt brachial Position Sitting Pulse 78 Pulse Source Pulse Oximeter Intake Visit Reasons: 4 mth f/up Intake Note: 4 mth f/up Flight Test Supervisor Required: No Accompanied by: Self / Same As Patient Allergies penicillin V Allergy (Mild, Verified 05/05/24 10:26) Rash milk Adverse Reaction (Verified 05/05/24 10:26) Stomach Upset onion Adverse Reaction (Verified 05/05/24 10:26) Stomach Upset Medication List - Last Reconciled 11/29/24 by Sudeep aCrnes MD acetaminophen 500 mg PO BID PRN albuterol sulfate 2.5 mg (3 mL) inhalation Q4H PRN albuterol sulfate 90 mcg/actuation 1 puff inhalation Q4H PRN apixaban (Eliquis) 5 mg PO BID atorvastatin 20 mg PO DAILY dicyclomine 10 mg PO BID gabapentin 100 mg PO BEDTIME methylcellulose (laxative) (Citrucel) 500 mg PO DAILY multivitamin 1 tab PO DAILY omeprazole 20 mg PO DAILY@0630 HPI Comments Details: 64-year-old female who is here for follow-up. She has background history of paroxysmal atrial fibrillation and underwent cardioversion in the past. She has been on Multaq and has been doing well. Not on anticoagulation because her chads Vasc score is 1. No palpitations. No chest pain or shortness of breath. 01/26/24: She is here for follow-up. EKGs showing sinus bradycardia. She has been doing well with Multaq. No palpitations on follow-up. No chest discomfort shortness of breath. She is exercising and trying to lose weight. 07/26/2024: She is here for follow-up. She is scheduled to undergo ablation with Dr. Wolf on August 04. She is on amiodarone currently and Eliquis 5 mg twice a day. Doing well. Clinically stable. Blood pressure is mildly elevated but she has been using anti allergy medicine and unsure whether there is any decongestant in it. She will go and check at home today. 11/29/2024: She underwent ablation on 08/04/2024. She has been off amiodarone and metoprolol at this stage. Doing well with no palpitations. No chest discomfort shortness of breath. Taking Eliquis regularly. [facility] Medical History Atrial fibrillation History of cardioversion GERD (gastroesophageal reflux disease) IBS (irritable bowel syndrome) REJI (obstructive sleep apnea) Paroxysmal A-fib High cholesterol Surgical History H/O eye surgery History of esophagogastroduodenoscopy (EGD) Hx of colonoscopy History of right hip replacement (~01/21/21) Family History Mother Heart disease Social History Household Members: Spouse Household Members Other:: Housing: House Do you presently have visiting nurse or other home services: No Alcohol intake: current Alcohol intake frequency: holidays/special occasions only Patient Tobacco Use Status: Never used Tobacco service: No Current occupational status: employed Review of Systems Const Denies chills, Denies fatigue, Denies fever(s), Denies frequent falls, Denies weakness, Denies weight gain and Denies weight loss ENT Denies dizziness Card Denies chest pain, Denies leg edema, Denies lightheadedness, Denies palpitations, Denies dyspnea and Denies dyspnea on exertion Resp Denies cough, Denies dyspnea and Denies dyspnea on exertion GI Denies hematochezia Musc Denies abnormal gait, Denies muscle weakness, Denies numbness, Denies radiating pain into limb and Denies tingling Neuro Denies abnormal gait, Denies dizziness, Denies frequent falls, Denies numbness, Denies tingling and Denies weakness Endo Denies fatigue and Denies palpitations Physical Exam Vital Signs: Last Vital Signs Pulse 78 11/29/24 14:54 BP 120/62 11/29/24 14:54 BMI result Body Mass Index 37.4 GENERAL APPEARANCE: in no acute distress, pleasant. NECK: no carotid bruit, no jugular venous distention. SKIN: no suspicious lesions, warm and dry. HEART: no murmurs, regular rate and rhythm. LUNGS: clear to auscultation bilaterally. ABDOMEN: soft, nontender. EXTREMITIES: no edema. PERIPHERAL PULSES: equal. NEUROLOGIC: No gross deficits, AAO X 3 Assessment & Plan Assessment & Plan (1) Atrial fibrillation: Code(s): I48.91 - Unspecified atrial fibrillation Category: Medical Qualifiers: Atrial fibrillation type: paroxysmal Qualified Code(s): I48.0 - Paroxysmal atrial fibrillation Plan Very pleasant 64 year female who is here for follow-up. She has symptomatic atrial fibrillation. She was cardioverted in the past and was on Multaq but developed atrial fibrillation again. She was changed to amiodarone and subsequently underwent ablation in 08/09/2024. This was successful and she got off the amiodarone metoprolol and since then has been stable. I have explained to her that anticoagulation is long-term for her despite successful ablation because there is always risk of atrial fibrillation coming back. Follow-up with us in 6 months. Thank you for allowing me to participate in the care of your patient. Please feel free to contact me if you have any questions. Coding Level of Care Code Est Pt Level 4 (96173) Diagnoses Atrial fibrillation I48.0 Atrial fibrillation type: paroxysmal
[2024-11-29 14:54] VITALS: BP 120/62; PULSE 78; BMI 37.4
--- OUTSIDE RECORDS SUMMARY | 2024-11-29 17:08 | XMS_ITS ---
Author Organization Gilmer Stubbs MD Address [address] [place], [place] [id number] Care Team Providers Care Grounds Person Name Role Phone Gilmer Stubbs Primary Care [...] Problem Status W/U Status Risk Notes Problem [id number] Essential tremor (G25.0) Active confirmed Vital Signs Blood pressure systolic 130 mm Hg 09/04/20 24 Blood pressure diastolic 66 mm Hg 024 Height 60 in 09/04/2024 Weight 194 lbs 09/04/2024 BMI 37.88 kg/m2 09/04/2024 weight is down 4 pounds sinc e 06-12-24 Encounters Encounter Location Date Provider Diagnosis Gilmer Stubbs MD [address] [place] [address] [place] [phone] 09/04/2024 Gilmer Stubbs Paroxysmal atrial fibrillation I48.0 ; Essential tremor G25.0 and Elevated LDL cholesterol level E78.00 Assessments Encounter Date Diagnosis (ICD Code) Assessment Notes Treatment Notes Treatment Clinical Notes Section Notes 09/04/2024 Paroxysmal atrial fibrillation (ICD-10 - I48.0) discussed the ferry terminal agent use of anticoagulation. she is inclined to take it. is seeing millinery designer in oct, will continue current regiment 09/04/2024 [...] Assessment Notes Paroxysmal atrial fibrillation discussed the nursing home use of anticoagulation. she is inclined to take it. is seeing millinery designer in oct, will continue current regiment Essential tremor patient verbalized u nderstanding of medication and directions for use Elevated LDL cholesterol level stable, w ill continue current regiment Next Appt Details Follow Up: 4 Weeks, Reason: Provider Name:Gilmer escobedo, 03/05/2025 07:45:00 AM, [address] [place] [address], [place] [address], [place], [place], [phone], Provider Name:Gilmer escobedo, 03/12/2025 02:30:00 PM, [address] [place] [address], Suite [facility], [place], [place], [phone], Progress Notes * DARRON LYNNDOB: (64 yo F)Acc No.[id number]:09/04/2024 Progress Notes Patient:?LEAHEARLENE ROGER Provider:?Gilmer Stubbs MD :1960???Age:64 Y???Sex:Female D ate:09/04/2024 Address:[place], [id number] Subjective: * Chief Complaints: * ???6 MO F/U * HPI: ???Symptom(s):? patient is a 64 yo female here for 6 month follow up visit, stopped the amiodorone after the ablation. and no more afib since/ has tremor that is bothering her. * ROS:?General/Constitutional:?Denies?Chills.?Denies?Fatigue.?Denies?Fever.?Denies?Headache.?ENT:?Patient denies?decreased sense of smell , any loss of taste , sore throat.?Denies?Sore throat.?Respiratory:?Denies?Cough.?Denies?Shortness of breath at rest.?Denies?Shortness of breath with exertion.?Gastrointestinal:?Denies?Diarrhea.?Denies?Nausea.?Musculoskeletal:?Patient denies?muscle aches.?Peripheral Vascular:?Patient denies?red and blue toes.?Neurologic:?Admits?Tremor,?bilateral hand? worsening.? * Medical History:? * Surgical History:? * Hospitalization/Major Diagno stic Procedure:? * Medications:?TakingCentrum - Tablet as directed Orally Omeprazole 20 [...] reviewed and reconciled with the patient * Allergies:?Penicillin: rash hivesyes[Allergies Verified] Objective: * Vitals:?Ht: 60, Wt:194, BMI: 37.88, BP:130/66 weight is down 4 pounds since 06-12-24. * ???Past Orders: ???Lab:Lipid Panel with Refl ex (Order Date - 08/26/2024) (Collection Date - 08/26/2024) ? Value Reference Range ?Triglycerides 63 <150 - mg/dL ?Cholesterol 167 <200 - m g/dL ?LDL Cholesterol Calculated 106 H <100 - mg/dL ?HDL Cholesterol 49 >40 - mg/dL ???Lab:Liver Panel (Order Da te - 08/26/2024) (Collection Date - 08/26/2024) ? Value Reference Range ?Bilirubin Total 0.3 0.0- 1.0 - mg/dL ?Bilirubin Direct 0.1 0.0 -0.5 - mg/dL ?Aspartate Amino Transferase 26 5-31 - U/L ?Alanine Aminotransferase 31 0-31 - U/L ?Total Protein 7.1 6.5-8. 0 - g/dL ?Albumin Level 4.0 3.5-5. 0 - g/dL ?Alkaline Phosphatase 97 39-117 - U/L * Examination: ???General Examination: ?GENERAL APPEARANCE:?female.?HEAD:?normocephalic.?SKIN:?good turgor.?HEART:?regular rate and rhythm , no murmurs, rubs, gallops.?LUNGS:?no wheezes, rales, rhonchi , good air movement , clear to auscultation bilaterally.? Assessment: * Assessment: 1.?Paroxysmal atrial fibrill ation - I48.0 (Primary)?2.?Essential tremor - G25.0?3.?Elevated LDL cholesterol level - E78.00? Plan: * Treatment: 2.?Essential tremor? Start Gabapentin Capsule, 300 MG, 1 capsule, Orally, Once a day, 30 day(s), 30.?? Notes: patient verbalized understanding of medication and directions for use?? 3.?Elevated LDL cholesterol level? Continue Atorvastatin Calcium Tablet, 20 mg, TAKE 1 TABLET DAILY.?? Notes: stable, will continue current regiment?? * Procedure Codes:? * Follow Up:?4 Weeks * * Sign off status: Completed true * Provider:?Gilmer Stubbs MD Date:?1 11/05/2023 Generated for Claribel packer/Humberto/Fidenciosmitting on:?11/29/2024 05:08 PM EDT History and Physical Notes * HPI (History [...]
--- OUTSIDE RECORDS SUMMARY | 2024-11-29 17:08 | XMS_ITS | Encounter Summary ---
Author Organization [facility] Address [id number] [place] [phone] Care Team Providers Care Remnant Sorter Name Role Phone Unavailable Primary Care Provider Unavailabl e Encounter Details Date Type Department Care Team (Late st Contact Info) Description 11/06/2024 Telephone Orthopedic Surgery - [place] [address] [phone] Anderson Aguilar MD [address] [address] Social History Tobacco Use Types Packs/Day Years Used Date Smoking Tobacco: Never Assessed Comments Unknown Sex and Gender Information Value Date Recorded Sex Assigned at Not on file Legal Sex Female 1:35 AM EST Gender Identity Not on file Sexual Orientation Not on file documented as of this encounter Progress Notes * Mona Eliot Jimenez - 11/06/2024 1:37 PM EST [facility] notes scanned. They no longer accept her insurance. Please review for transfer of care documented in this encounter Plan of Treatment Upcoming Encounters Date Type Department Care Team (Late st Contact Info) Description 12/20/2024 3:30 PM EDT Consult Orthopedic Surgery - [place] [address] [address] Amy Razo NP [address] [address] documented as of this encounter Visit Diagnoses Not on filedocumented in this encounter
--- OUTSIDE RECORDS SUMMARY | 2024-11-29 17:08 | XMS_ITS | Clinical Summary ---
Author Organization [address] [facility] Address [address] [place] [address] Phone Care Team Providers Care Apartment Locator Name Role Phone Unavailable Primary Care Provider Unavailabl e Encounters Date Type Department Care Team Description 11/06/2024 Telephone Orthopedic Surgery [facility] [address] [phone] Anderson Aguilar MD from Last 3 Months Social History Tobacco Use Types Packs/Day Years Used Date Smoking Tobacco: Never Assessed Comments Unknown Sex and Gender Information Value Date Recorded Sex Assigned at Not on file Legal Sex Female 1:35 AM EST Gender Identity Not on file Sexual Orientation Not on file Plan of Treatment Upcoming Encounters Date Type Department Care Team (Late st Contact Info) Description 12/20/2024 3:30 PM EDT Consult Orthopedic [facility] [address] [phone] Amy Razo NP [address] [address] Health Maintenance Due Date Last Done Comments Breast Cancer Screening 1960 DTaP,Tdap,and Td Vaccines (1 - Tdap) 1979 Cervical Cancer Screening: P ap Smear 1981 Pneumococcal Vaccine: 50+ Ye ars (1 of 1 - PCV) 2010 Zoster Vaccines (1 of 2) 2010 COVID-19 Vaccine ( - 2023-2 5 season) 2024 Influenza Vaccine (#1) 2024 Colorectal Cancer Screening: Colonoscopy 11/06/2024 Depression Screening 11/06/2024 HIV Screening 11/06/2024 Hepatitis C Screening 11/06/2024 Social Influencers of Health Screening 11/06/2024 RSV Immunization Patients 60 + Years Old (1 - 1-dose 75+ series) 2035 HIB Vaccines Aged Out No longer eligi ble based on patient's age to complete this topic HPV Vaccines Aged Out No longer eligi ble based on patient's age to complete this topic Hepatitis A Vaccines Aged Out No long er eligible based on patient's age to complete this topic Hepatitis B Vaccines Aged Out No long er eligible based on patient's age to complete this topic IPV Vaccines Aged Out No longer eligi ble based on patient's age to complete this topic MMR Vaccines Aged Out No longer eligi ble based on patient's age to complete this topic Meningococcal ACWY Vaccine Aged Out N o longer eligible based on patient's age to complete this topic Meningococcal B Vacine Aged Out No lo nger eligible based on patient's age to complete this topic Pneumococcal Vaccine: Pediat rics (0 to 5 Years) and At-Risk Patients (6 to 64 Years) Aged Out No longer eligible b ased on patient's age to complete this topic RSV Immunization Patients Un tabitha 20 months Aged Out No longer eligible b ased on patient's age to complete this topic Varicella Vaccines Aged Out No longer eligible based on patient's age to complete this topic Insurance [facility] on file
--- OUTSIDE RECORDS SUMMARY | 2024-11-29 17:08 | XMS_ITS ---
Author Organization Gilmer Stubbs MD Address [address] [place] [phone] Care Team Providers Care Manager Electronic Name Role Phone Gilmer Stubbs Primary Care Provider REASON FOR VISIT RFGabapentin 300mg Medications Medication SIG (Take, Route, Fr equency, Duration) Notes Start Date End Date Status Gabapentin 300 MG 1 capsule Orally Onc e a day for 90 days 09/04/2024 Active Encounters Encounter Location Date Provider Diagnosis Gilmer Stubbs MD [address] [place] [address] [place] [phone] 10/13/2024 Gilmer Stubbs Essential tremor G25.0 Assessments Encounter Date Diagnosis (ICD Code) Assessment Notes Treatment Notes Treatment Clinical Notes Section Notes 10/13/2024 Essential tremor (ICD-10 - G25.0) Plan Of Treatment Medication Medication Name Sig Start Date Stop Date Notes Gabapentin 300 MG 1 capsule Orally Once a day for 90 days 09/04/2024 Next Appt Details Provider Name:Gilmer escobedo, 03/05/2025 07:45:00 AM, [address] [place] [address], [address] [place] [address], [phone], Provider Name:Gilmer escobedo, 03/12/2025 02:30:00 PM, [address] [place] [address], [address], [phone], Progress Notes * DARRON LYNNDOB: (64 yo F)Acc No.[id number]:10/13/2024 Patient:?EARLENE LYNN :1960???Age:64 Y???Sex:Female Address:[address] [place] [address] KEEGAN CONNER, * Refills? Refill Gabapentin Capsule, 300 MG, Orally, 90 Capsule, 1 capsule, Once a day, 90 days, Refills=3 * true * Date:? Generated for Claribel packer/Humberto/Fidenciosmitting on:?11/29/2024 05:07 PM EDT
--- OUTSIDE RECORDS SUMMARY | 2024-11-29 17:08 | XMS_ITS ---
Author Organization Gilmer Stubbs MD Address [address] [place] [phone] Care Team Providers Care Parts Counter Specialist Name Role Phone Gilmer Stubbs Primary Care Provider [phone] Allergies Allergen (clinical drug ingredient) Drug/Non Drug [...] Stubbs MD [address] [place], [place] [phone] 10/06/2024 Gilmer Stubbs Paroxysmal atrial fibrillation I48.0 [...] Appt Details Provider Name:Gilmer Bjorn Rima ier, 03/05/2025 07:45:00 AM, [address], [address], [place], [place], [phone], Provider Name:Gilmer Milan Rima escobedo, 03/12/2025 02:30:00 PM, [address] [facility], [address], [place], [place], [phone], Progress Notes * DARRON LYNNDOB: (64 yo F)Acc No.[id number]:10/06/2024 Progress Notes Patient:?LEAHEARLENE Provider:?Gilmer Stubbs MD :1960???Age:64 Y???Sex:Female D ate:10/06/2024 Address:[address] [place], [place] [id number] Subjective: * Chief Complaints: * ???1. 4 WK F/U. * HPI: ???Symptom(s):? patient is a 64 yo female here for 4 week follow up visit. had ablation and has been in nsr. * ROS:?General/Constitutional:?Denies?Chills.?Denies?Fatigue.?Denies?Fever.?Denies?Headache.?ENT:?Patient denies?decreased sense of smell , any loss of taste , sore throat.?Denies?Sore throat.?Respiratory:?Denies?Cough.?Denies?Shortness of breath at rest.?Denies?Shortness of breath with exertion.?Gastrointestinal:?Denies?Diarrhea.?Denies?Nausea.?Musculoskeletal:?Patient denies?muscle aches.?Peripheral Vascular:?Patient denies?red and blue toes.? * Medical History:?Colonoscopy 2015 due in 10 years., afib with CHADSVASC SCORE ONLY 1. * Medications:?Taking Centrum - Tablet as directed Orally , Taking Albuterol Sulfate HFA 108 (90 Base) MCG/ACT Aerosol Solution 1 puff as needed Inhalation every 4 hrs , Taking Gabapentin 300 MG Capsule 1 capsule Orally Once a day , Taking Eliquis 5 MG Tablet 1 tablet Orally Twice a day , Taking Atorvastatin Calcium 20 mg Tablet TAKE 1 TABLET DAILY , Taking Omeprazole 20 mg Capsule Delayed Release TAKE 1 CAPSULE DAILY 30 MINUTES BEFORE MORNING MEAL , Medication List reviewed and reconciled with the patient * Allergies:?Penicillin: rash hives. Objective: * Vitals:?Ht: 60, Wt:195, BMI: 38.08, BP:132/64. * Examination: ???General Examination: ?GENERAL APPEARANCE:?alert, well hydrated, in no distress.?HEAD:?normocephalic.?EYES:?extraocular movement full and smooth.?SKIN:?good turgor.?HEART:?no murmurs, rubs, gallops , regular rate and rhythm.?LUNGS:?no wheezes, rales, rhonchi , good air movement , clear to auscultation bilaterally.? Assessment: * Assessment: 1.?Paroxysmal atrial fibrill ation - I48.0 (Primary)???2.?Chronic cough - R05.3??? Plan: * Treatment: 2.?Chronic cough? Notes: to try a humidifierr?? * * The named appointment provid er may or may not be the originator of this progress note, and it is not deemed complete until electronically signed by the appointment provider. Sign off status: Pending * Provider:?Gilmer Stubbs MD Date:?0 10/06/2024 Generated for Claribel packer/Humberto/Fidenciosmitting on:?11/29/2024 05:08 PM [...]
== END 2024-11-29 15:22 | disposition home or self-care (01) ==
LOC: HO.HCS 14:30
PROVIDERS: PCP Internal Medicine; Visit Provider Internal Medicine Cardiovascular Disease
DX: I48.0 Paroxysmal atrial fibrillation (principal)
CPT/HCPCS: 99214

== ENCOUNTER → 2024-11-29 14:29 | Outpatient (BNVA) | payer OTHER, SELFPAY | PROVIDERS: PCP Internal Medicine; Visit Provider Internal Medicine Cardiovascular Disease | DX: I48.0 Paroxysmal atrial fibrillation (principal) | CPT/HCPCS: 99212 ==

== ENCOUNTER 2025-02-22 11:27 | Outpatient (AMB) | payer OTHER, SELFPAY ==
[2025-02-22 11:41] VITALS: BP 172/94; PULSE 86; TEMP 37.1; O2SAT 97; BMI 37.6
--- NOTE | 2025-02-22 11:41 | AM.OFFWIN_ITS ---
Intake Vital Signs 02/22/25 11:41 Height 5 ft 1 in Weight 199 lb BMI 37.6 BP 172/94 H Blood Pressure Location Lt brachial Position Sitting Pulse 86 Pulse Source Pulse Oximeter Temp 98.7 F Temp Source Oral Pulse Oximetry (%) 97 Oxygen Delivery Method Room Air Intake Visit Reasons: EMERGENCY DEPARTMENT COORDINATOR headache, coughing, wheezing, SOB Intake Note: Pt presents to the office today for c/o headache, coughing,wheezing,SOB x2 weeks but has progressivley gotten worse. Pt states she is also coughing up brown phlegm. Patient Tobacco Use Status: Never used Tobacco Allergies penicillin V Allergy (Mild, Verified 02/22/25 11:44) Rash milk Adverse Reaction (Verified 02/22/25 11:44) Stomach Upset onion Adverse Reaction (Verified 02/22/25 11:44) Stomach Upset HPI HPI Comments History of Present Illness Details History of Present Illness - The patient is a 64-year-old female pr esenting with wheezing, cough, and SOB for the past few weeks. - A two-week history of wheezing associa eliu with coughing up brown phlegm is reported by the patient. - Presence of chills is noted; fever sta tus is inconclusive, with the patient describing occasional sweating and feeling chilled. - Current self-management includes breat shweta treatments and Tylenol, with no evident relief. - Additional symptoms include significan t chest pain and shortness of breath. - A recent asthma diagnosis is confirmed , with regular usage of an inhaler and nebulizer. - Discussion noted regarding cardiologis t's recommendations to avoid certain allergy medications. - She is a para in a kindergarten classr oom. - She denies fever, chills, CP, SOB, abd pain, n/v/d. Physical Exam General: Cooperative, healthy appearing, comfortable, no acute distress and well developed Orientation: Patient oriented x3 Head: Normal to inspection Ears: Hearing grossly normal bilaterally. TMs not bulging. Nose: Normal external nose present Face and sinus: Normal facial exam. No sinus tenderness noted. Eyes: Appearance normal, both eyes and all related structures Neck: Normal visual inspection and Yes full ROM. No lymphadenopathy noted. Respiratory: Wheezing noted, able to speak in 2-3 word sentences. Clear to auscultation bilaterally Cardiovascular: Regular rate and rhythm. Normal S1 and S2 GI: Normal to inspection. Soft to palpation and nontender, no guarding or rebound tenderness noted. Skin: No rashes or lesions noted Patient was informed and verbally consented to the use of an ambient scribe for clinic note documentation during this visit. [facility] Medical History Atrial fibrillation History of cardioversion GERD (gastroesophageal reflux disease) IBS (irritable bowel syndrome) REJI (obstructive sleep apnea) Paroxysmal A-fib High cholesterol Surgical History H/O eye surgery History of esophagogastroduodenoscopy (EGD) Hx of colonoscopy History of right hip replacement (~01/21/21) Family History Mother Heart disease Social History Household Members: Spouse Household Members Other:: Housing: House Do you presently have visiting nurse or other home services: No Alcohol intake: current Alcohol intake frequency: holidays/special occasions only Patient Tobacco Use Status: Never used Tobacco service: No Current occupational status: employed Review of Systems Const All systems reviewed & are unremarkable except as noted in HPI and below Physical Exam Vital Signs: Last Vital Signs Temp 98.7 F 02/22/25 11:41 Pulse 86 02/22/25 11:41 BP 172/94 H 02/22/25 11:41 Pulse Ox 97 02/22/25 11:41 Oxygen Delivery Method Room Air 02/22/25 11:41 BMI result Body Mass Index 37.6 Office Procedures Nebulizer Treatment Nebulizer Treatment 40451-Npojhwzif/MDI RX initial, or Nebulizer Subsequent Treatment Office Meds ipratropium 0.5 mg-albuterol 3 mg (2.5 mg base)/3 mL nebulization carmen Performing Provider: Glenys Sanchez PA-C Performing Location: [facility] Administered by: Glenys Sanchez PA-C on 02/22/25 12:52 Dose Route Admin Location Dispensed Lot Number Expiration Date ND New Order Clerk 3 mL inhalation 3 mL [id number] 11/17/25 70538-799-24 [employer] Assessment & Plan Assessment & Plan (1) Asthma: Code(s): J45.909 - Unspecified asthma, uncomplicated Qualifiers: Asthma complication type: with acute exacerbation Asthma persistence: persistent Asthma severity: moderate Qualified Code(s): J45.41 - Moderate persistent asthma with (acute) exacerbation Plan Most likely CAP vs asthma vs URI vs asthma exacerbation Plan - Obtain chest radiograph for further evaluation of respiratory symptoms. - Provide on-site breathing treatment to relieve acute wheezing. - Maintain current asthma management with inhalers and nebulizer. - Tessalon perles as needed for cough. - Z-gorge as directed. - will call with the x-ray results. - will give her a work note. - Reinforce post acute care nurse recommendation against certain allergy medications due to medical considerations. Orders: Orders AMB Nebulizer Treatment Today J45.909 - Unspecified asthma, uncomplicated XR chest 2V Today R05.9 - Cough, unspecified Medications: New benzonatate 100 mg PO TID PRN 21 caps 0RF Cough 7 days doxycycline hyclate 100 mg PO BID 20 tabs 0RF 10 days Coding Level of Care Code Est Pt Level 4 (55591) Diagnoses Moderate persistent asthma with acute exacerbation J45.41 Asthma complication type: with acute exacerbation Asthma persistence: persistent Asthma severity: moderate CPT Codes Nebulizer Treatment - Nebulizer Treatment, initial or subsequent: 39025- Nebulizer/MDI RX initial, or Nebulizer Subsequent Treatment ([id number])
--- OUTSIDE RECORDS SUMMARY | 2025-02-22 13:38 | XMS_ITS | Clinical Summary ---
Author Organization 175 [facility] Address [address] [place] [address] Phone Care Team Providers Care Lock Expert Name Role Phone Physician, Pcp Unknown Primary Care Provider Shanthi vailable Allergies Active Allergy Reactions Criticality Noted Date Comments Penicillins 12/20/2024 Medications albuterol 2.5 mg /3 mL (0.083 %) nebulizer solution INHALE 2.5MG 3 ML) VIA NEBULIZER EVERY 4 HOURS NEEDED FOR SHORTNESS OF BREATH OR WHEEZING 4 Active Eliquis 5 mg tablet Take 1 tablet (5 mg total) by mouth 2 (two) times a day. 4 Active clindamycin (CLEOCIN) 150 mg capsule TAKE 4 CAPSULES BY MOUTH 1 HOUR BEFORE APPOINTMENT 5 Active diclofenac (VOLTAREN) 1 % topical gel APPLY 3 TO 4 TIMES DAILY 5 Active atorvastatin (LIPITOR) 20 mg tablet Take 1 tablet (20 mg total) by mouth at bedtime. Active omeprazole (PriLOSEC) [address] capsule Take 1 capsule (20 mg total) by mouth 1 (one) time each day. Do not crush or chew. Active dicyclomine (BENTYL) 10 mg capsule Take 1 capsule (10 mg total) by mouth 4 (four) times a day (before meals and nightly). Active Active Problems Problem Noted Date Diagnosed Date History of total hip arthroplasty, right 025 A-fib (CMS/[facility] V24, CMS/[facility] V28) 12/20/2024 Encounters Date Type Department Care Team Description 12/20/2024 3:30 PM EDT Consult Orthopedic Surgery [facility] [address] [facility] [address] [place] [address] Amy Razo NP Primary osteoarthritis of right knee (Primary Dx); Pain, knee; Obesity (BMI 35.0-39.9 without comorbidity) from Last 3 Months Social History Tobacco Use Types Packs/Day Years Used Date Smoking Tobacco: Never Assessed Comments Unknown Sex and Gender Information Value Date Recorded Sex Assigned at Not on file Legal Sex Female 1:35 AM EST Gender Identity Not on file Sexual Orientation Not on file Obstetrics History Last Filed Vital Signs Vital Sign Reading Time Taken Comments Blood Pressure - - Pulse - - Temperature - - Respiratory Rate - - Oxygen Saturation - - Inhaled Oxygen Concentration - - Weight 90.7 kg (200 lb) 12/20/2024 3:15 PM EDT Height 152.4 cm (5') 12/20/2024 3:15 PM EDT Body Mass Index 39.06 12/20/2024 3:15 PM EDT Plan of Treatment Health Maintenance Due Date Last Done Comments Breast Cancer Screening 1960 DTaP,Tdap,and Td Vaccines (1 - Tdap) 1979 Cervical Cancer Screening: Pap Smear 1981 Pneumococcal Vaccine: 50+ Years (2 of 2 - PCV) 05/06/2021 05/06/2020 COVID-19 Vaccine ( season) 2024 02/06/2022, 06/29/2021, 12/24/2020, Additional history exists Cholesterol Screening (Lipid Panel) 11/06/2024 Colorectal Cancer Screening: Colonoscopy 11/06/2024 Depression Screening 11/06/2024 HIV Screening 11/06/2024 Hepatitis C Screening 11/06/2024 Social Influencers of Health Screening 11/06/2024 RSV Immunization Adult Patients (1 - 1-dose 75+ series) 2035 Pneumococcal Vaccine: Pediatrics (0 to 5 Years) and At-Risk Patients (6 to 64 Years) Aged Out 05/06/2020 No longer eligible based on patient's age to complete this topic Zoster Vaccines Completed 08/30/2021, 06/29/2021 Influenza Vaccine Completed 06/12/2024, , 06/29/2021, Additional history exists HIB Vaccines Aged Out No longer eligi [...] age to complete this topic Meningococcal B Vaccine Aged Out No l onger eligible based on patient's age to complete this topic RSV Immunization Patients Under 20 months Aged Out No longer eligible based on patient's age to complete this topic Varicella Vaccines Aged Out No longer eligible based on patient's age to complete this topic Procedures Procedure Name Priority Date/Time Associated Diagnosis Comments XR KNEE 4+ VIEWS RIGHT Routine 12/20/2024 3:12 PM EDT Pain, knee from Last 3 Months Results * XR Knee 4+ Views Right (12/20/2024 3:12 PM EDT) Anatomical Region Laterality Modality Lower Extremities, Knee Right Computed Radiography Narrative 12/20/2024 3:55 PM EDT Date of Visit: 12/20/2024 Reason for visit: ?? Right knee pain Views: AP, Lateral, Dasilva, [place] right knee Findings: On AP view there is mild narrowing through the medial compartment of the right knee with small marginal osteophytes and subchondral sclerosis of the medial tibial plateau. ??Narrowing through the medial compartment increased on Dasilva view. ??Mild narrowing through the patellofemoral compartment seen on sunrise view. ??No acute findings. Impression: Mild to moderate osteoarthritis right knee Amy Razo ELECTRICAL RESEARCH ENGINEER IMG XR PROCEDURES Final Result from Last 3 Months Insurance FRANKIEANUEL CATES [place] [facility] on file Care Teams Lock Expert Relationship Specialty Start Date End Date Physician, Pcp Unknown PCP - General 12/20/24
== END 2025-02-22 13:44 | disposition home or self-care (01) ==
PROVIDERS: PCP Internal Medicine; Visit Provider Physician Assistant Medical
DX: J45.41 Moderate persistent asthma with (acute) exacerbation (principal)

== ENCOUNTER 2025-02-22 11:27 | Outpatient (REF) | payer OTHER, SELFPAY ==
--- NOTE | ~2025-02-22 | XR_ITS ---
EXAMINATION: XR CHEST CLINICAL INFORMATION: R05.9 - Cough, unspecified COMPARISON: March 19 2024 TECHNIQUE: 2 views of the chest were obtained. FINDINGS: Heart size is within normal limits. Stable linear density projects up from the AP window/hilum into the left lung. It is unchanged from March 19, 2024 and probably represents subsegmental atelectasis or scarring. Lungs are clear otherwise. No pleural effusion is evident. Bony structures are unremarkable. XR/XR chest 2V IMPRESSION: Probable short linear scarring or atelectasis projecting up from the left hilar region. Electronically signed by: Martell Aguilar MD 02/22/2025 01:39 PM EDT
== END 2025-02-22 11:28 | disposition home or self-care (01) ==
LOC: HO.HMGCX 11:27
PROVIDERS: PCP Internal Medicine; Visit Provider Physician Assistant Medical
DX: J45.41 Moderate persistent asthma with (acute) exacerbation (principal); R05.9 Cough, unspecified
CPT/HCPCS: 71046; 94640; 99212

== ENCOUNTER → 2025-02-22 13:03 | Outpatient (BNV) | payer OTHER, SELFPAY | PROVIDERS: PCP Internal Medicine; Visit Provider Radiology Diagnostic Radiology | DX: R05.9 Cough, unspecified (principal) | CPT/HCPCS: 71046 ==

== ENCOUNTER 2025-02-27 13:47 | Outpatient (AMB) | payer OTHER, SELFPAY ==
--- NOTE | 2025-02-27 13:55 | AM.OFFWIN_ITS ---
Intake Vital Signs 02/27/25 13:59 Weight 196 lb BP 140/80 H Blood Pressure Location Lt brachial Position Sitting Pulse 97 Pulse Source Pulse Oximeter Temp 98.1 F Temp Source Oral Pulse Oximetry (%) 96 Oxygen Delivery Method Room Air Intake Visit Reasons: EP-f/up from visit 02/22/25 Intake Note: Patient here to f/u from last visit w/us which she is not feeling well still. Patient Tobacco Use Status: Never used Tobacco Manager Image Required: No Allergies penicillin V Allergy (Mild, Verified 02/27/25 14:03) Rash milk Adverse Reaction (Verified 02/27/25 14:03) Stomach Upset onion Adverse Reaction (Verified 02/27/25 14:03) Stomach Upset Do you need a note to return to daycare/school/sports/work: Yes HPI HPI Comments History of Present Illness Details History of Present Illness - The patient is a 64-year-old female pr esenting with shortness of breath and wheezing. - Reports some improvement in symptoms i ncluding decreased coughing spasms since the previous day. - Continued production of yellow phlegm, indicating ongoing respiratory issues. - Engaged in breathing treatments every 4 hours, experiencing some relief. - Persistent wheeze and occasional short ness of breath remain a concern. - She has been managing symptoms with pr escribed antibiotics and prednisone. - Discussions of urinary incontinence oc cur primarily during coughing. - She denies fever or chills. She denies CP, abd pain, n/v/d. Physical Exam General: Cooperative, healthy appearing, comfortable, no acute distress and well developed Orientation: Patient oriented x3 Limitations: No limitations Head: Normal to inspection Ears: Hearing grossly normal bilaterally. TMs are normal. Nose: Normal external nose present Face and sinus: Normal facial exam. No sinus tenderness noted. Eyes: Appearance normal, both eyes and all related structures Neck: Normal visual inspection and Yes full ROM. No lympadenopathy noted. Respiratory: Wheezy, short of breath, but able to speak in complete sentences. No rhonchi or rales noted. Cardiovascular: Regular rate and rhythm. Normal S1 and S2 GI: Normal to inspection. Soft to palpation and nontender. No guarding or rebound tenderness noted. Skin: No rashes or lesions noted Patient was informed and verbally consented to the use of an ambient scribe for clinic note documentation during this visit. [facility] Medical History Atrial fibrillation History of cardioversion GERD (gastroesophageal reflux disease) IBS (irritable bowel syndrome) REJI (obstructive sleep apnea) Paroxysmal A-fib High cholesterol Surgical History (Reviewed 11/29/24 @ 14:57 by Annel Newsome [facility]) H/O eye surgery History of esophagogastroduodenoscopy (EGD) Hx of colonoscopy History of right hip replacement (~01/21/21) Family History (Reviewed 11/29/24 @ 14:57 by Annel Newsome [facility]) Mother Heart disease Social History Household Members: Spouse Household Members Other:: Housing: House Do you presently have visiting nurse or other home services: No Alcohol intake: current Alcohol intake frequency: holidays/special occasions only Patient Tobacco Use Status: Never used Tobacco service: No Current occupational status: employed Review of Systems Const All systems reviewed & are unremarkable except as noted in HPI and below Physical Exam Vital Signs: Last Vital Signs Temp 98.1 F 02/27/25 13:59 Pulse 97 02/27/25 13:59 BP 140/80 H 02/27/25 13:59 Pulse Ox 96 02/27/25 13:59 Oxygen Delivery Method Room Air 02/27/25 13:59 Assessment & Plan Assessment & Plan (1) URI (upper respiratory infection): Code(s): J06.9 - Acute upper respiratory infection, unspecified Qualifiers: URI type: unspecified viral URI Qualified Code(s): J06.9 - Acute upper respiratory infection, unspecified Plan Most likely URI Plan - Finish antibiotics for bacterial infection with monitoring of symptom progression. - Prednisone regimen with awareness of side effects. - Encourage breathing treatments as needed. - Implement strict adherence to inhaler usage. - work note given - Has f/u scheduled with her PCP. Medications: New prednisone 40 mg (2 x 20 mg) PO DAILY 5 days 10 tabs 0RF Coding Level of Care Code Est Pt Level 3 (65539) Diagnoses Viral upper respiratory tract infection J06.9 URI type: unspecified viral URI
[2025-02-27 13:59] VITALS: BP 140/80; PULSE 97; TEMP 36.7; O2SAT 96
--- OUTSIDE RECORDS SUMMARY | 2025-02-27 16:20 | XMS_ITS | Clinical Summary ---
Author Organization 175 [facility] Address [address] [place] [address] Phone Care Team Providers Care Fit Model Name Role Phone Physician, Pcp Unknown Primary [...] of total hip arthroplasty, right 025 A-fib (CMS/[facility] V24, CMS/[facility] V28) 12/20/2024 Encounters Date Type Department Care Team Description 12/20/2024 3:30 PM EDT Consult Orthopedic Surgery [facility] [address] [facility] [address] [place] [address] Amy Razo NP Primary osteoarthritis [...] Right knee pain Views: AP, Lateral, Dasilva, [place] right knee Findings: On AP view there is mild narrowing through the medial compartment of the right knee with small marginal osteophytes and subchondral sclerosis of the medial tibial plateau. ??Narrowing through the medial compartment increased on Dasilva view. ??Mild narrowing through the patellofemoral compartment seen on sunrise view. ??No acute findings. Impression: Mild to moderate osteoarthritis right knee Amy Razo SEEING EYE DOG TRAINER IMG XR PROCEDURES Final Result from Last 3 Months Insurance FRANKIEANUEL CATES [place] [facility] on file Care Teams Fit Model Relationship Specialty Start Date End Date Physician, Pcp Unknown PCP - General 12/20/24
== END 2025-02-27 15:40 | disposition home or self-care (01) ==
PROVIDERS: PCP Internal Medicine; Visit Provider Physician Assistant Medical
DX: J06.9 Acute upper respiratory infection, unspecified (principal)

== ENCOUNTER → 2025-02-27 13:47 | Outpatient (BNVA) | payer OTHER, SELFPAY | PROVIDERS: PCP Internal Medicine; Visit Provider Physician Assistant Medical | DX: J06.9 Acute upper respiratory infection, unspecified (principal) | CPT/HCPCS: 99212 ==

== ENCOUNTER 2025-03-03 08:38 | Outpatient (REF) | payer OTHER, SELFPAY ==
[2025-03-03 08:57] LABS: MANUAL DIFF FLAG NO
[2025-03-03 09:01] LABS: Basophils Percent Auto 0.3 % (0-2); Hematocrit 38.9 % (37.0-47.0); Hemoglobin 12.8 g/dl (12.0-16.0); Imm Gran Abs Auto 0.04 X10*3/uL (0.00-0.03); Imm Gran Pct Auto 0.7 % (0.0-0.4); Lymphocytes Absolute Auto 0.8 X10*3/uL (1.2-4.9); Lymphocytes Percent Auto 13.7 % (20-40); Mean Corpuscular HGB Conc 32.9 g/dl (31.0-35.0); Mean Corpuscular Hemoglobin 29.8 pg (27.0-33.0); Mean Corpuscular Volume 90.7 fL (80.0-98.0); Monocytes Absolute Auto 0.1 X10*3/uL (0.1-1.2); Monocytes Percent Auto 2.2 % (2-11); Neutrophils Percent Auto 83.1 % (45-73); Platelet Count 285 X10*3/uL (160-400); Red Blood Count 4.29 X10*6/uL (4.20-5.50); Red Cell Distribution Width 13.2 % (11.0-16.0)
[2025-03-03 09:35] LABS: Alanine Aminotransferase 36 U/L (0-31); Albumin Level 4.2 g/dL (3.5-5.0); Alkaline Phosphatase 104 U/L (39-117); Anion Gap 12 (12-20); Aspartate Amino Transferase 25 U/L (5-31); Bilirubin Total 0.3 mg/dL (0.0-1.0); Blood Urea Nitrogen 16 mg/dL (9-16); Calcium 9.4 mg/dL (8.4-10.2); Carbon Dioxide 25 mmol/L (22-29); Chloride 108 mmol/L (96-108); Cholesterol 169 mg/dL (<200); Estimated Glomerular Filt Rate > 60; Glucose Fasting 156 mg/dL (60-99); HDL Cholesterol 45 mg/dL (>40); LDL Cholesterol Calculated 111 mg/dL (<100); Potassium 4.1 mmol/L (3.3-5.1); Sodium 141 mmol/L (135-145); Total Protein 7.2 g/dL (6.5-8.0); Triglycerides 68 mg/dL (<150)
[2025-03-03 09:57] LABS: Appearance Urine Clear; Color Urine Yellow; Glucose Urine UA Negative (Negative); Leukocyte Esterase Urine Negative (Negative); Nitrite Urine Negative (Negative); Urine Blood Negative (Negative); Urine Ketones Negative (Negative); Urine Protein Negative (Neg-Trace)
== END 2025-03-03 08:39 | disposition home or self-care (01) ==
LOC: HO.LAB 08:38
PROVIDERS: PCP Internal Medicine; Visit Provider Internal Medicine
DX: Z00.00 Encounter for general adult medical examination without abnormal findings (principal); E78.00 Pure hypercholesterolemia, unspecified; I48.0 Paroxysmal atrial fibrillation
CPT/HCPCS: 36415; 80053; 80061; 81003; 85025

== ENCOUNTER 2025-03-21 09:56 | Outpatient (REF) | payer OTHER, SELFPAY ==
--- OUTSIDE RECORDS SUMMARY | 2025-03-22 10:32 | XMS_ITS | Clinical Summary ---
Author Organization [address] [facility] Address [address] [place] [address] Phone Care Team Providers Care E Commerce Web Developer Name Role Phone Physician, Pcp Unknown Primary [...] of total hip arthroplasty, right 025 A-fib ([facility] V24, [facility] V28) 12/20/2024 Social History Tobacco Use Types Packs/Day Years [...] 2 - PCV) 05/06/2021 05/06/2020 COVID-19 Vaccine (2023- season) 2024 02/06/2022, 06/29/2021, 12/24/2020, Additional history [...] patient's age to complete this topic Insurance FRANKIE CATES [place] [facility] on file Care Teams E Commerce Web Developer Relationship Specialty Start Date End Date Physician, Pcp Unknown PCP - General 12/20/24
[2025-03-22 15:55] LABS: Chlamydia pneumoniae PCR Not Detected (Not Detect.); Coronavirus 229E PCR Not Detected (Not Detect.); Coronavirus HKU1 PCR Not Detected (Not Detect.); Coronavirus NL63 PCR Not Detected (Not Detect.); Coronavirus OC43 PCR Not Detected (Not Detect.); RSV PCR Not Detected (Not Detect.); Rhino/Enterovirus PCR Not Detected (Not Detect.)
[2025-03-22 16:11] LABS: Influenza A H1 PCR Not Detected (Not Detect.); Influenza A H1-2009 PCR Not Detected (Not Detect.); Influenza A H3 PCR Not Detected (Not Detect.); SARS-CoV-2 PCR Not Detected (Not Detect.)
== END 2025-03-21 09:57 | disposition home or self-care (01) ==
LOC: HO.LNP 09:56
PROVIDERS: Visit Provider Physician Assistant Medical
DX: J06.9 Acute upper respiratory infection, unspecified (principal)
CPT/HCPCS: 87633

== ENCOUNTER 2025-03-21 15:41 | Outpatient (AMB) | payer OTHER, SELFPAY ==
--- OUTSIDE RECORDS SUMMARY | 2025-03-21 15:45 | XMS_ITS | Clinical Summary ---
Author Organization [address] [facility] Address [address] [place] [address] Phone Care Team Providers Care Memory Care Director Name Role Phone Physician, Pcp Unknown Primary [...] of total hip arthroplasty, right 025 A-fib (CMS/[facility] V24, CMS/[facility] V28) 12/20/2024 Encounters Date Type Department Care Team Description 12/20/2024 3:30 PM EDT Consult Orthopedic Surgery [facility] [address] [facility] [address] [place] [address] Amy Razo NP Primary osteoarthritis [...] Date of Visit: 12/20/2024 Reason for visit: Right knee pain Views: AP, Lateral, Dasilva, [place] right knee Findings: On AP view there is mild narrowing through the medial compartment of the right knee with small marginal osteophytes and subchondral sclerosis of the medial tibial plateau. Narrowing through the medial compartment increased on Dasilva view. Mild narrowing through the patellofemoral compartment seen on sunrise view. No acute findings. Impression: Mild to moderate osteoarthritis right knee Amy Razo [employer] SEARCH LEAD IMG XR PROCEDURES Final Result from Last 3 Months Insurance on file Care Teams Memory Care Director Relationship Specialty Start Date End Date Physician, Pcp Unknown PCP - General 12/20/24
--- OUTSIDE RECORDS SUMMARY | 2025-03-21 15:45 | XMS_ITS | Data Portability ---
Author Organization [facility] Percy Chavarria [facility], [facility] Address [address] [place] [address] Care Team Providers Care Skip Load Driver Name Role Phone YARELIS TRONCOSO Primary Care Provider Assessment No assessment recorded. Plan of Treatment Reminders Order Date Submit Date Provider Last Modified By Organization Details Last Modified Time Details Appointments None recorded. Lab None recorded. Referral None recorded. Procedures None recorded. Surgeries None recorded. Imaging XR, knee, 4 or more view - recheck right knee pain room [phone] benjy Montero Office, [address] [facility], [facility], [place], [address], 4 09:21:27 Medication Orders None recorded. Patient TargetsNo targets recorded. Patient Instructions Encounter Date Encounter Id Patient Instructions Last Modified By Organization Details Last Modified Time 01/28/2024 [id number] You have been provided with a cortisone injection in order to reduce the pain and inflammation that you are experiencing. The injection consists of two medications. Cortisone (an anti-inflammatory that will take 48-72 hours to take effect) and Lidocaine (a numbing agent that will last 2-3 hours). Please note that not everyone will have a lasting response following the injection. PATIENT INSTRUCTIONS Once the Lidocaine wears off, you may have an increase in your pain. I recommend icing the affected area for 20 minutes 3-4 times per day. It is recommended that you refrain from any high level activities using the joint or limb that was injected for approximately 24-48 hours. Normal day-to-day activities are generally not a problem. POSSIBLE SIDE EFFECTS Individuals with dark complexions may experience some skin discoloration locally at the site of the injection. There is the possibility of an increase in discomfort within 48 hours following the injection. This is called a flare . To help minimize the chances of this, please see the post-injection instructions above. There is a less than 1% chance of an infection. If you notice any signs of infection (redness, warmth, drainage, fever greater than 100 degrees) please call our office or contact us through the portal [email or web address] Not available 01/26/2024 10:20:20 Reason for Referral None Reported. Results Created Date Observation Date Name Description Value Unit Range Abnormal Flag Note LastModifiedBy Organization Detail LastModifiedTime 05/20/20 24 01/21/2021 imagi ng/di agnos tic resul t No observ ation record ed. [email or web address] Not Available 04/22 10:34:43 05/20/20 24 01/21/2021 imagi ng/di agnos tic resul t No observ ation record ed. [email or web address] Not Available 04/22 10:34:46 08/08/20 24 08/08/2024 XR, knee, 4 or more view http:/ [email or web address] ?Encry pted=s hAaTro YD8dLq bEUv6g %2BXZw aYqtaq 0bqfl% 2Fg9IQ a4ajBk vP9nXo QUaueC m3YtLR FvZlgJ JJ8mAn HZtai3 4a7299 AC0Kqa X%2BEW auiKiQ trMwF INTERFACE [facility] [address] [facility] [address], [place], [address], 08/08/2024 15:39:04 08/08/20 24 08/08/2024 XR, knee, 4 or more view [email or web address]:/ [email or web address] ?Encry pted=s hAaTro YD8dLq bEUv6g %2BXZw aYqtaq 0bqfl% 2Fg9IQ a4ajBk vP9nXo QUaueC m3YtLR FvZlgJ JJ8[place] HZtai3 0k1071 AC0Kqa X%2BEW auiKiQ trMwF INTERFACE [facility] [address] [facility] [address], [place], [address], 08/08/2024 15:39:07 10/31/19 25 10/31/2024 XR, foot, 3 or more view No observ ation record ed. BARCODE Not Available 2024 16:09:12 11/01/19 25 10/31/2024 XR, foot, 3 or more view No observ ation record ed. BARCODE Not Available 2024 11:18:58 Result Notes Documentation Provider Name and Address Organization Details Recorded Time Xr, Knee, 4 Or More View : [email or web address] Encrypted=plZmKiuJF7eHrzT Uv6g%6RBSfiBxown8idze%2Fg 6KZv0lgPkeJ7vQfLXhtyQk5Gw XEEfHmvQPL2iNrBLywg56a916 8AQ3RzeL%2BEWauiKiQtrMwF Not Available [facility] 08/08/2024 15:3 9:06 Xr, Knee, 4 Or More View : [email or web address] Encrypted=khRtJimQD0fCoeM Uv6g%3XEAahHqfso2ssmu%2Fg 0SAc3pnCxoE4lTzRXujjMi9Fb TJNaYsjGLS2mXfAQiza60f978 0IN7CxcU%2BEWauiKiQtrMwF Not Available [facility] 08/08/2024 15:3 9:08 Problems Name Problem SNOMED Code Status Onset Date Resolution Date Notes Provider Name and Address Organization Details Recorded Time Osteoarthri tis of right knee joint 4517548979742 00 Active 2023 Shante Toribio PA-C [address], [facility] [place] [address], [facility] 10:20:15 Problem Notes None recorded. Procedures Surgical History Date Name Laterality Status Provider Name and Address Organization Details Recorded Time 08/08/2024 Sports Knee 4&1 completed VIRA Mena-C [address], [place], [address], [facility] 08/08/2024 15:04:26 05/09/2024 Sports Knee 4&1 completed VIRA Mena-Heladio [address], [place], [address], [facility] 05/08/2024 11:28:24 01/28/2024 Sports Knee 4&1 completed VRIA Mena-Heladio [address], [place], [address], [facility] 01/26/2024 10:20:05 Imaging Results None recorded. Procedure Notes None recorded. Medical Equipment None Reported. Allergies Allergen ID Allergen Name Allergen Category Reaction Reaction Severity Criticality Documentation Date Start Date Code Code System Note Provider Name and Address Organization Details Recorded Time 39503 Product containin g penicilli n (product) medicatio n Not available Not available Not available 11/22/20232021 23807 8001 SNOMED Not Available [facility] 12:19:56 Medications Name Sig Start Date Stop Date Status Note LastModified by Organization Details LastModified Time atorvastati n 20 mg tablet active Not Available Not Available Not Available clindamycin HCl 300 mg capsule Take 2 tablets 1 hour prior to appointme nt 2023 active Not Available Not Available Not Avai lable albuterol sulfate 2.5 mg/3 mL (0.083 %) solution for nebulizatio n INHALE 2.5MG 3 ML) VIA NEBULIZER EVERY 4 HOURS NEEDED FOR SHORTNESS OF BREATH OR WHEEZING active Not Available Not Available No t Available amiodarone 200 mg tablet TAKE ONE TABLET BY MOUTH EVERY DAY 08/08 completed Not Available Not Available Not Available omeprazole 20 mg capsule,del ayed release active Not Available Not Available Not Available metoprolol succinate ER 25 mg tablet,exte nded release 24 hr TAKE ONE TABLET BY MOUTH EVERY DAY 08/08 completed Not Available Not Available Not Available albuterol sulfate HFA 90 mcg/actuati on aerosol inhaler INHALE 1 PUFF EVERY 4 HOURS NEEDED active Not Available Not Available No t Available dicyclomine 10 mg capsule active Not Available Not Available Not Available metoprolol tartrate 25 mg tablet TAKE 1/2 TABLET 12.5MG) BY MOUTH TWO TIMES DAILY 08/08 completed Not Available Not Available Not Available Multaq 400 mg tablet 08/08 completed Not Available Not Available Not Available Eliquis 5 mg tablet TAKE ONE TABLET BY MOUTH TWICE A DAY active Not Available Not Available No t Available Vitals Date Recorded Body height Provider Name an d Address Organization Details Last Updated DateTime 01/28/2024 154.94 cm ASHOK AYDEN [facility] 01/28/2024 15:20:42 Date Recorded Body height Provider Name an d Address Organization Details Last Updated DateTime 05/09/2024 154.94 cm DEJAH TEMPLE [facility] 05/09/2024 10:28:47 Date Recorded Body height Body mass index (BMI) Body weight Provider Name and Address Organization Details Last Updated DateTime 08/08/2024 154.94 cm 37.2 kg/m2 57703.7 g KAYLIA L'HEUREUX [facility] 08/08/2024 15:25:48 Social History None recorded. Functional Status None recorded. Mental Status None recorded. Family History Nothing Reported. Medical History No medical history recorded. Gynecological HistoryNo gynecological history recorded. Obstetrics History GPAL:G 0 P 0 0 0 0 Past Encounters Encounter ID Performer Location Encounter Start Date Encounter Closed Date Diagnosis/Indication Diagnosis SNOMED-CT Code Diagnosis ICD10 Code Diagnosis Note [id number] USMAN Mena [address] [place] [address] 01/28/2024 15:14:21 02/22/2024 14:03:08 Osteoarthritis of right knee joint [id number] 52323 M17.11 Nature of the diagnosis discussed with the patient today. Both surgical and nonsurgica l options were reviewed. At this point I have recommende d a repeat cortisone injection. Patient agrees with this plan. Patient tolerated the procedure well. Post injection precaution s reviewed. They will continue with conservati ve modalities including icing and elevating. Follow-up with us in 3 months for discussion of continued conservati ve management versus total joint arthroplas ty. [id number] [facility] Mena [address] [place] [address] 05/09/2024 10:24:00 06/06/2024 09:17:31 Osteoarthritis of right knee joint [id number] 41299 M17.11 Nature of the diagnosis discussed with the patient today. Both surgical and nonsurgica l options were reviewed. At this point I have recommende d a repeat cortisone injection. Patient agrees with this plan. Patient tolerated the procedure well. Post injection precaution s reviewed. They will continue with conservati ve modalities including icing and elevating. Follow-up with us in 3 months for discussion of continued conservati ve management versus total joint arthroplas ty. We will get updated right knee radiograph s at her follow up visit. Synovial c yst of right knee [id number] 74127 M71.21 [id number] USMAN Mena [address] floor [address] [place] [address] 08/08/2024 15:16:20 09/04/2024 15:20:19 Osteoarthritis of right knee joint 3297463110 88119 M17.11 Reviewed patient's imaging and exam findings in detail with her. She is having diminishin g response to conservati ve treatment measures including anti-infla mmatories, activity modificati on and injections . Last injection lasted 2 days. 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 Discussed that this is due to her underlying osteoarthr itis. She recently had a heart ablation and therefore is not a surgical candidate until after September. Therefore we will repeat cortisone injection. Will refer her to Dr. Solano to discuss total joint replacemen t. Did review the risks and benefits associated with continued conservati ve versus surgical interventi on. Discussed that her numbness and tingling could be secondary to the Fuller's cyst aggravatin g her peroneal nerve however if this is not improved with cortisone injection would recommend that she be evaluated by our spine team. All questions and concerns were addressed and answered. Health Concerns Section Related Observation LastModified by Organization Detai ls LastModified Time None Recorded Concern Status LastModified by Organization Details LastModified Time None Recorded Advance Directives Directive None Recorded Payers Insurance Date Sequence Insurance Name Policy Number Policy Dooley Covered Member ID Dooley Member ID Guarantor Name 09/04/2024 1 [facility] Lorena Briggs uyega [id number] Lorena Fairbanks [place] Notes Date Note Type Note Provider Name and Address Organization Details Recorded Time 01/28/2024 text/html I am seeing the patient under the general supervision of Dr. Arteaga who was available but who did not see the patient. HPI: Patient presents today for recheck of right knee osteoarthritis. Is known to have arthritis treated conservatively with intermittent cortisone injections every 3 months as needed. No new injury or modalaties. Last injection(s) were 10/29/23 Shante Toribio PA-C [address], [place], [address], [facility] 01/28/2024 15:36:00 05/09/2024 text/html I am seeing the patient under the general supervision of Dr. Arteaga who was available but who did not see the patient. HPI: Patient presents today for recheck of right knee osteoarthritis. Is known to have arthritis treated conservatively with intermittent cortisone injections every 3 months as needed. No new injury or modalaties. Last injection(s) were 01/28/24. She reports increased pain over the last month after she felt a pop to the posterior knee with subsequent pain to the popliteal region radiating into her calf consistent with symptoms of Fuller's cyst rupture. No calf swelling or palpable cords. Shante Toribio PA-C [address], [place], [address], [facility] 05/09/2024 10:45:39 08/08/2024 text/html I am seeing the patient under the general supervision of Dr. Arteaga who was available but who did not see the patient. HPI: Patient presents today for recheck of right knee osteoarthritis. Is known to have arthritis treated conservatively with intermittent cortisone injections every 3 months as needed. No new injury or modalaties. Last injection(s) were 05/09/24. She reports that the left knee injection only about 2 days. Continues to complain of pain primarily to the popliteal region. Occasionally gets burning sensation as well as numbness and tingling extending down into the toes. 4 view right knee radiographs were obtained and demonstrate mild to moderate medial compartment joint space narrowing with sclerosis of the medial tibial plateau. Moderate medial patellar facet wear noted on merchant view. No fracture or dislocation. Radiographs do appear to be progressed since last obtained films in 2021. Shante Toribio PA-C [address] [facility] [address], [place], [address], [facility] 08/08/2024 15:58:33 OBGyn Episode No OBEpisode recorded.
--- NOTE | 2025-03-21 15:48 | AM.OFFWIN_ITS ---
Intake Vital Signs 03/21/25 15:52 Height 5 ft 1 in Weight 199 lb BMI 37.6 BP 132/66 Blood Pressure Location Lt brachial Position Sitting Pulse 62 Pulse Source Pulse Oximeter Temp 98.4 F Temp Source Oral Pulse Oximetry (%) 96 Oxygen Delivery Method Room Air Intake Visit Reasons: EP coughing, wheezing headaches Intake Note: presents with productive cough, wheezing and headaches Patient Tobacco Use Status: Never used Tobacco Allergies penicillin V Allergy (Mild, Verified 02/27/25 14:03) Rash onion Adverse Reaction (Verified 02/27/25 14:03) Stomach Upset Do you need a note to return to daycare/school/sports/work: No HPI HPI Comments History of Present Illness Details History - The patient is a 64-year-old female pr esenting with coughing, wheezing, and headache. - She was seen here on 02/22 and 02/27 for cough and asthma symptoms. - She thought that she was getting jomar r after the treatments she was given. - Symptoms recurred about a week ago, wi th a cough, wheezing, SOB again. - Previous interventions included predni sone and doxycycline, which initially improved symptoms. - The patient uses a nebulizer with albu terol regularly. - No recent use of allergy medications, though Benadryl was used previously. - She has no sick contacts. She is not a smoker. - She has no fever or chills. She denies CP, SOB, abd pain, n/v/d. Physical Exam General: Cooperative, healthy appearing, comfortable and no acute distress Orientation/consciousness: Patient oriented x3 Head: Normal to inspection Ears: Hearing grossly normal bilaterally, external ears normal and TM's normal bilaterally Nose: Normal external nose present, normal nares present, and no nasal discharge present. Face and sinus: Sinuses nontender to palpation. Mouth: Normal oral and palatal mucosa present and moist mucous membranes noted. Throat: Tonsils normal. Uvula is midline. Posterior ora oropharynx with erythema and no exudates. Neck: Normal visual inspection, full ROM. No lymphadenopathy noted. Respiratory: Wheezing noted. Normal respiratory effort, able to speak in complete sentences. No respiratory distress, not tachypneic, no tripod positioning and no use of accessory muscles. No rhonchi or rales noted. Cardiovascular: Regular rate and rhythm. Normal S1 and S2 Skin: No rashes or lesions noted Patient was informed and verbally consented to the use of an ambient scribe for clinic note documentation during this visit [facility] Medical History Atrial fibrillation History of cardioversion GERD (gastroesophageal reflux disease) IBS (irritable bowel syndrome) REJI (obstructive sleep apnea) Paroxysmal A-fib High cholesterol Surgical History H/O eye surgery History of esophagogastroduodenoscopy (EGD) Hx of colonoscopy History of right hip replacement (~01/21/21) Family History Mother Heart disease Social History Household Members: Spouse Household Members Other:: Housing: House Do you presently have visiting nurse or other home services: No Alcohol intake: current Alcohol intake frequency: holidays/special occasions only Patient Tobacco Use Status: Never used Tobacco service: No Current occupational status: employed Review of Systems Const All systems reviewed & are unremarkable except as noted in HPI and below Physical Exam Vital Signs: Last Vital Signs Temp 98.4 F 03/21/25 15:52 Pulse 62 03/21/25 15:52 BP 132/66 03/21/25 15:52 Pulse Ox 96 03/21/25 15:52 Oxygen Delivery Method Room Air 03/21/25 15:52 BMI result Body Mass Index 37.6 Assessment & Plan Assessment & Plan (1) Cough: Code(s): R05.9 - Cough, unspecified Qualifiers: Cough type: acute Qualified Code(s): R05.1 - Acute cough Plan Most likely URI vs viral illness vs bronchitis vs CAP Plan - Conduct a respiratory panel to check for viral infections. - Initiate a prednisone taper for asthma exacerbation management. - Prescribe Combivent for nebulizer use. - Advise daily Cetirizine for allergy control. - Plan for follow-up if symptoms persist. Orders: Orders Resp Pathogen Panel - [facility] Today J06.9 - Acute upper respiratory infection, unspecified Medications: New ipratropium-albuterol 0.5 mg-3 mg(2.5 mg base)/3 mL 3 mL inhalation Q6-8H PRN 90 mL 0RF wheezing 7 days prednisone see taper instructions; 40 mg Daily x3 days, 30 mg daily x3 days, 20 mg daily x3 days, 10 mg daily x3 days 10 mg PO DIRECTED 30 tabs 0RF cetirizine-pseudoephedrine 5-120 mg ER 1 tab PO BID 14 tabs 0RF 7 days Coding Level of Care Code Est Pt Level 3 (37979) Diagnoses Acute cough R05.1 Cough type: acute
[2025-03-21 15:52] VITALS: BP 132/66; PULSE 62; TEMP 36.9; O2SAT 96; BMI 37.6
== END 2025-03-21 16:27 | disposition home or self-care (01) ==
PROVIDERS: PCP Internal Medicine; Visit Provider Physician Assistant Medical
DX: R05.1 Acute cough (principal)

== ENCOUNTER → 2025-03-21 15:41 | Outpatient (BNVA) | payer OTHER, SELFPAY | PROVIDERS: PCP Internal Medicine; Visit Provider Physician Assistant Medical | DX: R05.1 Acute cough (principal) | CPT/HCPCS: 99212 ==

== ENCOUNTER 2025-04-30 11:36 | Outpatient (AMB) | payer OTHER, SELFPAY ==
--- NOTE | 2025-04-30 11:44 | AM.OFFWIN_ITS ---
Intake Vital Signs 04/30/25 11:45 Height 5 ft 1 in Weight 196 lb 4 oz BMI 37.1 BP 134/62 Blood Pressure Location Rt brachial Position Sitting Pulse 104 H Pulse Source Pulse Oximeter Temp 99.0 F Temp Source Oral Pulse Oximetry (%) 97 Oxygen Delivery Method Room Air Intake Visit Reasons: EP-cough, wheezing, body ache Patient Tobacco Use Status: Never used Tobacco Assistant Restaurant General Manager Required: No Allergies penicillin V Allergy (Mild, Verified 04/30/25 11:49) Rash onion Adverse Reaction (Verified 04/30/25 11:49) Stomach Upset Do you need a note to return to daycare/school/sports/work: No HPI HPI Comments History of Present Illness Details History - The patient is a 64-year-old female pr esenting with blocked ears, ringing in the ears, and yellow urine. - The patient reports blocked ears with ringing, which started a couple of weeks ago. - She has been coughing, no phlem and balderas s been SOB and wheezing. - Cough is worse at night. - She has been using her nebulizer at [facility] and she needs a refill on the solution. - The patient reports very yellow urine. - The patient has been experiencing a co ugh with clear phlegm containing yellow specks for a couple of weeks. - The cough is associated with shortness of breath and itching of the face. - She denies CP, BALDERAS, sore throat, abd pa in, n/v/d, sick contacts, or travel. Physical Exam General: Cooperative, healthy appearing, comfortable and no acute distress Orientation/consciousness: Patient oriented x3 Limitations: No limitations Head: Normal to inspection Ears: Cerumen impacted in both ears. TM not visualized. Nose: Normal external nose present, normal nares present, and no nasal discharge present. Face and sinus: Sinuses nontender to palpation. Mouth: Normal oral and palatal mucosa present and moist mucous membranes noted. Throat: Tonsils normal. Uvula is midline. Posterior oropharynx with erythema and no exudates. Patient reports feeling phlegm in throat. Eyes: Appearance normal, both eyes and all related structures Neck: Normal visual inspection, full ROM. No lymphadenopathy noted. Respiratory: Normal respiratory effort, able to speak in complete sentences. No respiratory distress, not tachypneic, no tripod positioning and no use of accessory muscles. Wheezes noted throughout the lung lemus. Cardiovascular: Regular rate and rhythm. Normal S1 and S2 Skin: No rashes or lesions noted. Patient reports itching. Patient was informed and verbally consented to the use of an ambient scribe for clinic note documentation during this visit [facility] Medical History Atrial fibrillation History of cardioversion GERD (gastroesophageal reflux disease) IBS (irritable bowel syndrome) REJI (obstructive sleep apnea) Paroxysmal A-fib High cholesterol Surgical History H/O eye surgery History of esophagogastroduodenoscopy (EGD) Hx of colonoscopy History of right hip replacement (~01/21/21) Family History Mother Heart disease Social History Household Members: Spouse Household Members Other:: Housing: House Do you presently have visiting nurse or other home services: No Alcohol intake: current Alcohol intake frequency: holidays/special occasions only Patient Tobacco Use Status: Never used Tobacco service: No Current occupational status: employed Review of Systems Const All systems reviewed & are unremarkable except as noted in HPI and below Physical Exam Vital Signs: Last Vital Signs Temp 99.0 F 04/30/25 11:45 Pulse 104 H 04/30/25 11:45 BP 134/62 04/30/25 11:45 Pulse Ox 97 04/30/25 11:45 Oxygen Delivery Method Room Air 04/30/25 11:45 BMI result Body Mass Index 37.1 Office Procedures Cerumen Removal From which ear canal was the cerumen removed: bilateral Removal: irrigation Notes: patient tolerated procedure well, no complications and ear canal clear 92454-Ygb Irrigation/Lavage Nebulizer Treatment Nebulizer Treatment 41278-Rmaotlxsc/MDI RX initial, or Nebulizer Subsequent Treatment Office Meds ipratropium 0.5 mg-albuterol 3 mg (2.5 mg base)/3 mL nebulization soln Performing Provider: Glenys Sanchez PA-C Performing Location: [facility] Administered by: Glenys Sanchez PA-C on 04/30/25 12:26 Dose Route Admin Location Dispensed Lot Number Expiration Date NDC Computer Project Manager 3 mL inhalation 3 mL [id number] 11/17/25 02243-154-94 AHP Assessment & Plan Assessment & Plan (1) Cough: Code(s): R05.9 - Cough, unspecified Qualifiers: Cough type: acute Qualified Code(s): R05.1 - Acute cough (2) Cerumen impaction: Code(s): H61.20 - Impacted cerumen, unspecified ear Qualifiers: Laterality: bilateral Qualified Code(s): H61.23 - Impacted cerumen, bilateral Plan Plan 1. Earwax impaction: - Plan to flush the ear canals to remove the wax buildup. 2. Cough with phlegm: - Conduct a respiratory panel to identify any lingering viral infections. - Provide a breathing treatment and consider a refill for nebulizer medication. - tessalon perles as needed for cough - use inhaler as needed - z-gorge as direected - prednisone burst for 5 days - follow up with PCP Orders: Orders Resp Pathogen Panel - [facility] Today J06.9 - Acute upper respiratory infection, unspecified AMB Cerumen Removal Today H61.23 - Impacted cerumen, bilateral AMB Nebulizer Treatment Today R05.9 - Cough, unspecified Medications: New benzonatate 100 mg PO bid-tid PRN 21 caps 0RF Cough 7 days ipratropium-albuterol 0.5 mg-3 mg(2.5 mg base)/3 mL 3 mL inhalation Q6-8H PRN 90 mL 0RF wheezing prednisone 50 mg PO QAM 5 tabs 0RF azithromycin For 250 mg dose pack: take 500 mg today (day 1), then 250 mg for 4 days (days 2-5) PO 6 tabs 0RF Coding Level of Care Code Est Pt Level 4 (46432) Diagnoses Acute cough R05.1 Cough type: acute Bilateral impacted cerumen H61.23 Laterality: bilateral CPT Codes Office Procedure - CPT: 24862-Tfl Irrigation/Lavage ([id number]) Nebulizer Treatment - Nebulizer Treatment, initial or subsequent: 38745- Nebulizer/MDI RX initial, or Nebulizer Subsequent Treatment ([id number])
[2025-04-30 11:45] VITALS: BP 134/62; PULSE 104; TEMP 37.2; O2SAT 97; BMI 37.1
--- OUTSIDE RECORDS SUMMARY | 2025-04-30 12:10 | XMS_ITS | Clinical Summary ---
Author Organization [address] [facility] Address [address] [place] [address] Phone Care Team Providers Care Car Changer Name Role Phone Physician, Pcp Unknown Primary [...] of total hip arthroplasty, right 025 A-fib ([facility] V24, [facility] V28) 12/20/2024 Social History Tobacco Use Types [...] 2 - PCV) 05/06/2021 05/06/2020 COVID-19 Vaccine (5 - season) 2024 02/06/2022, 06/29/2021, 12/24/2020, Additional history exists Depression Screening 09/20/2024 Cholesterol Screening (Lipid Panel) 11/06/2024 Colorectal Cancer Screening: Colonoscopy 11/06/2024 HIV Screening 11/06/2024 Hepatitis C Screening 11/06/2024 Social Influencers of Health Screening 11/06/2024 Influenza Vaccine (#1) 2025 , 09/07/2022, 06/29/2021, Additional history exists RSV Immunization Adult Patients (1 - 1-dose 75+ series) 2035 Zoster Vaccines Completed 08/30/2021, 06/29/2021 HIB Vaccines Aged Out No longer eligi [...] patient's age to complete this topic Insurance [facility] on file Care Teams Car Changer Relationship Specialty Start Date End Date Physician, Pcp Unknown PCP - General 12/20/24
== END 2025-04-30 12:53 | disposition home or self-care (01) ==
PROVIDERS: PCP Internal Medicine; Visit Provider Physician Assistant Medical
DX: R05.1 Acute cough (principal); H61.23 Impacted cerumen, bilateral; R82.90 Unspecified abnormal findings in urine

== ENCOUNTER 2025-04-30 11:36 | Outpatient (REF) | payer OTHER, SELFPAY ==
[2025-04-30 15:00] LABS: Chlamydia pneumoniae PCR Not Detected (Not Detect.); Coronavirus 229E PCR Not Detected (Not Detect.); Coronavirus HKU1 PCR Not Detected (Not Detect.); Coronavirus NL63 PCR Not Detected (Not Detect.); Coronavirus OC43 PCR Not Detected (Not Detect.); RSV PCR Not Detected (Not Detect.); Rhino/Enterovirus PCR Not Detected (Not Detect.)
[2025-04-30 15:09] LABS: Influenza A H1 PCR Not Detected (Not Detect.); Influenza A H1-2009 PCR Not Detected (Not Detect.); Influenza A H3 PCR Not Detected (Not Detect.); SARS-CoV-2 PCR Not Detected (Not Detect.)
== END 2025-04-30 11:37 | disposition home or self-care (01) ==
LOC: HO.LNP 11:36
PROVIDERS: PCP Internal Medicine; Visit Provider Physician Assistant Medical
DX: J06.9 Acute upper respiratory infection, unspecified (principal); H61.23 Impacted cerumen, bilateral; R05.1 Acute cough; R06.2 Wheezing; R06.02 Shortness of breath; Z79.899 Other long term (current) drug therapy
CPT/HCPCS: 69209; 81003; 87633; 94640; 99212

== ENCOUNTER 2025-05-10 12:14 | Outpatient (REF) | payer OTHER, SELFPAY ==
[2025-05-10 19:21] LABS: Resp Syncy Virus RNA Qual PCR NEGATIVE (Negative); SARS COV2 PCR INHOUSE NEGATIVE (Negative)
== END 2025-05-10 12:15 | disposition home or self-care (01) ==
LOC: HO.LAB 12:14
PROVIDERS: PCP Internal Medicine; Visit Provider Physician Assistant
DX: R06.2 Wheezing (principal); R09.89 Other specified symptoms and signs involving the circulatory and respiratory systems; J06.9 Acute upper respiratory infection, unspecified
CPT/HCPCS: 87637; 99202

== ENCOUNTER 2025-05-10 12:14 | Outpatient (AMB) | payer OTHER, SELFPAY ==
--- NOTE | 2025-05-10 12:15 | MHC.OFFWIV ---
Intake Vital Signs 05/10/25 12:16 Height 5 ft 1 in Weight 196 lb BMI 37.0 BP 142/70 H Blood Pressure Location Lt brachial Position Sitting Pulse 92 Pulse Source Pulse Oximeter Temp 98.7 F Temp Source Oral Pulse Oximetry (%) 97 Intake Visit Reasons: EP Cough, wheezing, congestion Intake Note: pt is here for cough, wheezing with post nasal drip with yellow tinge Patient Tobacco Use Status: Never used Tobacco Allergies penicillin V Allergy (Mild, Verified 05/10/25 12:17) Rash onion Adverse Reaction (Verified 05/10/25 12:17) Stomach Upset Do you need a note to return to daycare/school/sports/work: Yes HPI HPI Comments History of Present Illness Details History - The patient is a 64-year-old female presenting with symptoms of postnasal drip, coughing, and wheezing. - Symptoms began in February of the last school year and have persisted, characterized by a constant phlegm drip and regular coughing. - She has a history of asthma, uses an inhaler with limited relief, and has not had pulmonary function tests. - She denies fevers, sinus pain and ear pain Physical Exam General: Cooperative, healthy appearing, comfortable and no acute distress Orientation/consciousness: Patient oriented x3 Limitations: No limitations Head: Normal to inspection Ears: Hearing grossly normal bilaterally, external ears normal and TM's normal bilaterally Nose: Normal external nose present, Normal nares present and No nasal discharge present Face and sinus: Normal facial exam and Yes sinuses nontender Mouth: Normal oral and palatal mucosa present and moist mucous membranes Throat: Yes tonsils normal, Yes uvula midline. Posterior oropharynx erythema, no exudates Eyes: Appearance normal, both eyes and all related structures Neck: Normal visual inspection, full ROM Respiratory: insp/exp wheezing, Normal respiratory effort, able to speak in complete sentences, not actively coughing, no respiratory distress, not tachypneic, no tripod positioning and no use of accessory muscles Cardiovascular: Regular rate and rhythm. Normal S1 and S2 Skin: No rashes or lesions noted Neuro: Patient oriented x3 Extremities: Normal to inspection and Yes no clubbing, cyanosis or edema [facility] Medical History Atrial fibrillation History of cardioversion GERD (gastroesophageal reflux disease) IBS (irritable bowel syndrome) REJI (obstructive sleep apnea) Paroxysmal A-fib High cholesterol Surgical History H/O eye surgery History of esophagogastroduodenoscopy (EGD) Hx of colonoscopy History of right hip replacement (~01/21/21) Family History Mother Heart disease Social History Household Members: Spouse Household Members Other:: Housing: House Do you presently have visiting nurse or other home services: No Alcohol intake: current Alcohol intake frequency: holidays/special occasions only Patient Tobacco Use Status: Never used Tobacco service: No Current occupational status: employed Review of Systems Const All systems reviewed & are unremarkable except as noted in HPI and below Physical Exam Vital Signs: Last Vital Signs Temp 98.7 F 05/10/25 12:16 Pulse 92 05/10/25 12:16 BP 142/70 H 05/10/25 12:16 Pulse Ox 97 05/10/25 12:16 BMI result Body Mass Index 37.0 Assessment & Plan Assessment & Plan (1) URI, acute: Code(s): J06.9 - Acute upper respiratory infection, unspecified Plan: Plan - VSS, pt well appearing and PE remarkable for insp/exp wheezing - Viral testing sent. - Prescribe prednisone to reduce wheezing and inflammation. - Prescribe a Z-Tres for its anti-inflammatory and potential antibacterial effects. - Recommend pulmonary function tests to assess lung function and confirm asthma diagnosis as she may need maintenance inhaler. - Advise the patient to continue using Allegro-D and consider switching to a daily allergy medication at night. Patient was informed and verbally consented to the use of an ambient scribe for clinic note documentation during this visit Orders: Orders SARS-CoV2/FLU/RSV Today R09.89 - Other specified symptoms and signs involving the circulatory and respiratory systems Medications: New prednisone 40 mg (2 x 20 mg) PO QAM 10 tabs 0RF azithromycin For 250 mg dose pack: take 500 mg today (day 1), then 250 mg for 4 days (days 2-5) PO 6 tabs 0RF Coding Level of Care Code New Pt Level 3 (56927) Diagnoses URI, acute J06.9
[2025-05-10 12:16] VITALS: BP 142/70; PULSE 92; TEMP 37.1; O2SAT 97; BMI 37.0
== END 2025-05-10 13:34 | disposition home or self-care (01) ==
PROVIDERS: PCP Internal Medicine; Visit Provider Physician Assistant
DX: J06.9 Acute upper respiratory infection, unspecified (principal)

== ENCOUNTER 2025-06-07 14:46 | Outpatient (AMB) | payer OTHER, MEDICARE, SELFPAY ==
--- NOTE | 2025-06-07 15:11 | A.OFFVIS_ITS ---
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 Allergies penicillin V Allergy (Mild, Verified 06/07/25 15:13) Rash onion Adverse Reaction (Verified 06/07/25 15:13) Stomach Upset Medication List - Last Reconciled 06/07/25 by Olesya Wells NP-C acetaminophen 500 mg PO BID PRN albuterol sulfate 2.5 mg (3 mL) inhalation Q4H PRN albuterol sulfate 90 mcg/actuation 1 puff inhalation Q4H PRN apixaban (Eliquis) 5 mg PO BID atorvastatin 20 mg PO DAILY azithromycin For 250 mg dose pack: take 500 mg today (day 1), then 250 mg for 4 days (days 2-5) PO budesonide-formoterol 160-4.5 mcg/actuation 2 puffs inhalation BID dicyclomine 10 mg PO BID gabapentin 100 mg PO BEDTIME ipratropium-albuterol 0.5 mg-3 mg(2.5 mg base)/3 mL 3 mL inhalation Q6-8H PRN methylcellulose (laxative) (Citrucel) 500 mg PO DAILY multivitamin 1 tab PO DAILY prednisone mg PO HPI HPI 6 mth f/up km: Details: Lorena is a 63-year-old female with past medical history of hyperlipidemia, episodes of atrial fibrillation started August 2021, with cardioversions x3-4 in the past, with atrial fibrillation ablation done 08/04/2024 who now presents for follow-up. Today she reports she has been feeling very well since her last visit here in November. She has not had any heart palpitations that feel like recurrent atrial fibrillation. She is not experiencing any chest discomfort at rest or with acti vity. She has shortness of breath at times but states she was recently diagnosed with asthma. She denies PND, orthopnea or edema. She walks routinely for exercise and works as a paraprofessional in a school. She is still on Eliquis and denies any issues with bleeding. Currently pleased with how she is doing. [facility] Medical History Atrial fibrillation History of cardioversion GERD (gastroesophageal reflux disease) IBS (irritable bowel syndrome) REJI (obstructive sleep apnea) Paroxysmal A-fib High cholesterol Surgical History H/O eye surgery History of esophagogastroduodenoscopy (EGD) Hx of colonoscopy History of right hip replacement (~01/21/21) Family History Mother Heart disease Social History Household Members: Spouse Household Members Other:: Housing: House Do you presently have visiting nurse or other home services: No Alcohol intake: current Alcohol intake frequency: holidays/special occasions only Patient Tobacco Use Status: Never used Tobacco service: No Current occupational status: employed Review of Systems Const All systems reviewed & are unremarkable except as noted in HPI and below ENT Denies dizziness Card Denies chest pain, Denies chest pain at rest, Denies chest pain with activity, Denies rapid heart rate, Denies pedal edema, Denies edema, Denies leg edema, Denies lightheadedness, Denies palpitations, Denies dyspnea, Denies dyspnea on exertion and Denies orthopnea Resp Denies cough, Denies dyspnea and Denies dyspnea on exertion GI Denies hematochezia and Denies change in stool character Musc Denies abnormal gait, Denies limited range of motion, Denies muscle cramps, Denies muscle weakness, Denies numbness, Denies radiating pain into limb, Denies stiffness and Denies tingling Neuro Denies abnormal gait, Denies dizziness, Denies numbness and Denies tingling Endo Denies palpitations Physical Exam Vital Signs: Last Vital Signs Pulse 99 06/07/25 15:12 BP 138/62 06/07/25 15:12 BMI result Body Mass Index 36.3 Const General: cooperative, healthy appearing, comfortable and no acute distress Orientation/consciousness: patient oriented x3 Neck Neck: Yes normal visual inspection Resp Effort & Inspection: normal respiratory effort Auscultation: clear to auscultation bilaterally, no rales, no rhonchi and no wheezes Cardio Rate: regular rate Rhythm: regular rhythm Heart sounds: S1 normal heart sound present, S2 normal heart sound present, no gallops, no murmurs and no rubs Neuro General: patient oriented x3 Extrem General: Yes normal to inspection, No no pedal edema and No calf tenderness Psych Appearance: grossly normal Mental Status: mental status grossly normal Speech and movement: Normal speech and movement present Office Procedures EKG Details: Today, read by me, normal sinus rhythm, rate 89, QTC 450 milliseconds [id number], Complete Assessment & Plan Assessment & Plan (1) Atrial fibrillation: Code(s): I48.91 - Unspecified atrial fibrillation Category: Medical Qualifiers: Atrial fibrillation type: paroxysmal Qualified Code(s): I48.0 - Paroxysmal atrial fibrillation Plan: History of atrial fibrillation 1st identified 08/2021, treated with rhythm control with cardioversions then had recurrent atrial fibrillation. She did go for Afib ablation 08/04/2024. She is no longer on amiodarone or metoprolol. She is still on Eliquis for anticoagulation. EKG done today showing sinus rhythm, rate 89. She denies heart palpitations. Will have her continue Eliquis as we are unsure if AFib will reoccur. Chads Vasc score of 2. Cardiology follow-up 1 year, sooner if needed. (2) REJI (obstructive sleep apnea): Code(s): G47.33 - Obstructive sleep apnea (adult) (pediatric) Category: Medical Plan: Wearing CPAP mask. Reports compliance Plan Time spent on chart review, documentation, interview and assessment Coding Level of Care Code Est Pt Level 3 (53534) Complex EM visit Add On G2211 Diagnoses Atrial fibrillation I48.0 Atrial fibrillation type: paroxysmal REJI (obstructive sleep apnea) G47.33 CPT Codes EKG - CPT: 88854-[id number], Complete ([id number]) Time Spent (min) 24
[2025-06-07 15:12] VITALS: BP 138/62; PULSE 99; BMI 36.3
--- OUTSIDE RECORDS SUMMARY | 2025-06-07 16:28 | XMS_ITS | Clinical Summary ---
Author Organization [facility] Address [address] [place] [address] Phone Care Team Providers Care Participant Administrator Name Role Phone Physician, Pcp Unknown Primary [...] of total hip arthroplasty, right 025 A-fib ([facility] V24, [facility] V28) 12/20/2024 Social History Tobacco [...] (2 of 2 - PCV) 05/06/2021 05/06/2020 Depression Screening 09/20/2024 Cholesterol Screening (Lipid Panel) 11/06/2024 Colorectal Cancer Screening: Colonoscopy 11/06/2024 Hepatitis C Screening 11/06/2024 Osteoporosis Screening (Bone Density Screening) 11/06/2024 Social Influencers of Health Screening 11/06/2024 COVID-19 Vaccine ( season) 2025 02/06/2022, 06/29/2021, 12/24/2020, Additional history exists Influenza Vaccine (#1) 2025 , 09/07/2022, 06/29/2021, Additional history exists Falls Risk Assessment 2025 RSV Immunization Adult Patients (1 - 1-dose [...] patient's age to complete this topic Insurance Care Teams Participant Administrator Relationship Specialty Start Date End Date Physician, Pcp Unknown PCP - General 12/20/24
== END 2025-06-07 16:20 | disposition home or self-care (01) ==
PROVIDERS: PCP Internal Medicine; Visit Provider Nurse Practitioner Family
DX: I48.0 Paroxysmal atrial fibrillation (principal); G47.33 Obstructive sleep apnea (adult) (pediatric)
CPT/HCPCS: 93010; 99213; G2211

== ENCOUNTER → 2025-06-07 14:46 | Outpatient (BNVA) | payer OTHER, SELFPAY | PROVIDERS: PCP Internal Medicine; Visit Provider Nurse Practitioner Family | DX: I48.0 Paroxysmal atrial fibrillation (principal); G47.33 Obstructive sleep apnea (adult) (pediatric) | CPT/HCPCS: 93005; 99212 ==

== ENCOUNTER 2025-08-04 09:47 | Outpatient (REF) | payer OTHER, MEDICARE, SELFPAY ==
--- OUTSIDE RECORDS SUMMARY | 2024-06-12 10:00 | XMS_ITS ---
Author Organization Gilmer Stubbs MD Address [address] [place], [place] [id number] Care Team Providers Care Blast Furnace Operator Name Role Phone Gilmer Stubbs Primary Care Provider [phone] Allergies Allergen (clinical drug ingredient) Drug/Non Drug Allergy documented on EMR Reaction Allergy Type Onset Date Status Penicillin rash hives Drug Allergy Activ e REASON FOR VISIT 3 MO F/U Medications Medication SIG (Take, Route, Frequency, Duration) Notes Start Date End Date Status Omeprazole 20 mg TAKE 1 CAPSULE DAILY 30 MINUTES BEFORE MORNING MEAL Active Atorvastatin Calcium 20 mg TAKE 1 TABLET DAILY Active Centrum - as directed Orally A ctive Amiodarone HCl 200 MG 1 tablet Orally On ce a day Active Eliquis 5 MG 1 tablet Orally Twic e a day Active Albuterol Sulfate HFA 108 (90 Base) MCG/ACT 1 puff as needed Inhalation every 4 hrs for 30 days 03/06/2024 Active Immunizations Vaccine Route Administration Date Status Comme nts Fluarix Quadrivalent - 150 IM Intramuscular 06/12/2024 Adm inistered Vital Signs Blood pressure systolic 124 mm Hg 06/12/20 24 Blood pressure diastolic 60 mm Hg 024 Height 60 in 06/12/2024 Weight 198 lbs 06/12/2024 BMI 38.67 kg/m2 06/12/2024 weight is up 6 pounds since 7-12-24 Encounters Encounter Location Date Provider Diagnosis Gilmer Stubbs MD [address] [place] [phone] 06/12/2024 Gilmer Stubbs Encounter for immunization Z23 ; New onset atrial fibrillation I48.91 and Elevated LFTs R79.89 Assessments Encounter Date Diagnosis (ICD Code) Assessment Notes Treatment Notes Treatment Clinical Notes Section Notes 06/12/2024 Encounter for immunization (ICD-10 - Z23) flu vaccine admonistered 06/12/2024 New onset atrial fibrillation (ICD-10 - I48.91) awaiting ablation 06/12/2024 Elevated LFTs (ICD-10 - R79.89) is probably from the amiodorone but only minimally. will observe Plan Of Treatment Medication Medication Name Sig Start Date Stop Date Notes Amiodarone HCl 200 MG 1 tablet Orally Once a day Eliquis 5 MG 1 tablet Orally Twice a day Treatment Notes Assessment Notes Encounter for immunization flu vaccine a dmonistered New onset atrial fibrillation awaiting a blation Elevated LFTs is probably from the amiodorone but only minimally. will observe Next Appt Details Follow Up: 3 Months, Reason: Provider Name:Gilmer escobedo, 09/04/2025 07:45:00 AM, [address] [place] [address], [address], [phone], Provider Name:Gilmer escobedo, 09/10/2025 03:00:00 PM, [address] [place] [address], [address], [phone], Provider Name:Gilmer escobedo, 03/05/2026 07:15:00 AM, [address] [place] [address], [address], [phone], Provider Name:Gilmer escobedo, 03/15/2026 11:00:00 AM, [address] [place] [address], [address], [phone], Progress Notes * DARRON LYNNDOB: (64 yo F)Acc No.[id number]:06/12/2024 Progress Notes Patient: DARRON FOLEY Provider: Vishal Stubbs MD :1960 A ge:64 Y S ex:Female Date:06/12/2024 Address:[place], [id number] Subjective: * Chief Complaints: * 3 MO F/U * HPI: S ymptom(s): patient is a 64 yo female here for 3 month follow up, had cardioversion 2 weeks ago. just had cardioversion without admission. ablation in july. * ROS: G eneral/Constitutional: Denies C hills. D enies F atigue. D enies F ever. D enies H eadache. E NT: Patient denies d ecreased sense of smell, any loss of taste, sore throat. D enies S ore throat. R espiratory: Denies C ough. D enies S hortness of breath at rest. D enies S hortness of breath with exertion. C ardiovascular: Denies C hest pain at rest. D enies C hest pain with exertion. D enies D izziness. D enies P alpitations. D enies S hortness of breath. G astrointestinal: Denies D iarrhea. D enies N ausea. M usculoskeletal: Patient denies m uscle aches. P eripheral Vascular: Patient denies r ed and blue toes. * Medical History: * Surgical History: * Hospitalization/Major Diagno stic Procedure: * Medications: T akingCentrum - Tablet as directed Orally Atorvastatin Calcium 20 mg Tablet TAKE 1 TABLET DAILY Omeprazole 20 mg Capsule Delayed Release TAKE 1 CAPSULE DAILY 30 MINUTES BEFORE MORNING MEAL Albuterol Sulfate HFA 108 (90 Base) MCG/ACT Aerosol Solution 1 puff as needed Inhalation every 4 hrsAmiodarone HCl 200 MG Tablet 1 tablet Orally Once a dayEliquis 5 MG Tablet 1 tablet Orally Twice a dayMedication List reviewed and reconciled with the patientTaking Centrum - Tablet as directed Orally Taking Atorvastatin Calcium 20 mg Tablet TAKE 1 TABLET DAILY Taking Omeprazole 20 mg Capsule Delayed Release TAKE 1 CAPSULE DAILY 30 MINUTES BEFORE MORNING MEAL Taking Albuterol Sulfate HFA 108 (90 Base) MCG/ACT Aerosol Solution 1 puff as needed Inhalation every 4 hrsTaking Amiodarone HCl 200 MG Tablet 1 tablet Orally Once a dayTaking Eliquis 5 MG Tablet 1 tablet Orally Twice a dayMedication List reviewed and reconciled with the patient * Allergies: P enicillin: rash hivesyes[Allergies Verified] Objective: * Vitals: H t: 60, Wt:198, BMI:38.67, BP:124/60 weight is up 6 pounds since 03-31-24. * Examination: G eneral Examination: GENERAL APPEARANCE: alert, well hydrated, in no distress . HEAD: n ormocephalic. HEART: no murmurs, rubs, gallops, regular rate and rhythm. LUNGS: no wheezes, rales, rhonchi, good air movement, clear to auscultation bilaterally. Assessment: * Assessment: 1. N ew onset atrial fibrillation - I48.91 (Primary) 2 . E ncounter for immunization - Z23 3 . E levated LFTs - R79.89 Plan: * Treatment: 2. E ncounter for immunization Notes: flu vaccine admonistered 3. E levated LFTs Notes: is probably from the [facility] but only minimally. will observe * Immunizations: Fluarix Quadrivalent - 150 : 0.5 mL (Dose No:1) (Route: Intramuscular) given by Anahy Contreras on Left Deltoid * Procedure Codes: 9 0471 IMMUNIZATION [id number] FLU VACCINE NO PRESERV 3 & > * Preventive Medicine: Immunizations: I nfluenza H ave you had a flu shot since the most recent May 21? Y es. * Follow Up: 3 Months * * Sign off status: Completed true * Provider: iVshal Stubbs MD Date: 0 06/12/2024 Generated for Claribel packer/Humberto/Fidenciosmitting on: 10/04/2024 10:22 AM EST History and Physical Notes * HPI (History of Present Illness) Category Sub-Category Detail Notes Category Not es Symptom(s) patient is a 64 yo female here for 3 month follow up, had cardioversion 2 weeks ago. just had cardioversion without admission. ablation in july Examination Category Sub-Category Detail Notes Category Not es General Examination GENERAL APPEARANCE: alert, w ell hydrated, in no distress HEAD: normocephalic HEART: no murmurs, rubs, ga llops, regular rate and rhythm LUNGS: no wheezes, rales, r honchi, good air movement, clear to auscultation bilaterally
--- OUTSIDE RECORDS SUMMARY | 2024-08-28 03:15 | XMS_ITS ---
Author Organization Gilmer Stubbs MD Address [address] [place] [phone] Care Team Providers Care Risk And Insurance Consultant Name Role Phone Gilmer Stubbs Primary Care Provider REASON FOR VISIT FASTING LIPIDS Encounters Encounter Location Date Provider Diagnosis Gilmer Stubbs MD [address] [place] [address] Drive [address] [place] [phone] 08/28/2024 Gilmer Stubbs Elevated LDL cholesterol level E78.00 Assessments Encounter Date Diagnosis (ICD Code) Assessment Notes Treatment Notes Treatment Clinical Notes Section Notes 08/28/2024 Elevated LDL cholesterol level (ICD-10 - E78.00) Plan Of Treatment Next Appt Details Provider Name:Gilmer escobedo, 09/04/2025 07:45:00 AM, [address] [place] [address], [address] [place] [address], [phone], Provider Name:Gilmer escobedo, 09/10/2025 03:00:00 PM, [address] [place] [address], [address], [phone], Provider Name:Gilmer escobedo, 03/05/2026 07:15:00 AM, [address] [place] [address], [address], [phone], Provider Name:Gilmer escobedo, 03/15/2026 11:00:00 AM, [address], [address], [place], [place], [phone], Progress Notes * DARRON LYNNDOB: (65 yo F)Acc No.[id number]:08/28/2024 Progress Note Patient: DARRON FOLEY Provider: Vishal Stubbs MD :1960 A ge:64 Y S ex:Female Date:08/28/2024 Address:[address] [place] [address] Heladio CONNER [id number] Subjective: * Chief Complaints: * 1 . FASTING LIPIDS. * Medical History: Objective: * Vitals: Assessment: * Assessment: 1. E levated LDL cholesterol level - E78.00 Plan: * Treatment: ?LAB: Lipid Panel with Reflex (Order Cancelled)* Anahy Contreras 08/25/20 24 10:41:15 AM EST > To be done [facility] 08-28-24 * * The named appointment provid er may or may not be the originator of this progress note, and it is not deemed complete until electronically signed by the appointment provider. Sign off status: Pending * Provider: Vishal Stubbs MD Date: 10/29/2023 Generated for Claribel packer/Humberto/Fidenciosmitting on: 10/04/2024 10:19 AM EST
--- OUTSIDE RECORDS SUMMARY | 2024-09-04 05:00 | XMS_ITS ---
Author Organization Gilmer Stubbs MD Address [address] [place], [place] [id number] Care Team Providers Care White Washer Name Role Phone Gilmer Stubbs Primary Care Provider Allergies Allergen (clinical drug ingredient) Drug/Non Drug Allergy documented on EMR Reaction Allergy Type Onset Date Status Penicillin rash hives Drug Allergy Activ e REASON FOR VISIT 6 MO F/U Medications Medication SIG (Take, Route, Frequency, Duration) Notes Start Date End Date Status Gabapentin 300 MG 1 capsule Orally Onc e a day for 30 day(s) 09/04/2024 Active Atorvastatin Calcium 20 mg TAKE 1 TABLET DAILY Active Omeprazole 20 mg TAKE 1 CAPSULE DAILY 30 MINUTES BEFORE MORNING MEAL Active Albuterol Sulfate HFA 108 (90 Base) MCG/ACT 1 puff as needed Inhalation every 4 hrs for 30 days 03/06/2024 Active Eliquis 5 MG 1 tablet Orally Twic e a day Active Centrum - as directed Orally A ctive Problems Problem Type SNOMED Code ICD Code Onset Dates Problem Status W/U Status Risk Notes Problem [id number] Essential tremor (G25.0) Active confirmed Vital Signs Blood pressure systolic 130 mm Hg 09/04/20 24 Blood pressure diastolic 66 mm Hg 024 Height 60 in 09/04/2024 Weight 194 lbs 09/04/2024 BMI 37.88 kg/m2 09/04/2024 weight is down 4 pounds sinc e 06-12-24 Encounters Encounter Location Date Provider Diagnosis Gilmer Stubbs MD [address] [place] [phone] 09/04/2024 Gilmer Stubbs Paroxysmal atrial fibrillation I48.0 ; Essential tremor G25.0 and Elevated LDL cholesterol level E78.00 Assessments Encounter Date Diagnosis (ICD Code) Assessment Notes Treatment Notes Treatment Clinical Notes Section Notes 09/04/2024 Paroxysmal atrial fibrillation (ICD-10 - I48.0) discussed the halfway use of anticoagulation. she is inclined to take it. is seeing nuclear radiologist in oct, will continue current regiment 09/04/2024 Essential tremor (ICD-10 - G25.0) patient verbalized understanding of medication and directions for use 09/04/2024 Elevated LDL cholesterol level (ICD-10 - E78.00) stable, will continue current regiment Plan Of Treatment Medication Medication Name Sig Start Date Stop Date Notes Gabapentin 300 MG 1 capsule Orally Onc e a day for 30 day(s) 09/04/2024 Atorvastatin Calcium 20 mg TAKE 1 TABLET DAILY Eliquis 5 MG 1 tablet Orally Twice a day Treatment Notes Assessment Notes Paroxysmal atrial fibrillation discussed the exterminator termite use of anticoagulation. she is inclined to take it. is seeing nuclear radiologist in oct, will continue current regiment Essential tremor patient verbalized u nderstanding of medication and directions for use Elevated LDL cholesterol level stable, w ill continue current regiment Next Appt Details Follow Up: 4 Weeks, Reason: Provider Name:Gilmer escobedo, 09/04/2025 07:45:00 AM, [address] [place] [address], [address], [phone], Provider Name:Gilmer escobedo, 09/10/2025 03:00:00 PM, [address] [place] [address], [address], [phone], Provider Name:Gilmer escobedo, 03/05/2026 07:15:00 AM, [address] [place] [address], [address], [phone], Provider Name:Gilmer escobedo, 03/15/2026 11:00:00 AM, [address] [place] [address], [address], [phone], Progress Notes * DARRON LYNNDOB: (64 yo F)Acc No.[id number]:09/04/2024 Progress Notes Patient: DARRON FOLEY Provider: Vishal Stubbs MD :1960 A ge:64 Y S ex:Female Date:09/04/2024 Address: [place] [id number] Subjective: * Chief Complaints: * 6 MO F/U * HPI: S ymptom(s): patient is a 64 yo female here for 6 month follow up visit, stopped the amiodorone after the ablation. and no more afib since/ has tremor that is bothering her. * ROS: G eneral/Constitutional: Denies C hills. D enies F atigue. D enies F ever. D enies H eadache. E NT: Patient denies d ecreased sense of smell , any loss of taste , sore throat. D enies S ore throat. R espiratory: Denies C ough. D enies S hortness of breath at rest. D enies S hortness of breath with exertion. G astrointestinal: Denies D iarrhea. D enies N ausea. M usculoskeletal: Patient denies m uscle aches. P eripheral Vascular: Patient denies r ed and blue toes. N eurologic: Admits T remor, b ilateral hand worsening. ? * Medical History: * Surgical History: * Hospitalization/Major Diagno stic Procedure: * Medications: T akingCentrum - Tablet as directed Orally Omeprazole 20 mg Capsule Delayed Release TAKE 1 CAPSULE DAILY 30 MINUTES BEFORE MORNING MEAL Albuterol Sulfate HFA 108 (90 Base) MCG/ACT Aerosol Solution 1 puff as needed Inhalation every 4 hrsEliquis 5 MG Tablet 1 tablet Orally Twice a dayAtorvastatin Calcium 20 mg Tablet TAKE 1 TABLET DAILY Taking Centrum - Tablet as directed Orally Taking Omeprazole 20 mg Capsule Delayed Release TAKE 1 CAPSULE DAILY 30 MINUTES BEFORE MORNING MEAL Taking Albuterol Sulfate HFA 108 (90 Base) MCG/ACT Aerosol Solution 1 puff as needed Inhalation every 4 hrsTaking Eliquis 5 MG Tablet 1 tablet Orally Twice a dayTaking Atorvastatin Calcium 20 mg Tablet TAKE 1 TABLET DAILY DiscontinuedAmiodarone HCl 200 MG Tablet 1 tablet Orally Once a dayMedication List reviewed and reconciled with the patientDiscontinued Amiodarone HCl 200 MG Tablet 1 tablet Orally Once a dayMedication List reviewed and reconciled with the patient * Allergies: P enicillin: rash hivesyes[Allergies Verified] Objective: * Vitals: H t: 60, Wt:194, BMI:37.88, BP:130/66 weight is down 4 pounds since 06-12-24. * P ast Orders: L ab:Lipid Panel with Reflex (Order Date - 08/26/2024) (Collection Date - 08/26/2024) Value Reference Range Triglycerides 63 <150 - mg/dL Cholesterol 167 <200 - mg/dL LDL Cholesterol Calculated 106 H <100 - mg/dL HDL Cholesterol 49 >40 - mg/dL L ab:Liver Panel (Order Date - 08/26/2024) (Collection Date - 08/26/2024) Value Reference Range Bilirubin Total 0.3 0.0-1.0 - mg/dL Bilirubin Direct 0.1 0.0-0.5 - mg/dL Aspartate Amino Transferase 26 5-31 - U/L Alanine Aminotransferase 31 0-31 - U/L Total Protein 7.1 6.5-8.0 - g/dL Albumin Level 4.0 3.5-5.0 - g/dL Alkaline Phosphatase 97 39-117 - U/L * Examination: G eneral Examination: GENERAL APPEARANCE: f emale. HEAD: n ormocephalic. SKIN: g ood turgor. HEART: r egular rate and rhythm , no murmurs, rubs, gallops. LUNGS: n o wheezes, rales, rhonchi , good air movement , clear to auscultation bilaterally. Assessment: * Assessment: 1. P aroxysmal atrial fibrillation - I48.0 (Primary) 2 . E ssential tremor - G25.0 3 . E levated LDL cholesterol level - E78.00 Plan: * Treatment: 2. E ssential tremor Start Gabapentin Capsule, 300 MG, 1 capsule, Orally, Once a day, 30 day(s), 30. Notes: patient verbalized understanding of medication and directions for use 3. E levated LDL cholesterol level Continue Atorvastatin Calcium Tablet, 20 mg, TAKE 1 TABLET DAILY. Notes: stable, will continue current regiment * Procedure Codes: * Follow Up: 4 Weeks * * Sign off status: Completed true * Provider: Vishal Stubbs MD Date: 11/05/2023 Generated for Claribel packer/Humberto/Fidenciosmitting on: 10/04/2024 10:22 AM EST History and Physical Notes * HPI (History of Present Illness) Category Sub-Category Detail Notes Category Not es Symptom(s) patient is a 64 yo female here for 6 month follow up visit, stopped the amiodorone after the ablation. and no more afib since/ has tremor that is bothering her Examination Category Sub-Category Detail Notes Category Not es General Examination GENERAL APPEARANCE: female HEAD: normocephalic HEART: regular rate and rhy thm , no murmurs, rubs, gallops LUNGS: no wheezes, rales, r honchi , good air movement , clear to auscultation bilaterally SKIN: good turgor
--- OUTSIDE RECORDS SUMMARY | 2024-10-06 10:00 | XMS_ITS ---
Author Organization Gilmer Stubbs MD Address [address] [place] [phone] Care Team Providers Care Oral Therapist Name Role Phone Gilmer Stubbs Primary Care Provider [phone] Allergies Allergen (clinical drug ingredient) Drug/Non Drug Allergy documented on EMR Reaction Allergy Type Onset Date Status Penicillin rash hives Drug Allergy Activ e REASON FOR VISIT 4 WK F/U Medications Medication SIG (Take, Route, Frequency, Duration) Notes Start Date End Date Status Centrum - as directed Orally A ctive Gabapentin 300 MG 1 capsule Orally Onc e a day for 30 day(s) 09/04/2024 Active Albuterol Sulfate HFA 108 (90 Base) MCG/ACT 1 puff as needed Inhalation every 4 hrs for 30 days 03/06/2024 Active Atorvastatin Calcium 20 mg TAKE 1 TABLET DAILY Active Omeprazole 20 mg TAKE 1 CAPSULE DAILY 30 MINUTES BEFORE MORNING MEAL Active Eliquis 5 MG 1 tablet Orally Twic e a day Active Vital Signs Blood pressure systolic 132 mm Hg 10/06/19 25 Blood pressure diastolic 64 mm Hg 025 Height 60 in 10/06/2024 Weight 195 lbs 10/06/2024 BMI 38.08 kg/m2 10/06/2024 Encounters Encounter Location Date Provider Diagnosis Gilmer Stubbs MD [address] [place], [place] [phone] 10/06/2024 Gilmer Stubbs Paroxysmal atrial fibrillation I48.0 and Chronic cough R05.3 Assessments Encounter Date Diagnosis (ICD Code) Assessment Notes Treatment Notes Treatment Clinical Notes Section Notes 10/06/2024 Paroxysmal atrial fibrillation (ICD-10 - I48.0) doing great with no afib. discussed the risks of not taking anticoagulants even though she had a blation 10/06/2024 Chronic cough (ICD-10 - R05.3) to try a humidifierr Plan Of Treatment Treatment Notes Assessment Notes Paroxysmal atrial fibrillation doing gre at with no afib. discussed the risks of not taking anticoagulants even though she had a blation Chronic cough to try a humidifierr Next Appt Details Provider Name:Gilmer Bjorn Rima ier, 09/04/2025 07:45:00 AM, [address] [place] [address], [address] [place] [address], [phone], Provider Name:Gilmer Milan Rima ier, 09/10/2025 03:00:00 PM, [address] [place] [address], [address] [place] [address], [phone], Provider Name:Gilmer Abarca radhar, 03/05/2026 07:15:00 AM, [address] [place] [address], Suite [facility], [place], [place], [phone], Provider Name:Gilmer Abarca radhar, 03/15/2026 11:00:00 AM, [address] [place] [address], [address] [place] [address], [phone], Progress Notes * DARRON LYNNDOB: (65 yo F)Acc No.[id number]:10/06/2024 Progress Notes Patient: Vikas SCHMITT DARRON Provider: Vishal Stubbs MD :1960 A ge:64 Y S ex:Female Date:10/06/2024 Address:[address] [place] [address] [id number] Subjective: * Chief Complaints: * 4 WK F/U * HPI: S ymptom(s): patient is a 64 yo female here for 4 week follow up visit. had ablation and has been in nsr. * ROS: G eneral/Constitutional: Denies C hills. [...] T akingCentrum - Tablet as directed Orally Albuterol Sulfate HFA 108 (90 Base) MCG/ACT Aerosol Solution 1 puff as needed Inhalation every 4 hrs Gabapentin 300 MG Capsule 1 capsule Orally Once a day Eliquis 5 MG Tablet 1 tablet Orally Twice a day Atorvastatin Calcium 20 mg Tablet TAKE 1 TABLET DAILY Omeprazole 20 mg Capsule Delayed Release TAKE 1 CAPSULE DAILY 30 MINUTES BEFORE MORNING MEAL Medication List reviewed and reconciled with the patientTaking Centrum - Tablet as directed Orally Taking Albuterol Sulfate HFA 108 (90 Base) MCG/ACT Aerosol Solution 1 puff as needed Inhalation every 4 hrs Taking Gabapentin 300 MG Capsule 1 capsule Orally Once a day Taking Eliquis 5 MG Tablet 1 tablet Orally Twice a day Taking Atorvastatin Calcium 20 mg Tablet TAKE 1 TABLET DAILY Taking Omeprazole 20 mg Capsule Delayed Release TAKE 1 CAPSULE DAILY 30 MINUTES BEFORE MORNING MEAL Medication List reviewed and reconciled with the patient * Allergies: P enicillin: rash hivesyes[Allergies Verified] Objective: * Vitals: H t: 60, Wt:195, BMI:38.08, BP:132/64. * Examination: G eneral Examination: GENERAL APPEARANCE: a lert, well hydrated, in no distress.? HEAD: n ormocephalic. EYES: e xtraocular movement full and smooth. SKIN: g ood turgor. HEART: n o murmurs, rubs, gallops , regular rate and rhythm. LUNGS: n o wheezes, rales, rhonchi , good air movement , clear to auscultation bilaterally. Assessment: * Assessment: 1. P aroxysmal atrial fibrillation - I48.0 (Primary) 2 . C hronic cough - R05.3 Plan: * Treatment: 2. C hronic cough Notes: to try a humidifierr * Procedure Codes: * * Sign off status: Completed true * Provider: Vishal Stubbs MD Date: 0 10/06/2024 Generated for Claribel packer/Humberto/Liitting on: 1 10/04/2024 10:20 AM EST History and Physical Notes * HPI (History of Present Illness) Category Sub-Category Detail Notes Category Not es Symptom(s) patient is a 64 yo female here for 4 week follow up visit. had ablation and has been in nsr. Examination Category Sub-Category Detail Notes Category Not es General Examination GENERAL APPEARANCE: alert, w ell hydrated, in no distress HEAD: normocephalic EYES: extraocular movement full and smooth HEART: no murmurs, rubs, ga llops , regular rate and rhythm LUNGS: no wheezes, rales, r honchi , good air movement , clear to auscultation bilaterally SKIN: good turgor
--- OUTSIDE RECORDS SUMMARY | 2024-10-13 06:41 | XMS_ITS ---
Author Organization Gilmer Stubbs MD Address [address] [place] [phone] Care Team Providers Care Hat Sizer Name Role Phone Gilmer Stubbs Primary Care Provider REASON FOR VISIT RFGabapentin 300mg Medications Medication SIG (Take, Route, Fr equency, Duration) Notes Start Date End Date Status Gabapentin 300 MG 1 capsule Orally Onc e a day for 90 days 09/04/2024 Active Encounters Encounter Location Date Provider Diagnosis Gilmer Stubbs MD [address] [place] [address] [place] [phone] 10/13/2024 Gilmer Stubbs Essential tremor G25.0 Assessments Encounter Date Diagnosis (ICD Code) Assessment Notes Treatment Notes Treatment Clinical Notes Section Notes 10/13/2024 Essential tremor (ICD-10 - G25.0) Plan Of Treatment Medication Medication Name Sig Start Date Stop Date Notes Gabapentin 300 MG 1 capsule Orally Once a day for 90 days 09/04/2024 Next Appt Details Provider Name:Gilmer escobedo, 09/04/2025 07:45:00 AM, [address] [place] [address], [address], [phone], Provider Name:Gilmer escobedo, 09/10/2025 03:00:00 PM, [address] [place] [address], [address], [phone], Provider Name:Gilmer Abarca ier, 03/05/2026 07:15:00 AM, [address], [address], [place], [phone], Provider Name:Gilmer Abarca ier, 03/15/2026 11:00:00 AM, [address], [address], [place], [place], [phone], Progress Notes * DARRON LYNNDOB: (64 yo F)Acc No.[id number]:10/13/2024 Patient: Vikas DARRON SCHMITT :1960 A ge:64 Y S ex:Female Address:[address] [place] [address] [place], * Refills Refill Gabapentin Capsule, 300 MG, Orally, 90 Capsule, 1 capsule, Once a day, 90 days, Refills=3 * true * Date: Generated for Claribel packer/Humberto/eTransmitting on: 10/04/2024 10:20 AM EST
--- OUTSIDE RECORDS SUMMARY | 2025-03-05 02:45 | XMS_ITS ---
Author Organization Gilmer Stubbs MD Address [address] [place], [place] [id number] Care Team Providers Care Food Expeditor Name Role Phone Gilmer Stubbs Primary Care Provider REASON FOR VISIT FASTING LABS Encounters Encounter Location Date Provider Diagnosis Gilmer Stubbs MD [address] [place], [place] [id number] 03/05/2025 Gilmer Stubbs Blood tests for routine general physical examination Z00.00 ; Elevated LDL cholesterol level E78.00 and Paroxysmal atrial fibrillation I48.0 Assessments Encounter Date Diagnosis (ICD Code) Assessment Notes Treatment Notes Treatment Clinical Notes Section Notes 03/05/2025 Blood tests for routine general physical examination (ICD-10 - Z00.00) 03/05/2025 Elevated LDL cholesterol level (ICD-10 - E78.00) 03/05/2025 Paroxysmal atrial fibrillation (ICD-10 - I48.0) Plan Of Treatment Pending Test Test Name Order Date Complete Blood Count Auto Diff 5 Comprehensive [place]. Panel Fast 5 Lipid Panel 03/05/2025 UA ClnCatch+Micro w/rflx Cult 03/05/2025 Next Appt Details Provider Name:Gilmer Abarca ier, 09/04/2025 07:45:00 AM, [address], [address], [place], [place], [phone], Provider Name:Gilmer Abarca ier, 09/10/2025 03:00:00 PM, [address], [address], [place], [phone], Provider Name:Gilmer Abarca ier, 03/05/2026 07:15:00 AM, [address], [address], [place], [phone], Provider Name:Gilmer Abarca ier, 03/15/2026 11:00:00 AM, [address], [address], [place], [phone], Progress Notes * DARRON LYNNDOB: (65 yo F)Acc No.[id number]:03/05/2025 Progress Note Patient: DARRON FOLEY Provider: Vishal Stubbs MD :1960 A ge:64 Y S ex:Female Date:03/05/2025 Address:[address] [place] [address] [id number] Subjective: * Chief Complaints: * 1 . FASTING LABS. * Medical History: Objective: * Vitals: Assessment: * Assessment: 1. B lood tests for routine general physical examination - Z00.00 (Primary) 2 .?Elevated LDL cholesterol level - E78.00 3 . P aroxysmal atrial fibrillation - I48.0 Plan: * Treatment: 2. E levated LDL cholesterol level L AB: Complete Blood Count Auto Diff L AB: Comprehensive [place]. Panel Fast L AB: Lipid Panel L AB: UA ClnCatch+Micro w/rflx Cult 3. P aroxysmal atrial fibrillation L AB: Complete Blood Count Auto Diff L AB: Comprehensive [place]. Panel Fast L AB: Lipid Panel L AB: UA ClnCatch+Micro w/rflx Cult * * The named appointment provid er may or may not be the originator of this progress note, and it is not deemed complete until electronically signed by the appointment provider. Sign off status: Pending * Provider: Vishal Stubbs MD Date: 0 03/05/2025 Generated for Claribel packer/Humberto/Linnea on: 1 10/04/2024 10:21 AM EST
--- OUTSIDE RECORDS SUMMARY | 2025-03-12 09:30 | XMS_ITS ---
Author Organization Gilmer Stubbs MD Address [address] [place], [place] [id number] Care Team Providers Care Park Interpreter Name Role Phone Gilmer Stubbs Primary Care Provider Allergies Allergen (clinical drug ingredient) Drug/Non Drug Allergy documented on EMR Reaction Allergy Type Onset Date Status Penicillin rash hives Drug Allergy Activ e Results Component Value Reference Range Notes Occult Blood, Stool, Guaiac Reviewed date:03/12/2025 03:18:28 PM Interpretation:Negative Performing Lab: Notes/Report: Negative Occult Blood, Stool, Guaiac Neg REASON FOR VISIT ANNUAL EXAM, Blood sugar is 124 A1C is 6.3 Medications Medication SIG (Take, Route, Frequency, Duration) Notes Start Date End Date Status Gabapentin 300 MG 1 capsule Orally Onc e a day for 90 days 09/04/2024 Active Omeprazole 20 mg TAKE 1 CAPSULE DAILY 30 MINUTES BEFORE MORNING MEAL Active Atorvastatin Calcium 20 mg TAKE 1 TABLET DAILY Active Eliquis 5 MG 1 tablet Orally Twic e a day Active Albuterol Sulfate HFA 108 (90 Base) MCG/ACT 1 puff as needed Inhalation every 4 hrs for 30 days 03/06/2024 Active Centrum - as directed Orally A ctive Social History Tobacco Use: Social History Observation Description Date Details (start date - stop date) Never Smoker NA - NA Tobacco Use/Smoking Question Answer Notes Patient is a nonsmoker Additional Findings: Tobacco Non-User Cu rrent non-smoker, currently using no form of tobacco Alcohol Screen Question Answer Notes Did you have a drink contain ing alcohol in the past year? Yes How often did you have a dri nk containing alcohol in the past year? Monthly or less (1 point) How many drinks did you have on a typical day when you were drinking in the past year? 1 or 2 drinks (0 point) How often did you have 6 or more drinks on one occasion in the past year? Never (0 point) Points 1 Interpretation Negative Vital Signs Blood pressure systolic 122 mm Hg 03/12/20 25 Blood pressure diastolic 56 mm Hg 025 Height 60 in 03/12/2025 Weight 200 lbs 03/12/2025 BMI 39.06 kg/m2 03/12/2025 weight is up 5 pounds since 10-06-24 Encounters Encounter Location Date Provider Diagnosis Gilmer Stubbs MD [address] [place] [phone] 03/12/2025 Gilmer Stubbs Annual physical exam Z00.00 ; Elevated LDL cholesterol level E78.00 ; Paroxysmal atrial fibrillation I48.0 ; Obstructive sleep apnea G47.33 ; History of asthma Z87.09 ; Prediabetes R73.09 ; Acid reflux K21.9 ; Colon cancer screening Z12.11 and Depression screening Z13.31 Assessments Encounter Date Diagnosis (ICD Code) Assessment Notes Treatment Notes Treatment Clinical Notes Section Notes 03/12/2025 Annual physical exam (ICD-10 - Z00.00) labs reviewed and discussed ith patient 03/12/2025 Elevated LDL cholesterol level (ICD-10 - E78.00) not high enough to treat, will continue to monitor 03/12/2025 Paroxysmal atrial fibrillation (ICD-10 - I48.0) had an ablation, will continue current regiment 03/12/2025 Obstructive sleep apnea (ICD-10 - G47.33) using cpap 03/12/2025 History of asthma (ICD-10 - Z87.09) doing well at present, will contionue current regiment 03/12/2025 Prediabetes (ICD-10 - R73.09) stable, no need for medication at this time 03/12/2025 Acid reflux (ICD-10 - K21.9) stable, will comtinue current regiment 03/12/2025 Colon cancer screening (ICD-10 - Z12.11) guaiac negative 03/12/2025 Depression screening (ICD-10 - Z13.31) negative screen Plan Of Treatment Treatment Notes Assessment Notes Annual physical exam labs reviewed and d iscussed ith patient Elevated LDL cholesterol level not high enough to treat, will continue to monitor Paroxysmal atrial fibrillation had an ab lation, will continue current regiment Obstructive sleep apnea using cpap History of asthma doing well at presen t, will contionue current regiment Prediabetes stable, no need for medication at this time Acid reflux stable, will comtinu e current regiment Colon cancer screening guaiac negative Depression screening negative screen Next Appt Details Follow Up: 6 Months, Reason: Provider Name:Gilmer escobedo, 09/04/2025 07:45:00 AM, [address] [place] [address], [address], [phone], Provider Name:Gilmer garciar, 09/10/2025 03:00:00 PM, [address] [place] [address], [address], [phone], Provider Name:Gilmer garciar, 03/05/2026 07:15:00 AM, [address] [place] [address], [address], [phone], Provider Name:Gilmer garciar, 03/15/2026 11:00:00 AM, [address] [place] [address], [address], [phone], Progress Notes * DARRON LYNNDOB: (64 yo F)Acc No.[id number]:03/12/2025 Progress Notes Patient: Vikas PEREZDARRON CUMMINS Provider: Vishal Stubbs MD :1960 A ge:64 Y S ex:Female Date:03/12/2025 Address:[address] [place] [address] U[place]DO [id number] Subjective: * Chief Complaints: * A NNUAL EXAMBlood sugar is 124 A1C is 6.3 * HPI: D epression Screening: PHQ-9 L ittle interest or pleasure in doing things N ot at all, F eeling down, depressed, or hopeless N ot at all, T rouble falling or staying asleep, or sleeping too much N ot at all, F eeling tired or having little energy N ot at all, P oor appetite or overeating N ot at all, F eeling bad about yourself or that you are a failure, or have let yourself or your family down N ot at all, T rouble concentrating on things, such as reading the newspaper or watching television N ot at all, M oving or speaking so slowly that other people could have noticed; or the opposite, being so fidgety or restless that you have been moving around a lot more than usual N ot at all, T houghts that you would be better off or of hurting yourself in some way N ot at all, T otal Score 0 . I nterpretation and Intervention D epression Screening Findings N egative, F ollow-Up for Depression : review of PHQ-9 found negative result, no follow-up needed. C ommunication Needs: Communication Needs D oes the patient have a hearing impairment N o, D oes the patient have a vision impairment? Y es, I f yes, what is the vision impairment? G lasses, D oes the patient have a cognition impairment? N o. F all Risk: History H ave you had any falls with injury in the past year? N o, H ave you had two or more falls in the past year? N o. S ADÁN Questions: SDOH Questions I n the past year have you been worried about losing housing? N o, I n the past year have you or any family members you live with been unable to get any of the following when it was really needed? Check all that apply: N one. S ymptom(s): patient is a 64 yo female here annual visit with review of recent labs and follow up of chronic issues h ere for yearly evaluation/ had bronchitis and had to go on course of prednisone. * ROS: G eneral/Constitutional: Change in appetite d enies. C hills d enies. F ever d enies. O phthalmologic: Blurred vision d enies. D ischarge d enies. P ain d enies. E NT: Decreased hearing d enies. S ore throat d enies.?Swollen glands d enies. E ndocrine: Cold intolerance d enies. E xcessive thirst d enies. H eat intolerance d enies. W eight loss d enies. R espiratory: Cough d enies. S hortness of breath at rest d enies. S hortness of breath with exertion d enies. W heezing d enies. C ardiovascular: Chest pain at rest d enies. C hest pain with exertion?denies. I rregular heartbeat d enies. S hortness of breath d enies. ? G astrointestinal: Abdominal pain d enies. C hange in bowel habits d enies. D iarrhea d enies. N ausea d enies. R ectal bleeding d enies. V omiting d enies . G enitourinary: Blood in urine d enies. D ifficulty urinating d enies. F requent urination d enies. U rinary incontinence D enies. M usculoskeletal: Painful joints d enies. W eakness d enies. ? S kin: Dry skin d enies. I tching d enies. D enies?Mole(s), changes in moles, new moles or any lesions of concern. D enies P hotosensitivity. R rosita d enies. N eurologic: Dizziness d enies. F ainting d enies. H eadache?denies. * Medical History: * Surgical History: * Hospitalization/Major Diagno stic Procedure: * Family History: F ather: 75 yrs. M other: alive 81 yrs. 3 brother(s) . 2 son(s) , 2 daughter(s) . . Father- cancer mother arthritis No family of drug abuse or mental illness, Denies mental health/substance abuse family history, Denies mental health/substance abuse family history, Denies mental health/substance abuse family history, No pertinent family medical history, Denies mental health/substance abuse family history, Denies mental health/substance abuse family history. * Social History: T obacco Use: T obacco Use/Smoking P atient is a n onsmokerAnn dditional Findings: Tobacco Non-User C urrent non-smoker, currently using no form of tobacco. D rugs/Alcohol: A lcohol Screen D id you have a drink containing alcohol in the past year? Y es, H ow often did you have a drink containing alcohol in the past year? M onthly or less (1 point), H ow many drinks did you have on a typical day when you were drinking in the past year? 1 or 2 drinks (0 point), H ow often did you have 6 or more drinks on one occasion in the past year? N ever (0 point), P oints 1 , I nterpretation N egative. M iscellaneous: C affeine: yes, 1-2 cups per day. Children: yes. Community involvements: yes. Exercise: no. Home smoke detector use: yes. Housing: living with relatives. Living with: , spouse. Marital status: . Occupation: weeks/months/years, works full- time. Pets: none. Travel outside of the [place]: no. * Medications: T akingCentrum - Tablet as directed Orally Albuterol Sulfate HFA 108 (90 Base) MCG/ACT Aerosol Solution 1 puff as needed Inhalation every 4 hrs Eliquis 5 MG Tablet 1 tablet Orally Twice a day Atorvastatin Calcium 20 mg Tablet TAKE 1 TABLET DAILY Omeprazole 20 mg Capsule Delayed Release TAKE 1 CAPSULE DAILY 30 MINUTES BEFORE MORNING MEAL Gabapentin 300 MG Capsule 1 capsule Orally Once a day Medication List reviewed and reconciled with the patientTaking Centrum - Tablet as directed Orally Taking Albuterol Sulfate HFA 108 (90 Base) MCG/ACT Aerosol Solution 1 puff as needed Inhalation every 4 hrs Taking Eliquis 5 MG Tablet 1 tablet Orally Twice a day Taking Atorvastatin Calcium 20 mg Tablet TAKE 1 TABLET DAILY Taking Omeprazole 20 mg Capsule Delayed Release TAKE 1 CAPSULE DAILY 30 MINUTES BEFORE MORNING MEAL Taking Gabapentin 300 MG Capsule 1 capsule Orally Once a day Medication List reviewed and reconciled with the patient * Allergies: P enicillin: rash hivesyes[Allergies Verified] Objective: * Vitals: H t: 60, Wt: 200, BMI:39.06, BP:122/56, Wt-k.72. weight is up 5 pounds since 10-06-24. * P ast Orders: L ab:Lipid Panel (Order Date - 03/03/2025) (Collection Date & Time - 03/03/2025 08:55 AM) Value Reference Range Triglycerides 68 <150 - mg/dL Cholesterol 169 <200 - mg/dL LDL Cholesterol Calculated 111 H <100 - mg/dL HDL Cholesterol 45 >40 - mg/dL L ab:UA CC w/rflx Micro + Cult (Order Date - 03/03/2025) (Collection Date & Time - 03/03/2025 08:51 AM) Value Reference Range Color Urine Yellow - Appearance Urine Clear - PH 6.0 5.0-9.0 - Glucose Urine UA Negative Negative - mg/dL Urine Blood Negative Negative - Specific [place] - Urine 1.010 1.005-1.025 - Urine Protein Negative Neg-Trace - mg/dL Urine Ketones Negative Negative - mg/dL Nitrite Urine Negative Negative - Leukocyte Esterase Urine Negative Negative - L ab:Comprehensive Lamar. Panel Fast (Order Date - 03/03/2025) (Collection Date & Time - 03/03/2025 08:55 AM) Value Reference Range Sodium 141 135-145 - mmol/L Bilirubin Total 0.3 0.0-1.0 - mg/dL Aspartate Amino Transferase 25 5-31 - U/L Alanine Aminotransferase 36 H 0-31 - U/L Total Protein 7.2 6.5-8.0 - g/dL Albumin Level 4.2 3.5-5.0 - g/dL Alkaline Phosphatase 104 39-117 - U/L Potassium 4.1 3.3-5.1 - mmol/L Chloride 108 96-108 - mmol/L Carbon Dioxide 25 22-29 - mmol/L Anion Gap 12 12-20 - Blood Urea Nitrogen 16 9-16 - mg/dL Creatinine 0.66 0.5-1.4 - mg/dL Estimated Glomerular Filt Rate > 60 - Glucose Fasting 156 H 60-99 - mg/dL Calcium 9.4 8.4-10.2 - mg/dL L ab:Complete Blood Count Auto Diff (Order Date - 03/03/2025) (Collection Date & Time - 03/03/2025 08:55 AM) Value Reference Range White Blood Count 6.0 4.8-10.8 - X10*3/uL Red Blood Count 4.29 4.20-5.50 - X10*6/uL Hemoglobin 12.8 12.0-16.0 - g/dl Hematocrit 38.9 37.0-47.0 - % Mean Corpuscular Volume 90.7 80.0-98.0 - fL Mean Corpuscular Hemoglobin 29.8 27.0-33.0 - pg Mean Corpuscular HGB Conc 32.9 31.0-35.0 - g/ dl Red Cell Distribution Width 13.2 11.0-16.0 - % Platelet Count 285 160-400 - X10*3/uL Mean Platelet Volume 10.0 9.4-12.3 - fL Neutrophils Percent Auto 83.1 H 45-73 - % Imm Gran Pct Auto 0.7 H 0.0-0.4 - % Lymphocytes Percent Auto 13.7 L 20-40 - % Monocytes Percent Auto 2.2 2-11 - % Eosinophils Percent Auto 0.0 0-4 - % Basophils Percent Auto 0.3 0-2 - % NRBC Pct Auto 0.0 0.0-0.2 - /100WBC Neutrophils Absolute Auto 5.0 2.0-8.3 - x10* 3/uL Imm Gran Abs Auto 0.04 H 0.00-0.03 - X10*3/uL Lymphocytes Absolute Auto 0.8 L 1.2-4.9 - X10* 3/uL Monocytes Absolute Auto 0.1 0.1-1.2 - X10*3/ uL Eosinophils Absolute Auto 0.0 0.0-0.4 - X10* 3/uL Basophils Absolute Auto 0.0 0.0-0.2 - X10*3/ uL NRBC Abs Auto 0.000 0.0-0.012 - X10*3/uL * Examination: G eneral Examination: GENERAL APPEARANCE: w ell developed, well nourished, in no acute distress. HEAD: n ormocephalic, atraumatic. EYES: p upils equal, round, reactive to light and accommodation, sclera non-icteric. EARS: n ormal. ORAL CAVITY: m ucosa moist. THROAT: c lear. NECK/THYROID: n julio supple, full range of motion, no cervical lymphadenopathy, no bruits. SKIN: w arm and dry, no suspicious lesions. HEART: r egular rate and rhythm, S1, S2 normal, no murmurs.? LUNGS: c lear to auscultation bilaterally. BREASTS: N o mass, no lump. ABDOMEN: s oft, nontender, nondistended, bowel sounds present, normal, no organomegaly , no masses palpable. RECTAL EXAM: n o masses palpable, stool guaiac negative.? FEMALE GENITOURINARY: c haperone in room, bladder nondistended, non-palpable ovaries. EXTREMITIES: n o clubbing, cyanosis, or edema. NEUROLOGIC: n onfocal, motor strength normal upper and lower extremities, sensory exam intact. Assessment: * Assessment: 1. A nnual physical exam - Z00.00 (Primary) 2 . E levated LDL cholesterol level - E78.00 3 . P aroxysmal atrial fibrillation - I48.0 4 .?Obstructive sleep apnea - G47.33 5 . H istory of asthma - Z87.09 6. P rediabetes - R73.09 7 . A jamil reflux - K21.9 8 .?Colon cancer screening - Z12.11 9 . D epression screening - Z13.31 ? Plan: * Treatment: 2. E levated LDL cholesterol level Notes: not high enough to treat, will continue to monitor 3. P aroxysmal atrial fibrillation Notes: had an ablation, will continue current regiment 4. O bstructive sleep apnea Notes: using cpap 5. H istory of asthma Notes: doing well at present, will contionue current regiment 6. P rediabetes Notes: stable, no need for medication at this time 7. A jamil reflux Notes: stable, will comtinue current regiment 8. C olon cancer screening L AB: Occult Blood, Stool, Guaiac (Collection Date & Time - 03/12/2025) N egative Value Reference Range O ccult Blood, Stool, Guaiac Neg Notes: guaiac negative??9.?Depression screening? Notes: negative screen?? * Procedure Codes: 8 2270 TEST FOR BLOOD, FECES * Preventive Medicine: Counseling: C are goal follow-up plan: C ounseling for abnormal BMI provided?Yes, A andrade Normal BMI Follow-up G jahing encouragement to exercise. * Follow Up: 6 Months * * Sign off status: Completed true * Provider: Vishal Stubbs MD Date: 0 03/12/2025 Generated for Claribel packer/Humberto/Fidenciosmitting on: 1 10/04/2024 10:22 AM EST History and Physical Notes * HPI (History of Present Illness) Category Sub-Category Detail Notes Category Not es Symptom(s) patient is a 64 yo female here annual visit with review of recent labs and follow up of chronic issues here for yearly evaluation/ had bronchitis and had to go on course of prednisone Depression Screening PHQ-9 Little inte rest or pleasure in doing things: Not at all Feeling down, depressed, or hopeless: No t at all Trouble falling or staying asleep, or sl eeping too much: Not at all Feeling tired or having little energy: N ot at all Poor appetite or overeating: Not at all Feeling bad about yourself o r that you are a failure, or have let yourself or your family down: Not at all Trouble concentrating on thi ngs, such as reading the newspaper or watching television: Not at all Moving or speaking so slowly that other people could have noticed; or the opposite, being so fidgety or restless that you have been moving around a lot more than usual: Not at all Thoughts that you would be b mayito off or of hurting yourself in some way: Not at all Total Score: 0 Interpretation and Intervention Depression Niels ley Findings: Negative Follow-Up for Depression: : review of PH Q-9 found negative result, no follow-up needed SDOH Questions SDOH Questions In the past year have you been worried about losing housing?: No In the past year have you or any family members you live with been unable to get any of the following when it was really needed? Check all that apply:: None Fall Risk History Have you had any falls with injury i n the past year?: No Have you had two or more falls in the year?: No Communication Needs Communication Needs Does the patient have a hearing impairment: No Does the patient have a vision impairmen t?: Yes If yes, what is the vision impairment?: Glasses Does the patient have a cognition impair ment?: No Examination Category Sub-Category Detail Notes Category Not es General Examination GENERAL APPEARANCE: well dev eloped, well nourished, in no acute distress HEAD: normocephalic, atrau matic EYES: pupils equal, round, reactive to light and accommodation, sclera non-icteric EARS: normal THROAT: clear NECK/THYROID: neck supple, full ra nge of motion, no cervical lymphadenopathy, no bruits HEART: regular rate and rhy thm, S1, S2 normal, no murmurs LUNGS: clear to auscultatio n bilaterally ABDOMEN: soft, nontender, non distended, bowel sounds present, normal, no organomegaly , no masses palpable NEUROLOGIC: nonfocal, motor stre ngth normal upper and lower extremities, sensory exam intact SKIN: warm and dry, no zac picious lesions EXTREMITIES: no clubbing, cyanosi s, or edema BREASTS: No mass, no lump RECTAL EXAM: no masses palpable, stool guaiac negative FEMALE GENITOURINARY: computer methods analyst in room, bladder nondistended, non-palpable ovaries ORAL CAVITY: mucosa moist
--- OUTSIDE RECORDS SUMMARY | 2025-06-01 03:45 | XMS_ITS ---
Author Organization Gilmer Stubbs MD Address [address] [place], [place] [id number] Care Team Providers Care Coin Machine Mechanic Name Role Phone Gilmer Stubbs Primary Care Provider Allergies Allergen (clinical drug ingredient) Drug/Non Drug Allergy documented on EMR Reaction Allergy Type Onset Date Status Penicillin rash hives Drug Allergy Activ e REASON FOR VISIT wants to see a dye padder operator, using his inhaler alot, Has been to Urgent Care several times over the summer [facility] Medications Medication SIG (Take, Route, Frequency, Duration) [...] tablet Orally Twic e a day Active Cetirizine-Pseudoephedrine ER 5-120 MG 1 tablet as needed Orally Once a day Active predniSONE 10 MG use as dierected Ora lly 4 tabs for 4 days, 3 tabs for 4 days, 2 tbs for 4 days, and 1 tab for 4 days for 14 days 06/01/2025 Active Centrum - as directed Orally A ctive Symbicort 160-4.5 MCG/ACT 2 puffs Inhala tion twice a day for 30 days 06/01/2025 Active Problems Problem Type SNOMED Code ICD Code Onset Dates Problem Status W/U Status Risk Notes Problem Asthma (422058285) Asthma (J45.909) Active confirmed Vital Signs Blood pressure systolic 132 mm Hg 06/01/20 25 Blood pressure diastolic 70 mm Hg 025 Height 60 in 06/01/2025 Weight 195 lbs 06/01/2025 BMI 38.08 kg/m2 06/01/2025 weight is down 5 pounds [facility] e 03-12-25 Encounters Encounter Location Date Provider Diagnosis Gilmer Stubbs MD [address] [place] [address] [place] [phone] 06/01/2025 Gilmer Stubbs Asthma J45.909 Assessments Encounter Date Diagnosis (ICD Code) Assessment Notes Treatment Notes Treatment Clinical Notes Section Notes 06/01/2025 Asthma (ICD-10 - J45.909) patient verbalized understanding of medicatio and directions for uise Plan Of Treatment Medication Medication Name Sig Start Date Stop Date Notes predniSONE 10 MG use as dierected Ora lly 4 tabs for 4 days, 3 tabs for 4 days, 2 tbs for 4 days, and 1 tab for 4 days for 14 days 06/01/2025 Symbicort 160-4.5 MCG/ACT 2 puffs Inhala tion twice a day for 30 days 06/01/2025 Treatment Notes Assessment Notes Asthma patient verbalized u nderstanding of medicatio and directions for uise Next Appt Details Follow Up: 2 - 3 Days, Reaso n: Provider Name:Gilmer escobedo, 09/04/2025 07:45:00 AM, [address] [place] [address], [address] [place] [address], [phone], Provider Name:Gilmer escobedo, 09/10/2025 03:00:00 PM, [address] [place] [address], [place] [address], [place], [place], [phone], Provider Name:Gilmer escobedo, 03/05/2026 07:15:00 AM, [address] [place] [address], [address], [phone], Provider Name:Gilmer Abarca ier, 03/15/2026 11:00:00 AM, [address], [address], [place], [place], [phone], Progress Notes * DARRON LYNNDOB: (65 yo F)Acc No.[id number]:06/01/2025 Progress Notes Patient: DARRON FOLEY Provider: Vishal Stubbs MD :1960 A ge:65 Y S ex:Female Date:06/01/2025 Address: [facility], [place], [phone] Subjective: * Chief Complaints: * W ants to see a dye padder operator, using his inhaler alotHas been to Urgent Care several times over the summer [facility] [address] * HPI: S ymptom(s): patient is a 65 yo female here to discuss referral to dye padder operator, says she is using her inhaler alot/ has been into walk in many times over the summer. has been wheezing constant wheezing every day. last time on prednisone 2 weeks ago. * ROS: G eneral/Constitutional: Denies C hills. D enies F atigue. D enies F ever. D enies H eadache. E NT: Denies S ore throat. R espiratory: Admits B reathing pattern. A dmits C ough. A dmits S hortness of breath at rest. A dmits S hortness of breath with exertion. A dmits S putum production. A dmits W heezing. G astrointestinal: Denies D iarrhea. D enies N ausea. * Medical History: * Surgical History: * Hospitalization/Major Diagno stic Procedure: * Medications: T akingCetirizine-Pseudoephedrine ER 5-120 MG Tablet Extended Release 12 Hour 1 tablet as needed Orally Once a day Centrum - Tablet as directed Orally Albuterol Sulfate [...] 1 capsule Orally Once a day Taking Cetirizine-Pseudoephedrine ER 5-120 MG Tablet Extended Release 12 Hour 1 tablet as needed Orally Once a day Taking Centrum - Tablet as directed Orally [...] Capsule 1 capsule Orally Once a day * Allergies: P enicillin: rash hivesyes[Allergies Verified] Objective: * Vitals: H t: 60, Wt: 195, BMI:38.08, BP:132/70, Wt-k.45. weight is down 5 pounds since 03-12-25. * Examination: G eneral Examination: GENERAL APPEARANCE: a lert, well hydrated, with audible wheezing. HEAD: n ormocephalic. SKIN: g ood turgor. HEART: n o murmurs, rubs, gallops, regular rate and rhythm.? LUNGS: a bnormal with diffuse wheezing both lungs. ? Assessment: * Assessment: 1. A [facility] - J45.909 (Primary) Plan: * Treatment: * Procedure Codes: * Follow Up: 2 - 3 Days * * Sign off status: Completed true * Provider: Vishal Stubbs MD Date: 0 06/01/2025 Generated for Claribel packer/Humberto/Fidenciosmitting on: 1 10/04/2024 10:21 AM EST History and Physical Notes * HPI (History of Present Illness) Category Sub-Category Detail Notes Category Not es Symptom(s) patient is a 65 yo female here to discuss referral to dye padder operator, says she is using her inhaler alot/ has been into walk in many times over the summer. has been wheezing constant wheezing every day. last time on prednisone 2 weeks ago. Examination Category Sub-Category Detail Notes Category Not es General Examination GENERAL APPEARANCE: alert, w ell hydrated, with audible wheezing HEAD: normocephalic HEART: no murmurs, rubs, ga llops, regular rate and rhythm LUNGS: abnormal with diffus e wheezing both lungs SKIN: good turgor
--- OUTSIDE RECORDS SUMMARY | 2025-06-04 03:45 | XMS_ITS ---
Author Organization Gilmer Stubbs MD Address [address] [place], [place] [id number] Care Team Providers Care Contract Paralegal Name Role Phone Gilmer Stubbs Primary Care Provider Allergies Allergen (clinical drug ingredient) Drug/Non Drug Allergy documented on EMR Reaction Allergy Type Onset Date Status Penicillin rash hives Drug Allergy Activ e Reason For Referral Reason ASTHMA HAY FEVER Diagnosis 1 Asthma (J45.909) Diagnosis 2 Hay fever (J30.1) Referral Organization Gilmer Stubbs MD Referring Provider First Name Gilmer Referring Provider Last Name Enoc Referring Provider Speciality Internal M edicine Referred Provider RAMYA GROVE Referred Provider Specialty Allergy/Immu nology General Notes Astrid Whitfield 06/04/2025 08:56:00 AM >REFERRAL FAXED TO DR GILLETT[facility] OFFICE FOR NEW PATIENT APPT, Astrid Whitfield 06/29/2025 09:35:58 AM >PER DR GILLETTE OFFICE, THEY HAVE CALLED HER ON JUN 21 AND JUN 28 AND LEFT MESSAGES WITH NO RESPONSE FROM HER, Astrid Whitfield 06/29/2025 11:26:20 AM >I CALLED DARRON TO REMINFD HER TO RETURN CALL AT ALLERGY OFFICE, Astrid Whitfield 07/05/2025 02:04:57 PM >MESSAGE LEFT WITH [facility] AGAIN, Astrid Whitfield 07/12/2025 08:02:46 AM >NOTE RECD FROM [facility], THEY HAVE CLOSED OUT REFERRAL DARRON HAS NOTE CONTACTED THEM, CLOSE OUR REFERRAL WELL Referral Priority Routine REASON FOR VISIT 2-3days Medications Medication SIG (Take, Route, Frequency, Duration) Notes Start Date End Date Status Atorvastatin Calcium 20 mg TAKE 1 TABLET DAILY Active Gabapentin 300 MG 1 capsule Orally Onc e a day for 90 days 09/04/2024 Active Omeprazole 20 mg TAKE 1 CAPSULE DAILY 30 MINUTES BEFORE MORNING MEAL Active predniSONE 10 MG use as dierected Ora lly 4 tabs for 4 days, 3 tabs for 4 days, 2 tbs for 4 days, and 1 tab for 4 days for 14 days 06/01/2025 Active Symbicort 160-4.5 MCG/ACT 2 puffs Inhala tion twice a day for 30 days 06/01/2025 Active Eliquis 5 MG 1 tablet Orally Twic e a day Active Albuterol Sulfate HFA 108 (90 Base) MCG/ACT 1 puff as needed Inhalation every 4 hrs for 30 days 03/06/2024 Active Centrum - as directed Orally A ctive Problems Problem Type SNOMED Code ICD Code Onset Dates Problem Status W/U Status Risk Notes Problem Hay fever (53608774) Hay fever (J30.1) Active confirmed Vital Signs Blood pressure systolic 144 mm Hg 06/04/20 25 Blood pressure diastolic 70 mm Hg 025 Height 60 in 06/04/2025 Weight 195 lbs 06/04/2025 BMI 38.08 kg/m2 06/04/2025 Encounters Encounter Location Date Provider Diagnosis Gilmer Stubbs MD [address] [place] [address] [place] [phone] 06/04/2025 Gilmer Stubbs Asthma J45.909 and Hay fever J30.1 Assessments Encounter Date Diagnosis (ICD Code) Assessment Notes Treatment Notes Treatment Clinical Notes Section Notes 06/04/2025 Asthma (ICD-10 - J45.909) doing much better. have given her instrucctions and explained the preventive meds/ REFERRAL FAXED TO DR GILLETTE OFFICE 06/04/2025 Hay fever (ICD-10 - J30.1) will refer her to dr bass Plan Of Treatment Treatment Notes Assessment Notes Asthma doing much better. areli pike given her instrucctions and explained the preventive meds/ REFERRAL FAXED TO DR GILLETTE OFFICE Hay fever will refer her to dr bass Referrals Referral Date Details 06/04/2025 06/04/2025, ASTHMA HAY FEVER, RAMYA GROVE Next Appt Details Follow Up: 1 Week, Reason: Provider Name:Gilmer Abarca ier, 09/04/2025 07:45:00 AM, [address] [place] [address], [address] [place] [address], [phone], Provider Name:Gilmer Abarca ier, 09/10/2025 03:00:00 PM, [address] [place] [address], Suite [facility], [place], [place], [phone], Provider Name:Gilmer Abarca ier, 03/05/2026 07:15:00 AM, [address] [place] [address], [address] [place] [address], [phone], Provider Name:Gilmer Abarca ier, 03/15/2026 11:00:00 AM, [address] [place] [address], [address] [place] [address], [phone], Progress Notes * POLYGRABIELMaxineDARRONDOB: (65 yo F)Acc No.[id number]:06/04/2025 Patient: EARLENE FOLEYILA Provider: Vishal Stubbs MD :1960 A ge:65 Y S ex:Female Date:06/04/2025 Address:[address] [address] Heladio PICKENS [id number] Subjective: * Chief Complaints: * 2 -3days * HPI: S ymptom(s): patient is a 65 yo female here for 2-3 days follow up visit/ here for follow up. started to feel better after 2 days. has not used her inhaler today. * ROS: G eneral/Constitutional: Denies C hills. D enies F atigue. D enies F ever. D enies H eadache. E NT: Denies S ore throat. R espiratory: Denies C ough. D enies S hortness of breath at rest. A dmits S hortness of breath with exertion. D enies S putum production. D enies W heezing. G astrointestinal: Denies D iarrhea. [...] Capsule 1 capsule Orally Once a day predniSONE 10 MG Tablet use as dierected Orally 4 tabs for 4 days, 3 tabs for 4 days, 2 tbs for 4 days, and 1 tab for 4 days Symbicort 160-4.5 MCG/ACT Aerosol 2 puffs Inhalation twice a day Taking Centrum - Tablet as [...] 1 capsule Orally Once a day Taking predniSONE 10 MG Tablet use as dierected Orally 4 tabs for 4 days, 3 tabs for 4 days, 2 tbs for 4 days, and 1 tab for 4 days Taking Symbicort 160-4.5 MCG/ACT Aerosol 2 puffs Inhalation twice a day DiscontinuedCetirizine-Pseudoephedrine ER 5-120 MG Tablet Extended Release 12 Hour 1 tablet as needed Orally Once a day Discontinued Cetirizine-Pseudoephedrine ER 5-120 MG Tablet Extended Release 12 Hour 1 tablet as needed Orally Once a day * Allergies: P enicillin: rash hivesyes[Allergies Verified] Objective: * Vitals: H t: 60, Wt: 195, BMI:38.08, BP:144/70, Wt-k.45. * Examination: G eneral Examination: GENERAL APPEARANCE: a lert, well hydrated, in no distress.? HEAD: n ormocephalic. SKIN: g ood turgor. HEART: n o murmurs, rubs, gallops, regular rate and rhythm.? LUNGS: a bnormal still with wheezing but much better.. Assessment: * Assessment: 1. A sthma - J45.909 (Primary) 2 . H ay fever - J30.1 Plan: * Treatment: 2. H ay fever Notes: will refer her to dr bass Referral To:RAMYA GROVE Allergy/Immunology Reason:ASTHMA HAY FEVER * Procedure Codes: * Follow Up: 1 Week * * Sign off status: Completed true * Provider: Vishal Stubbs MD Date: 0 06/04/2025 Generated for Claribel packer/Humberto/eTjuanjosesmitting on: 1 10/04/2024 10:18 AM EST History and Physical Notes * HPI (History of Present Illness) Category Sub-Category Detail Notes Category Not es Symptom(s) patient is a 65 yo female here for 2-3 days follow up visit/ here for follow up. started to feel better after 2 days. has not used her inhaler today Examination Category Sub-Category Detail Notes Category Not es General Examination GENERAL APPEARANCE: alert, w ell hydrated, in no distress HEAD: normocephalic HEART: no murmurs, rubs, ga llops, regular rate and rhythm LUNGS: abnormal still with wheezing but much better. SKIN: good turgor Consultation Request Notes Referral Date Referring Provider Referred Provider Not es 06/04/2025 Gilmer Stubbs JONATHAN ASTHMA HAY FEVER
--- OUTSIDE RECORDS SUMMARY | 2025-06-11 10:00 | XMS_ITS ---
Author Organization Gilmer Stubbs MD Address [address] [place], [place] [id number] Care Team Providers Care Pediatric Intensive Physician Name Role Phone Gilmer Stubbs Primary Care Provider Allergies Allergen (clinical drug ingredient) Drug/Non Drug Allergy documented on EMR Reaction Allergy Type Onset Date Status Penicillin rash hives Drug Allergy Activ e REASON FOR VISIT ONE WEEK F/U Medications Medication SIG (Take, Route, Frequency, Duration) Notes Start Date End Date Status Eliquis 5 MG 1 tablet Orally Twic e a day Active Gabapentin 300 MG 1 capsule Orally Onc e a day for 90 days 09/04/2024 Active Atorvastatin Calcium 20 mg TAKE 1 TABLET DAILY Active Omeprazole 20 mg TAKE 1 CAPSULE DAILY 30 MINUTES BEFORE MORNING MEAL Active Ipratropium-Albuterol 0.5-2.5 (3) MG/3ML USE 1 VIAL (3 ML) VIA NEBULIZER EVERY 6 TO 8 HOURS NEEDED FOR WHEEZING Active Albuterol Sulfate HFA 108 (90 Base) MCG/ACT 1 puff as needed Inhalation every 4 hrs 03/06/2024 Active Symbicort 160-4.5 MCG/ACT 2 puffs Inhala tion twice a day 06/01/2025 Active Centrum - as directed Orally A ctive Immunizations Vaccine Route Administration Date Status Comme nts Influenza High Dose IM Intramuscular 06/11/2025 Administer ed Vital Signs Blood pressure systolic 130 mm Hg 06/11/20 25 Blood pressure diastolic 62 mm Hg 025 Height 60 in 06/11/2025 Weight 195 lbs 06/11/2025 BMI 38.08 kg/m2 06/11/2025 Encounters Encounter Location Date Provider Diagnosis Gilmer Stubbs MD [address] [place] [phone] 06/11/2025 Gilmer Stubbs Asthma J45.909 and Encounter for administration of vaccine Z23 Assessments Encounter Date Diagnosis (ICD Code) Assessment Notes Treatment Notes Treatment Clinical Notes Section Notes 06/11/2025 Asthma (ICD-10 - J45.909) doing great on present 06/11/2025 Encounter for administration of vaccine (ICD-10 - Z23) HD flu vaccine administered Plan Of Treatment Medication Medication Name Sig Start Date Stop Date Notes Ipratropium-Albuterol 0.5-2. 5 (3) MG/3ML USE 1 VIAL (3 ML) VIA NEBULIZER EVERY 6 TO 8 HOURS NEEDED FOR WHEEZING Albuterol Sulfate HFA 108 (9 0 Base) MCG/ACT 1 puff as needed Inhalation every 4 hrs 03/06/2024 Symbicort 160-4.5 MCG/ACT 2 puffs Inhala tion twice a day 06/01/2025 Treatment Notes Assessment Notes Asthma doing great on prese nt Encounter for administration of vaccine HD flu vaccine administered Next Appt Details Provider Name:Gilmer escobedo, 09/04/2025 07:45:00 AM, [address] [place] [address], [address], [phone], Provider Name:Gilmer escobedo, 09/10/2025 03:00:00 PM, [address] [place] [address], [address], [phone], Provider Name:Gilmer escobedo, 03/05/2026 07:15:00 AM, [address] [place] [address], [phone], Provider Name:Gilmer escobedo, 03/15/2026 11:00:00 AM, [address] [place] [address], [phone], Progress Notes * DARRON LYNNDOB: (65 yo F)Acc No.[id number]:06/11/2025 Progress Notes Patient: DARRON FOLEY Provider: Vishal Stubbs MD :1960 A ge:65 Y S ex:Female Date:06/11/2025 Address:[address] [place] [address] [place], [id number] Subjective: * Chief Complaints: * O NE WEEK F/U * HPI: S ymptom(s): pt is a 65 yo female here for follow up is doing great. 2 days left in prednisone. not using inhaler. * ROS: G eneral/Constitutional: Lorena Leija hills. Lolis enies F atigue. D enies F ever. D enies H eadache. E NT: Denies S ore throat. R espiratory: Lorena Leija ough. Lolis enanatoly S hortness of breath at rest. A dmits S hortness of breath with exertion. D enanatoly W heezing. G astrointestinal: Lorena Danielle iarrhea. D enanatoly N ausea. * Medical History: * Surgical [...] Capsule 1 capsule Orally Once a day Symbicort 160-4.5 MCG/ACT Aerosol 2 puffs Inhalation twice a day Ipratropium-Albuterol 0.5-2.5 (3) MG/3ML Solution USE 1 VIAL (3 ML) VIA NEBULIZER EVERY 6 TO 8 HOURS NEEDED FOR WHEEZING Taking Centrum - Tablet as directed Orally [...] 1 capsule Orally Once a day Taking Symbicort 160-4.5 MCG/ACT Aerosol 2 puffs Inhalation twice a day Taking Ipratropium-Albuterol 0.5-2.5 (3) MG/3ML Solution USE 1 VIAL (3 ML) VIA NEBULIZER EVERY 6 TO 8 HOURS NEEDED FOR WHEEZING DiscontinuedpredniSONE 10 MG Tablet use as dierected Orally 4 tabs for 4 days, 3 tabs for 4 days, 2 tbs for 4 days, and 1 tab for 4 days Medication List reviewed and reconciled with the patientDiscontinued predniSONE 10 MG Tablet use as dierected Orally 4 tabs for 4 days, 3 tabs for 4 days, 2 tbs for 4 days, and 1 tab for 4 days Medication List reviewed and reconciled with the patient * Allergies: P enicillin: rash hivesyes[Allergies Verified] Objective: * Vitals: H t: 60, Wt: 195, BMI:38.08, BP:130/62, Wt-k.45. * Examination: G eneral Examination: GENERAL APPEARANCE: a lert, well hydrated, in no distress.? SKIN: g ood turgor. HEART: n o murmurs, rubs, gallops, regular rate and rhythm.? LUNGS: n o wheezes, rales, rhonchi, good air movement, clear to auscultation bilaterally. Assessment: * Assessment: 1. A [facility] - J45.909 (Primary) 2 . E ncounter for administration of vaccine - Z23 Plan: * Treatment: 2. E ncounter for administration of vaccine Notes: HD flu vaccine administered * Immunizations: Influenza High Dose : 0.5 mL (Dose No:1) (Route: Intramuscular) given by Anahy Contreras , Office Staff on Left Deltoid * Procedure Codes: 9 0662 FLU VACC PRSV FREE INC [id number] ADMN FLU VAC NO FEE SCHED SAME DAY * * Sign off status: Completed true * Provider: Vishal Stubbs MD Date: 0 06/11/2025 Generated for Claribel packer/Humberto/eTjuanjosesmitting on: 1 10/04/2024 10:19 AM EST History and Physical Notes * HPI (History of Present Illness) Category Sub-Category Detail Notes Category Not es Symptom(s) pt is a 65 yo f emale here for follow up is doing great. 2 days left in prednisone. not using inhaler Examination Category Sub-Category Detail Notes Category Not es General Examination GENERAL APPEARANCE: alert, w ell hydrated, in no distress HEART: no murmurs, rubs, ga llops, regular rate and rhythm LUNGS: no wheezes, rales, r honchi, good air movement, clear to auscultation bilaterally SKIN: good turgor
--- NOTE | ~2025-08-04 | MM_ITS ---
EXAMINATION: MM SCREENING DIGITAL BREAST TOMOSYNTHESIS, BILATERAL CLINICAL INFORMATION: Screening. Asymptomatic. COMPARISON: Comparison made to multiple prior, most recent July 29, 2024, and most remote December 12, 2013. TECHNIQUE: Digital breast tomosynthesis is performed in mediolateral oblique and craniocaudal views along with computer-aided detection (CAD). Synthesized 2D images are generated from the tomosynthesis. FINDINGS: BREAST COMPOSITION: There are scattered areas of fibroglandular density. BILATERAL BREASTS: No significant masses, suspicious calcifications or other abnormalities are seen in either breast. MM/MM tomosynthesis screening BI IMPRESSION: BILATERAL BREASTS: Negative, no mammographic evidence of malignancy. Normal interval follow-up is recommended in 12 months. ASSESSMENT: BI-RADS: Category 1: Negative RECOMMENDATION: Routine annual mammography screening. FOLLOW-UP: 1 year F/U This examination should not preclude the clinical evaluation of a suspicious palpable abnormality. This patient's information was entered into a reminder system with a target due date for their next mammogram. Electronically signed by: Holly Chin MD 08/06/2025 07:06 PM CHET
--- OUTSIDE RECORDS SUMMARY | 2025-08-04 10:20 | XMS_ITS | Data Portability ---
Author Organization [facility] Percy Chavarria Mddrake [facility]geons [facility], [facility] Address [address] [place] [address] Care Team Providers Care Photographic Developer And Printer Name Role Phone YARELIS TRONCOSO Primary Care [...] [phone] benjy Montero Office, [address] [facility], [facility] [address], [place], [address], 4 09:21:27 Medication Orders None recorded. Patient TargetsNo targets recorded. Patient Instructions Encounter Date Encounter Id Patient Instructions Last Modified By Organization Details Last Modified Time 01/28/2024 [id number] You have been provided with a cortisone [...] hours following the injection. This is called nikolai armstrong . To help minimize the chances of [...] a4ajBk vP9nXo QUaueC m3YtLR FvZlgJ JJ8mAn HZtai3 [id number] AC0Kqa X%2BEW auiKiQ trMwF INTERFACE [facility] Office [address] [facility] [address], [place], [address], 08/08/2024 15:39:04 08/08/20 24 08/08/2024 XR, knee, 4 or more view http:/ [email or web address] ?Encry pted=s hAaTro YD8dLq bEUv6g %2BXZw aYqtaq 0bqfl% 2Fg9IQ a4ajBk vP9nXo QUaueC m3YtLR FvZlgJ JJ8mAn HZtai3 5k5125 AC0Kqa X%2BEW auiKiQ trMwF INTERFACE [facility] Office [address] [facility] [address], [place], [address], 08/08/2024 15:39:07 10/31/19 25 10/31/2024 XR, foot, 3 or more view No observ ation record ed. BARCODE Not Available 2024 16:09:12 11/01/19 25 10/31/2024 XR, foot, 3 or more view No observ ation record ed. BARCODE Not Available 2024 11:18:58 Result Notes Documentation Provider Name and Address Organization Details Recorded Time Xr, Knee, 4 Or More View : [email or web address]? Encrypted=hnKsEphEK3zFclH Uv6g%6WZCalVxmsl1fxzn%2Fg 1HIs2anCgoV8tYoHUbqxKj5Ne ZPQwTjrFPO5qXuPHzkf79i470 0BI3WjoE%2BEWauiKiQtrMwF Not Available [facility] 08/08/2024 15:3 9:06 Xr, Knee, 4 Or More View : [email or web address]? Encrypted=fxNoKjkAR5hDwvE Uv6g%3JUFpbLhzjr6iqik%2Fg 2HBz9dcLipD2vQiWTuzaBz1Vv SRGfBuaHDN2tLaNVdst83x637 5KZ6ObqI%2BEWauiKiQtrMwF Not Available [facility] 08/08/2024 15:3 9:08 Problems Name Problem SNOMED Code Status Onset Date Resolution Date Notes Provider Name and Address Organization Details Recorded Time Osteoarthri tis of right knee joint 9239832163817 00 Active 2023 Shante Toribio PA-C [address], [place], [address], [facility] 10:20:15 Problem Notes None recorded. Procedures Surgical History Date Name Laterality Status Provider Name and Address Organization Details Recorded Time 08/08/2024 Sports Knee 4&1 completed VIRA Mena-C [address], [place], [address], [facility] 08/08/2024 15:04:26 05/09/2024 Sports Knee 4&1 completed Sahnte Toribio PA-C [address], [place], [address], [facility] 05/08/2024 11:28:24 01/28/2024 Sports Knee 4&1 completed Shante Toribio PA-C [address], [place], [address], [facility] 01/26/2024 10:20:05 Imaging Results None recorded. Procedure Notes None recorded. Medical Equipment None Reported. Allergies Allergen ID Allergen Name Allergen Category Reaction Reaction Severity Criticality Documentation Date Start Date Code Code System Note Provider Name and Address Organization Details Recorded Time 13702 Product containin g penicilli n (product) medicatio n Not available Not available Not available 11/22/20232021 72498 8001 SNOMED Not Available [facility] 12:19:56 Medications Name Sig Start Date Stop [...] Updated DateTime 01/28/2024 154.94 cm ASHOK AYDEN [facility] 01/28/2024 15:20:42 Date Recorded Body height Provider Name an d Address Organization Details Last Updated DateTime 05/09/2024 154.94 cm DEJAH RICHARDSONNikolai [facility] 05/09/2024 10:28:47 Date Recorded Body height Body mass index (BMI) Body weight Provider Name and Address Organization Details Last Updated DateTime 08/08/2024 154.94 cm 37.2 kg/m2 94150.7 g KAYLIA L'HEUREUX [facility] 08/08/2024 15:25:48 Social History None recorded. Functional Status None recorded. Mental Status None recorded. Family History Nothing Reported. Medical History No medical history recorded. Gynecological HistoryNo gynecological history recorded. Obstetrics History GPAL:G 0 P 0 0 0 0 Past Encounters Encounter ID Performer Location Encounter Start Date Encounter Closed Date Diagnosis/Indication Diagnosis SNOMED-CT Code Diagnosis ICD10 Code Diagnosis IMO Codes Diagnosis Note [id number] USMAN Mean [address] [place] [address] 01/28/2024 15:14:21 02/22/2024 14:03:08 Osteoarthritis of right knee joint 3589616455 39238 M17.11 Nature of the diagnosis discussed with [...] ve management versus total joint arthroplas ty. [id number] USMAN Mena [address] floor [address] [place] [address] 05/09/2024 10:24:00 06/06/2024 09:17:31 Osteoarthritis of right knee joint 0537929967 02001 M17.11 Nature of the diagnosis discussed with [...] visit. Synovial c yst of right knee 5397450240 52646 M71.21 [id number] USMAN Mena [address] [place] [address] 08/08/2024 15:16:20 09/04/2024 15:20:19 Osteoarthritis of right knee joint 4927234704 77541 M17.11 [id number] Reviewed patient's imaging and exam findings in [...] Concerns Section Related Observation LastModified by Organization Shubham rose LastModified Time None Recorded Concern Status LastModified by Organization Details LastModified Time None Recorded Advance Directives Directive None Recorded Payers Insurance Date Sequence Insurance Name Policy Number Policy Dooley Covered Member ID Dooley Member ID Guarantor Name 09/04/2024 1 [facility] () Lorena Briggs uyette [id number] Lorena Fairbanks [place] Notes Date Note Type Note Provider Name and Address Organization Details Recorded Time 01/28/2024 text/html ROS as noted in the HPI I am seeing the patient under the general supervision of Dr. Arteaga who was available but who did not see the patient. HPI: Patient presents today for recheck of right knee osteoarthritis. Is known to have arthritis treated conservatively with intermittent cortisone injections every 3 months as needed. No new injury or modalaties. Last injection(s) were 10/29/23 Shante Toribio PA-C [address], [place], [address], [facility] 01/28/2024 15:36:00 05/09/2024 text/html ROS as noted in the HPI I am seeing the patient under the [...] rupture. No calf swelling or palpable cords. LISA MenaC [address], [place], [address], [facility] 05/09/2024 10:45:39 08/08/2024 text/html ROS as noted in the HPI I am seeing the patient under the [...] films in 2021. Shante Toribio PA-C [address] [facility] [address], [place], [address], [place] [facility] 08/08/2024 15:58:33 OBGyn Episode No OBEpisode recorded.
--- OUTSIDE RECORDS SUMMARY | 2025-08-04 10:22 | XMS_ITS | Patient Health Record ---
Author Organization Gilmer Stubbs MD Address [address] [place], [place] [id number] Care Team Providers Care Data Consultant Name Role Phone Gilmer Stubbs Primary Care Provider [phone] Allergies Allergen (clinical drug ingredient) Drug/Non Drug Allergy documented on EMR Reaction Allergy Type Onset Date Status Penicillin rash hives Drug Allergy Activ e Results Component Value Reference Range Notes Occult Blood, Stool, Guaiac Reviewed date:03/12/2025 03:18:28 PM Interpretation:Negative Performing Lab: Notes/Report: Negative Occult Blood, Stool, Guaiac Neg Liver Panel Reviewed date:08/29/2024 12:41:50 PM Interpretation: Performing Lab:[facility], [address] [place] [phone] Notes/Report: Bilirubin Total 0.3 0.0-1.0 mg/dL Bilirubin Direct 0.1 0.0-0.5 mg/dL Aspartate Amino Transferase 26 5-31 U/L Alanine Aminotransferase 31 0-31 U/L Total Protein 7.1 6.5-8.0 g/dL Albumin Level 4.0 3.5-5.0 g/dL Alkaline Phosphatase 97 39-117 U/L Lipid Panel with Reflex Reviewed date:08/29/2024 12:41:41 PM Interpretation: Performing Lab:[facility], [address] [place] [phone] Notes/Report: Triglycerides 63 <150 mg/dL Desirable Triglyceride: less than 150 mg/dL Borderline High Triglyceride 150-199 mg/dL High Triglyceride: 200-499 mg/dL Very High Triglyceride: greater than or equal to 5OO mg/dL Cholesterol 167 <200 mg/dL Desirable Cholesterol: less than 200 mg/dL Borderline High Cholesterol: 200-239 mg/dL High Cholesterol: greater than 239 mg/dL LDL Cholesterol Calculated 106 <100 mg/dL Desirable LDL: less than 100 mg/dL Near Optimal/Above Optimal LDL: 110-129 mg/dL Borderline High LDL: 130-159 mg/dL High LDL: 160-189 mg/dL Very High LDL: greater than or equal to 190 mg/dL HDL Cholesterol 49 >40 mg/dL Desirable HDL: greater than 40 mg/dL Note: This HDL assay may give artificially low results in patients with liver disease. XR chest 2V Reviewed date:02/26/2025 12:28:03 PM Interpretation: Performing Lab: Notes/Report: [facility] [address] [place] [address] XRay Report Signed Patient: Darron Villarreal MR#: [id number] : 1960 Acct:[id number] Age/Sex: 64 / F ADM Date: 02/22/25 Loc: HO.HMGCX Attending Dr: Linden Sanchez PA-C Ordering Physician: LINDEN SANCHEZ Date of Service: 02/22/25 Procedure(s): XR chest 2V Accession Number(s): [id number] cc: Gilmer Stubbs MD; LINDEN SANCHEZ EXAMINATION: XR CHEST CLINICAL INFORMATION: R05.9 - Cough, unspecified COMPARISON: March 19 2024 TECHNIQUE: 2 views of the chest were obtained. FINDINGS: Heart size is within normal limits. Stable linear density projects up from the AP window/hilum into the left lung. It is unchanged from March 19, 2024 and probably represents subsegmental atelectasis or scarring. Lungs are clear otherwise. No pleural effusion is evident. Bony structures are unremarkable. XR/XR chest 2V IMPRESSION: Probable short linear scarring or atelectasis projecting up from the left hilar region. Electronically signed by: Martell Aguilar MD 02/22/2025 01:39 PM EDT RP Dictated By: Martell Aguilar MD Signed By: <Electronically signed by Martell Aguilar MD in OV> 02/22/25 1339 DD/ 1305 TD/TT: 02/22/25 1310 Conservation Worker: [facility] [address] [place] [address] [place] [address] XRay Report Signed Patient: Darron Villarreal MR#: [id number] : 1960 Acct:[id number] Age/Sex: 64 / F ADM Date: 02/22/25 Loc: HO.HMGCX Attending Dr: Akiko Sanchez PA-C Ordering Physician: LINDEN SANCHEZ Date of Service: 02/22/25 Procedure(s): XR herb st 2V Accession Number(s): [id number] cc: Gilmer Stubbs MD; LINDEN SANCHEZ EXAMINATION: XR CHEST CLINICAL INFORMATION: R05.9 - Cough, unspecified COMPARISON: March 19 2024 TECHNIQUE: 2 views of the chest were obtained. FINDINGS: Heart size is within normal limits. Stable linear densit y projects up from the AP window/hilum into the left lung. It is unchanged from March 19, 2024 and probably represents subsegmental atelectasis or scarring. Lungs are clear otherwise. No pleural effusion is evident. Bony structures are unremarkable. XR/XR chest 2V IMPRESSION: Probable short linea r scarring or atelectasis projecting up from the left hilar region. Electronically cristhian d by: Martell Aguilar MD 02/22/2025 01:39 PM EDT RP Dictated By: Martell Aguilar MD Signed By: <Electronically signed by Martell Aguilar MD in OV> 02/22/25 1339 DD/ 1305 TD/TT: 02/22/25 1310 Conservation Worker: Complete Blood Count Auto Di ff Reviewed date:03/05/2025 04:35:05 PM Interpretation: Performing Lab:[facility], [address] [place] [phone] Notes/Report: White Blood Count 6.0 4.8-10.8 X10*3/uL Red Blood Count 4.29 4.20-5.50 X10*6/uL Hemoglobin 12.8 12.0-16.0 g/dl Hematocrit 38.9 37.0-47.0 % Mean Corpuscular Volume 90.7 80.0-98.0 fL Mean Corpuscular Hemoglobin 29.8 27.0-33.0 pg Mean Corpuscular HGB Conc 32.9 31.0-35.0 g/dl Red Cell Distribution Width 13.2 11.0-16.0 % Platelet Count 285 160-400 X10*3/uL Mean Platelet Volume 10.0 9.4-12.3 fL Neutrophils Percent Auto 83.1 45-73 % Imm Gran Pct Auto 0.7 0.0-0.4 % Lymphocytes Percent Auto 13.7 20-40 % Monocytes Percent Auto 2.2 2-11 % Eosinophils Percent Auto 0.0 0-4 % Basophils Percent Auto 0.3 0-2 % NRBC Pct Auto 0.0 0.0-0.2 /100WBC Neutrophils Absolute Auto 5.0 2.0-8.3 x10*3/u L Imm Gran Abs Auto 0.04 0.00-0.03 X10*3/uL Lymphocytes Absolute Auto 0.8 1.2-4.9 X10*3/u L Monocytes Absolute Auto 0.1 0.1-1.2 X10*3/uL Eosinophils Absolute Auto 0.0 0.0-0.4 X10*3/u L Basophils Absolute Auto 0.0 0.0-0.2 X10*3/uL NRBC Abs Auto 0.000 0.0-0.012 X10*3/uL Comprehensive [place]. Panel Fa st Reviewed date:03/04/2025 07:42:23 PM Interpretation: Performing Lab:[facility], [address] [place] [phone] Notes/Report: Sodium 141 135-145 mmol/L Potassium 4.1 3.3-5.1 mmol/L Chloride 108 96-108 mmol/L Carbon Dioxide 25 22-29 mmol/L Anion Gap 12 12-20 Blood Urea Nitrogen 16 9-16 mg/dL Creatinine 0.66 0.5-1.4 mg/dL Estimated Glomerular Filt Rate > 60 Chronic Kidney Disease: Estimated GFR < 60 mL/min/1.73m2 Severe Kidney Disease: Estimated GFR < 15 mL/min/1.73m2 Glucose Fasting 156 60-99 mg/dL A fasting glucose of 126 mg/dl or greater on more than one occasion is considered diagnostic of diabetes. Calcium 9.4 8.4-10.2 mg/dL Bilirubin Total 0.3 0.0-1.0 mg/dL Aspartate Amino Transferase 25 5-31 U/L Alanine Aminotransferase 36 0-31 U/L Total Protein 7.2 6.5-8.0 g/dL Albumin Level 4.2 3.5-5.0 g/dL Alkaline Phosphatase 104 39-117 U/L Lipid Panel Reviewed date:03/04/2025 07:35:10 PM Interpretation: Performing Lab:[facility], [address] [place] [phone] Notes/Report: Triglycerides 68 <150 mg/dL Desirable Triglyceride: less than 150 mg/dL Borderline High Triglyceride 150-199 mg/dL High Triglyceride: 200-499 mg/dL Very High Triglyceride: greater than or equal to 5OO mg/dL Cholesterol 169 <200 mg/dL Desirable Cholesterol: less than 200 mg/dL Borderline High Cholesterol: 200-239 mg/dL High Cholesterol: greater than 239 mg/dL LDL Cholesterol Calculated 111 <100 mg/dL Desirable LDL: less than 100 mg/dL Near Optimal/Above Optimal LDL: 110-129 mg/dL Borderline High LDL: 130-159 mg/dL High LDL: 160-189 mg/dL Very High LDL: greater than or equal to 190 mg/dL HDL Cholesterol 45 >40 mg/dL Desirable HDL: greater than 40 mg/dL Note: This HDL assay may give artificially low results in patients with liver disease. UA CC w/rflx Micro + Cult Reviewed date:03/04/2025 07:41:57 PM Interpretation: Performing Lab:[address] [phone] Notes/Report: Urine, Clean Catch Color Urine Yellow Appearance Urine Clear PH 6.0 5.0-9.0 Glucose Urine UA Negative Negative mg/dL Urine Blood Negative Negative Specific [place] - Urine 1.010 1.005-1.025 Urine Protein Negative Neg-Trace mg/dL Urine Ketones Negative Negative mg/dL Nitrite Urine Negative Negative Leukocyte Esterase Urine Negative Negative Respiratory Panel Reviewed date:05/01/2025 06:20:59 PM Interpretation: Performing Lab:[facility], [address] [place] [address], [place] [phone] Notes/Report: Adenovirus PCR Not Detected Not Detect. Bordetella pertussis PCR Not Detected Not Detect. Interpret results with caution. If B. pertussis is specifically suspected, additional testing using an alternate method is recommended. Bordetella parapertussis PCR Not Detected Not Detect. Chlamydia pneumoniae PCR Not Detected Not Detect. Coronavirus 229E PCR Not Detected Not Detect. Coronavirus HKU1 PCR Not Detected Not Detect. Coronavirus NL63 PCR Not Detected Not Detect. Coronavirus OC43 PCR Not Detected Not Detect. SARS-CoV-2 PCR Not Detected Not Detect. SARS-CoV-2 not detected by real-time RT-PCR. Note: If clinical suspicion for Sars-CoV-2 is high, continue to maintain precautions and consider repeat testing. Test results should be interpreted in the context of clinical findings and other laboratory data. Rare polymorphisms exist that could lead to false-negative or false-positive results. If results do not match the clinical findings, additional testing should be considered. Results reported to [facility]. This test has been authorized by the FDA under the Emergency Use Authorization (EUA) for use by authorized laboratories. Influenza A PCR Not Detected Not Detect. Influenza A H1 PCR Not Detected Not Detect. Influenza A H1-2009 PCR Not Detected Not Detect. Influenza A H3 PCR Not Detected Not Detect. Influenza B PCR Not Detected Not Detect. Human metapneumovirus PCR Not Detected Not Detect. Rhino/Enterovirus PCR Not Detected Not Detect. Mycoplasma pneumoniae PCR Not Detected Not Detect. Parainfluenza 1 PCR Not Detected Not Detect. Parainfluenza 2 PCR Not Detected Not Detect. Parainfluenza 3 PCR Not Detected Not Detect. Parainfluenza 4 PCR Not Detected Not Detect. RSV PCR Not Detected Not Detect. Resp Panel NA Note See Note All results must be correlated with clinical findings. Negative results should not be used as the sole basis for diagnosis, treatment, or other management decisions. A negative result does not exclude the possibility of viral or bacterial infection. Negative results may occur from the presence of sequence variants in the region targeted by the assay, the presence of inhibitors, an infection caused by an organism not detected by the panel, or lower respiratory tract infections that are not detected by a nasopharyngeal swab specimen. Test results may also be affected by concurrent antiviral/antibacteri al therapy or levels of organism in the specimen that are below the limit of detection for this test. This assay is performed by Multiplexed PCR, utilizing the [employer] Array. SARS-CoV2/FLU/RSV Reviewed date:05/15/2025 02:52:27 PM Interpretation: Performing Lab:[facility], [address] [place] [phone] Notes/Report: Influenza A PCR NEGATIVE Negative Influenza B PCR NEGATIVE Negative Resp Syncy Virus RNA Qual PCR NEGATIVE Negative SARS COV2 PCR INHOUSE NEGATIVE Negative All test results must be correlated with clinical findings. Negative results do not preclude SARS-CoV2, influenza A virus, influenza B virus and/or RSV infection and should not be used as the sole basis for treatment or other patient management decisions. Negative results must be combined with clinical observations, patient history, and epidemiological information. This test has not been evaluated for monitoring treatment of infection. This test has been authorized by the FDA under an Emergency Use Authorization (EUA) for use by authorized laboratories. Testing performed on the [employer] GeneXpert utilizing real-time RT-PCR. All SARS CoV2 and positive influenza A/B results are reported to [facility]. Reason For Referral Reason right knee pain emmanuel workman will be getting her records and x-ray report from [facility], We never saw her for her knee issue Diagnosis 1 Knee pain (M25.569) Referral Organization Gilmer Stubbs MD Referring Provider First Name Gilmer Referring Provider Last Name Enoc Referring Provider Speciality Internal edicine Referred Provider [facility] Referred Provider Specialty Orthopedic S urgery General Notes Traci Riley 0 10/26/2024 09:17:07 AM >patient is booking her own appt Referral Priority Routine Reason ASTHMA HAY FEVER Diagnosis 1 Asthma [...] RETURN CALL AT ALLERGY OFFICE, Astrid Whitfield Ann 07/05/2025 02:04:57 PM >MESSAGE LEFT WITH DARRON AGAIN, Astrid Whitfield 07/12/2025 08:02:46 AM >NOTE RECD FROM [facility], THEY HAVE CLOSED OUT REFERRAL DARRON HAS NOTE CONTACTED THEM, CLOSE OUR REFERRAL WELL Referral Priority Routine Medications Medication SIG (Take, Route, Frequency, Duration) Notes Start Date End Date Status Ipratropium-Albuterol 0.5-2.5 (3) MG/3ML USE 1 VIAL (3 ML) VIA NEBULIZER EVERY 6 TO 8 HOURS NEEDED FOR WHEEZING Active Albuterol Sulfate HFA 108 (90 Base) MCG/ACT 1 puff as needed Inhalation every 4 hrs 03/06/2024 Active Eliquis 5 mg TAKE 1 TABLET TWICE A DAY Active Symbicort 160-4.5 MCG/ACT 2 puffs Inhala tion twice a day 06/01/2025 Active Centrum - as directed Orally A ctive Gabapentin 300 MG 1 capsule Orally Onc e a day for 90 days 09/04/2024 Active Omeprazole 20 mg TAKE 1 CAPSULE DAILY 30 MINUTES BEFORE MORNING MEAL Active Atorvastatin Calcium 20 mg TAKE 1 TABLET DAILY Active Immunizations Vaccine Route Administration Date Status Comme nts Fluarix Quadrivalent Unknown 08/29/2018 Administered given at [facility],at work Fluarix Quadrivalent IM Intramuscular 07/13/2019 Administered PPSV23 (Pnemovax) IM Intramuscular 05/06/2020 Administered Fluarix Quadrivalent Unknown 07/22/2020 Administered Magnus Hull PFS Inj SARS-COV-2 Pfizer Unknown 12/03/2020 Administered SARS-COV-2 Pfizer Unknown 12/24/2020 Administered SARS-COV-2 Pfizer Unknown 06/29/2021 Administered Fluarix Quadrivalent Unknown 06/29/2021 Administered Shingrix Unknown 06/29/2021 Administered Shingrix Unknown 08/30/2021 Administered Fluarix Quadrivalent IM Intramuscular 09/07/2022 Administered Fluarix Quadrivalent - 150 IM Intramuscular 06/12/2024 Administered Influenza High Dose IM Intramuscular 06/11/2025 Administer ed Social History Tobacco Use: Social History Observation [...] Never (0 point) Points 1 Interpretation Negative Problems Problem Type SNOMED Code ICD Code Onset Dates Problem Status W/U Status Risk Notes Problem Acid reflux (092507012) Acid reflux (K21.9) Active confirmed Problem 314326660 Paroxysmal atrial fibrillation (I48.0) Active confirmed Problem 492917704 Essential tremor (G25.0) Active confirmed Problem 3621443292258 Tinnitus, bilateral (H93.13) Active confirmed Problem 145477336 Lumbar disc disease (M51.9) Active confirmed Problem Obstructive sleep apnea (16181974) Obstructive sleep apnea (G47.33) Active confirmed Problem Hay fever (95139492) Hay fever (J30.1) Active confirmed Problem 94689427 Reflux gastritis (K29.60) Active confirmed Problem Asthma (514815850) Asthma (J45.909) Active confirmed Problem 822502735 Elevated LDL cholesterol level (E78.00) Active confirmed Problem Atrial fibrillation (54106047) New onset atrial fibrillation (I48.91) Active confirmed Vital Signs Blood pressure diastolic 62 mm Hg 06/11/2025 Height 60 in 06/11/2025 Blood pressure systolic 130 mm Hg 06/11/2025 Weight 195 lbs 06/11/2025 BMI 38.08 kg/m2 06/11/2025 Encounters Encounter Location Date Provider Diagnosis Gilmer Stubbs MD [address] [place] [id number] 09/04/2024 Gilmer Stubbs Paroxysmal atrial fibrillation I48.0 ; Essential tremor G25.0 and Elevated LDL cholesterol level E78.00 Gilmer Stubbs MD [address] [id number] 10/06/2024 Gilmer Stubbs Paroxysmal atrial fibrillation I48.0 and Chronic cough R05.3 Gilmer Stubbs MD [address] [place] [address] [id number] 03/12/2025 Gilmer Stubbs Annual physical exam Z00.00 ; Elevated LDL cholesterol level E78.00 ; Paroxysmal atrial fibrillation I48.0 ; Obstructive sleep apnea G47.33 ; History of asthma Z87.09 ; Prediabetes R73.09 ; Acid reflux K21.9 ; Colon cancer screening Z12.11 and Depression screening Z13.31 Gilmer Stubbs MD [address] [place] [address] [id number] 06/01/2025 Gilmer Bombardier Asthma J45.909 Gilmer Stubbs MD [address] [place] [address] [address] [id number] 06/04/2025 Gilmer Bombardier Asthma J45.909 and H ay fever J30.1 Gilmer Stubbs MD [address] [place] [address] [id number] 06/11/2025 Gilmer Georgeardier Asthma J45.909 and Encounter for administration of vaccine Z23 Gilmer Stubbs MD [address] [place] [address] [address] [id number] 10/13/2024 Gilmer Stubbs Essential tremor G25 .0 Assessments Encounter Date Diagnosis (ICD Code) Assessment Notes Treatment Notes Treatment Clinical Notes Section Notes 09/04/2024 Paroxysmal atrial fibrillation (ICD-10 - I48.0) 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 she is inclined to take it. is seeing bond trader in oct, will continue current regiment 09/04/2024 Essential tremor (ICD-10 - G25.0) patient verbalized understanding of medication and directions for use 10/06/2024 Paroxysmal atrial fibrillation (ICD-10 - I48.0) doing great with no afib. discussed the risks of not taking anticoagulants even though she had a blation 10/06/2024 Chronic cough (ICD-10 - R05.3) to try a humidifierr 03/12/2025 Annual physical exam (ICD-10 - Z00.00) labs reviewed and discussed ith patient 03/12/2025 Elevated LDL cholesterol level (ICD-10 - E78.00) not high enough to treat, will continue to monitor 06/01/2025 Asthma (ICD-10 - J45.909) patient verbalized understanding of medicatio and directions for uise 06/04/2025 Asthma (ICD-10 - J45.909) doing much better. have given her instrucctions and explained the preventive meds/ REFERRAL FAXED TO DR GILLETTE OFFICE 06/04/2025 Hay fever (ICD-10 - J30.1) will refer her to dr bass 06/11/2025 Asthma (ICD-10 - J45.909) doing great on present 06/11/2025 Encounter for administration of vaccine (ICD-10 - Z23) HD flu vaccine administered 10/13/2024 Essential tremor (ICD-10 - G25.0) 09/04/2024 Elevated LDL cholesterol level (ICD-10 - E78.00) stable, will continue current regiment 03/12/2025 Paroxysmal atrial fibrillation (ICD-10 - I48.0) [...] - Z13.31) negative screen Plan Of Treatment Pending Test Test Name Order Date XR CHEST 2 VIEW PA & LAT 08/29/2020 XR GI SERIES 09/02/2021 MM tomosynthesis screening BI 02/24/2021 XR DEXA axial skeleton 02/24/2021 Future Test Test Name Order Date XR CHEST 2 VIEW PA & LAT 03/03/2021 Next Appt Details Provider Name:Gilmer Abarca ier, 09/04/2025 07:45:00 AM, [address] [place] [address], [address], [place], [place], [phone], Provider Name:Gilmer Abarca ier, 09/10/2025 03:00:00 PM, [address] [place] [address], [address], [place], [place], [phone], Provider Name:Gilmer Abarca ier, 03/05/2026 07:15:00 AM, [address] [place] [address], Suite [facility], [place], [place], [phone], Provider Name:Gilmer Abarca ier, 03/15/2026 11:00:00 AM, [address] [place] [address], Suite [facility], [place], [place], [phone], Insurance Providers Payer Name Payer Address Payer Phone Subscriber Number Group Number Insured Name Patient Relationship to Insured Coverage Start Date Coverage End Date MEDICARE [employer] [address] [place] [address] [id number] DARRON MCKEON Self - patient is the insured [facility] [id number] [place] [id number] DARRON MCKEON Self - patient is the insured Medical (General) History Medical History History ICD Code colonoscopy 2015 due in 10 years. afib with CHADSVASC SCORE ONLY 1
--- OUTSIDE RECORDS SUMMARY | 2025-08-04 10:23 | XMS_ITS | Clinical Summary ---
Author Organization [address] [facility] Address [address] [place] [address] Phone Care Team Providers Care Supervisor Drying And Winding Name Role Phone Physician, Pcp Unknown Primary [...] of total hip arthroplasty, right 025 A-fib ([facility] V24, [facility] V28) 12/20/2024 Social History Tobacco Use Types [...] Last Done Comments Breast Cancer Screening 1960 Colorectal Cancer Screening: Colonoscopy 1960 DTaP,Tdap,and Td Vaccines (1 - Tdap) 1979 Cervical Cancer Screening: Pap Smear 1981 Pneumococcal Vaccine: 50+ Years (2 of 2 - PCV) 05/06/2021 05/06/2020 Depression Screening 09/20/2024 Cholesterol Screening (Lipid Panel) 11/06/2024 Hepatitis C Screening 11/06/2024 Osteoporosis Screening [...] to complete this topic Insurance Care Teams Supervisor Drying And Winding Relationship Specialty Start Date End Date Physician, Pcp Unknown PCP - General 12/20/24
== END 2025-08-04 09:48 | disposition home or self-care (01) ==
LOC: HO.MAMMO 09:47
PROVIDERS: PCP Internal Medicine; Visit Provider Internal Medicine
DX: Z12.31 Encounter for screening mammogram for malignant neoplasm of breast (principal)
CPT/HCPCS: 77063; 77067

== ENCOUNTER → 2025-08-04 10:00 | Outpatient (BNV) | payer OTHER, MEDICARE, SELFPAY | PROVIDERS: PCP Internal Medicine; Visit Provider Radiology Body Imaging | DX: Z12.31 Encounter for screening mammogram for malignant neoplasm of breast (principal) | CPT/HCPCS: 77063; 77067 ==

== ENCOUNTER 2025-09-01 07:46 | Outpatient (REF) | payer MEDICARE, OTHER, SELFPAY ==
--- OUTSIDE RECORDS SUMMARY | 2025-09-01 07:52 | XMS_ITS | Data Portability ---
Author Organization [facility] Percy Chavarria Prdrake [facility]geons [facility], [facility] Address [address] [place] [address] Care Team Providers Care Cloth Measurer Machine Name Role Phone YARELIS TRONCOSO Primary Care [...] [phone] benjy Montero Office, [address] [facility], [facility] [address], [place], [address], 4 09:21:27 Medication Orders None recorded. Patient TargetsNo targets recorded. Patient Instructions Encounter Date Encounter Id Patient Instructions Last Modified By Organization Details Last Modified Time 01/28/2024 [id number] You have been provided with a cortisone [...] a4ajBk vP9nXo QUaueC m3YtLR FvZlgJ JJ8mAn HZtai3 7m7610 AC0Kqa X%2BEW auiKiQ trMwF INTERFACE [facility] Office [address] [facility] [address], [place], [address], 08/08/2024 15:39:04 08/08/20 24 08/08/2024 XR, knee, 4 or more view http:/ [email or web address] ?Encry pted=s hAaTro YD8dLq bEUv6g %2BXZw aYqtaq 0bqfl% 2Fg9IQ a4ajBk vP9nXo QUaueC m3YtLR FvZlgJ JJ8mAn HZtai3 3u2436 AC0Kqa X%2BEW auiKiQ trMwF INTERFACE [facility] [address] [facility] [address], [place], [address], 08/08/2024 15:39:07 10/31/19 25 10/31/2024 XR, foot, 3 or more view No observ ation record ed. BARCODE Not Available 2024 16:09:12 11/01/19 25 10/31/2024 XR, foot, 3 or more view No observ ation record ed. BARCODE Not Available 2024 11:18:58 Result Notes Documentation Provider Name and Address Organization Details Recorded Time Xr, Knee, 4 Or More View : [email or web address]? Encrypted=vtZcTgoMZ8bCcnO Uv6g%1OLGfoStyoe9oylw%2Fg 6LXd6wlZhpH4oXeUPsndLp2Gn SVLuMvpRVY2yZqLFcgj24n963 9YR4RyzH%2BEWauiKiQtrMwF Not Available [facility] 08/08/2024 15:3 9:06 Xr, Knee, 4 Or More View : [email or web address]? Encrypted=nrApZyxSN6zEbuY Uv6g%8EYHngIrjon6nngq%2Fg 8WFj6tcLtbU5qNrAArteTu2Gv BVRjGjgTYE8eJrLJkey71c654 6DE8DpiB%2BEWauiKiQtrMwF Not Available [facility] 08/08/2024 15:3 9:08 Problems Name Problem SNOMED Code Status Onset Date Resolution Date Notes Provider Name and Address Organization Details Recorded Time Osteoarthri tis of right knee joint 2656054289691 00 Active 2023 Shante Toribio PA-C [address], [place], [address], [facility] 10:20:15 Problem Notes None recorded. Procedures Surgical History Date Name Laterality Status Provider Name and Address Organization Details Recorded Time 08/08/2024 Sports Knee 4&1 completed VIRA Mena-C [address], [place], [address], [facility] 08/08/2024 15:04:26 05/09/2024 Sports Knee 4&1 completed Shante Toribio PA-C [address], [place], [address], [facility] 05/08/2024 11:28:24 01/28/2024 Sports Knee 4&1 completed Shante Toribio PA-C [address], [place], [address], [facility] 01/26/2024 10:20:05 Imaging Results None recorded. Procedure Notes None recorded. Medical Equipment None Reported. Allergies Allergen ID Allergen Name Allergen Category Reaction Reaction Severity Criticality Documentation Date Start Date Code Code System Note Provider Name and Address Organization Details Recorded Time 84829 Product containin g penicilli n (product) medicatio n Not available Not available Not available 11/22/20232021 37574 8001 SNOMED Not Available [facility] 12:19:56 Medications Name Sig Start Date [...] Updated DateTime 01/28/2024 154.94 cm ASHOK AYDEN [facility] 01/28/2024 15:20:42 Date Recorded Body height Provider Name an d Address Organization Details Last Updated DateTime 05/09/2024 154.94 cm DEJAH RICHARDSONNikolai [facility] 05/09/2024 10:28:47 Date Recorded Body height Body mass index (BMI) Body weight Provider Name and Address Organization Details Last Updated DateTime 08/08/2024 154.94 cm 37.2 kg/m2 24144.7 g KAYLIA L'HEUREUX [facility] 08/08/2024 15:25:48 Social History None [...] ICD10 Code Diagnosis IMO Codes Diagnosis Note [id number] USMAN Mena [address] [place] [address] 01/28/2024 15:14:21 02/22/2024 14:03:08 Osteoarthritis of right knee joint [id number] 91017 M17.11 Nature of the diagnosis discussed with [...] ve management versus total joint arthroplas ty. [id number] USMAN Mena [address] floor [address] [place] [address] 05/09/2024 10:24:00 06/06/2024 09:17:31 Osteoarthritis of right knee joint 9247429125 85356 M17.11 Nature of the diagnosis discussed with [...] visit. Synovial c yst of right knee 3399607416 34038 M71.21 [id number] USMAN Mena [address] [place] [address] 08/08/2024 15:16:20 09/04/2024 15:20:19 Osteoarthritis of right knee joint 1207896219 08972 M17.11 [id number] Reviewed patient's imaging and exam findings in [...] Dooley Member ID Guarantor Name 09/04/2024 1 [facility] () Lorena Briggs uyette [id number] Lorena Fairbanks [place] Notes Date Note Type [...] injection(s) were 10/29/23 Shante Toribio PA-C [address], [place], [address], [facility] 01/28/2024 15:36:00 05/09/2024 text/html ROS as noted [...] swelling or palpable cords. LISA MenaC [address], [place], [address], [facility] 05/09/2024 10:45:39 08/08/2024 text/html ROS as noted [...] films in 2021. Shante Toribio PA-C [address] [facility] [address], [place], [address], [place] [facility] 08/08/2024 15:58:33 OBGyn Episode No OBEpisode recorded.
--- OUTSIDE RECORDS SUMMARY | 2025-09-01 07:52 | XMS_ITS | Clinical Summary ---
Author Organization [address] [facility] Address [address] [place] [address] Phone Care Team Providers Care Nurse Advocate Name Role Phone Physician, Pcp Unknown Primary [...] of total hip arthroplasty, right 025 A-fib 12/20/2024 Social History Tobacco Use Types Packs/Day Years Used Date Smoking Tobacco: Never Assessed Comments Unknown Sex and Gender Information Value Date Recorded Sex Assigned at Not on file Legal Sex Female 1:35 AM EST Gender Identity Not on file Sexual Orientation Not on file Last Filed Vital Signs Vital Sign Reading [...] patient's age to complete this topic Insurance [facility] Care Teams Nurse Advocate Relationship Specialty Start Date End Date Physician, Pcp Unknown PCP - General 12/20/24
[2025-09-01 11:03] LABS: Alanine Aminotransferase 29 U/L (0-31); Albumin Level 4.2 g/dL (3.5-5.0); Alkaline Phosphatase 106 U/L (39-117); Aspartate Amino Transferase 26 U/L (5-31); Cholesterol 169 mg/dL (<200); HDL Cholesterol 42 mg/dL (>40); Total Protein 7.1 g/dL (6.5-8.0); Triglycerides 94 mg/dL (<150)
[2025-09-01 11:20] LABS: Reflex LDLD? No
== END 2025-09-01 07:47 | disposition home or self-care (01) ==
LOC: HO.LAB 07:46
PROVIDERS: PCP Internal Medicine; Visit Provider Internal Medicine
DX: E78.00 Pure hypercholesterolemia, unspecified (principal)
CPT/HCPCS: 36415; 80061; 80076